=== PATIENT | male | born 1955 | race Hispanic/Latino ===

== ENCOUNTER 2017-04-30 15:26 | Inpatient (IN) | payer MEDICARE, OTHER ==
[2017-04-30] MEDS ORDERED: Sodium Chloride 0.9% 500 ML IV STA (15:56)
--- NOTE | 2017-04-30 16:15 | ED PDOC ---
Arrival/HPI - General Chief Complaint: Headache Time Seen by Provider: 04/30/17 15:31 Historian: Patient - History of Present Illness Narrative History of Present Illness (Text): 04/30/17 16:18 A 61 year old male, whose past medical history includes Diabetes, hypertension, reflex sympathetic dystrophy, major depression, chronic pain, chronic Opioid use and neck fusion, presents to the emergency department complaining of a headache and shortness of breath for the past 2 weeks. Patient also notes multiple falls and high blood pressure. Patient reports he saw Dr. Lagunas last week. Reports Dr. Pepe told patient to come to the emergency department. He states he has been taking ibuprofen. Patient notes a cough but denies abdominal pain, vomiting, chest pain, burning urination or any other complaints at this time. PMD: Dr. Pepe Neurologist: Dr. Lagunas Time/Duration: Other (2 weeks) Symptom Onset: Sudden Symptom Course: Unchanged Activities at Onset: Rest Context: Home Past Medical History - Provider Review Nursing Documentation Reviewed: Yes - Infectious Disease Hx of Infectious Diseases: None - Tetanus Immunization Tetanus Immunization: Unknown - Cardiac Hx Hypertension: Yes - Pulmonary Hx Respiratory Disorders: Yes Hx Pneumonia: Yes (20 years ago) - Neurological Other/Comment: RSD - HEENT Hx HEENT Disorder: No - Renal Hx Renal Disorder: No - Endocrine/Metabolic Hx Diabetes Mellitus Type 2: Yes - Hematological/Oncological Hx Blood Disorders: No - Integumentary Hx Dermatological Disorder: No - Musculoskeletal/Rheumatological Hx Degenerative Joint Disease: Yes Hx Falls: Yes Hx Unsteady Gait: Yes Other/Comment: RSD - Gastrointestinal Hx Gastrointestinal Disorders: No - Genitourinary/Gynecological Hx Genitourinary Disorders: No - Psychiatric Hx Psychophysiologic Disorder: Yes Hx Anxiety: Yes Hx Depression: Yes Hx Emotional Abuse: No Hx Physical Abuse: No Hx Substance Use: No - Surgical History Hx Orthopedic Surgery: Yes (neck, shoulder, left leg) - Anesthesia Hx Anesthesia Reactions: No Hx Malignant Hyperthermia: No - Suicidal Assessment Feels Threatened In Home Enviroment: No Family/Social History - Physician Review Nursing Documentation Reviewed: Yes Family/Social History: No Known Family HX Smoking Status: Current Some Days Smoker Hx Alcohol Use: No Hx Substance Use: No Hx Substance Use Treatment: No Allergies/Home Meds Allergies/Adverse Reactions: Allergies aspirin Allergy (Verified 10/28/16 17:56) REDNESS morphine Adverse Reaction (Verified 10/28/16 17:56) ITCHING Home Medications: Home Meds Medication Instructions Recorded Confirmed Acetaminophen/Oxycodone Hydr 1 tab PO PRN PRN 07/16/16 10/28/16 [Percocet 10/325 mg Tab] Duloxetine HCl [Cymbalta] 30 mg PO TID 07/16/16 10/28/16 Furosemide [Lasix] 40 mg PO DAILY 07/16/16 10/28/16 Ibuprofen [Motrin Tab] 800 mg PO PRN PRN 07/16/16 10/28/16 LORazepam [Ativan] 1 mg PO BID 07/16/16 10/28/16 Levetiracetam [Spritam] 1,000 mg PO BID 07/16/16 10/28/16 Metoprolol Tartrate [Lopressor] 25 mg PO BID 07/16/16 10/28/16 Pregabalin [Lyrica] 200 mg PO TID 07/16/16 10/28/16 Temazepam 30 mg PO HS 07/16/16 10/28/16 amLODIPine [Norvasc] 40 mg PO DAILY 07/16/16 10/28/16 tiZANidine [Zanaflex] 4 mg PO BID 07/16/16 10/28/16 Review of Systems - Physician Review All systems were reviewed & negative as marked: Yes - Review of Systems Constitutional: absent: Fevers Eyes: absent: Vision Changes ENT: Normal Respiratory: SOB, Cough (dry) Cardiovascular: absent: Chest Pain Gastrointestinal: absent: Abdominal Pain, Vomiting Genitourinary Male: absent: Other (burning urination) Neurological: Headache. absent: Focal Weakness (no new focal weakness) Physical Exam Vital Signs Reviewed: Yes Vital Signs Temp Pulse Resp BP Pulse Ox 04/30/17 17:32 87 18 131/79 97 04/30/17 16:32 97 H 18 134/85 100 04/30/17 15:36 99.2 F 84 20 138/88 100 Temperature: Afebrile Blood Pressure: Normal Pulse: Regular Respiratory Rate: Tachypneic Appearance: Positive for: Non-Toxic Pain Distress: None Mental Status: Positive for: Alert and Oriented X 3, other (anxious) - Systems Exam Head: Present: Atraumatic, Normocephalic Pupils: Present: PERRL Extroacular Muscles: Present: EOMI Conjunctiva: Present: Normal Mouth: Present: Moist Mucous Membranes Pharnyx: Present: Normal. No: ERYTHEMA, EXUDATE, Uvular Deviation Neck: Present: Normal Range of Motion Respiratory/Chest: Present: Clear to Auscultation, Good Air Exchange. No: Respiratory Distress, Accessory Muscle Use Cardiovascular: Present: Regular Rate and Rhythm, Normal S1, S2. No: Murmurs Abdomen: Present: Normal Bowel Sounds. No: Tenderness, Distention, Peritoneal Signs Back: Present: Normal Inspection Upper Extremity: Present: Normal Inspection. No: Cyanosis, Edema Lower Extremity: Present: Normal Inspection. No: Edema Neurological: Present: GCS=15, CN II-XII Intact, Speech Normal Skin: Present: Warm, Dry, Normal Color. No: Rashes Psychiatric: Present: Alert, Oriented x 3, Normal Concentration, Anxious Medical Decision Making ED Course and Treatment: 04/30/17 16:12 Impression: A 61 year old male with a headache, cough and shortness of breath. Differential: shortness of breath and cough: anxiety vs. bronchitis vs. pneumonia vs. pulmonary embolism vs. ACS headache: tension headache vs. mass Plan: -- CT brain -- EKG -- chest xray -- labs -- Urinalysis -- Toradol, IV fluids, Reglan, Klonopin -- Reassess and disposition Prior Visits: Notes and results from previous visits were reviewed. Patient last reported to the emergency department on 10/28/16 for evaluation of right hand pain and swelling after mechanical fall. Patient admitted for infection of hand. Patient discharged 11/01/16. Progress Notes: CT HEAD WITHOUT CONTRAST Creator : Jefry Benavides 04/30/2017 18:19 IMPRESSION: No evidence of acute intracranial hemorrhage. No evidence of significant interval change since the previous study dated 03/28/2016. 04/30/17 18:59 Patient with noted history; he has multiple risk factors for ACS and EKG with changes as noted. Given clonazepam for possible anxiety without relief. CXR is unremarkable. Labs with normal d-dimer but indeterminate trop - will need to place on observation on tele for concern for ACS. Case discussed with Dr. Hurley. - Lab Interpretations Lab Results: 04/30/17 16:00 04/30/17 16:00 Lab Results 04/30/17 16:00: Urine Color Yellow, Urine Appearance Clear, Urine pH 7.5, Ur Specific Ber[place] 1.010, Urine Protein Negative, Urine Glucose (UA) Negative, Urine Ketones Negative, Urine Blood Moderate H, Urine Nitrate Negative, Urine Bilirubin Negative, Urine Urobilinogen 0.2, Ur Leukocyte Esterase Negative, Urine RBC 2 - 5, Urine WBC 0 - 2, Ur Epithelial Cells 0 - 2, Urine Bacteria Mod 04/30/17 16:00: Sodium 141, Potassium 3.5 L, Chloride 103, Carbon Dioxide 22, Anion Gap 20, BUN 19, Creatinine 1.0, Est GFR ( Amer) > 60, Est GFR (Non- Af Amer) > 60, Random Glucose 127 H, Calcium 10.3, Total Bilirubin 1.4 H, AST 37 , ALT 38, Alkaline Phosphatase 88, Lactate Dehydrogenase 635, Total Creatine Kinase 316 H, CK-MB (CK-2) 4.2 H, CK-MB (CK-2) % Cancelled, Troponin I 0.06 D, NT-Pro-B Natriuret Pep 427, Total Protein 8.4 H, Albumin 4.7, Globulin 3.6, Albumin/Globulin Ratio 1.3, Lipase 53 04/30/17 16:00: PT 14.2 H, INR 1.31 H, APTT 32.7 H, D-Dimer, Quantitative 0.38 04/30/17 16:00: WBC 7.6, RBC 5.54, Hgb 16.8, Hct 47.1, MCV 85.0, MCH 30.3, MCHC 35.7, RDW 13.0, Plt Count 138, Gran % 57.5, Lymph % (Auto) 32.3, [place] % (Auto) 8.6 H, Eos % (Auto) 0.7 L, Baso % (Auto) 0.9, Gran # 4.37, Lymph # 2.5, [place] # 0.7 H, Eos # 0.1, Baso # 0.07 I have reviewed the lab results: Yes - RAD Interpretation Narrative RAD Interpretations (Text): 04/30/17 19:06 CXR: nad Radiology Orders: 04/30/17 15:52 CHEST TWO VIEWS (PA/LAT) [RAD] Stat 04/30/17 15:55 Brain [HEAD W/O CONTRAST] [CT] Stat - EKG Interpretation EKG Interpretation (Text): 04/30/17 19:06 NSR @ 84 with poor R wave progression c/w previous; QRS is 106; normal axis. Interpreted by ED Physician: Yes Type: 12 lead EKG - Medication Orders Current Medication Orders: Discontinued Medications Clonazepam (Klonopin) 1 mg PO STAT STA PRN Reason: Protocol Stop: 04/30/17 15:57 Last Admin: 04/30/17 16:27 Dose: 1 mg Sodium Chloride (Sodium Chloride 0.9%) 500 mls @ 999 mls/hr IV .Q31M STA Stop: 04/30/17 16:26 Last Admin: 04/30/17 16:28 Dose: 999 mls/hr Ketorolac Tromethamine (Toradol) 30 mg IVP STAT STA Stop: 04/30/17 15:57 Last Admin: 04/30/17 16:27 Dose: 30 mg Re-Assess: JESU Pain Assessment Document 04/30/17 17:27 HI (Rec: 04/30/17 17:30 HI [facility] [id number]) Pain Reassessment Is this a pain reassessment? Yes Sleep Is patient sleeping during reassessment? No Presence of Pain Presence of Pain No Metoclopramide HCl (Reglan) 10 mg IVP STAT STA Stop: 04/30/17 15:57 Last Admin: 04/30/17 16:28 Dose: 10 mg Potassium Chloride (Potassium Chloride Oral Soln) 40 meq PO STAT STA Stop: 04/30/17 17:08 Last Admin: 04/30/17 17:30 Dose: 40 meq - Scribe Statement The provider has reviewed the documentation as recorded by the Duc Elmore Provider Scribe Attestation: All medical record entries made by the Duc were at my direction and personally dictated by me. I have reviewed the chart and agree that the record accurately reflects my personal performance of the history, physical exam, medical decision making, and the department course for this patient. I have also personally directed, reviewed, and agree with the discharge instructions and disposition. Disposition/Present on Arrival - Present on Arrival Any Indicators Present on Arrival: No History of DVT/PE: No History of Uncontrolled Diabetes: No Urinary Catheter: No History of Decub. Ulcer: No History Surgical Site Infection Following: None - Disposition Have Diagnosis and Disposition been Completed?: Yes Diagnosis: Dyspnea Disposition: HOSPITALIZED Disposition Time: 18:50 Patient Plan: Observation, Telemetry Condition: FAIR Referrals: Morales Pepe MD [Primary Care Provider] - Follow up with primary
[2017-04-30 16:37] LABS: ADD MANUAL DIFF? NO
[2017-04-30 16:50] LABS: ALB/GLOB RATIO 1.3 (1.1-1.8); ALKALINE PHOSPHATASE 88 U/L (38-133); ALT/SGPT 38 U/L (7-56); AST/SGOT 37 U/L (15-59); BILIRUBIN,TOTAL 1.4 mg/dL (0.2-1.3); BLOOD UREA NITROGEN 19 mg/dL (7-21); CALCIUM 10.3 mg/dL (8.4-10.5); CARBON DIOXIDE 22 mmol/L (21-33); CHLORIDE 103 mmol/L (98-107); GFR AFRICAN-AMERICAN > 60; GLUCOSE,RANDOM 127 mg/dL (70-110); LIPASE 53 U/L (23-300); POTASSIUM 3.5 mmol/L (3.6-5.0); SODIUM 141 mmol/L (132-148); TOTAL PROTEIN 8.4 g/dL (5.8-8.3)
[2017-04-30 16:54] LABS: BASO # 0.07 K/mm3 (0.0-2.0); BASO % 0.9 % (0.0-3.0); EOS # 0.1 (0.0-0.7); EOS % 0.7 % (1.5-5.0); GRAN # 4.37 (1.4-6.5); GRAN % 57.5 % (50.0-68.0); HEMATOCRIT 47.1 % (42.0-52.0); LYMPH # 2.5 (1.2-3.4); LYMPH % 32.3 % (22.0-35.0); MEAN CORPUSCULAR HEMOGLOBIN 30.3 pg (25.0-35.0); MEAN CORPUSCULAR HGB CONC 35.7 g/dl (31.0-37.0); MONO # 0.7 (0.1-0.6); MONO % 8.6 % (1.0-6.0); PH,URINE 7.5 (4.7-8.0); PLATELET COUNT 138 10^3/uL (120.0-450.0); URINE BILIRUBIN NEGATIVE (NEGATIVE); URINE BLOOD MODERATE (NEGATIVE); URINE GLUCOSE (UA) NEGATIVE (NEGATIVE); URINE KETONE NEGATIVE (NEGATIVE); URINE LEUKOCYTE ESTERASE NEGATIVE Leu/uL (NEGATIVE); URINE PROTEIN NEGATIVE mg/dL (<30 mg/dL); URINE UROBILINOGEN 0.2 E.U./dL (<1 E.U./dL); WHITE BLOOD COUNT 7.6 10^3/ul (4.5-11.0)
[2017-04-30 16:57] LABS: URINE APPEARANCE CLEAR (CLEAR); URINE COLOR YELLOW (YELLOW)
[2017-04-30 17:01] LABS: TROPONIN I 0.06 ng/mL
[2017-04-30 17:03] LABS: INR 1.31 (0.93-1.08); PARTIAL THROMBOPLASTIN TIME 32.7 Seconds (23.7-30.8)
[2017-04-30 17:05] LABS: D DIMER 0.38 mg/L FEU (0-0.50)
[2017-04-30] MEDS ORDERED: Potassium Chloride 40 mEq/30 ml LIQ UD PO STA (17:07)
[2017-04-30 17:43] LABS: URINE EPITHELIAL CELLS 0 - 2 /hpf (0-5); URINE WBC 0 - 2 /hpf (0-6)
[2017-04-30 17:44] LABS: URINE BACTERIA MOD (NEG)
--- NOTE | 2017-04-30 18:16 | CT ---
PROCEDURE: CT HEAD WITHOUT CONTRAST. HISTORY: headache COMPARISON: Comparison is made to the previous study dated 03/28/2016 TECHNIQUE: Axial computed tomography images were obtained through the head/brain without intravenous contrast. Radiation dose: Total exam DLP = 363.32 mGy-cm. This CT exam was performed using one or more of the following dose reduction techniques: Automated exposure control, adjustment of the mA and/or kV according to patient size, and/or use of iterative reconstruction technique. FINDINGS: HEMORRHAGE: No intracranial hemorrhage. BRAIN: No mass effect or edema. Mild fatty is again noted. VENTRICLES: Unremarkable. No hydrocephalus. CALVARIUM: Unremarkable. PARANASAL SINUSES: Unremarkable as visualized. No significant inflammatory changes. MASTOID AIR CELLS: Unremarkable as visualized. No inflammatory changes. OTHER FINDINGS: None. IMPRESSION: No evidence of acute intracranial hemorrhage. No evidence of significant interval change since the previous study dated 03/28/2016.
[2017-04-30] MEDS ORDERED: Sodium Chloride 0.9% 1,000 ML IV SCH (19:45)
--- NOTE | 2017-04-30 19:51 | CP.PCM.HP ---
<Davon Sanchez - Last Filed: 04/30/17 21:07> History of Present Illness - History of Present Illness History of Present Illness: CC: SOB This patient is a 61yo M w/ a PMHx of DMII not on meds, HTN, reflex sympathetic dystrophy, major depression, chronic pain, chronic Opoid use and neck fusion states he has been having SOB for the past 2.5 weeks. He states he went to his doctor today who told him to come into the hospital. He denies any fever/chills , or sputum production, ROSS, CP, abdominal joni, N/V/D, dysuria/freq/urg, or lower extremity swelling. Patient has chronic lower leg pain and spontaneous arm and leg movements due to his reflex sympathetic dystrophy. States he has not traveled recently and is normally stuck in the house by himself most of the time. Admits to feeling depressed, no thoughts of hurting himself or others and no plan to hurt himself and states explicitly that he feels better off alive. denies AV hallucinations, but states he frequently talks to himself because he is extremely lonely. PMhx: DMII not on meds, HTN, reflex sympathetic dystrophy, major depression, chronic pain, chronic Opoid use and neck fusion Allergies: Aspirin, Morphine, although taking oxy??? Social: Lives at home with son/ who visits infrequently; denies EtOH/Drugs/ smoking Surgeries: mutiple orthopedic fusions, no abdominal surgeries Meds: please refer to [facility] FamHx: grandfather with lung cancer heavy smoker, uncle with lung cancer as well and a smoker Present on Admission - Present on Admission Any Indicators Present on Admission: No History of DVT/PE: No History of Uncontrolled Diabetes: Yes Urinary Catheter: No Decubitus Ulcer Present: No Past Patient History - Infectious Disease Hx of Infectious Diseases: None - Tetanus Immunizations Tetanus Immunization: Unknown - Past Social History Smoking Status: Current Some Days Smoker - CARDIAC Hx Hypertension: Yes - PULMONARY Hx Respiratory Disorders: Yes Hx Pneumonia: Yes (20 years ago) - NEUROLOGICAL Other/Comment: RSD - HEENT Hx HEENT Problems: No - RENAL Hx Chronic Kidney Disease: No - ENDOCRINE/METABOLIC Hx Diabetes Mellitus Type 2: Yes - HEMATOLOGICAL/ONCOLOGICAL Hx Blood Disorders: No - INTEGUMENTARY Hx Dermatological Problems: No - MUSCULOSKELETAL/RHEUMATOLOGICAL Hx Degenerative Joint Disease: Yes Hx Falls: Yes Hx Unsteady Gait: Yes Other/Comment: RSD - GASTROINTESTINAL Hx Gastrointestinal Disorders: No - GENITOURINARY/GYNECOLOGICAL Hx Genitourinary Disorders: No - PSYCHIATRIC Hx Psychophysiologic Disorder: Yes Hx Anxiety: Yes Hx Depression: Yes Hx Emotional Abuse: No Hx Physical Abuse: No Hx Substance Use: No - SURGICAL HISTORY Hx Orthopedic Surgery: Yes (neck, shoulder, left leg) - ANESTHESIA Hx Anesthesia Reactions: No Hx Malignant Hyperthermia: No Meds Allergies/Adverse Reactions: Allergies Allergy/AdvReac Type Severity Reaction Status Date / Time aspirin Allergy REDNESS Verified 10/28/16 17:56 morphine AdvReac ITCHING Verified 10/28/16 17:56 Physical Exam - Constitutional Appears: Non-toxic Additional comments: uncomfortable in bed, twitching arms and legs through whole exam, wheezing - Head Exam Head Exam: ATRAUMATIC - Eye Exam Eye Exam: EOMI Pupil Exam: PERRL - ENT Exam ENT Exam: Mucous Membranes Moist - Neck Exam Neck exam: Positive for: Full Rom. Negative for: Lymphadenopathy - Respiratory Exam Respiratory Exam: Wheezes. absent: Clear to Auscultation Bilateral, Rales, Rhonchi - Cardiovascular Exam Cardiovascular Exam: REGULAR RHYTHM, +S1, +S2 - GI/Abdominal Exam GI & Abdominal Exam: Normal Bowel Sounds, Soft. absent: Organomegaly, Pulsatile Mass, Rebound, Tenderness - Extremities Exam Extremities exam: Positive for: full ROM. Negative for: calf tenderness, pedal edema - Back Exam Back exam: NORMAL INSPECTION. absent: CVA tenderness (L), CVA tenderness (R) - Neurological Exam Neurological exam: Alert, CN II-XII Intact Additional comments: trouble walking at home, multiuple falls, should be using walker but refuses - Psychiatric Exam Psychiatric exam: Normal Affect - Skin Skin Exam: Normal Color Results - Vital Signs Recent Vital Signs: Last Vital Signs Temp 99.2 F 04/30/17 15:36 Pulse 79 04/30/17 19:05 Resp 18 04/30/17 19:05 BP 128/75 04/30/17 19:05 Pulse Ox 97 04/30/17 19:05 - Labs Result Diagrams: 04/30/17 16:00 04/30/17 16:00 Assessment & Plan - Assessment and Plan (Free Text) Assessment: 61yo M admitted for SOB SOB w/ R/o ACS -D Dimer negative -Will trend troponins: patient states he is allergic to aspirin, will give statin high dose has risk factors; LDL was below 100 last year -telemetry, EKG in the morning -patient states he is SOB; O2 sats are good; wheezing; will give albuterol treatments PRN -f/u hepatitis panel DMII chronic not on meds -RISS -fu HBA1C HTN -c/w home meds reflex sympathetic dystrophy -c/w home meds major depression; chronic -c/w home meds -patient not actively suicidal and no plans to hurt self or others; no psychotic symptoms chronic pain -c/w home meds Proph Pepcid Heart Healthy Diet Lovenox 40mg SC Case Discussed with Dr. Mei Sanchez PGY1 Night Float Decision To Admit - Pt Status Changed To: Hospital Disposition Of: Observation - . Bed Request Type: Telemetry Admitting Physician: Arslan Hurley <Arslan Hurley - Last Filed: 05/03/17 04:20> Results - Vital Signs Recent Vital Signs: Last Vital Signs Temp 97.8 F 05/03/17 00:01 Pulse 85 05/03/17 02:00 Resp 18 05/03/17 00:01 BP 112/72 05/03/17 00:01 Pulse Ox 97 05/03/17 00:01 - Labs Result Diagrams: 05/02/17 05:15 05/02/17 05:15 Labs: Laboratory Results - last 24 hr 05/02/17 05/02/17 05/02/17 05:15 05:15 07:10 WBC 14.0 H D RBC 5.84 Hgb 17.9 Hct 50.1 MCV 85.8 MCH 30.7 MCHC 35.7 RDW 13.5 Plt Count 158 MPV 13.0 H Neutrophils % (Manual) 88 H Band Neutrophils % 4 H Lymphocytes % (Manual) 6 L Monocytes % (Manual) 2 Platelet Evaluation Normal Sodium 138 Potassium 4.2 Chloride 105 Carbon Dioxide 21 Anion Gap 16 BUN 19 Creatinine 0.9 Est GFR ( Amer) > 60 Est GFR (Non-Af Amer) > 60 POC Glucose (mg/dL) 159 H Random Glucose 214 H Calcium 9.7 Phosphorus 4.5 Magnesium 2.0 Total Bilirubin 1.5 H AST 36 ALT 38 Alkaline Phosphatase 78 Total Protein 8.0 Albumin 4.5 Globulin 3.5 Albumin/Globulin Ratio 1.3 05/02/17 05/02/17 05/02/17 11:04 16:15 21:03 WBC RBC Hgb Hct MCV MCH MCHC RDW Plt Count MPV Neutrophils % (Manual) Band Neutrophils % Lymphocytes % (Manual) Monocytes % (Manual) Platelet Evaluation Sodium Potassium Chloride Carbon Dioxide Anion Gap BUN Creatinine Est GFR ( Amer) Est GFR (Non-Af Amer) POC Glucose (mg/dL) 206 H 263 H 161 H Random Glucose Calcium Phosphorus Magnesium Total Bilirubin AST ALT Alkaline Phosphatase Total Protein Albumin Globulin Albumin/Globulin Ratio Attending/Attestation - Attestation I have personally seen and examined this patient.: Yes I have fully participated in the care of the patient.: Yes I have reviewed all pertinent clinical information: Yes Notes (Text): 05/03/17 04:20 Agree with history , physical examination, assessment and plan.
[2017-04-30] MEDS: Oxycodone/Acetaminophen 10/325 mg Tab PO PRN (20:49)
[2017-04-30 20:54] LABS: URINE BILIRUBIN NEGATIVE (NEGATIVE); URINE BLOOD MODERATE (NEGATIVE); URINE GLUCOSE (UA) NEGATIVE (NEGATIVE); URINE KETONE NEGATIVE (NEGATIVE); URINE LEUKOCYTE ESTERASE NEGATIVE Leu/uL (NEGATIVE); URINE PROTEIN TRACE mg/dL (<30 mg/dL); URINE UROBILINOGEN 0.2 E.U./dL (<1 E.U./dL)
[2017-04-30 21:00] LABS: URINE APPEARANCE CLEAR (CLEAR); URINE COLOR YELLOW (YELLOW)
[2017-04-30 21:17] LABS: URINE BACTERIA MOD (NEG); URINE EPITHELIAL CELLS 0 - 2 /hpf (0-5); URINE WBC 0 - 2 /hpf (0-6)
[2017-04-30] MEDS: Albuterol 0.083% Inhal Sol (2.5 mg/3 mL) UD IH PRN (21:51)
[2017-04-30] MEDS: Insulin Lispro 1 UNITS/0.01 ML SC SCH (22:00)
[2017-04-30 22:19] LABS: TROPONIN I 0.07 ng/mL
[2017-04-30 22:44] VITALS: BMI 26.0
[2017-05-01] MEDS: TEMAZEPAM 30 MG PO SCH ×2 (00:05→21:34)
[2017-05-01 06:02] LABS: ADD MANUAL DIFF? NO
[2017-05-01 06:08] LABS: BASO # 0.09 K/mm3 (0.0-2.0); EOS # 0.1 (0.0-0.7); EOS % 1.2 % (1.5-5.0); GRAN # 5.79 (1.4-6.5); HEMATOCRIT 49.4 % (42.0-52.0); LYMPH # 2.3 (1.2-3.4); MEAN CELL VOLUME 83.6 fL (80.0-105.0); MEAN CORPUSCULAR HEMOGLOBIN 30.5 pg (25.0-35.0); MEAN CORPUSCULAR HGB CONC 36.4 g/dl (31.0-37.0); MONO # 0.9 (0.1-0.6); MONO % 9.8 % (1.0-6.0); PLATELET COUNT 159 10^3/uL (120.0-450.0); RED CELL DISTRIBUTION WIDTH 13.1 % (11.5-14.5); WHITE BLOOD COUNT 9.2 10^3/ul (4.5-11.0)
[2017-05-01 06:19] LABS: ALB/GLOB RATIO 1.2 (1.1-1.8); ALKALINE PHOSPHATASE 87 U/L (38-133); ALT/SGPT 36 U/L (7-56); AST/SGOT 34 U/L (15-59); BILIRUBIN,TOTAL 2.2 mg/dL (0.2-1.3); BLOOD UREA NITROGEN 14 mg/dL (7-21); CALCIUM 9.7 mg/dL (8.4-10.5); CARBON DIOXIDE 17 mmol/L (21-33); CHLORIDE 110 mmol/L (98-107); CHOLESTEROL 197 mg/dL (130-200); GFR AFRICAN-AMERICAN > 60; GLUCOSE,RANDOM 139 mg/dL (70-110); POTASSIUM 3.2 mmol/L (3.6-5.0); SODIUM 142 mmol/L (132-148); TOTAL PROTEIN 8.2 g/dL (5.8-8.3)
[2017-05-01] MEDS ORDERED: Potassium Chloride 20 mEq ER Tab PO ONE ×2 (07:36→11:49)
--- NOTE | 2017-05-01 08:24 | RAD ---
HISTORY: Cough and shortness of breath COMPARISON: 10/28/2016 TECHNIQUE: Chest PA and lateral FINDINGS: LUNGS: The lungs are well inflated and clear. PLEURA: No significant pleural effusion identified. No pneumothorax apparent. CARDIOVASCULAR: Normal. OSSEOUS STRUCTURES: No significant abnormalities. VISUALIZED UPPER ABDOMEN: Normal. OTHER FINDINGS: None. IMPRESSION: No active pulmonary disease.
[2017-05-01] MEDS: Insulin Lispro 1 UNITS/0.01 ML SC SCH ×4 (08:30→22:00)
[2017-05-01] MEDS: Pantoprazole 40 mg EC Tab PO SCH (08:30)
[2017-05-01 09:36] LABS: INR 1.34 (0.93-1.08)
[2017-05-01 10:11] LABS: TROPONIN I 0.12 ng/mL
[2017-05-01] MEDS: Albuterol 0.083% Inhal Sol (2.5 mg/3 mL) UD IH PRN (11:29)
[2017-05-01 11:45] LABS: ARTERIAL BLOOD GAS O2 CAPACITY 24.8 mL/dl (16-24); ARTERIAL BLOOD GAS O2 CONTENT 24.5 ML/dl (15-23); ARTERIAL BLOOD GAS PH 7.53 (7.35-7.45); ARTERIAL BLOOD HGB O2 SAT 96.8 % (95.0-98.0); HHB 1.4 % (0-5); METHEMOGLOBIN 0.8 % (0.0-3.0)
[2017-05-01] MEDS: Enoxaparin 40 mg Syringe SC SCH (12:30)
[2017-05-01] MEDS ORDERED: Iohexol 350 MG/100 ML VIAL ONE (12:36)
[2017-05-01] MEDS ORDERED: Enoxaparin 100 mg Syringe SC STA ×2 (12:42→12:43)
--- NOTE | 2017-05-01 12:45 | CP.PCM.PN ---
<Saul Pryor - Last Filed: 05/01/17 12:45> Subjective - Date & Time of Evaluation Date of Evaluation: 05/01/17 Time of Evaluation: 12:40 - Subjective Subjective: Medicine progress note. Attending: Dr. Camejo Pt seen and examined at bedside. Pt in shortness of breath, no fevers, chills, vomiting, diarrhea. Will get stat ct angio and venous dopplers. Objective - Vital Signs/Intake and Output Vital Signs (last 24 hours): Temp Pulse Resp BP Pulse Ox 98.6 F 87 20 164/102 H 97 05/01/17 06:00 05/01/17 06:00 05/01/17 06:00 05/01/17 12:31 05/01/17 06:00 Intake and Output: 05/01/17 05/01/17 06:59 18:59 Intake Total 600 Output Total 1600 Balance -1000 - Medications Medications: Current Medications Acetaminophen (Tylenol 325mg Tab) 650 mg PO Q6H PRN PRN Reason: Fever >100.4 F Albuterol Sulfate (Albuterol 0.083% Inhal Katarina (2.5 Mg/3 Ml) Ud) 2.5 mg IH Q2H PRN PRN Reason: Shortness of Breath Last Admin: 05/01/17 11:29 Dose: 2.5 mg Amlodipine Besylate (Norvasc) 10 mg PO DAILY [facility] Last Admin: 05/01/17 12:30 Dose: 10 mg Atorvastatin Calcium (Lipitor) 80 mg PO DIN [facility] Last Admin: 04/30/17 20:49 Dose: 80 mg Clopidogrel Bisulfate (Plavix) 75 mg PO DAILY [facility] Last Admin: 05/01/17 12:30 Dose: 75 mg Duloxetine HCl (Cymbalta) 30 mg PO TID [facility] Last Admin: 05/01/17 12:29 Dose: 30 mg Enoxaparin Sodium (Lovenox) 40 mg SC DAILY [facility] PRN Reason: Protocol Last Admin: 05/01/17 12:30 Dose: 40 mg Furosemide (Lasix) 40 mg IVP DAILY [facility] Last Admin: 05/01/17 12:31 Dose: 40 mg Hydralazine HCl (Apresoline) 10 mg IVP Q6H PRN PRN Reason: high BP Last Admin: 05/01/17 05:25 Dose: 10 mg Ibuprofen (Motrin Tab) 600 mg PO Q6H PRN PRN Reason: Pain, Mild (1-3) Last Admin: 05/01/17 00:04 Dose: 600 mg Insulin Human Lispro (Humalog) 0 units SC ACHS [facility] PRN Reason: Protocol Last Admin: 05/01/17 08:30 Dose: Not Given Levetiracetam (Keppra) 1,000 mg PO BID [facility] Last Admin: 05/01/17 12:29 Dose: 1,000 mg Lorazepam (Ativan) 1 mg PO BID [facility] PRN Reason: Protocol Last Admin: 05/01/17 12:29 Dose: 1 mg Losartan Potassium (Cozaar) 25 mg PO DAILY [facility] Last Admin: 05/01/17 12:29 Dose: 25 mg Metoprolol Tartrate (Lopressor) 50 mg PO BID [facility] Non-Formulary Medication (Temazepam [Temazepam]) 30 mg PO HS [facility] Last Admin: 05/01/17 00:05 Dose: 30 mg Oxycodone/Acetaminophen (Percocet 10/325 Mg Tab) 1 tab PO Q6H PRN PRN Reason: Pain, moderate (4-7) Last Admin: 04/30/17 20:49 Dose: 1 tab Pantoprazole Sodium (Protonix Ec Tab) 40 mg PO ACB [facility] Last Admin: 05/01/17 08:30 Dose: 40 mg Pregabalin (Lyrica) 200 mg PO Q8 [facility] Last Admin: 05/01/17 05:26 Dose: 200 mg Tizanidine HCl (Zanaflex) 4 mg PO BID [facility] Last Admin: 05/01/17 12:29 Dose: 4 mg - Labs Labs: 05/01/17 05:15 05/01/17 05:15 PT 14.5 Seconds (9.9-11.8) H 05/01/17 08:45 INR 1.34 (0.93-1.08) H 05/01/17 08:45 APTT 32.7 Seconds (23.7-30.8) H 04/30/17 16:00 - Constitutional Appears: Non-toxic, Older Than Stated Age - Head Exam Head Exam: ATRAUMATIC, NORMAL INSPECTION, NORMOCEPHALIC - Eye Exam Eye Exam: EOMI - ENT Exam ENT Exam: Mucous Membranes Moist - Neck Exam Neck Exam: Full ROM, Normal Inspection - Respiratory Exam Respiratory Exam: Decreased Breath Sounds - Cardiovascular Exam Cardiovascular Exam: +S1, +S2 - GI/Abdominal Exam GI & Abdominal Exam: Soft, Normal Bowel Sounds. absent: Tenderness - Extremities Exam Extremities Exam: Full ROM, Normal Inspection - Back Exam Back Exam: NORMAL INSPECTION - Neurological Exam Neurological Exam: Alert, Awake, Oriented x3 - Psychiatric Exam Psychiatric exam: Anxious - Skin Skin Exam: Dry, Intact, Normal Color, Warm Assessment and Plan - Assessment and Plan (Free Text) Assessment: This is a 61 yo male with past medical hx DM, HTN, reflex sympathetic dystrophy , depression, chronic pain presenting with shortness of breath x 2.5 weeks. 1. Shortness of breath -no clear reason why yet -D Dimer negative -ABG pending -stat ct angio -venous dopplers -plavix 75 daily -3rd trop .12 -telemetry -patient states he is SOB; O2 sats are good; wheezing; will give albuterol treatments PRN -f/u hepatitis panel 2. DMII -RISS -fu HBA1C 3. HTN -continue norvasc -continue hydralazine -continue lopressor 4. reflex sympathetic dystrophy -continue keppra -continue temazepam 5. major depression; chronic -continue duloxetine -patient not actively suicidal and no plans to hurt self or others; no psychotic symptoms 6. chronic pain -continue percocet and lyrica -ativan for anxiety 7. GI/DVT ppx Pepcid Heart Healthy Diet Lovenox 40mg SC discussed with Dr. Camejo <Florentino Camejo - Last Filed: 05/01/17 17:09> Objective - Vital Signs/Intake and Output Vital Signs (last 24 hours): Temp Pulse Resp BP Pulse Ox 98.6 F 87 18 164/102 H 97 05/01/17 12:00 05/01/17 12:00 05/01/17 12:00 05/01/17 12:31 05/01/17 06:00 - Medications Medications: Current Medications Acetaminophen (Tylenol 325mg Tab) 650 mg PO Q6H PRN PRN Reason: Fever >100.4 F Albuterol Sulfate (Albuterol 0.083% Inhal Katarina (2.5 Mg/3 Ml) Ud) 2.5 mg IH Q2H PRN PRN Reason: Shortness of Breath Last Admin: 05/01/17 11:29 Dose: 2.5 mg Amlodipine Besylate (Norvasc) 10 mg PO DAILY [facility] Last Admin: 05/01/17 12:30 Dose: 10 mg Atorvastatin Calcium (Lipitor) 80 mg PO DIN [facility] Last Admin: 04/30/17 20:49 Dose: 80 mg Clopidogrel Bisulfate (Plavix) 75 mg PO DAILY [facility] Last Admin: 05/01/17 12:30 Dose: 75 mg Duloxetine HCl (Cymbalta) 30 mg PO TID [facility] Last Admin: 05/01/17 14:54 Dose: 30 mg Enoxaparin Sodium (Lovenox) 40 mg SC DAILY [facility] PRN Reason: Protocol Last Admin: 05/01/17 12:30 Dose: 40 mg Furosemide (Lasix) 40 mg IVP DAILY [facility] Last Admin: 05/01/17 12:31 Dose: 40 mg Hydralazine HCl (Apresoline) 10 mg IVP Q6H PRN PRN Reason: high BP Last Admin: 05/01/17 05:25 Dose: 10 mg Sodium Chloride (Sodium Chloride 0.9%) 1,000 mls @ 75 mls/hr IV .[id number] [facility] Ibuprofen (Motrin Tab) 600 mg PO Q6H PRN PRN Reason: Pain, Mild (1-3) Last Admin: 05/01/17 00:04 Dose: 600 mg Insulin Human Lispro (Humalog) 0 units SC ACHS [facility] PRN Reason: Protocol Last Admin: 05/01/17 12:41 Dose: Not Given Levetiracetam (Keppra) 1,000 mg PO BID [facility] Last Admin: 05/01/17 12:29 Dose: 1,000 mg Lorazepam (Ativan) 1 mg PO Q4 [facility] PRN Reason: Protocol Losartan Potassium (Cozaar) 25 mg PO DAILY [facility] Last Admin: 05/01/17 12:29 Dose: 25 mg Metoprolol Tartrate (Lopressor) 50 mg PO BID [facility] Non-Formulary Medication (Temazepam [Temazepam]) 30 mg PO HS [facility] Last Admin: 05/01/17 00:05 Dose: 30 mg Oxycodone/Acetaminophen (Percocet 10/325 Mg Tab) 1 tab PO Q6H PRN PRN Reason: Pain, moderate (4-7) Last Admin: 04/30/17 20:49 Dose: 1 tab Pantoprazole Sodium (Protonix Ec Tab) 40 mg PO ACB [facility] Last Admin: 05/01/17 08:30 Dose: 40 mg Pregabalin (Lyrica) 200 mg PO Q8 [facility] Last Admin: 05/01/17 14:55 Dose: 200 mg Tizanidine HCl (Zanaflex) 4 mg PO BID [facility] Last Admin: 05/01/17 12:29 Dose: 4 mg - Labs Labs: PT 14.5 Seconds (9.9-11.8) H 05/01/17 08:45 INR 1.34 (0.93-1.08) H 05/01/17 08:45 APTT 32.7 Seconds (23.7-30.8) H 04/30/17 16:00 Attending/Attestation - Attestation I have personally seen and examined this patient.: Yes I have fully participated in the care of the patient.: Yes I have reviewed all pertinent clinical information, including history, physical exam and plan: Yes Notes (Text): 05/01/17 17:03 Attending note; Patient seen an examined with resident in room 261. This patient is a 61yo M w/ a PMHx of DMII not on meds, HTN, reflex sympathetic dystrophy, major depression, chronic pain, chronic Opioid use and neck fusion states he has been having SOB for the past 2 weeks. Patient is alert, awake. complaining of shortness of breath. looks anxious. ABG ordered. Showed significant respiratory alkalosis. IV Ativan given. CT angios and venous Doppler ordered ordered to r/o PE. 1 dose of lovenox given. Indeterminate troponin. echocardiogram ordered. Cardiology evaluation requested. Anxiety; continue IV Ativan. Psychiatric evaluation requested. History of RSD;continue Cymbalta, Lyrica, Zanaflex. Upon discharge the patient will PMD .
--- NOTE | 2017-05-01 13:42 | CT ---
PROCEDURE: CT Chest with contrast (Pulmonary Angiogram) HISTORY: r/o PE COMPARISON: None available. TECHNIQUE: Axial computed tomography images were obtained of the chest in the pulmonary arterial phase of enhancement. Coronal and sagittal reformatted images were created and reviewed. Intravenous contrast dose: 100 cc of Visipaque Radiation dose: Total exam DLP = 986 mGy-cm. This CT exam was performed using one or more of the following dose reduction techniques: Automated exposure control, adjustment of the mA and/or kV according to patient size, and/or use of iterative reconstruction technique. FINDINGS: PULMONARY ARTERIES: Unremarkable. No pulmonary embolism. AORTA: No acute findings. No thoracic aortic aneurysm. LUNGS: Unremarkable. No nodule, mass or pulmonary consolidation. PLEURAL SPACES: Unremarkable. No effusion or pneuomothorax. HEART: Unremarkable. No cardiomegaly. No significant pericardial effusion. Coronary artery calcifications LYMPH NODES: No lymphadenopathy. BONES, CHEST WALL: Unremarkable. No fracture or destructive lesion there is facet arthropathy in the thoracic spine left greater than right epidural leads are seen in the thoracic spinal canal OTHER FINDINGS: Unremarkable. IMPRESSION: Unremarkable CT pulmonary angiogram. No pulmonary embolus.
--- NOTE | 2017-05-01 15:41 | CON ---
DATE: 05/01/2017 REASON FOR CONSULTATION: Shortness of breath. HISTORY OF PRESENT ILLNESS: The patient is a 61-year-old male who has history of hypertension, diabe mynor mellitus, reflex sympathetic dystrophy of both lower extremities since spine and neck surgery per formed in 1990. The patient presents because of shortness of breath and productive cough. He denies any fever or chills. The patient is also experiencing multiple falls. The patient denies retroster nal chest pain and is unaware of any history of prior coronary intervention in the past. The patient underwent stress test in 03/2015 which was reported as limited study due to patient's motion, mild r eversible anterolateral and inferolateral defect probably due to patient's motion, normal wall motion . ejection fraction 75%. SOCIAL HISTORY: Former smoker. MEDICATIONS: Albuterol inhaler q. 2 hours p.r.n., hydralazine 10 mg intravenously q. 6 hours, Ativan 1 mg p.o. twice a day, Cymbalta 30 mg t.i.d., Keppra 1 gram twice a day, Lipitor 80 mg p.o. once a d ay, Lopressor 25 mg twice a day orally, Lovenox 40 mg subcutaneous once a day, Norvasc 10 mg once a d ay, Protonix 40 mg p.o. once a day, Zanaflex 4 mg p.o. twice a day. REVIEW OF SYSTEMS: The patient denies any suicidal ideations. He denies any nausea or vomiting. PHYSICAL EXAMINATION: GENERAL: The patient is a middle-aged male who does not appear to be in any distress. VITAL SIGNS: Blood pressure 164/102, heart rate 87, temperature 98.6, respirations 20. HEENT: Normocephalic. NECK: No JVD. CHEST: Diffuse bilateral rhonchi and minimal coarse crepitations. HEART: S1, S2 regular. Grade II/ early diastolic murmur over left sternal border. ABDOMEN: Soft. EXTREMITIES: Trace leg edema. LABORATORIES: Hemoglobin and hematocrit 18 and 49.4. White count and platelet count are within norm al limits. SMA-7: Sodium 142, potassium 3.2, chloride 110, CO2 17, glucose 139, BUN 14, creatinine 0.9. Troponins were 0.06 and 0.07 and 0.12. Lipase is within normal limit. D-dimer is within evette l limits. INR is 1.34, PTT 32.7. Urine drug screen is negative. EKG revealed sinus rhythm with poor R-wave progression. Chest x-ray revealed cardiomegaly with mild CHF. Head CT scan revealed no acute lesions. ASSESSMENT: 1. Congestive heart failure. 2. Rule out bilateral pneumonia. 3. Aortic insufficiency. 4. Reflex sympathetic dystrophy. 5. Hypokalemia. 6. Uncontrolled diabetes mellitus. 7. Uncontrolled hypertension. RECOMMENDATIONS: The patient has already received potassium replacement 20 mEq orally. Continue hyd ralazine 10 mg intravenously q. 6 hours p.r.n., Lipitor ____ mg once a day, Lopressor 25 mg twice a d ay, Lovenox 40 mg subcutaneously daily, Norvasc at 10 mg once a day, start Cozaar 25 mg once a day, L asix at 40 mg intravenously daily, K-Dur at 20 mEq orally daily. I will review the echocardiographic study. Stuart Fabian MD cc: [id number] TT: 05/01/2017 15:41:09 Confirmation # [id number] Dictation # [id number] mn
--- NOTE | 2017-05-01 15:46 | US ---
HISTORY: Leg pain and swelling. Evaluate for DVT PHYSICIAN(S): Logan Rodriguez MD. TECHNIQUE: Duplex sonography and color-flow Doppler with graded compression were used to evaluate the deep venous systems of both lower extremities. FINDINGS: The visualized deep venous systems of both lower extremities are sonographically normal and compressible. Normal wave forms and augmentation are seen. There is no sonographic evidence for deep venous thrombosis in the visualized segments of both lower extremities. IMPRESSION: No sonographic evidence for deep venous thrombosis in the visualized segments of both lower extremities.
--- NOTE | 2017-05-01 15:50 | US ---
PROCEDURE: Bilateral carotid artery duplex ultrasound HISTORY: Carotid stenosis syncope PHYSICIAN(S): Logan Rodriguez MD. TECHNIQUE: Duplex sonography and color-flow Doppler were used to evaluate the carotid bifurcations and limited segments of the vertebral arteries bilaterally. FINDINGS: There is mild focal smooth heterogeneous plaque noted at the carotid bifurcations bilaterally. The peak systolic velocity in the proximal right internal carotid artery is 57 cm/sec. This corresponds to a 20 to 39% proximal right ICA stenosis. Normal systolic velocities are noted in the proximal right external carotid artery. There is antegrade flow in the right vertebral artery. The peak systolic velocity in the proximal left internal carotid artery is 66 cm/sec. This corresponds to a 20 to 39% proximal left ICA stenosis. Normal systolic velocities are noted in the proximal left external carotid artery. There is antegrade flow in the left vertebral artery. IMPRESSION: 1. Bilateral 20-39% proximal ICA stenoses. 2. Antegrade flow in both vertebral arteries.
--- NOTE | 2017-05-01 16:11 | CARD ---
APPROVED REPORT EXAM: Two-dimensional and M-mode echocardiogram with Doppler and color Doppler. INDICATION Dyspnea Chest Pain 2D DIMENSIONS IVSd1.6 (0.7-1.1cm)LVDd5.0 (3.9-5.9cm) LVOT Diameter2.2 (1.8-2.4cm)PWd1.5 (0.7-1.1cm) LVDs3.5 (2.5-4.0cm)FS (%) 30.3 % LVEF (%)57.2 (>50%) M-Mode DIMENSIONS Aortic Root4.00 (2.2-3.7cm)Aortic Cusp Exc.0.90 (1.5-2.0cm) Aortic Valve AoV Peak Hiutymja195.0cm/sAoV VTI74.2cmAO Peak GR.65mmHg LVOT Peak Daqccfju476.0cm/sLVOT VTI22.70cmAO Mean GR.37mmHg ELSA (VMAX)1.40cr6TGL (VTI)1.13bp4WD P 1/2 Ktqs147vi Mitral Valve MV E Imyijfhp52.9cm/sMV A Onjduthi06.0cm/sE/A ratio0.6 TDI Lateral E' Peak V6.53cm/sMedial E' Peak V4.87cm/sE/Lateral E'7.3 E/Medial E'9.8 Pulmonary Valve PV Peak Zdkaylhf416.0cm/sPV Peak Grad.4mmHg Tricuspid Valve TR Peak Slvarsbf443rl/sRAP IPLAYXWQ32cdIyKA Peak Gr.27mmHg CTMM88seTn LEFT VENTRICLE The left ventricle is normal size. There is moderate concentric left ventricular hypertrophy. The left ventricular function is normal. The left ventricular ejection fraction is within the normal range. There is normal LV segmental wall motion. Transmitral Doppler flow pattern is Grade I-abnormal relaxation pattern. RIGHT VENTRICLE The right ventricle is normal size. There is normal right ventricular wall thickness. The right ventricular systolic function is normal. ATRIA The left atrium size is normal. The right atrium size is normal. AORTIC VALVE The aortic valve is mildly calcified. There is moderate aortic regurgitation. There is moderate valvular aortic stenosis. MITRAL VALVE The mitral valve is mildly thickened. TRICUSPID VALVE There is mild pulmonary hypertension. GREAT VESSELS The aortic root displays moderate sclerocalcific changes of the aortic root. PERICARDIAL EFFUSION There is a small circumferential pericardial effusion. <Conclusion> The left ventricle is normal size. There is moderate concentric left ventricular hypertrophy. The left ventricular function is normal. The left ventricular ejection fraction is within the normal range. There is normal LV segmental wall motion. Transmitral Doppler flow pattern is Grade I-abnormal relaxation pattern. The aortic valve is mildly calcified. There is moderate valvular aortic stenosis. There is moderate aortic regurgitation. There is mild pulmonary hypertension.
[2017-05-01] MEDS ORDERED: Albuterol-Ipratrop 3 mg / 0.5 (3 ml) UD IH PRN (17:06)
[2017-05-01] MEDS ORDERED: MethylPREDNISolone 40 mg Vial IVP STA (17:07)
--- NOTE | 2017-05-01 17:13 | CP.PCM.CON ---
History of Present Illness - History of Present Illness History of Present Illness: 61 y/[facility] and dry cough x 2 weeks. he was previously given Advair for no apparen treason and does not suffer from Asthma or COPD. He does complain of seasonal allergies and did have bronchitis in the past which required inhaled steroids. Currently seen resting in bed with b/l wheezing rr 20. Review of Systems - Constitutional Constitutional: Fatigue, Lethargy - EENT Eyes: As Per HPI Ears: As Per HPI Nose/Mouth/Throat: As Per HPI - Cardiovascular Cardiovascular: absent: As Per HPI, Acrocyanosis, Chest Pain, Chest Pain at Rest , Chest Pain with Activity, Claudication, Diaphoresis, Dyspnea, Dyspnea on Exertion, Edema, Irregular Heart Rhythm, Pain Radiating to Arm/Neck/Jaw, Leg Edema, Leg Ulcers, Lightheadedness, Orthopnea, Palpitations, Paroxysmal Nocturnal Dyspnea, Pedal Edema, Radiating Pain, Rapid Heart Rate, Slow Heart Rate, Syncope, Other - Respiratory Respiratory: Cough, Wheezing - Gastrointestinal Gastrointestinal: absent: As Per HPI, Abdominal Pain, Belching, Bloating, Change in Bowel Habits, Change in Stool Character, Coffee Ground Emesis, Constipation, Cramping, Diarrhea, Dyspepsia, Dysphagia, Early Satiety, Excessive Flatus, Fecal Incontinence, Heartburn, Hematemesis, Hematochezia, Loose Stools, Melena, Nausea, Odynophagia, Temesmus, Vomiting, Other - Genitourinary Genitourinary: absent: As Per HPI, Change in Urinary Stream, Difficulty Urinating, Dysuria, Flank Pain, Hematuria, Pyuria, Nocturia, Urinary Incontinence, Urinary Frequency, Urinary Hesitance, Urinary Urgency, Voiding Freq/Small Amts, Freq UTI, Hx Renal/Bladder Calculi, Hx /Renal Surgery, Bladder Distension, Other - Musculoskeletal Musculoskeletal: Abnormal Gait, Arthralgias, Back Pain, Joint Swelling, Muscle Cramps, Neck Pain Past Patient History - Infectious Disease Hx of Infectious Diseases: None - Tetanus Immunizations Tetanus Immunization: Unknown - Past Social History Smoking Status: occational - CARDIAC Hx Hypertension: Yes - PULMONARY Hx Respiratory Disorders: Yes Hx Pneumonia: Yes (20 years ago) - NEUROLOGICAL Other/Comment: RSD - HEENT Hx HEENT Problems: No - RENAL Hx Chronic Kidney Disease: No - ENDOCRINE/METABOLIC Hx Diabetes Mellitus Type 2: Yes - HEMATOLOGICAL/ONCOLOGICAL Hx Blood Disorders: No - INTEGUMENTARY Hx Dermatological Problems: No - MUSCULOSKELETAL/RHEUMATOLOGICAL Hx Falls: Yes - GASTROINTESTINAL Hx Gastrointestinal Disorders: No - GENITOURINARY/GYNECOLOGICAL Hx Genitourinary Disorders: No - PSYCHIATRIC Hx Psychophysiologic Disorder: Yes Hx Anxiety: Yes Hx Depression: Yes Hx Emotional Abuse: No Hx Physical Abuse: No Hx Substance Use: No - SURGICAL HISTORY Hx Orthopedic Surgery: Yes (neck, shoulder, left leg) - ANESTHESIA Hx Anesthesia Reactions: No Hx Malignant Hyperthermia: No Meds Allergies/Adverse Reactions: Allergies Allergy/AdvReac Type Severity Reaction Status Date / Time aspirin Allergy REDNESS Verified 10/28/16 17:56 morphine AdvReac ITCHING Verified 10/28/16 17:56 - Medications Medications: Current Medications Acetaminophen (Tylenol 325mg Tab) 650 mg PO Q6H PRN PRN Reason: Fever >100.4 F Albuterol Sulfate (Albuterol 0.083% Inhal Katarina (2.5 Mg/3 Ml) Ud) 2.5 mg IH Q2H PRN PRN Reason: Shortness of Breath Last Admin: 05/01/17 11:29 Dose: 2.5 mg Albuterol/Ipratropium (Duoneb 3 Mg/0.5 Mg (3 Ml) Ud) 3 ml IH [id number] [facility] Albuterol/Ipratropium (Duoneb 3 Mg/0.5 Mg (3 Ml) Ud) 3 ml IH Q2H PRN PRN Reason: Shortness of Breath Amlodipine Besylate (Norvasc) 10 mg PO DAILY [facility] Last Admin: 05/01/17 12:30 Dose: 10 mg Atorvastatin Calcium (Lipitor) 80 mg PO DIN [facility] Last Admin: 04/30/17 20:49 Dose: 80 mg Clopidogrel Bisulfate (Plavix) 75 mg PO DAILY [facility] Last Admin: 05/01/17 12:30 Dose: 75 mg Duloxetine HCl (Cymbalta) 30 mg PO TID [facility] Last Admin: 05/01/17 14:54 Dose: 30 mg Enoxaparin Sodium (Lovenox) 40 mg SC DAILY [facility] PRN Reason: Protocol Last Admin: 05/01/17 12:30 Dose: 40 mg Furosemide (Lasix) 40 mg IVP DAILY [facility] Last Admin: 05/01/17 12:31 Dose: 40 mg Hydralazine HCl (Apresoline) 10 mg IVP Q6H PRN PRN Reason: high BP Last Admin: 05/01/17 05:25 Dose: 10 mg Sodium Chloride (Sodium Chloride 0.9%) 1,000 mls @ 75 mls/hr IV .[id number] [facility] Ibuprofen (Motrin Tab) 600 mg PO Q6H PRN PRN Reason: Pain, Mild (1-3) Last Admin: 05/01/17 00:04 Dose: 600 mg Insulin Human Lispro (Humalog) 0 units SC ACHS [facility] PRN Reason: Protocol Last Admin: 05/01/17 12:41 Dose: Not Given Levetiracetam (Keppra) 1,000 mg PO BID [facility] Last Admin: 05/01/17 12:29 Dose: 1,000 mg Lorazepam (Ativan) 1 mg PO Q4 [facility] PRN Reason: Protocol Losartan Potassium (Cozaar) 25 mg PO DAILY [facility] Last Admin: 05/01/17 12:29 Dose: 25 mg Methylprednisolone (Solu-Medrol) 40 mg IVP STAT [facility] Stop: 05/01/17 17:08 Metoprolol Tartrate (Lopressor) 50 mg PO BID [facility] Non-Formulary Medication (Temazepam [Temazepam]) 30 mg PO HS [facility] Last Admin: 05/01/17 00:05 Dose: 30 mg Oxycodone/Acetaminophen (Percocet 10/325 Mg Tab) 1 tab PO Q6H PRN PRN Reason: Pain, moderate (4-7) Last Admin: 04/30/17 20:49 Dose: 1 tab Pantoprazole Sodium (Protonix Ec Tab) 40 mg PO ACB [facility] Last Admin: 05/01/17 08:30 Dose: 40 mg Pregabalin (Lyrica) 200 mg PO Q8 [facility] Last Admin: 05/01/17 14:55 Dose: 200 mg Tizanidine HCl (Zanaflex) 4 mg PO BID [facility] Last Admin: 05/01/17 12:29 Dose: 4 mg Physical Exam - Head Exam Head Exam: ATRAUMATIC, NORMAL INSPECTION, NORMOCEPHALIC - Eye Exam Eye Exam: EOMI, Normal appearance - ENT Exam ENT Exam: Mucous Membranes Moist, Normal Exam - Respiratory Exam Respiratory Exam: Wheezes, NORMAL BREATHING PATTERN - Cardiovascular Exam Cardiovascular Exam: REGULAR RHYTHM - GI/Abdominal Exam GI & Abdominal Exam: Normal Bowel Sounds - Rectal Exam Rectal Exam: Deferred - Extremities Exam Extremities exam: Positive for: normal inspection - Back Exam Back exam: NORMAL INSPECTION - Neurological Exam Neurological exam: Alert, Oriented x3 Results - Vital Signs Recent Vital Signs: Last Vital Signs Temp 98.6 F 05/01/17 12:00 Pulse 87 05/01/17 12:00 Resp 18 05/01/17 12:00 BP 164/102 H 05/01/17 12:31 Pulse Ox 97 05/01/17 06:00 - Labs Result Diagrams: 05/01/17 05:15 05/01/17 05:15 Labs: Laboratory Results - last 24 hr 05/01/17 16:11 POC Glucose (mg/dL) 173 H Assessment & Plan - Assessment and Plan (Free Text) Assessment: 61 y/o M w/ likely bronchitis from viral origin. 2 week history of SOb and dry to mild productive cough. No fevers, sick contacts etc. Non smoker, no asthma history No flu like symptoms but with his history of RSD its hard to determine his baseline of aches. No empiric abx yet unless wbc clibs and has fevers or productive sputum. CT chest reviewed w/o any significant findings. would increase Albuterol q3 hrs due to active wheezing and consider Solumedrol if wheezing persists. Would need outpatient PFT Thank you for the consult
[2017-05-01] MEDS: Sodium Chloride 0.9% 1,000 ML IV SCH (17:21)
[2017-05-01] MEDS: Albuterol-Ipratrop 3 mg / 0.5 (3 ml) UD IH SCH (19:10)
--- NOTE | 2017-05-01 22:45 | CARD ---
APPROVED REPORT EKG Measurement Heart [id number] <Conclusion> Normal sinus rhythm Possible Left atrial enlargement Cannot rule out Anterior infarct, age undetermined Abnormal ECG
--- NOTE | 2017-05-01 23:26 | CARD ---
APPROVED REPORT EKG Measurement Heart [id number] <Conclusion> Normal sinus rhythm Possible Left atrial enlargement Anterior infarct, age undetermined Abnormal ECG
[2017-05-02] MEDS ORDERED: guaiFENesin-Codeine 100-10mg/5ml Syrup (5 ml) UD PO PRN (00:21)
[2017-05-02] MEDS: Albuterol-Ipratrop 3 mg / 0.5 (3 ml) UD IH SCH ×4 (01:02→19:59)
[2017-05-02] MEDS: Sodium Chloride 0.9% 1,000 ML IV SCH ×2 (05:15→06:32)
[2017-05-02 05:51] LABS: HEMATOCRIT 50.1 % (42.0-52.0); MEAN CELL VOLUME 85.8 fL (80.0-105.0); MEAN CORPUSCULAR HEMOGLOBIN 30.7 pg (25.0-35.0); MEAN CORPUSCULAR HGB CONC 35.7 g/dl (31.0-37.0); PLATELET COUNT 158 10^3/uL (120.0-450.0); RED CELL DISTRIBUTION WIDTH 13.5 % (11.5-14.5)
[2017-05-02 05:54] LABS: ADD MANUAL DIFF? YES
[2017-05-02 05:58] LABS: ALB/GLOB RATIO 1.3 (1.1-1.8); ALKALINE PHOSPHATASE 78 U/L (38-133); ALT/SGPT 38 U/L (7-56); AST/SGOT 36 U/L (15-59); BILIRUBIN,TOTAL 1.5 mg/dL (0.2-1.3); BLOOD UREA NITROGEN 19 mg/dL (7-21); CALCIUM 9.7 mg/dL (8.4-10.5); CARBON DIOXIDE 21 mmol/L (21-33); CHLORIDE 105 mmol/L (98-107); GFR AFRICAN-AMERICAN > 60; GLUCOSE,RANDOM 214 mg/dL (70-110); PHOSPHOROUS 4.5 mg/dL (2.5-4.5); POTASSIUM 4.2 mmol/L (3.6-5.0); SODIUM 138 mmol/L (132-148)
[2017-05-02 06:21] LABS: BAND 4 % (0-2); NEUTROPHIL 88 % (50.0-70.0)
[2017-05-02 06:22] LABS: PLATELET ESTIMATE NORMAL (NORMAL)
--- NOTE | 2017-05-02 08:34 | CP.PCM.PN ---
<Saul Pryor - Last Filed: 05/02/17 08:34> Subjective - Date & Time of Evaluation Date of Evaluation: 05/02/17 Time of Evaluation: 08:30 - Subjective Subjective: Medicine progress note. Attending: Dr. Camejo Pt seen and examined at bedside. No acute distress. No events overnight. Pt still with sob, but no chest pain. No fevers, chills, vomiting, diarrhea. Objective - Vital Signs/Intake and Output Vital Signs (last 24 hours): Temp Pulse Resp BP Pulse Ox 98.6 F 94 H 20 138/80 97 05/02/17 06:00 05/02/17 06:00 05/02/17 06:00 05/02/17 06:00 05/02/17 06:00 Intake and Output: 05/02/17 05/02/17 06:59 18:59 Intake Total 1260 Output Total 775 Balance 485 - Medications Medications: Current Medications Acetaminophen (Tylenol 325mg Tab) 650 mg PO Q6H PRN PRN Reason: Fever >100.4 F Albuterol/Ipratropium (Duoneb 3 Mg/0.5 Mg (3 Ml) Ud) 3 ml IH [id number] [facility] Last Admin: 05/02/17 08:04 Dose: 3 ml Albuterol/Ipratropium (Duoneb 3 Mg/0.5 Mg (3 Ml) Ud) 3 ml IH Q2H PRN PRN Reason: Shortness of Breath Amlodipine Besylate (Norvasc) 10 mg PO DAILY [facility] Last Admin: 05/01/17 12:30 Dose: 10 mg Atorvastatin Calcium (Lipitor) 80 mg PO DIN [facility] Last Admin: 05/01/17 17:13 Dose: 80 mg Clopidogrel Bisulfate (Plavix) 75 mg PO DAILY [facility] Last Admin: 05/01/17 12:30 Dose: 75 mg Duloxetine HCl (Cymbalta) 30 mg PO TID [facility] Last Admin: 05/01/17 17:14 Dose: 30 mg Enoxaparin Sodium (Lovenox) 40 mg SC DAILY [facility] PRN Reason: Protocol Last Admin: 05/01/17 12:30 Dose: 40 mg Furosemide (Lasix) 40 mg IVP DAILY [facility] Last Admin: 05/01/17 12:31 Dose: 40 mg Guaifenesin/Codeine Phosphate (Robitussin W/Codeine) 5 ml PO Q4H PRN PRN Reason: Cough and congestion Last Admin: 05/02/17 00:32 Dose: 5 ml Hydralazine HCl (Apresoline) 10 mg IVP Q6H PRN PRN Reason: high BP Last Admin: 05/01/17 05:25 Dose: 10 mg Sodium Chloride (Sodium Chloride 0.9%) 1,000 mls @ 75 mls/hr IV .[id number] [facility] Last Admin: 05/02/17 06:32 Dose: 75 mls/hr Ibuprofen (Motrin Tab) 600 mg PO Q6H PRN PRN Reason: Pain, Mild (1-3) Last Admin: 05/01/17 19:51 Dose: 600 mg Insulin Human Lispro (Humalog) 0 units SC ACHS [facility] PRN Reason: Protocol Last Admin: 05/01/17 22:00 Dose: Not Given Levetiracetam (Keppra) 1,000 mg PO BID [facility] Last Admin: 05/01/17 17:13 Dose: 1,000 mg Lorazepam (Ativan) 1 mg PO Q4 [facility] PRN Reason: Protocol Last Admin: 05/02/17 04:13 Dose: Not Given Losartan Potassium (Cozaar) 25 mg PO DAILY [facility] Last Admin: 05/01/17 12:29 Dose: 25 mg Methylprednisolone (Solu-Medrol) 40 mg IVP Q12 [facility] Metoprolol Tartrate (Lopressor) 50 mg PO BID [facility] Last Admin: 05/01/17 17:13 Dose: 50 mg Non-Formulary Medication (Temazepam [Temazepam]) 30 mg PO HS [facility] Last Admin: 05/01/17 21:34 Dose: 30 mg Oxycodone/Acetaminophen (Percocet 10/325 Mg Tab) 1 tab PO Q6H PRN PRN Reason: Pain, moderate (4-7) Last Admin: 04/30/17 20:49 Dose: 1 tab Pantoprazole Sodium (Protonix Ec Tab) 40 mg PO ACB [facility] Last Admin: 05/01/17 08:30 Dose: 40 mg Pregabalin (Lyrica) 200 mg PO Q8 [facility] Last Admin: 05/02/17 06:28 Dose: Not Given Tizanidine HCl (Zanaflex) 4 mg PO BID [facility] Last Admin: 05/01/17 17:13 Dose: 4 mg - Labs Labs: 05/02/17 05:15 05/02/17 05:15 PT 14.5 Seconds (9.9-11.8) H 05/01/17 08:45 INR 1.34 (0.93-1.08) H 05/01/17 08:45 APTT 32.7 Seconds (23.7-30.8) H 04/30/17 16:00 - Constitutional Appears: Non-toxic, No Acute Distress, Older Than Stated Age - Head Exam Head Exam: ATRAUMATIC, NORMAL INSPECTION, NORMOCEPHALIC - Eye Exam Eye Exam: EOMI - ENT Exam ENT Exam: Mucous Membranes Moist - Respiratory Exam Respiratory Exam: Decreased Breath Sounds. absent: Respiratory Distress - Cardiovascular Exam Cardiovascular Exam: +S1, +S2 - GI/Abdominal Exam GI & Abdominal Exam: Soft, Normal Bowel Sounds. absent: Tenderness - Extremities Exam Extremities Exam: Full ROM, Normal Inspection - Neurological Exam Neurological Exam: Alert, Awake, Oriented x3 - Psychiatric Exam Psychiatric exam: Flat Affect - Skin Skin Exam: Dry, Intact, Normal Color, Warm Assessment and Plan - Assessment and Plan (Free Text) Assessment: This is a 61 yo male with past medical hx DM, HTN, reflex sympathetic dystrophy , depression, chronic pain presenting with shortness of breath x 2.5 weeks. 1. Shortness of breath -likely secondary to bronchitis -D Dimer negative -stat ct angio negative for PE -venous dopplers negative -plavix 75 daily -3rd trop .12 -telemetry -patient states he is SOB; O2 sats are good; wheezing; will give albuterol treatments PRN -will add solumedrol q 12 -carotid dopplers B/L 20-39 percent proximal ica stenoses -f/u hepatitis panel -cardio consult. recs appreciated -Dr. [place] Alicia consulted. recs appreciated. 2. DMII -RISS -fu HBA1C 3. HTN -continue norvasc -continue hydralazine -continue lopressor 4. reflex sympathetic dystrophy -continue keppra -continue temazepam 5. major depression; chronic -continue duloxetine -patient not actively suicidal and no plans to hurt self or others; no psychotic symptoms 6. chronic pain -continue percocet and lyrica -ativan for anxiety 7. GI/DVT ppx Pepcid Heart Healthy Diet Lovenox 40mg SC discussed with Dr. Camejo <Florentino Camejo - Last Filed: 05/02/17 16:28> Objective - Vital Signs/Intake and Output Vital Signs (last 24 hours): Temp Pulse Resp BP Pulse Ox 97.9 F 96 H 20 125/80 97 05/02/17 11:50 05/02/17 14:00 05/02/17 11:50 05/02/17 11:50 05/02/17 06:00 Intake and Output: 05/02/17 05/02/17 06:59 18:59 Intake Total 1260 1380 Output Total 775 2585 Balance 485 -1205 - Medications Medications: Current Medications Acetaminophen (Tylenol 325mg Tab) 650 mg PO Q6H PRN PRN Reason: Fever >100.4 F Albuterol/Ipratropium (Duoneb 3 Mg/0.5 Mg (3 Ml) Ud) 3 ml IH [id number] [facility] Last Admin: 05/02/17 13:28 Dose: 3 ml Albuterol/Ipratropium (Duoneb 3 Mg/0.5 Mg (3 Ml) Ud) 3 ml IH Q2H PRN PRN Reason: Shortness of Breath Amlodipine Besylate (Norvasc) 10 mg PO DAILY [facility] Last Admin: 05/02/17 09:17 Dose: 10 mg Atorvastatin Calcium (Lipitor) 80 mg PO DIN [facility] Last Admin: 05/01/17 17:13 Dose: 80 mg Clopidogrel Bisulfate (Plavix) 75 mg PO DAILY [facility] Last Admin: 05/02/17 09:16 Dose: 75 mg Duloxetine HCl (Cymbalta) 30 mg PO TID [facility] Last Admin: 05/02/17 14:29 Dose: 30 mg Enoxaparin Sodium (Lovenox) 40 mg SC DAILY [facility] PRN Reason: Protocol Last Admin: 05/02/17 09:14 Dose: 40 mg Furosemide (Lasix) 40 mg IVP DAILY [facility] Last Admin: 05/02/17 09:15 Dose: 40 mg Guaifenesin/Codeine Phosphate (Robitussin W/Codeine) 5 ml PO Q4H PRN PRN Reason: Cough and congestion Last Admin: 05/02/17 00:32 Dose: 5 ml Hydralazine HCl (Apresoline) 10 mg IVP Q6H PRN PRN Reason: high BP Last Admin: 05/01/17 05:25 Dose: 10 mg Ibuprofen (Motrin Tab) 600 mg PO Q6H PRN PRN Reason: Pain, Mild (1-3) Last Admin: 05/01/17 19:51 Dose: 600 mg Insulin Human Lispro (Humalog) 0 units SC ACHS [facility] PRN Reason: Protocol Last Admin: 05/02/17 13:04 Dose: 2 units Levetiracetam (Keppra) 1,000 mg PO BID [facility] Last Admin: 05/02/17 09:16 Dose: 1,000 mg Lorazepam (Ativan) 1 mg PO Q4 PRN; Protocol PRN Reason: Anxiety Losartan Potassium (Cozaar) 25 mg PO DAILY [facility] Last Admin: 05/02/17 09:17 Dose: 25 mg Methylprednisolone (Solu-Medrol) 40 mg IVP Q12 [facility] Last Admin: 05/02/17 09:22 Dose: 40 mg Metoprolol Tartrate (Lopressor) 50 mg PO BID [facility] Last Admin: 05/02/17 09:16 Dose: 50 mg Non-Formulary Medication (Temazepam [Temazepam]) 30 mg PO HS [facility] Last Admin: 05/01/17 21:34 Dose: 30 mg Oxycodone/Acetaminophen (Percocet 10/325 Mg Tab) 1 tab PO Q6H PRN PRN Reason: Pain, moderate (4-7) Last Admin: 04/30/17 20:49 Dose: 1 tab Pantoprazole Sodium (Protonix Ec Tab) 40 mg PO ACB [facility] Last Admin: 05/02/17 08:44 Dose: 40 mg Pregabalin (Lyrica) 200 mg PO Q8 [facility] Last Admin: 05/02/17 14:29 Dose: 200 mg Tizanidine HCl (Zanaflex) 4 mg PO BID [facility] Last Admin: 05/02/17 09:16 Dose: 4 mg Zaleplon (Sonata) 5 mg PO HS PRN PRN Reason: Insomnia - Labs Labs: 05/02/17 05:15 05/02/17 05:15 PT 14.5 Seconds (9.9-11.8) H 05/01/17 08:45 INR 1.34 (0.93-1.08) H 05/01/17 08:45 APTT 32.7 Seconds (23.7-30.8) H 04/30/17 16:00 Attending/Attestation - Attestation I have personally seen and examined this patient.: Yes I have fully participated in the care of the patient.: Yes I have reviewed all pertinent clinical information, including history, physical exam and plan: Yes Notes (Text): 05/02/17 16:26 Attending note; Patient seen an examined with resident in room 261. This patient is a 61yo M w/ a PMHx of DMII not on meds, HTN, reflex sympathetic dystrophy, major depression, chronic pain, chronic Opioid use and neck fusion states he has been having SOB for the past 2 weeks. shortness of breath improved Significantly. Patient is alert, awake. CT angios is negative for PE. venous Doppler is negative for DVT. Indeterminate troponin. echocardiogram with normal LV function. Cardiology evaluation appreciated. Anxiety; continue IV Ativan. Psychiatric evaluation requested. History of RSD;continue Cymbalta, Lyrica, Zanaflex. neurology evaluation with Dr. Garcia appreciated. PT evaluation requested. Monitor respiratory status. Upon discharge the patient will PMD .
[2017-05-02] MEDS: Insulin Lispro 1 UNITS/0.01 ML SC SCH ×4 (08:43→22:01)
[2017-05-02] MEDS: Pantoprazole 40 mg EC Tab PO SCH (08:44)
[2017-05-02] MEDS: Enoxaparin 40 mg Syringe SC SCH (09:14)
[2017-05-02] MEDS: MethylPREDNISolone 40 mg Vial IVP SCH ×2 (09:22→21:49)
--- NOTE | 2017-05-02 09:48 | PN ---
DATE: 05/02/2017 SUBJECTIVE: The patient's shortness of breath has improved as well as his anxiety. PHYSICAL EXAMINATION: VITAL SIGNS: Blood pressure 138/80, heart rate 94, temperature 98.6, respirations 20. HEENT: Normocephalic. CHEST: Bilateral rhonchi. HEART: S1, S2 regular. Grade III/ ejection systolic murmur over left sternal border. ABDOMEN: Soft. EXTREMITIES: Trace leg edema. LABORATORIES: Hemoglobin and hematocrit 17.9 and 50.1, white count and platelet count are 14 and 158 ,000. Today's SMA-7 is within normal limits except for glucose 214. Magnesium is within normal limi ts at 2.0. Echocardiographic study report revealed normal left ventricular size, systolic function a nd segmental wall motion. Mildly calcific aortic root, moderate valvular aortic stenosis and moderat e aortic insufficiency with mild pulmonary hypertension. EKG revealed sinus rhythm, left atrial enla rgement and poor R-wave progression. Carotid Doppler bilateral 22-39 proximal, internal carotid louise ry stenosis, antegrade flow in both vertebral arteries. Chest CT angio, no pulmonary embolus. Lower extremity ultrasound: No sonographic evidence of DVT. ASSESSMENT: 1. Moderate aortic stenosis and moderate aortic insufficiency. 2. Consider bilateral pneumonia. 3. Hypertension and diabetes mellitus. 4. Reflex sympathetic dystrophy. 5. Improved hypokalemia. RECOMMENDATIONS: Continue hydralazine 10 mg intravenously q. 6 hours p.r.n., Cozaar 25 mg once a day , Keppra at 1 gram p.o. twice a day, Lasix at 40 mg intravenously daily, Lopressor 50 mg twice a day, Lipitor 80 mg once a day, subcutaneous Lovenox at 40 mg once a day, Percocet 1 tablet q. 6 hours p.r .n., Plavix 75 mg once a day, Protonix at 40 mg p.o. once a day, Solu-Medrol 40 mg intravenously twic e a day. Stuart Fabian MD cc: [id number] TT: 05/02/2017 09:47:03 Confirmation # [id number] Dictation # [id number] wily
--- NOTE | 2017-05-02 12:30 | CON ---
DATE: 05/02/2017 HISTORY OF PRESENT ILLNESS: This is a 61-year-old white male with past medical history of diabetes, hypertension, chronic pain syndrome, major depression, and chronic opiate use. She came to the [facility] with shortness of breath and also has chronic leg pain because of reflex sympathetic dystrophy, d ifficulty ambulating and walks with a walker. I was called to evaluate him. PAST MEDICAL HISTORY: Diabetes, hypertension, reflex sympathetic dystrophy, depression. ALLERGIES: ASPIRIN AND . SOCIAL HISTORY: Lives at home. REVIEW OF SYSTEMS: A 10-point review of system was negative, except RSD and ALLERGIC TO ASPIRI N AND . PHYSICAL EXAMINATION: VITAL SIGNS: Blood pressure 128/75. HEENT: Normocephalic, atraumatic. NECK: Supple. NEUROLOGIC: Awake, alert, oriented to time, place, and person. No aphasia. Cranial nerves II throu gh XII were tested. Pupils reactive. Spontaneous movement of all the extremities noted. Deep tendo n reflexes 1+. Both plantars are downgoing. Sensory appears intact. Cerebellar gait deferred. IMPRESSION: The patient has reflex sympathetic dystrophy and admitted with shortness of breath and C OPD. CAT scan of the head was done, which was reported negative. Carotid Doppler: Mild stenosis. LABORATORY DATA: WBC 7.6, hemoglobin 16.8, hematocrit 47.1, platelets 138. Sodium 141, potassium 3. 5, chloride 103, CO2 of 22, glucose 127, BUN 19, creatinine 1. PLAN: Continue present management. The patient on Ativan, Cozaar, Cymbalta, and Keppra 1000 mg twic e a day. Continue present management. We will follow up. Juancho Garcia MD cc: [id number] TT: 05/02/2017 12:30:26 Confirmation # [id number] Dictation # [id number] mn
--- NOTE | 2017-05-02 14:01 | CP.PCM.PN ---
Subjective - Date & Time of Evaluation Date of Evaluation: 05/02/17 Time of Evaluation: 13:25 - Subjective Subjective: No acute events overnight Feels subjectively better. No further tacypnea noted. Steroids and NEBS started Objective - Vital Signs/Intake and Output Vital Signs (last 24 hours): Temp Pulse Resp BP Pulse Ox 97.9 F 97 H 20 125/80 97 05/02/17 11:50 05/02/17 11:50 05/02/17 11:50 05/02/17 11:50 05/02/17 06:00 Intake and Output: 05/02/17 05/02/17 06:59 18:59 Intake Total 1260 Output Total 775 Balance 485 - Medications Medications: Current Medications Acetaminophen (Tylenol 325mg Tab) 650 mg PO Q6H PRN PRN Reason: Fever >100.4 F Albuterol/Ipratropium (Duoneb 3 Mg/0.5 Mg (3 Ml) Ud) 3 ml IH [id number] [facility] Last Admin: 05/02/17 13:28 Dose: 3 ml Albuterol/Ipratropium (Duoneb 3 Mg/0.5 Mg (3 Ml) Ud) 3 ml IH Q2H PRN PRN Reason: Shortness of Breath Amlodipine Besylate (Norvasc) 10 mg PO DAILY [facility] Last Admin: 05/02/17 09:17 Dose: 10 mg Atorvastatin Calcium (Lipitor) 80 mg PO DIN [facility] Last Admin: 05/01/17 17:13 Dose: 80 mg Clopidogrel Bisulfate (Plavix) 75 mg PO DAILY [facility] Last Admin: 05/02/17 09:16 Dose: 75 mg Duloxetine HCl (Cymbalta) 30 mg PO TID [facility] Last Admin: 05/02/17 09:15 Dose: 30 mg Enoxaparin Sodium (Lovenox) 40 mg SC DAILY [facility] PRN Reason: Protocol Last Admin: 05/02/17 09:14 Dose: 40 mg Furosemide (Lasix) 40 mg IVP DAILY [facility] Last Admin: 05/02/17 09:15 Dose: 40 mg Guaifenesin/Codeine Phosphate (Robitussin W/Codeine) 5 ml PO Q4H PRN PRN Reason: Cough and congestion Last Admin: 05/02/17 00:32 Dose: 5 ml Hydralazine HCl (Apresoline) 10 mg IVP Q6H PRN PRN Reason: high BP Last Admin: 05/01/17 05:25 Dose: 10 mg Sodium Chloride (Sodium Chloride 0.9%) 1,000 mls @ 75 mls/hr IV .[id number] [facility] Last Admin: 05/02/17 06:32 Dose: 75 mls/hr Ibuprofen (Motrin Tab) 600 mg PO Q6H PRN PRN Reason: Pain, Mild (1-3) Last Admin: 05/01/17 19:51 Dose: 600 mg Insulin Human Lispro (Humalog) 0 units SC ACHS [facility] PRN Reason: Protocol Last Admin: 05/02/17 13:04 Dose: 2 units Levetiracetam (Keppra) 1,000 mg PO BID [facility] Last Admin: 05/02/17 09:16 Dose: 1,000 mg Lorazepam (Ativan) 1 mg PO Q4 [facility] PRN Reason: Protocol Last Admin: 05/02/17 13:05 Dose: 1 mg Losartan Potassium (Cozaar) 25 mg PO DAILY [facility] Last Admin: 05/02/17 09:17 Dose: 25 mg Methylprednisolone (Solu-Medrol) 40 mg IVP Q12 [facility] Last Admin: 05/02/17 09:22 Dose: 40 mg Metoprolol Tartrate (Lopressor) 50 mg PO BID [facility] Last Admin: 05/02/17 09:16 Dose: 50 mg Non-Formulary Medication (Temazepam [Temazepam]) 30 mg PO HS [facility] Last Admin: 05/01/17 21:34 Dose: 30 mg Oxycodone/Acetaminophen (Percocet 10/325 Mg Tab) 1 tab PO Q6H PRN PRN Reason: Pain, moderate (4-7) Last Admin: 04/30/17 20:49 Dose: 1 tab Pantoprazole Sodium (Protonix Ec Tab) 40 mg PO ACB [facility] Last Admin: 05/02/17 08:44 Dose: 40 mg Pregabalin (Lyrica) 200 mg PO Q8 [facility] Last Admin: 05/02/17 06:28 Dose: Not Given Tizanidine HCl (Zanaflex) 4 mg PO BID [facility] Last Admin: 05/02/17 09:16 Dose: 4 mg Zaleplon (Sonata) 5 mg PO HS PRN PRN Reason: Insomnia - Labs Labs: 05/02/17 05:15 05/02/17 05:15 PT 14.5 Seconds (9.9-11.8) H 05/01/17 08:45 INR 1.34 (0.93-1.08) H 05/01/17 08:45 APTT 32.7 Seconds (23.7-30.8) H 04/30/17 16:00 - Head Exam Head Exam: ATRAUMATIC, NORMAL INSPECTION - Eye Exam Eye Exam: Normal appearance Pupil Exam: NORMAL ACCOMODATION - ENT Exam ENT Exam: Mucous Membranes Moist - Respiratory Exam Respiratory Exam: Clear to Ausculation Bilateral, NORMAL BREATHING PATTERN - Cardiovascular Exam Cardiovascular Exam: REGULAR RHYTHM - GI/Abdominal Exam GI & Abdominal Exam: Normal Bowel Sounds - Extremities Exam Extremities Exam: Full ROM - Back Exam Back Exam: NORMAL INSPECTION - Neurological Exam Neurological Exam: Alert, Oriented x3 Assessment and Plan - Assessment and Plan (Free Text) Assessment: 61 y/o M w/ likely URI w/ bronchitis No Obstructive lung disease history but will need PFT as outpatient if symptoms continue and we plan on using ICS/LABA Currently on Advair and Solumedrol w/ Albuterol PRN q 3hrs. Wheezing stopped and SOB improved. Mild wbc increase without fevers or worsening clinical change, likely from steroid use.
--- NOTE | 2017-05-02 14:10 | CON ---
DATE: 05/02/2017 HISTORY OF PRESENT ILLNESS: Shortly, the patient is a 61-year-old male with long history o f mental illness including bipolar disorder as well as major depressive episodes, as well as anxiety. The patient has multiple medical issues including diabetes, hypertension. The patient also has chr onic back pain, on chronic opioid use. The patient was admitted on the medical floor for evaluation of shortness of breath after Dr. Pepe sent patient to the hospital. Psych consult was called f or evaluation of mood symptoms as well as anxiety symptoms. The patient is familiar to this commercial underwriter f rom the previous admission on the psych floor as well as consultation services. The patient presente d to be alert, complained that he feels depressed and anxious. The patient reported that he has priv ate psychiatrist, Dr. Baker, whom he is seeing on a regular basis every 3 months. The patient report ed that he is compliant with the medications. The patient reported that he feels depressed and hopel ess. The patient reported that he has difficulty to fall asleep and to stay asleep. The patient als o complained of shortness of breath and feeling anxious. The patient denied thoughts of harming hims elf or others, denied intent or plan. The patient complained that he feels lonely. Denied hearing v oices, denied seeing things. VITAL SIGNS: This commercial underwriter reviewed vital signs. Vital signs seem to be stable. Pulse is 97, blood p ressure is 125/80, respiration 20, oxygen saturation is 97, temperature 97.9. MEDICATIONS: Reviewed in regards of psychotropic medication. The patient is on Cymbalta 30 mg 3 hossein es a day. Also, patient is on Ativan 1 mg p.o. q. 4 hours scheduled by medical team. The patient al so is on Lyrica 200 mg q. 8 hours. LABORATORY DATA: Reviewed. WBC cells 14.0. The rest within normal limits. Urinalysis: Moderate b lood. Toxicology is negative for opioids and benzodiazepines. Serology negative. PAST PSYCHIATRIC HISTORY: The patient has history of psychiatric admission and it was in 2014. The patient denied history of suicidal attempts. MENTAL STATUS EXAMINATION: The patient presented to be depressed, anxious. Intermittent eye contact . Speech was underproductive. Mood described, "I feel depressed and hopeless." Thought process see ms to be coherent and goal directed. Thought content: The patient denied thoughts of harming himsel f or others. Denied intent or plan. The patient also reported to feel depressed. Denied thoughts o f killing himself or others. Insight and judgment are fair. Impulses are well controlled. IMPRESSION: Rule out mood disorder due to general medical condition. The patient has asthma. The p atient is in chronic pain. PLAN: This commercial underwriter would recommend to continue Cymbalta. Continue Lyrica. Ativan was started by med ical team at 1 mg 4 times a day; can continue that for insomnia. Would implement Sonata. After medi missael clearance, the patient might benefit from psychiatric inpatient admission in order to adjust medi cations. Dr. Vega will follow up on this patient over the weekend. Sonata 5 mg will be started at the nighttime. Possible transfer, after medical stabilization, to the psychiatric inpatient unit. T he patient was in agreement with the plan. Thank you very much for letting me participate in the care of your patient. Luci Stratton MD cc: [id number] TT: 05/02/2017 14:09:38 Confirmation # [id number] Dictation # [id number] evelin
[2017-05-02] MEDS: TEMAZEPAM 30 MG PO SCH (21:50)
[2017-05-03] MEDS: Albuterol-Ipratrop 3 mg / 0.5 (3 ml) UD IH SCH ×4 (01:34→20:13)
[2017-05-03 07:32] LABS: ADD MANUAL DIFF? NO
[2017-05-03 07:35] LABS: BASO # 0.01 K/mm3 (0.0-2.0); BASO % 0.1 % (0.0-3.0); GRAN # 13.82 (1.4-6.5); GRAN % 88.2 % (50.0-68.0); HEMATOCRIT 51.5 % (42.0-52.0); LYMPH % 6.5 % (22.0-35.0); MEAN CELL VOLUME 87.3 fL (80.0-105.0); MEAN CORPUSCULAR HEMOGLOBIN 30.5 pg (25.0-35.0); MONO # 0.8 (0.1-0.6); MONO % 5.2 % (1.0-6.0); PLATELET COUNT 200 10^3/uL (120.0-450.0); RED CELL DISTRIBUTION WIDTH 13.6 % (11.5-14.5); WHITE BLOOD COUNT 15.7 10^3/ul (4.5-11.0)
[2017-05-03 07:54] LABS: INR 1.31 (0.93-1.08)
[2017-05-03 08:00] LABS: ALB/GLOB RATIO 1.2 (1.1-1.8); ALKALINE PHOSPHATASE 76 U/L (38-133); ALT/SGPT 35 U/L (7-56); AST/SGOT 33 U/L (15-59); BILIRUBIN,TOTAL 1.1 mg/dL (0.2-1.3); BLOOD UREA NITROGEN 24 mg/dL (7-21); CALCIUM 9.9 mg/dL (8.4-10.5); CARBON DIOXIDE 21 mmol/L (21-33); CHLORIDE 101 mmol/L (98-107); GFR AFRICAN-AMERICAN > 60; GLUCOSE,RANDOM 233 mg/dL (70-110); MAGNESIUM 2.1 mg/dL (1.7-2.2); PHOSPHOROUS 4.6 mg/dL (2.5-4.5); POTASSIUM 4.3 mmol/L (3.6-5.0); SODIUM 135 mmol/L (132-148); TOTAL PROTEIN 8.3 g/dL (5.8-8.3)
[2017-05-03] MEDS: Pantoprazole 40 mg EC Tab PO SCH (08:05)
[2017-05-03] MEDS: Insulin Lispro 1 UNITS/0.01 ML SC SCH ×4 (08:40→22:14)
[2017-05-03] MEDS: MethylPREDNISolone 40 mg Vial IVP SCH ×2 (09:18→22:08)
[2017-05-03] MEDS: Enoxaparin 40 mg Syringe SC SCH (09:36)
--- NOTE | 2017-05-03 10:42 | CP.PCM.PN ---
<Kg Chaidez - Last Filed: 05/03/17 10:29> Subjective - Date & Time of Evaluation Date of Evaluation: 05/03/17 Time of Evaluation: 08:15 - Subjective Subjective: Hospitalist progress note Pt seen and examined at bedside. No acute events overnight. Pt still complains of sob but denies chest pain. Also c/o anxiety. Denies any f/c/, [place], dizziness, cp, abd pain, n/v/d. Objective - Vital Signs/Intake and Output Vital Signs (last 24 hours): Temp Pulse Resp BP Pulse Ox 97 F L 77 20 145/93 H 97 05/03/17 06:00 05/03/17 09:19 05/03/17 06:00 05/03/17 09:19 05/03/17 06:00 Intake and Output: 05/03/17 05/03/17 06:59 18:59 Output Total 1100 Balance -1100 - Medications Medications: Current Medications Acetaminophen (Tylenol 325mg Tab) 650 mg PO Q6H PRN PRN Reason: Fever >100.4 F Albuterol/Ipratropium (Duoneb 3 Mg/0.5 Mg (3 Ml) Ud) 3 ml IH [id number] [facility] Last Admin: 05/03/17 07:54 Dose: 3 ml Albuterol/Ipratropium (Duoneb 3 Mg/0.5 Mg (3 Ml) Ud) 3 ml IH Q2H PRN PRN Reason: Shortness of Breath Amlodipine Besylate (Norvasc) 10 mg PO DAILY [facility] Last Admin: 05/03/17 09:19 Dose: 10 mg Atorvastatin Calcium (Lipitor) 80 mg PO DIN [facility] Last Admin: 05/02/17 17:42 Dose: 80 mg Clopidogrel Bisulfate (Plavix) 75 mg PO DAILY [facility] Last Admin: 05/03/17 09:18 Dose: 75 mg Duloxetine HCl (Cymbalta) 30 mg PO TID [facility] Last Admin: 05/03/17 09:18 Dose: 30 mg Enoxaparin Sodium (Lovenox) 40 mg SC DAILY [facility] PRN Reason: Protocol Last Admin: 05/03/17 09:36 Dose: 40 mg Furosemide (Lasix) 40 mg IVP DAILY [facility] Last Admin: 05/03/17 09:17 Dose: 40 mg Guaifenesin/Codeine Phosphate (Robitussin W/Codeine) 5 ml PO Q4H PRN PRN Reason: Cough and congestion Last Admin: 05/02/17 00:32 Dose: 5 ml Hydralazine HCl (Apresoline) 10 mg IVP Q6H PRN PRN Reason: high BP Last Admin: 05/01/17 05:25 Dose: 10 mg Ibuprofen (Motrin Tab) 600 mg PO Q6H PRN PRN Reason: Pain, Mild (1-3) Last Admin: 05/01/17 19:51 Dose: 600 mg Insulin Human Lispro (Humalog) 0 units SC ACHS [facility] PRN Reason: Protocol Last Admin: 05/03/17 08:40 Dose: 1 units Levetiracetam (Keppra) 1,000 mg PO BID [facility] Last Admin: 05/03/17 09:18 Dose: 1,000 mg Lorazepam (Ativan) 1 mg PO Q4 PRN; Protocol PRN Reason: Anxiety Losartan Potassium (Cozaar) 25 mg PO DAILY [facility] Last Admin: 05/03/17 09:19 Dose: 25 mg Methylprednisolone (Solu-Medrol) 30 mg IVP Q12 [facility] Metoprolol Tartrate (Lopressor) 50 mg PO BID [facility] Last Admin: 05/03/17 09:18 Dose: 50 mg Non-Formulary Medication (Temazepam [Temazepam]) 30 mg PO HS [facility] Last Admin: 05/02/17 21:50 Dose: 30 mg Oxycodone/Acetaminophen (Percocet 10/325 Mg Tab) 1 tab PO Q6H PRN PRN Reason: Pain, moderate (4-7) Last Admin: 04/30/17 20:49 Dose: 1 tab Pantoprazole Sodium (Protonix Ec Tab) 40 mg PO ACB [facility] Last Admin: 05/03/17 08:05 Dose: 40 mg Pregabalin (Lyrica) 200 mg PO Q8 [facility] Last Admin: 05/03/17 06:03 Dose: 200 mg Tizanidine HCl (Zanaflex) 4 mg PO BID [facility] Last Admin: 05/03/17 09:18 Dose: 4 mg Zaleplon (Sonata) 10 mg PO HS PRN PRN Reason: Insomnia - Labs Labs: 05/03/17 07:00 05/03/17 07:00 PT 14.2 Seconds (9.9-11.8) H 05/03/17 07:00 INR 1.31 (0.93-1.08) H 05/03/17 07:00 APTT 32.7 Seconds (23.7-30.8) H 04/30/17 16:00 - Constitutional Appears: No Acute Distress - Head Exam Head Exam: ATRAUMATIC, NORMAL INSPECTION, NORMOCEPHALIC - Eye Exam Eye Exam: EOMI, Normal appearance, PERRL Pupil Exam: NORMAL ACCOMODATION, PERRL - ENT Exam ENT Exam: Mucous Membranes Moist, Normal Exam - Neck Exam Neck Exam: Full ROM, Normal Inspection. absent: Lymphadenopathy - Respiratory Exam Respiratory Exam: Clear to Ausculation Bilateral, Wheezes, NORMAL BREATHING PATTERN - Cardiovascular Exam Cardiovascular Exam: REGULAR RHYTHM, RRR, +S1, +S2. absent: Murmur - GI/Abdominal Exam GI & Abdominal Exam: Soft, Normal Bowel Sounds. absent: Distended, Tenderness - Extremities Exam Extremities Exam: Full ROM, Normal Capillary Refill, Normal Inspection. absent : Joint Swelling, Pedal Edema - Back Exam Back Exam: NORMAL INSPECTION - Neurological Exam Neurological Exam: Alert, Awake, Oriented x3 - Psychiatric Exam Psychiatric exam: Normal Affect, Normal Mood - Skin Skin Exam: Dry, Intact, Normal Color, Warm Assessment and Plan - Assessment and Plan (Free Text) Assessment: This is a 61 yo male with past medical hx DM, HTN, reflex sympathetic dystrophy , depression, chronic pain presenting with shortness of breath for over 2 weeks. 1. Shortness of breath likely secondary to bronchitis - Cont albuterol Q6H and Q2H PRN - Taper steroids from solumedrol 40mg BID to 30mg BID -ct angio negative for PE -venous dopplers negative -3rd trop .12 -carotid dopplers B/L 20-39 percent proximal ica stenoses -f/u hepatitis panel -cardio consult. recs appreciated -Dr. [place] Alicia consulted. recs appreciated. - Cont Robitussin 2. CAD - Cont plavix, BB, Losartan and statin 3. DMII -RISS -fu HBA1C 4. HTN -continue Losartan, norvasc, hydralazine PRN, and lopressor 5. reflex sympathetic dystrophy -continue keppra -continue temazepam 6. major depression; chronic -continue duloxetine, -Psych consulted rec starting Sonata and pt may benefit from inpatient psych for medication adjustment -patient not actively suicidal and no plans to hurt self or others; no psychotic symptoms 7. chronic pain -continue percocet and lyrica -ativan for anxiety 8. GI/DVT ppx Protonix Heart Healthy Diet Lovenox 40mg SC Case and plan was seen, reviewed and discusssed in detail with Dr Montes. <Emilia Montes - Last Filed: 05/03/17 10:48> Objective - Vital Signs/Intake and Output Vital Signs (last 24 hours): Temp Pulse Resp BP Pulse Ox 97 F L 77 20 145/93 H 97 05/03/17 06:00 05/03/17 09:19 05/03/17 06:00 05/03/17 09:19 05/03/17 06:00 Intake and Output: 05/03/17 05/03/17 06:59 18:59 Output Total 1100 Balance -1100 - Medications Medications: Current Medications Acetaminophen (Tylenol 325mg Tab) 650 mg PO Q6H PRN PRN Reason: Fever >100.4 F Albuterol/Ipratropium (Duoneb 3 Mg/0.5 Mg (3 Ml) Ud) 3 ml IH [id number] [facility] Last Admin: 05/03/17 07:54 Dose: 3 ml Albuterol/Ipratropium (Duoneb 3 Mg/0.5 Mg (3 Ml) Ud) 3 ml IH Q2H PRN PRN Reason: Shortness of Breath Amlodipine Besylate (Norvasc) 10 mg PO DAILY [facility] Last Admin: 05/03/17 09:19 Dose: 10 mg Atorvastatin Calcium (Lipitor) 80 mg PO DIN [facility] Last Admin: 05/02/17 17:42 Dose: 80 mg Clopidogrel Bisulfate (Plavix) 75 mg PO DAILY [facility] Last Admin: 05/03/17 09:18 Dose: 75 mg Duloxetine HCl (Cymbalta) 30 mg PO TID [facility] Last Admin: 05/03/17 09:18 Dose: 30 mg Enoxaparin Sodium (Lovenox) 40 mg SC DAILY [facility] PRN Reason: Protocol Last Admin: 05/03/17 09:36 Dose: 40 mg Furosemide (Lasix) 40 mg IVP DAILY [facility] Last Admin: 05/03/17 09:17 Dose: 40 mg Guaifenesin/Codeine Phosphate (Robitussin W/Codeine) 5 ml PO Q4H PRN PRN Reason: Cough and congestion Last Admin: 05/02/17 00:32 Dose: 5 ml Hydralazine HCl (Apresoline) 10 mg IVP Q6H PRN PRN Reason: high BP Last Admin: 05/01/17 05:25 Dose: 10 mg Ibuprofen (Motrin Tab) 600 mg PO Q6H PRN PRN Reason: Pain, Mild (1-3) Last Admin: 05/01/17 19:51 Dose: 600 mg Insulin Human Lispro (Humalog) 0 units SC ACHS [facility] PRN Reason: Protocol Last Admin: 05/03/17 08:40 Dose: 1 units Levetiracetam (Keppra) 1,000 mg PO BID [facility] Last Admin: 05/03/17 09:18 Dose: 1,000 mg Lorazepam (Ativan) 1 mg PO Q4 PRN; Protocol PRN Reason: Anxiety Losartan Potassium (Cozaar) 25 mg PO DAILY [facility] Last Admin: 05/03/17 09:19 Dose: 25 mg Methylprednisolone (Solu-Medrol) 30 mg IVP Q12 [facility] Metoprolol Tartrate (Lopressor) 50 mg PO BID [facility] Last Admin: 05/03/17 09:18 Dose: 50 mg Non-Formulary Medication (Temazepam [Temazepam]) 30 mg PO HS [facility] Last Admin: 05/02/17 21:50 Dose: 30 mg Oxycodone/Acetaminophen (Percocet 10/325 Mg Tab) 1 tab PO Q6H PRN PRN Reason: Pain, moderate (4-7) Last Admin: 04/30/17 20:49 Dose: 1 tab Pantoprazole Sodium (Protonix Ec Tab) 40 mg PO ACB [facility] Last Admin: 05/03/17 08:05 Dose: 40 mg Pregabalin (Lyrica) 200 mg PO Q8 [facility] Last Admin: 05/03/17 06:03 Dose: 200 mg Tizanidine HCl (Zanaflex) 4 mg PO BID [facility] Last Admin: 05/03/17 09:18 Dose: 4 mg Zaleplon (Sonata) 10 mg PO HS PRN PRN Reason: Insomnia - Labs Labs: 05/03/17 07:00 05/03/17 07:00 PT 14.2 Seconds (9.9-11.8) H 05/03/17 07:00 INR 1.31 (0.93-1.08) H 05/03/17 07:00 APTT 32.7 Seconds (23.7-30.8) H 04/30/17 16:00 Attending/Attestation - Attestation I have personally seen and examined this patient.: Yes I have fully participated in the care of the patient.: Yes I have reviewed all pertinent clinical information, including history, physical exam and plan: Yes Notes (Text): 05/03/17 10:44 61 year old male with past medical history of hypertension, depression and reflex sympathetic dystrophy who presented with complaint of shortness of breath x [address] angio was negative for PE. Pulmonary is following. He is on iv steroids and duonebs for asthmatic bronchitis. Will taper solumedrol today to 30 mg q12h. Leukocytosis is likely secondary to iv steroids. Troponins were indeterminant. Echocardiogram was reviewed. Cardiology is following. He is also being followed by neurology for history of RSD. Psychiatry evaluation was appreciated as well for anxiety/depression. Patient was seen by PT who is currently recommending [facility]. Emilia Montes MD Hospitalist.
--- NOTE | 2017-05-03 14:25 | CON ---
DATE: 05/03/2017 The patient is a 61-year-old white male with a long history of bipolar disorder with major depressive episodes, as well as anxiety disorder. A psychiatrist has been following up with the patient on the medical floor, due to reports of depression and hopelessness. Dr. Stratton has been following up with the patient. I have been reviewing her notes as well as the patient's current progress notes o n the unit, by reviewing the nursing staff notes. I met with patient at bedside and the patient is alert and oriented x 3 and his focus is fair and eye contact is good. The patient recalls Dr. Stratton's visit and reports that he remains depressed; however, denies feeling hopeless or suicidal. The patient also denies having hallucinations and del usions were not elicited. The patient's thought process is coherent and his responses are relevant t o questioning. He reports that he is currently tolerating his medications and denies any issues with them; however, still reports trouble with sleep last night, indicating a current dose of Sonata was not effective and is agreeable to an increasing dose. Regarding psychiatric admission for stabiliza tion of current depressive symptoms, the patient defers this type of intervention. VITAL SIGNS: Reviewed. LABORATORIES: Reviewed by this provider. MEDICATIONS: Current psychiatric medications include Cymbalta 30 mg p.o. t.i.d. Ativan 1 mg p.o. q. 4 p.r.n., temazepam 30 mg p.o. at bedtime, Sonata 5 mg at bedtime p.r.n. IMPRESSION: Mood disorder, not otherwise specified, rule out major depressive disorder, recurrent, m oderate; rule out contribution of mood disorder secondary to general medical condition; rule out bipo lar depression. RECOMMENDATIONS: We will increase Sonata to 10 mg at bedtime. Follow up with patient to determine t olerance of medications and stability of mood symptoms. Please note, as noted above, the patient is refusing psychiatric transfer to the unit. He does not present to be a danger to himself or others a nd he does not meet the requirements for at this time, so if he is medically cleared, he can be psychiatrically discharged with proper outpatient followup services. Cecile Vega MD cc: [id number] TT: 05/03/2017 14:24:58 Confirmation # [id number] Dictation # [id number] ln
--- NOTE | 2017-05-03 14:29 | PN ---
DATE: 05/03/2017 The patient's shortness of breath has improved and he denies chest pain. PHYSICAL EXAMINATION: VITAL SIGNS: Blood pressure 143/84, heart rate 95, temperature 99.2, respirations 17. HEENT: Normocephalic. NECK: No JVD. CHEST: Minimal rhonchi. HEART: S1, S2 regular. EXTREMITIES: No edema. LABORATORIES: Hemoglobin and hematocrit 18 and 51.5. White count and platelet count 15.7 and 200. SMA-7 is within normal limits, except for glucose 233, and BUN of 24. The patient was evaluated by neurologist, Dr. Alicia today. ASSESSMENT: 1. Bronchitis. 2. Moderate aortic stenosis and moderate aortic insufficiency. 3. Hypertension. 4. Diabetes mellitus. 5. Reflex sympathetic dystrophy. RECOMMENDATIONS: Continue hydralazine 10 mg intravenously q. 6 hours p.r.n., Cozaar 25 mg daily, Kep pra 1 g twice a day, Lasix 40 mg intravenously daily, Lipitor 80 mg once a day, Lopressor 50 mg twice a day, Lovenox 40 mg subcutaneous daily, Norvasc 10 mg once a day, Plavix 75 mg once a day, Protonix 40 mg p.o. once a day, Robitussin with codeine 1 teaspoonful q. 4 hours p.r.n., Solu-Medrol 30 mg in travenously q.12 hours, Zanaflex 4 mg p.o. twice a day. Stuart Fabian MD cc: [id number] TT: 05/03/2017 14:28:53 Confirmation # [id number] Dictation # [id number] ln
--- NOTE | 2017-05-03 16:59 | CP.PCM.PN ---
Subjective - Date & Time of Evaluation Date of Evaluation: 05/03/17 Time of Evaluation: 13:00 - Subjective Subjective: No acute events overnight. Breathing has improved greatly. No further wheezing. Objective - Vital Signs/Intake and Output Vital Signs (last 24 hours): Temp Pulse Resp BP Pulse Ox 99.2 F 95 H 17 143/84 97 05/03/17 12:00 05/03/17 12:00 05/03/17 12:00 05/03/17 12:00 05/03/17 06:00 Intake and Output: 05/03/17 05/03/17 06:59 18:59 Output Total 1100 Balance -1100 - Medications Medications: Current Medications Acetaminophen (Tylenol 325mg Tab) 650 mg PO Q6H PRN PRN Reason: Fever >100.4 F Albuterol/Ipratropium (Duoneb 3 Mg/0.5 Mg (3 Ml) Ud) 3 ml IH [id number] [facility] Last Admin: 05/03/17 13:53 Dose: 3 ml Albuterol/Ipratropium (Duoneb 3 Mg/0.5 Mg (3 Ml) Ud) 3 ml IH Q2H PRN PRN Reason: Shortness of Breath Amlodipine Besylate (Norvasc) 10 mg PO DAILY [facility] Last Admin: 05/03/17 09:19 Dose: 10 mg Atorvastatin Calcium (Lipitor) 80 mg PO DIN [facility] Last Admin: 05/02/17 17:42 Dose: 80 mg Clopidogrel Bisulfate (Plavix) 75 mg PO DAILY [facility] Last Admin: 05/03/17 09:18 Dose: 75 mg Duloxetine HCl (Cymbalta) 30 mg PO TID [facility] Last Admin: 05/03/17 14:52 Dose: 30 mg Enoxaparin Sodium (Lovenox) 40 mg SC DAILY [facility] PRN Reason: Protocol Last Admin: 05/03/17 09:36 Dose: 40 mg Furosemide (Lasix) 40 mg IVP DAILY [facility] Last Admin: 05/03/17 09:17 Dose: 40 mg Guaifenesin/Codeine Phosphate (Robitussin W/Codeine) 5 ml PO Q4H PRN PRN Reason: Cough and congestion Last Admin: 05/02/17 00:32 Dose: 5 ml Hydralazine HCl (Apresoline) 10 mg IVP Q6H PRN PRN Reason: high BP Last Admin: 05/01/17 05:25 Dose: 10 mg Ibuprofen (Motrin Tab) 600 mg PO Q6H PRN PRN Reason: Pain, Mild (1-3) Last Admin: 05/01/17 19:51 Dose: 600 mg Insulin Human Lispro (Humalog) 0 units SC ACHS [facility] PRN Reason: Protocol Last Admin: 05/03/17 12:31 Dose: 2 units Levetiracetam (Keppra) 1,000 mg PO BID [facility] Last Admin: 05/03/17 09:18 Dose: 1,000 mg Lorazepam (Ativan) 1 mg PO Q4 PRN; Protocol PRN Reason: Anxiety Losartan Potassium (Cozaar) 25 mg PO DAILY [facility] Last Admin: 05/03/17 09:19 Dose: 25 mg Methylprednisolone (Solu-Medrol) 30 mg IVP Q12 [facility] Metoprolol Tartrate (Lopressor) 50 mg PO BID [facility] Last Admin: 05/03/17 09:18 Dose: 50 mg Non-Formulary Medication (Temazepam [Temazepam]) 30 mg PO HS [facility] Last Admin: 05/02/17 21:50 Dose: 30 mg Oxycodone/Acetaminophen (Percocet 10/325 Mg Tab) 1 tab PO Q6H PRN PRN Reason: Pain, moderate (4-7) Last Admin: 04/30/17 20:49 Dose: 1 tab Pantoprazole Sodium (Protonix Ec Tab) 40 mg PO ACB [facility] Last Admin: 05/03/17 08:05 Dose: 40 mg Pregabalin (Lyrica) 200 mg PO Q8 [facility] Last Admin: 05/03/17 14:52 Dose: 200 mg Tizanidine HCl (Zanaflex) 4 mg PO BID [facility] Last Admin: 05/03/17 09:18 Dose: 4 mg Zaleplon (Sonata) 10 mg PO HS PRN PRN Reason: Insomnia - Labs Labs: 05/03/17 07:00 05/03/17 07:00 PT 14.2 Seconds (9.9-11.8) H 05/03/17 07:00 INR 1.31 (0.93-1.08) H 05/03/17 07:00 APTT 32.7 Seconds (23.7-30.8) H 06/14/17 16:00 - Constitutional Appears: Well - Head Exam Head Exam: ATRAUMATIC, NORMAL INSPECTION - Eye Exam Eye Exam: Normal appearance Pupil Exam: NORMAL ACCOMODATION - ENT Exam ENT Exam: Mucous Membranes Moist - Neck Exam Neck Exam: Normal Inspection - Respiratory Exam Respiratory Exam: Clear to Ausculation Bilateral, NORMAL BREATHING PATTERN - Cardiovascular Exam Cardiovascular Exam: REGULAR RHYTHM - GI/Abdominal Exam GI & Abdominal Exam: Normal Bowel Sounds - Neurological Exam Neurological Exam: Alert, Awake Assessment and Plan - Assessment and Plan (Free Text) Assessment: 61 y/o M w/ URI and bronchitis S/P Solumedrol 30 q12 currently would wean within 1 week quickly. Albuterol PRN , symptoms have resolved. Anxiety was probably a trigger for his breathing issues. Would need a outpatient PFT to determine the lung pathology and obstructive lung disease.
[2017-05-03] MEDS: TEMAZEPAM 30 MG PO SCH (22:05)
[2017-05-03] MEDS: Oxycodone/Acetaminophen 10/325 mg Tab PO PRN (22:05)
[2017-05-04] MEDS ORDERED: Alum-Mag Hydrox-Simethicone Susp (30 mL) PO ONE (01:31)
[2017-05-04] MEDS ORDERED: Bismuth Subsalicylate 262 mg/15 ml Sus (240 ml) PO ONE (01:31)
[2017-05-04] MEDS ORDERED: oxyCODONE 5 mg Immediate Release Tab PO ONE (01:32)
[2017-05-04] MEDS: Albuterol-Ipratrop 3 mg / 0.5 (3 ml) UD IH SCH ×4 (02:10→19:19)
[2017-05-04 06:55] LABS: ADD MANUAL DIFF? NO
[2017-05-04 07:08] LABS: ALB/GLOB RATIO 1.3 (1.1-1.8); ALKALINE PHOSPHATASE 90 U/L (38-133); ALT/SGPT 58 U/L (7-56); AST/SGOT 42 U/L (15-59); BILIRUBIN,TOTAL 1.2 mg/dL (0.2-1.3); BLOOD UREA NITROGEN 41 mg/dL (7-21); CALCIUM 9.8 mg/dL (8.4-10.5); CARBON DIOXIDE 19 mmol/L (21-33); CHLORIDE 99 mmol/L (98-107); GFR AFRICAN-AMERICAN > 60; POTASSIUM 3.6 mmol/L (3.6-5.0); SODIUM 135 mmol/L (132-148); TOTAL PROTEIN 8.7 g/dL (5.8-8.3)
[2017-05-04 07:18] LABS: GRAN # 13.36 (1.4-6.5); GRAN % 89.9 % (50.0-68.0); HEMATOCRIT 52.4 % (42.0-52.0); LYMPH # 0.8 (1.2-3.4); LYMPH % 5.3 % (22.0-35.0); MEAN CELL VOLUME 84.9 fL (80.0-105.0); MEAN CORPUSCULAR HEMOGLOBIN 30.1 pg (25.0-35.0); MEAN CORPUSCULAR HGB CONC 35.5 g/dl (31.0-37.0); MONO # 0.7 (0.1-0.6); MONO % 4.8 % (1.0-6.0); PLATELET COUNT 194 10^3/uL (120.0-450.0); RED CELL DISTRIBUTION WIDTH 13.6 % (11.5-14.5); WHITE BLOOD COUNT 14.9 10^3/ul (4.5-11.0)
[2017-05-04 07:20] LABS: INR 1.37 (0.93-1.08)
[2017-05-04 07:36] LABS: GLUCOSE,RANDOM 387 mg/dL (70-110)
[2017-05-04] MEDS: Pantoprazole 40 mg EC Tab PO SCH (07:41)
[2017-05-04] MEDS: Insulin Lispro 1 UNITS/0.01 ML SC SCH ×4 (07:41→22:58)
[2017-05-04] MEDS: Enoxaparin 40 mg Syringe SC SCH (09:39)
[2017-05-04] MEDS: MethylPREDNISolone 40 mg Vial IVP SCH ×3 (09:40→22:45)
[2017-05-04] MEDS ORDERED: POLYETHYLENE GLYCOL 3350 17 GM/Dose PACKET PO SCH (10:00)
--- NOTE | 2017-05-04 10:43 | CP.PCM.PN ---
<Saul Pryor - Last Filed: 05/04/17 10:43> Subjective - Date & Time of Evaluation Date of Evaluation: 05/04/17 Time of Evaluation: 10:40 - Subjective Subjective: Medicine progress note. Attending: Dr. Montes Pt seen and examined at bedside. No acute distress. pt has been having diarrhea and stool studies ordered. BP, will increase losartan to 50. No fevers, chills. Wheezing is better. Objective - Vital Signs/Intake and Output Vital Signs (last 24 hours): Temp Pulse Resp BP Pulse Ox 99.2 F 91 H 20 162/91 H 96 05/04/17 06:00 05/04/17 09:41 05/04/17 06:00 05/04/17 09:41 05/04/17 06:00 Intake and Output: 05/04/17 05/04/17 06:59 18:59 Intake Total 1560 Output Total 3234 Balance -1674 - Medications Medications: Current Medications Acetaminophen (Tylenol 325mg Tab) 650 mg PO Q6H PRN PRN Reason: Fever >100.4 F Albuterol/Ipratropium (Duoneb 3 Mg/0.5 Mg (3 Ml) Ud) 3 ml IH [id number] [facility] Last Admin: 05/04/17 07:42 Dose: 3 ml Albuterol/Ipratropium (Duoneb 3 Mg/0.5 Mg (3 Ml) Ud) 3 ml IH Q2H PRN PRN Reason: Shortness of Breath Amlodipine Besylate (Norvasc) 10 mg PO DAILY [facility] Last Admin: 05/04/17 09:40 Dose: 10 mg Atorvastatin Calcium (Lipitor) 80 mg PO DIN [facility] Last Admin: 05/03/17 17:53 Dose: 80 mg Clopidogrel Bisulfate (Plavix) 75 mg PO DAILY [facility] Last Admin: 05/04/17 09:41 Dose: 75 mg Duloxetine HCl (Cymbalta) 30 mg PO TID [facility] Last Admin: 05/04/17 09:40 Dose: 30 mg Enoxaparin Sodium (Lovenox) 40 mg SC DAILY [facility] PRN Reason: Protocol Last Admin: 05/04/17 09:39 Dose: 40 mg Furosemide (Lasix) 40 mg IVP DAILY [facility] Last Admin: 05/04/17 09:40 Dose: 40 mg Glipizide (Glucotrol) 5 mg PO ACB [facility] Guaifenesin/Codeine Phosphate (Robitussin W/Codeine) 5 ml PO Q4H PRN PRN Reason: Cough and congestion Last Admin: 05/02/17 00:32 Dose: 5 ml Hydralazine HCl (Apresoline) 10 mg IVP Q6H PRN PRN Reason: high BP Last Admin: 05/01/17 05:25 Dose: 10 mg Ibuprofen (Motrin Tab) 600 mg PO Q6H PRN PRN Reason: Pain, Mild (1-3) Last Admin: 05/01/17 19:51 Dose: 600 mg Insulin Human Lispro (Humalog) 0 units SC [facility] PRN Reason: Protocol Last Admin: 05/04/17 07:41 Dose: 4 units Levetiracetam (Keppra) 1,000 mg PO BID [facility] Last Admin: 05/04/17 09:41 Dose: 1,000 mg Lorazepam (Ativan) 1 mg PO Q4 PRN; Protocol PRN Reason: Anxiety Losartan Potassium (Cozaar) 50 mg PO DAILY [facility] Last Admin: 05/04/17 10:08 Dose: Not Given Methylprednisolone (Solu-Medrol) 20 mg IVP Q12 [facility] Last Admin: 05/04/17 10:09 Dose: Not Given Metoprolol Tartrate (Lopressor) 50 mg PO BID [facility] Last Admin: 05/04/17 09:41 Dose: 50 mg Non-Formulary Medication (Temazepam [Temazepam]) 30 mg PO HS [facility] Last Admin: 05/03/17 22:05 Dose: 30 mg Ondansetron HCl (Zofran Inj) 8 mg IVP Q6H PRN PRN Reason: Nausea/Vomiting Last Admin: 05/04/17 07:03 Dose: 8 mg Oxycodone/Acetaminophen (Percocet 10/325 Mg Tab) 1 tab PO Q6H PRN PRN Reason: Pain, moderate (4-7) Last Admin: 05/03/17 22:05 Dose: 1 tab Pantoprazole Sodium (Protonix Ec Tab) 40 mg PO ACB [facility] Last Admin: 05/04/17 07:41 Dose: 40 mg Pregabalin (Lyrica) 200 mg PO Q8 [facility] Last Admin: 05/04/17 05:52 Dose: 200 mg Tizanidine HCl (Zanaflex) 4 mg PO BID [facility] Last Admin: 05/04/17 09:40 Dose: 4 mg Zaleplon (Sonata) 10 mg PO HS PRN PRN Reason: Insomnia - Labs Labs: 05/04/17 06:00 05/04/17 06:00 PT 14.8 Seconds (9.9-11.8) H 05/04/17 06:00 INR 1.37 (0.93-1.08) H 05/04/17 06:00 APTT 32.7 Seconds (23.7-30.8) H 04/30/17 16:00 - Constitutional Appears: Non-toxic, No Acute Distress - Head Exam Head Exam: ATRAUMATIC, NORMAL INSPECTION, NORMOCEPHALIC - Eye Exam Eye Exam: EOMI - ENT Exam ENT Exam: Mucous Membranes Moist - Neck Exam Neck Exam: Full ROM, Normal Inspection - Respiratory Exam Respiratory Exam: Decreased Breath Sounds. absent: Respiratory Distress - Cardiovascular Exam Cardiovascular Exam: +S1, +S2 - GI/Abdominal Exam GI & Abdominal Exam: Soft, Normal Bowel Sounds. absent: Tenderness - Extremities Exam Extremities Exam: Full ROM, Normal Inspection - Neurological Exam Neurological Exam: Alert, Awake, Oriented x3 - Psychiatric Exam Psychiatric exam: Anxious - Skin Skin Exam: Dry, Intact, Normal Color, Warm Assessment and Plan - Assessment and Plan (Free Text) Assessment: This is a 61 yo male with past medical hx of DM, HTN, reflex sympathetic dystrophy, depression, chronic pain presenting with shortness of breath for over 2 weeks. 1. Shortness of breath likely secondary to bronchitis - Cont albuterol Q6H and Q2H PRN - Taper steroids from solumedrol 30 q 12 to 20 q 12 -ct angio negative for PE -venous dopplers negative -3rd trop .12 -carotid dopplers B/L 20-39 percent proximal ica stenoses -hep panel negative -cardio consult. recs appreciated -Dr. Montana Alicia consulted. recs appreciated. - Cont Robitussin 2. CAD - Cont plavix, BB, Losartan and statin 3. DMII -RISS -fu HBA1C -will add PO glipizide 4. HTN -continue Losartan, norvasc, hydralazine PRN, and lopressor -increase losartan to 50 mg po daily 5. reflex sympathetic dystrophy -continue keppra -continue temazepam 6. major depression; chronic -continue duloxetine, -Psych consulted rec starting Sonata and pt may benefit from inpatient psych for medication adjustment -patient not actively suicidal and no plans to hurt self or others; no psychotic symptoms -pt will not go to inpatient psych 7. chronic pain -continue percocet and lyrica -ativan for anxiety 8. GI/DVT ppx Protonix Heart Healthy Diet Lovenox 40mg SC Case and plan was seen, reviewed and discusssed in detail with Dr Montes. <Emilia Montes - Last Filed: 05/05/17 08:32> Objective - Vital Signs/Intake and Output Vital Signs (last 24 hours): Temp Pulse Resp BP Pulse Ox 98.4 F 73 20 112/71 97 05/05/17 06:00 05/05/17 06:00 05/05/17 06:00 05/05/17 06:00 05/05/17 06:00 Intake and Output: 05/05/17 05/05/17 06:59 18:59 Intake Total 800 Output Total 925 Balance -125 - Medications Medications: Current Medications Acetaminophen (Tylenol 325mg Tab) 650 mg PO Q6H PRN PRN Reason: Fever >100.4 F Albuterol/Ipratropium (Duoneb 3 Mg/0.5 Mg (3 Ml) Ud) 3 ml IH [id number] [facility] Last Admin: 05/05/17 07:47 Dose: 3 ml Albuterol/Ipratropium (Duoneb 3 Mg/0.5 Mg (3 Ml) Ud) 3 ml IH Q2H PRN PRN Reason: Shortness of Breath Amlodipine Besylate (Norvasc) 10 mg PO DAILY [facility] Last Admin: 05/04/17 09:40 Dose: 10 mg Atorvastatin Calcium (Lipitor) 80 mg PO DIN [facility] Last Admin: 05/04/17 18:03 Dose: 80 mg Clopidogrel Bisulfate (Plavix) 75 mg PO DAILY [facility] Last Admin: 05/04/17 09:41 Dose: 75 mg Duloxetine HCl (Cymbalta) 30 mg PO TID [facility] Last Admin: 05/04/17 18:03 Dose: 30 mg Enoxaparin Sodium (Lovenox) 40 mg SC DAILY [facility] PRN Reason: Protocol Last Admin: 05/04/17 09:39 Dose: 40 mg Glipizide (Glucotrol) 5 mg PO ACB [facility] Last Admin: 05/04/17 11:57 Dose: 5 mg Guaifenesin/Codeine Phosphate (Robitussin W/Codeine) 5 ml PO Q4H PRN PRN Reason: Cough and congestion Last Admin: 05/02/17 00:32 Dose: 5 ml Hydralazine HCl (Apresoline) 10 mg IVP Q6H PRN PRN Reason: high BP Last Admin: 05/01/17 05:25 Dose: 10 mg Sodium Chloride (Sodium Chloride 0.9%) 1,000 mls @ 80 mls/hr IV .[id number] [facility] Last Admin: 05/04/17 23:36 Dose: 80 mls/hr Ibuprofen (Motrin Tab) 600 mg PO Q6H PRN PRN Reason: Pain, Mild (1-3) Last Admin: 05/01/17 19:51 Dose: 600 mg Insulin Human Lispro (Humalog) 0 units SC ACHS [facility] PRN Reason: Protocol Last Admin: 05/04/17 22:58 Dose: Not Given Levetiracetam (Keppra) 1,000 mg PO BID [facility] Last Admin: 05/04/17 18:02 Dose: 1,000 mg Lorazepam (Ativan) 1 mg PO Q4 PRN; Protocol PRN Reason: Anxiety Losartan Potassium (Cozaar) 50 mg PO DAILY [facility] Last Admin: 05/04/17 10:08 Dose: Not Given Methylprednisolone (Solu-Medrol) 20 mg IVP Q12 [facility] Last Admin: 05/04/17 22:45 Dose: 20 mg Metoprolol Tartrate (Lopressor) 50 mg PO BID [facility] Last Admin: 05/04/17 18:03 Dose: 50 mg Non-Formulary Medication (Temazepam [Temazepam]) 30 mg PO HS [facility] Last Admin: 05/04/17 22:46 Dose: 30 mg Ondansetron HCl (Zofran Inj) 8 mg IVP Q6H PRN PRN Reason: Nausea/Vomiting Last Admin: 05/04/17 07:03 Dose: 8 mg Oxycodone/Acetaminophen (Percocet 10/325 Mg Tab) 1 tab PO Q6H PRN PRN Reason: Pain, moderate (4-7) Last Admin: 05/04/17 19:57 Dose: 1 tab Pantoprazole Sodium (Protonix Ec Tab) 40 mg PO ACB [facility] Last Admin: 05/04/17 07:41 Dose: 40 mg Pregabalin (Lyrica) 200 mg PO Q8 [facility] Last Admin: 05/05/17 05:35 Dose: 200 mg Tizanidine HCl (Zanaflex) 4 mg PO BID [facility] Last Admin: 05/04/17 18:03 Dose: 4 mg Zaleplon (Sonata) 10 mg PO HS PRN PRN Reason: Insomnia Last Admin: 05/04/17 23:35 Dose: 10 mg - Labs Labs: 05/05/17 05:30 05/05/17 05:30 PT 13.5 Seconds (9.9-11.8) H 05/05/17 05:30 INR 1.25 (0.93-1.08) H 05/05/17 05:30 APTT 32.7 Seconds (23.7-30.8) H 04/30/17 16:00 Attending/Attestation - Attestation I have personally seen and examined this patient.: Yes I have fully participated in the care of the patient.: Yes I have reviewed all pertinent clinical information, including history, physical exam and plan: Yes Notes (Text): 05/04/17 61 year old male with past medical history of hypertension, depression and reflex sympathetic dystrophy who presented with complaint of shortness of breath x [address] angio was negative for PE. He was started on iv steroids and duonebs with improvement of symptoms. Will continue to taper his steroids. Leukocytosis is likely secondary to iv steroids. Pulmonary is following. Troponins were indeterminant. Echocardiogram was reviewed. Cardiology is following. Today he is complicated of constipation for past few days. However per nurse he had loose stools yesterday and stool w/u was ordered. Creatinine is 1.4 today and he is started on gentle hydration. Will monitor. A1c is 7.4 and he is started on glipizide for diabetes. He is on insulin ss as well. He was seen by neurology for history of RSD and is being followed by psychiatry for anxiety/depression. PT evaluation was appreciated who recommended [facility]/TCU. Will discuss with corrections caseworker and social sciences chair tomorrow. Emilia Montes MD Hospitalist.
--- NOTE | 2017-05-04 13:40 | PN ---
DATE: 05/04/2017 The patient's shortness of breath has improved. He is experiencing abdominal discomfort and constipa tion. PHYSICAL EXAMINATION: VITAL SIGNS: Blood pressure 144/90, heart rate 91, temperature 97.1, respirations 19. HEENT: Normocephalic. NECK: No JVD. CHEST: Bilateral rhonchi. HEART: S1, S2 regular. Grade III/ ejection systolic murmur over the left sternal border. ABDOMEN: Soft. EXTREMITIES: Trace leg edema. LABORATORIES: Hemoglobin and hematocrit 18.6 and 52.4, white count and platelet count are 14.9 and 1 94,000. SMA-7: Sodium 135, potassium 3.6, chloride 99, CO2 19, glucose 387, BUN 41, creatinine 1.3. ASSESSMENT: 1. Improved congestive heart failure. 2. Bronchitis. 3. Moderate aortic stenosis and moderate aortic insufficiency. 4. Hypertension. 5. Diabetes mellitus. 6. Reflex sympathetic dystrophy. 7. Prerenal azotemia. 8. Constipation. RECOMMENDATIONS: Continue hydralazine 10 mg intravenously q. 6 hours, Cozaar 50 mg once a day, glipi zide 5 mg once a day, 1 gram twice a day. Discontinue Lasix. Continue Lipitor at 80 mg once a day, Lopressor 50 mg twice a day, Norvasc 10 mg once a day, Plavix 75 mg once a day, Solu-Medrol 20 mg intravenously q. 12 hours. Start lactulose at 20 mg orally now 1 daily. Stuart Fabian MD cc: [id number] TT: 05/04/2017 13:39:42 Confirmation # [id number] Dictation # [id number]
--- NOTE | 2017-05-04 15:26 | CON ---
DATE: 05/04/2017 HISTORY OF PRESENT ILLNESS: The patient is a 61-year-old white male with a long history of bipolar d isorder as well as major depressive episode, of which psychiatry has been following on the medical fl oor due to reports of depression and hopelessness. I reviewed Dr. Stratton's notes and met with agnes street at bedside yesterday and today. The patient continues to demonstrate fair focus and good orie ntation to circumstances and the month and year. He recalls me from my visit yesterday. In general, reports no change in symptoms. He continues to be depressed; however, he is not suicidal, not hopel ess, and he continues to defer on an inpatient hospitalization once he is medically cleared, indicati ng that he does not like the feeling of being locked up. The patient denies having hallucinations an d delusions were not elicited. His thought process is coherent and responses are relevant to dexter shine. Regarding his medications, he is tolerating them and denies having any issues with them. The patient has tolerated the increase of Sonata well and slept better last night. Insight and judgment are considered to be fair. Vital signs and labs were reviewed by this provider. CURRENT PSYCHIATRIC MEDICATIONS: Include Cymbalta 30 mg t.i.d., Ativan 1 mg q. 4 hours p.r.n. 10 mg at bedtime. IMPRESSION: Mood disorder, not otherwise specified; rule out depressive disorder, current moderate; rule out bipolar depression; rule out mood disorder secondary to general medical condition. RECOMMENDATIONS: Will continue with current treatment and plan. The patient is steadily improving, though still depressed. He does not meet criteria for involuntary hospitalization at this time and de fers on voluntary admission to treat mood symptoms. aware that he can discharged; however, he s hould be follow up with a referral with appropriate outpatient psychiatric management. He was given a prescription for his psychiatric medications. Otherwise, psychiatry will continue to follow up with him while he is being medically optimized. Cecile Vega MD cc: [id number] TT: 05/04/2017 15:25:20 Confirmation # [id number] Dictation # [id number]
--- NOTE | 2017-05-04 15:29 | CP.PCM.PN ---
Subjective - Date & Time of Evaluation Date of Evaluation: 05/04/17 Time of Evaluation: 15:00 - Subjective Subjective: No respiratory events overnight Some loose stools and poor appetite Objective - Vital Signs/Intake and Output Vital Signs (last 24 hours): Temp Pulse Resp BP Pulse Ox 97.1 F L 91 H 19 144/90 96 05/04/17 12:00 05/04/17 12:00 05/04/17 12:00 05/04/17 12:00 05/04/17 06:00 Intake and Output: 05/04/17 05/04/17 06:59 18:59 Intake Total 1560 Output Total 3234 Balance -1674 - Medications Medications: Current Medications Acetaminophen (Tylenol 325mg Tab) 650 mg PO Q6H PRN PRN Reason: Fever >100.4 F Albuterol/Ipratropium (Duoneb 3 Mg/0.5 Mg (3 Ml) Ud) 3 ml IH [id number] [facility] Last Admin: 05/04/17 13:48 Dose: 3 ml Albuterol/Ipratropium (Duoneb 3 Mg/0.5 Mg (3 Ml) Ud) 3 ml IH Q2H PRN PRN Reason: Shortness of Breath Amlodipine Besylate (Norvasc) 10 mg PO DAILY [facility] Last Admin: 05/04/17 09:40 Dose: 10 mg Atorvastatin Calcium (Lipitor) 80 mg PO DIN [facility] Last Admin: 05/03/17 17:53 Dose: 80 mg Clopidogrel Bisulfate (Plavix) 75 mg PO DAILY [facility] Last Admin: 05/04/17 09:41 Dose: 75 mg Duloxetine HCl (Cymbalta) 30 mg PO TID [facility] Last Admin: 05/04/17 14:15 Dose: 30 mg Enoxaparin Sodium (Lovenox) 40 mg SC DAILY [facility] PRN Reason: Protocol Last Admin: 05/04/17 09:39 Dose: 40 mg Glipizide (Glucotrol) 5 mg PO ACB [facility] Last Admin: 05/04/17 11:57 Dose: 5 mg Guaifenesin/Codeine Phosphate (Robitussin W/Codeine) 5 ml PO Q4H PRN PRN Reason: Cough and congestion Last Admin: 05/02/17 00:32 Dose: 5 ml Hydralazine HCl (Apresoline) 10 mg IVP Q6H PRN PRN Reason: high BP Last Admin: 05/01/17 05:25 Dose: 10 mg Ibuprofen (Motrin Tab) 600 mg PO Q6H PRN PRN Reason: Pain, Mild (1-3) Last Admin: 05/01/17 19:51 Dose: 600 mg Insulin Human Lispro (Humalog) 0 units SC ACHS [facility] PRN Reason: Protocol Last Admin: 05/04/17 12:30 Dose: 3 units Levetiracetam (Keppra) 1,000 mg PO BID [facility] Last Admin: 05/04/17 09:41 Dose: 1,000 mg Lorazepam (Ativan) 1 mg PO Q4 PRN; Protocol PRN Reason: Anxiety Losartan Potassium (Cozaar) 50 mg PO DAILY [facility] Last Admin: 05/04/17 10:08 Dose: Not Given Methylprednisolone (Solu-Medrol) 20 mg IVP Q12 [facility] Last Admin: 05/04/17 10:09 Dose: Not Given Metoprolol Tartrate (Lopressor) 50 mg PO BID [facility] Last Admin: 05/04/17 09:41 Dose: 50 mg Non-Formulary Medication (Temazepam [Temazepam]) 30 mg PO HS [facility] Last Admin: 05/03/17 22:05 Dose: 30 mg Ondansetron HCl (Zofran Inj) 8 mg IVP Q6H PRN PRN Reason: Nausea/Vomiting Last Admin: 05/04/17 07:03 Dose: 8 mg Oxycodone/Acetaminophen (Percocet 10/325 Mg Tab) 1 tab PO Q6H PRN PRN Reason: Pain, moderate (4-7) Last Admin: 05/03/17 22:05 Dose: 1 tab Pantoprazole Sodium (Protonix Ec Tab) 40 mg PO ACB [facility] Last Admin: 05/04/17 07:41 Dose: 40 mg Pregabalin (Lyrica) 200 mg PO Q8 [facility] Last Admin: 05/04/17 14:15 Dose: 200 mg Tizanidine HCl (Zanaflex) 4 mg PO BID [facility] Last Admin: 05/04/17 09:40 Dose: 4 mg Zaleplon (Sonata) 10 mg PO HS PRN PRN Reason: Insomnia - Labs Labs: 05/04/17 06:00 05/04/17 06:00 PT 14.8 Seconds (9.9-11.8) H 05/04/17 06:00 INR 1.37 (0.93-1.08) H 05/04/17 06:00 APTT 32.7 Seconds (23.7-30.8) H 04/30/17 16:00 - Constitutional Appears: Well - Head Exam Head Exam: ATRAUMATIC - Eye Exam Eye Exam: EOMI Pupil Exam: NORMAL ACCOMODATION, PERRL - ENT Exam ENT Exam: Mucous Membranes Moist - Neck Exam Neck Exam: Normal Inspection - Respiratory Exam Respiratory Exam: Clear to Ausculation Bilateral, NORMAL BREATHING PATTERN - Cardiovascular Exam Cardiovascular Exam: REGULAR RHYTHM - Back Exam Back Exam: NORMAL INSPECTION - Neurological Exam Neurological Exam: Alert, Awake Assessment and Plan - Assessment and Plan (Free Text) Assessment: 61 y/o M w/ bronchitis / URI Needs outpatient PFT Symptoms improving w/ Solumedrol 30 q12 can wean to 30mg daily tomorrow PRn Albuterol. Would not need inhalers as outpatient unless deemed to have obstructive lung disease Noted to have dehydration on labs and loose stools. Would hydrate to avoid laila. Stool studies etc.
[2017-05-04] MEDS: Oxycodone/Acetaminophen 10/325 mg Tab PO PRN (19:57)
[2017-05-04] MEDS: TEMAZEPAM 30 MG PO SCH (22:46)
[2017-05-04] MEDS ORDERED: Sodium Chloride 0.9% 1,000 ML IV SCH (23:15)
[2017-05-05] MEDS: Albuterol-Ipratrop 3 mg / 0.5 (3 ml) UD IH SCH ×4 (02:47→19:47)
[2017-05-05 06:13] VITALS: O2SAT 97
[2017-05-05 06:43] LABS: ADD MANUAL DIFF? NO
[2017-05-05 07:02] LABS: INR 1.25 (0.93-1.08)
[2017-05-05 07:07] LABS: ALB/GLOB RATIO 1.2 (1.1-1.8); ALKALINE PHOSPHATASE 75 U/L (38-133); ALT/SGPT 88 U/L (7-56); AST/SGOT 58 U/L (15-59); BILIRUBIN,TOTAL 0.8 mg/dL (0.2-1.3); BLOOD UREA NITROGEN 47 mg/dL (7-21); CARBON DIOXIDE 23 mmol/L (21-33); CHLORIDE 100 mmol/L (98-107); GFR AFRICAN-AMERICAN > 60; GLUCOSE,RANDOM 222 mg/dL (70-110); MAGNESIUM 2.2 mg/dL (1.7-2.2); PHOSPHOROUS 4.7 mg/dL (2.5-4.5); POTASSIUM 4.4 mmol/L (3.6-5.0); SODIUM 133 mmol/L (132-148); TOTAL PROTEIN 7.3 g/dL (5.8-8.3)
[2017-05-05 07:19] LABS: GRAN # 11.86 (1.4-6.5); GRAN % 89.6 % (50.0-68.0); LYMPH # 0.8 (1.2-3.4); LYMPH % 5.8 % (22.0-35.0); MEAN CELL VOLUME 87.5 fL (80.0-105.0); MEAN CORPUSCULAR HEMOGLOBIN 29.8 pg (25.0-35.0); MEAN PLATELET VOLUME 13.3 fl (7.0-11.0); MONO # 0.6 (0.1-0.6); MONO % 4.6 % (1.0-6.0); PLATELET COUNT 179 10^3/uL (120.0-450.0); RED CELL DISTRIBUTION WIDTH 13.6 % (11.5-14.5); WHITE BLOOD COUNT 13.2 10^3/ul (4.5-11.0)
[2017-05-05] MEDS: Insulin Lispro 1 UNITS/0.01 ML SC SCH ×3 (08:20→17:45)
[2017-05-05] MEDS: Pantoprazole 40 mg EC Tab PO SCH (10:16)
[2017-05-05] MEDS: MethylPREDNISolone 40 mg Vial IVP SCH (10:16)
--- NOTE | 2017-05-05 10:18 | PN ---
DATE: 05/05/2017 Shortly, the patient is a 61-year-old male with reported history of mental illness, bipolar disorder. The patient was admitted on the medical side for shortness of breath. Psych consult was called for evaluation of depressive symptoms as well as [facility] Please see initial consultation for more detailed information. The patient was seen by this tech writer today for followup. Notes over the weekend reviewed. The patien t presented to be alert and oriented. The patient said that he feels a little bit better. The patie nt denied thoughts of harming himself or others. Denied any voices. Reported mood to be low, but ad amantly denied thoughts of harming himself or others. VITAL SIGNS: Stable. Temperature 98.4, pulse is 73, blood pressure 112/71, respirations 20, oxygen saturation is 97. MEDICATIONS: Reviewed. DuoNeb, Norvasc, Lipitor, Plavix, Cymbalta 30 mg 3 times a day, Lovenox, Afshin itussin, Motrin, Humalog, Keppra, Ativan 1 mg q. 4 hours as needed for anxiety, Solu-Medrol, Lopresso r, Zofran, Percocet, Protonix, Lyrica, sodium chloride, Sonata 10 mg at the nighttime as needed for i nsomnia. LABORATORY DATA: Reviewed. WBC cells 13.2, hemoglobin 17.7, hematocrit is 52.0. Coagulation is rev iewed. Chemistry reviewed. Reports reviewed. As per social work note, patient was interested in [facility] at [place]. MENTAL STATUS EXAMINATION: The patient presented to be alert, oriented, pleasant, cooperative. Fair eye contact. Speech was underproductive, low volume. Mood described, "I feel okay, better." Affec t was more reactive, mood congruent. Thought process: Coherent, goal directed. Thought content: T he patient denied visual, auditory, or tactile hallucinations; denied paranoid ideations. The patien t denied thoughts of harming himself or others, denied intent or plan. Insight and judgment are impr oving. Impulses are well controlled. IMPRESSION: As per history, the patient has bipolar disorder, rule out anxiety disorder due to gener al medical condition. PLAN: Continue current management. Continue current medications. The patient has followup appointm ent at Dr. Baker's office. The patient is seeing him every 3 months. The patient might benefit from therapy sessions, supportive therapy. Meanwhile, patient is not in acute distress. The patient den ied thoughts of harming himself or others. This tech writer will sign off. Should you have any questions , give me a call back. Luci Stratton MD cc: [id number] TT: 05/05/2017 10:18:18 Confirmation # [id number] Dictation # [id number] [place]
[2017-05-05] MEDS: Enoxaparin 40 mg Syringe SC SCH (10:19)
--- NOTE | 2017-05-05 12:25 | CP.PCM.PN ---
<Saul Pryor - Last Filed: 05/05/17 12:26> Subjective - Date & Time of Evaluation Date of Evaluation: 05/05/17 Time of Evaluation: 12:25 - Subjective Subjective: Med progress note. Attending: Dr. Montes Pt seen and examined at bedside. No acute distress. No events overnight. No fevers, chills, vomiting, no more diarrhea. Pt is breathing better. Objective - Vital Signs/Intake and Output Vital Signs (last 24 hours): Temp Pulse Resp BP Pulse Ox 98.4 F 73 20 114/70 97 05/05/17 06:00 05/05/17 06:00 05/05/17 06:00 05/05/17 10:18 05/05/17 06:00 Intake and Output: 05/05/17 05/05/17 06:59 18:59 Intake Total 800 Output Total 925 Balance -125 - Medications Medications: Current Medications Acetaminophen (Tylenol 325mg Tab) 650 mg PO Q6H PRN PRN Reason: Fever >100.4 F Albuterol/Ipratropium (Duoneb 3 Mg/0.5 Mg (3 Ml) Ud) 3 ml IH [id number] [facility] Last Admin: 05/05/17 07:47 Dose: 3 ml Albuterol/Ipratropium (Duoneb 3 Mg/0.5 Mg (3 Ml) Ud) 3 ml IH Q2H PRN PRN Reason: Shortness of Breath Amlodipine Besylate (Norvasc) 10 mg PO DAILY [facility] Last Admin: 05/05/17 10:15 Dose: 10 mg Atorvastatin Calcium (Lipitor) 80 mg PO DIN [facility] Last Admin: 05/04/17 18:03 Dose: 80 mg Clopidogrel Bisulfate (Plavix) 75 mg PO DAILY [facility] Last Admin: 05/05/17 10:15 Dose: 75 mg Duloxetine HCl (Cymbalta) 30 mg PO TID [facility] Last Admin: 05/05/17 10:17 Dose: 30 mg Enoxaparin Sodium (Lovenox) 40 mg SC DAILY [facility] PRN Reason: Protocol Last Admin: 05/05/17 10:19 Dose: 40 mg Glipizide (Glucotrol) 5 mg PO ACB [facility] Last Admin: 05/05/17 10:17 Dose: 5 mg Guaifenesin/Codeine Phosphate (Robitussin W/Codeine) 5 ml PO Q4H PRN PRN Reason: Cough and congestion Last Admin: 05/02/17 00:32 Dose: 5 ml Hydralazine HCl (Apresoline) 10 mg IVP Q6H PRN PRN Reason: high BP Last Admin: 05/01/17 05:25 Dose: 10 mg Sodium Chloride (Sodium Chloride 0.9%) 1,000 mls @ 80 mls/hr IV .[id number] [facility] Last Admin: 05/04/17 23:36 Dose: 80 mls/hr Ibuprofen (Motrin Tab) 600 mg PO Q6H PRN PRN Reason: Pain, Mild (1-3) Last Admin: 05/01/17 19:51 Dose: 600 mg Insulin Human Lispro (Humalog) 0 units SC ACHS [facility] PRN Reason: Protocol Last Admin: 05/05/17 08:20 Dose: Not Given Levetiracetam (Keppra) 1,000 mg PO BID [facility] Last Admin: 05/05/17 10:18 Dose: 1,000 mg Lorazepam (Ativan) 1 mg PO Q4 PRN; Protocol PRN Reason: Anxiety Losartan Potassium (Cozaar) 50 mg PO DAILY [facility] Last Admin: 05/05/17 10:17 Dose: 50 mg Methylprednisolone (Solu-Medrol) 20 mg IVP Q12 [facility] Last Admin: 05/05/17 10:16 Dose: 20 mg Metoprolol Tartrate (Lopressor) 50 mg PO BID [facility] Last Admin: 05/05/17 10:18 Dose: 50 mg Non-Formulary Medication (Temazepam [Temazepam]) 30 mg PO HS [facility] Last Admin: 05/04/17 22:46 Dose: 30 mg Ondansetron HCl (Zofran Inj) 8 mg IVP Q6H PRN PRN Reason: Nausea/Vomiting Last Admin: 05/04/17 07:03 Dose: 8 mg Oxycodone/Acetaminophen (Percocet 10/325 Mg Tab) 1 tab PO Q6H PRN PRN Reason: Pain, moderate (4-7) Last Admin: 05/04/17 19:57 Dose: 1 tab Pantoprazole Sodium (Protonix Ec Tab) 40 mg PO ACB [facility] Last Admin: 05/05/17 10:16 Dose: 40 mg Pregabalin (Lyrica) 200 mg PO Q8 [facility] Last Admin: 05/05/17 05:35 Dose: 200 mg Tizanidine HCl (Zanaflex) 4 mg PO BID [facility] Last Admin: 05/05/17 10:17 Dose: 4 mg Zaleplon (Sonata) 10 mg PO HS PRN PRN Reason: Insomnia Last Admin: 05/04/17 23:35 Dose: 10 mg - Labs Labs: 05/05/17 05:30 05/05/17 05:30 PT 13.5 Seconds (9.9-11.8) H 05/05/17 05:30 INR 1.25 (0.93-1.08) H 05/05/17 05:30 APTT 32.7 Seconds (23.7-30.8) H 04/30/17 16:00 - Constitutional Appears: Non-toxic, No Acute Distress - Head Exam Head Exam: ATRAUMATIC, NORMAL INSPECTION, NORMOCEPHALIC - Eye Exam Eye Exam: EOMI - ENT Exam ENT Exam: Mucous Membranes Moist - Respiratory Exam Respiratory Exam: NORMAL BREATHING PATTERN. absent: Respiratory Distress - Cardiovascular Exam Cardiovascular Exam: +S1, +S2 - GI/Abdominal Exam GI & Abdominal Exam: Soft, Normal Bowel Sounds. absent: Tenderness - Extremities Exam Extremities Exam: Full ROM, Normal Inspection - Neurological Exam Neurological Exam: Alert, Awake, Oriented x3 - Psychiatric Exam Psychiatric exam: Flat Affect - Skin Skin Exam: Dry, Intact, Normal Color, Warm Assessment and Plan - Assessment and Plan (Free Text) Assessment: This is a 61 yo male with past medical hx of DM, HTN, reflex sympathetic dystrophy, depression, chronic pain presenting with shortness of breath for over 2 weeks. 1. Shortness of breath likely secondary to bronchitis - Cont albuterol Q6H and Q2H PRN - Taper steroids from solumedrol 30 q 12 to 20 q 12 -ct angio negative for PE -venous dopplers negative -3rd trop .12 -carotid dopplers B/L 20-39 percent proximal ica stenoses -hep panel negative -cardio consult. recs appreciated -Dr. [place] Alicia consulted. recs appreciated. - Cont Robitussin 2. CAD - Cont plavix, betablocker, Losartan and statin -will carefully monitor ARB and kidney fx 3. DMII -RISS -fu HBA1C>> 7.6 -will add PO glipizide 4. HTN -continue Losartan, norvasc, hydralazine PRN, and lopressor -losartan to 50 mg po daily 5. reflex sympathetic dystrophy -continue keppra -continue temazepam 6. major depression; chronic -continue duloxetine, -Psych consulted rec starting Sonata and pt may benefit from inpatient psych for medication adjustment -patient not actively suicidal and no plans to hurt self or others; no psychotic symptoms -pt will not go to inpatient psych 7. chronic pain -continue percocet and lyrica -ativan for anxiety 8. GI/DVT ppx Protonix Heart Healthy Diet Lovenox 40mg SC -will add colace prn Dispo: discharge planning in progress. pt may be a candidate for [facility], not TCU Case and plan was seen, reviewed and discusssed in detail with Dr Montes. <Emilia Montes - Last Filed: 05/05/17 16:44> Objective - Vital Signs/Intake and Output Vital Signs (last 24 hours): Temp Pulse Resp BP Pulse Ox 97.1 F L 80 19 125/81 97 05/05/17 12:00 05/05/17 12:00 05/05/17 12:00 05/05/17 12:00 05/05/17 06:00 Intake and Output: 05/05/17 05/05/17 06:59 18:59 Intake Total 800 Output Total 925 Balance -125 - Medications Medications: Current Medications Acetaminophen (Tylenol 325mg Tab) 650 mg PO Q6H PRN PRN Reason: Fever >100.4 F Albuterol/Ipratropium (Duoneb 3 Mg/0.5 Mg (3 Ml) Ud) 3 ml IH [id number] [facility] Last Admin: 05/05/17 13:59 Dose: 3 ml Albuterol/Ipratropium (Duoneb 3 Mg/0.5 Mg (3 Ml) Ud) 3 ml IH Q2H PRN PRN Reason: Shortness of Breath Amlodipine Besylate (Norvasc) 10 mg PO DAILY [facility] Last Admin: 05/05/17 10:15 Dose: 10 mg Atorvastatin Calcium (Lipitor) 80 mg PO DIN [facility] Last Admin: 05/04/17 18:03 Dose: 80 mg Clopidogrel Bisulfate (Plavix) 75 mg PO DAILY [facility] Last Admin: 05/05/17 10:15 Dose: 75 mg Docusate Sodium (Colace) 100 mg PO DAILY PRN PRN Reason: Constipation Duloxetine HCl (Cymbalta) 30 mg PO TID [facility] Last Admin: 05/05/17 14:51 Dose: 30 mg Enoxaparin Sodium (Lovenox) 40 mg SC DAILY [facility] PRN Reason: Protocol Last Admin: 05/05/17 10:19 Dose: 40 mg Glipizide (Glucotrol) 5 mg PO ACB [facility] Last Admin: 05/05/17 10:17 Dose: 5 mg Guaifenesin/Codeine Phosphate (Robitussin W/Codeine) 5 ml PO Q4H PRN PRN Reason: Cough and congestion Last Admin: 05/02/17 00:32 Dose: 5 ml Hydralazine HCl (Apresoline) 10 mg IVP Q6H PRN PRN Reason: high BP Last Admin: 05/01/17 05:25 Dose: 10 mg Sodium Chloride (Sodium Chloride 0.9%) 1,000 mls @ 80 mls/hr IV .[id number] [facility] Last Admin: 05/04/17 23:36 Dose: 80 mls/hr Ibuprofen (Motrin Tab) 600 mg PO Q6H PRN PRN Reason: Pain, Mild (1-3) Last Admin: 05/01/17 19:51 Dose: 600 mg Insulin Human Lispro (Humalog) 0 units SC ACHS [facility] PRN Reason: Protocol Last Admin: 05/05/17 12:56 Dose: 1 units Levetiracetam (Keppra) 1,000 mg PO BID [facility] Last Admin: 05/05/17 10:18 Dose: 1,000 mg Lorazepam (Ativan) 1 mg PO Q4 PRN; Protocol PRN Reason: Anxiety Losartan Potassium (Cozaar) 50 mg PO DAILY [facility] Last Admin: 05/05/17 10:17 Dose: 50 mg Methylprednisolone (Solu-Medrol) 20 mg IVP Q12 [facility] Last Admin: 05/05/17 10:16 Dose: 20 mg Metoprolol Tartrate (Lopressor) 50 mg PO BID [facility] Last Admin: 05/05/17 10:18 Dose: 50 mg Non-Formulary Medication (Temazepam [Temazepam]) 30 mg PO HS [facility] Last Admin: 05/04/17 22:46 Dose: 30 mg Ondansetron HCl (Zofran Inj) 8 mg IVP Q6H PRN PRN Reason: Nausea/Vomiting Last Admin: 05/04/17 07:03 Dose: 8 mg Oxycodone/Acetaminophen (Percocet 10/325 Mg Tab) 1 tab PO Q6H PRN PRN Reason: Pain, moderate (4-7) Last Admin: 05/04/17 19:57 Dose: 1 tab Pantoprazole Sodium (Protonix Ec Tab) 40 mg PO ACB [facility] Last Admin: 05/05/17 10:16 Dose: 40 mg Pregabalin (Lyrica) 200 mg PO Q8 [facility] Last Admin: 05/05/17 14:51 Dose: 200 mg Tizanidine HCl (Zanaflex) 4 mg PO BID [facility] Last Admin: 05/05/17 10:17 Dose: 4 mg Zaleplon (Sonata) 10 mg PO HS PRN PRN Reason: Insomnia Last Admin: 05/04/17 23:35 Dose: 10 mg - Labs Labs: 05/05/17 05:30 05/05/17 05:30 PT 13.5 Seconds (9.9-11.8) H 05/05/17 05:30 INR 1.25 (0.93-1.08) H 05/05/17 05:30 APTT 32.7 Seconds (23.7-30.8) H 04/30/17 16:00 Attending/Attestation - Attestation I have personally seen and examined this patient.: Yes I have fully participated in the care of the patient.: Yes I have reviewed all pertinent clinical information, including history, physical exam and plan: Yes Notes (Text): 05/05/17 16:42 61 year old male with past medical history of hypertension, depression and reflex sympathetic dystrophy who presented with complaint of shortness of breath x [address] angio was negative for PE. He was started on iv steroids and duonebs and his symptoms improved. He is on tapering steroids. Leukocytosis is likely secondary to iv steroids. Pulmonary is following. Troponins were indeterminant. Echocardiogram was reviewed. Cardiology is following. He denies any chest pain. A1c is 7.4 and he was started on glipizide for diabetes. He is on insulin ss as well. He was seen by neurology for history of RSD and is being followed by psychiatry for anxiety/depression. D/c planning today to [facility] if accepted. Emilia Montes MD Hospitalist.
--- NOTE | 2017-05-05 16:02 | CP.PCM.DIS ---
<Saul Pryor - Last Filed: 05/05/17 16:08> Provider - Provider Date of Admission: 05/01/17 14:54 Attending physician: Emilia Montes MD Primary care physician: Morales Pepe MD Consults: Consults Julia Garcia Time Spent in preparation of Discharge (in minutes): 45 Hospital Course - Lab Results Lab Results: Most Recent Lab Values WBC 13.2 10^3/ul (4.5-11.0) H 05/05/17 05:30 RBC 5.94 10^6/uL (3.5-6.1) 05/05/17 05:30 Hgb 17.7 gm/dL (14.0-18.0) 05/05/17 05:30 Hct 52.0 % (42.0-52.0) 05/05/17 05:30 MCV 87.5 fL (80.0-105.0) 05/05/17 05:30 MCH 29.8 pg (25.0-35.0) 05/05/17 05:30 MCHC 34.0 g/dl (31.0-37.0) 05/05/17 05:30 RDW 13.6 % (11.5-14.5) 05/05/17 05:30 Plt Count 179 10^3/uL (120.0-450.0) 05/05/17 05:30 MPV 13.3 fl (7.0-11.0) H 05/05/17 05:30 Gran % 89.6 % (50.0-68.0) H 05/05/17 05:30 Lymph % (Auto) 5.8 % (22.0-35.0) L 05/05/17 05:30 [place] % (Auto) 4.6 % (1.0-6.0) 05/05/17 05:30 Eos % (Auto) 0.0 % (1.5-5.0) L 05/05/17 05:30 Baso % (Auto) 0.0 % (0.0-3.0) 05/05/17 05:30 Gran # 11.86 (1.4-6.5) H 05/05/17 05:30 Lymph # 0.8 (1.2-3.4) L 05/05/17 05:30 [place] # 0.6 (0.1-0.6) 05/05/17 05:30 Eos # 0.0 (0.0-0.7) 05/05/17 05:30 Baso # 0.00 K/mm3 (0.0-2.0) 05/05/17 05:30 Neutrophils % (Manual) 88 % (50.0-70.0) H 05/02/17 05:15 Band Neutrophils % 4 % (0-2) H 05/02/17 05:15 Lymphocytes % (Manual) 6 % (22.0-35.0) L 05/02/17 05:15 Monocytes % (Manual) 2 % (1.0-6.0) 05/02/17 05:15 Platelet Evaluation Normal (NORMAL) 05/02/17 05:15 PT 13.5 Seconds (9.9-11.8) H 05/05/17 05:30 INR 1.25 (0.93-1.08) H 05/05/17 05:30 APTT 32.7 Seconds (23.7-30.8) H 04/30/17 16:00 D-Dimer, Quantitative 0.38 mg/L FEU (0-0.50) 04/30/17 16:00 pCO2 18 mm/Hg (35-45) L* 05/01/17 11:00 pO2 129.0 mm/Hg (80-100) H 05/01/17 11:00 HCO3 15.0 mmol/L (21-28) L 05/01/17 11:00 ABG pH 7.53 (7.35-7.45) H 05/01/17 11:00 ABG Total CO2 15.6 mmol.L (22-28) L 05/01/17 11:00 ABG O2 Saturation 98.6 % (95-98) H 05/01/17 11:00 ABG O2 Content 24.5 ML/dl (15-23) H 05/01/17 11:00 ABG Base Excess -4.1 mmol/L (-2.0-3.0) L 05/01/17 11:00 ABG Hemoglobin 17.9 g/dL (11.7-17.4) H 05/01/17 11:00 ABG Carboxyhemoglobin 1.0 % (0.5-1.5) 05/01/17 11:00 POC ABG HHb (Measured) 1.4 % (0-5) 05/01/17 11:00 ABG Methemoglobin 0.8 % (0.0-3.0) 05/01/17 11:00 ABG O2 Capacity 24.8 mL/dl (16-24) H 05/01/17 11:00 Hgb O2 Saturation 96.8 % (95.0-98.0) 05/01/17 11:00 FiO2 32.0 % 05/01/17 11:00 Sodium 133 mmol/L (132-148) 05/05/17 05:30 Potassium 4.4 mmol/L (3.6-5.0) 05/05/17 05:30 Chloride 100 mmol/L (98-107) 05/05/17 05:30 Carbon Dioxide 23 mmol/L (21-33) 05/05/17 05:30 Anion Gap 14 (10-20) 05/05/17 05:30 BUN 47 mg/dL (7-21) H 05/05/17 05:30 Creatinine 1.2 mg/dL (0.5-1.4) 05/05/17 05:30 Est GFR ( Amer) > 60 05/05/17 05:30 Est GFR (Non-Af Amer) > 60 05/05/17 05:30 POC Glucose (mg/dL) 230 mg/dL (65-110) H 05/05/17 11:04 Random Glucose 222 mg/dL (70-110) H 05/05/17 05:30 Hemoglobin A1c 7.4 % (4.2-6.5) H 05/01/17 05:15 Calcium 9.0 mg/dL (8.4-10.5) 05/05/17 05:30 Phosphorus 4.7 mg/dL (2.5-4.5) H 05/05/17 05:30 Magnesium 2.2 mg/dL (1.7-2.2) 05/05/17 05:30 Total Bilirubin 0.8 mg/dL (0.2-1.3) 05/05/17 05:30 AST 58 U/L (15-59) 05/05/17 05:30 ALT 88 U/L (7-56) H 05/05/17 05:30 Alkaline Phosphatase 75 U/L (38-133) 05/05/17 05:30 Lactate Dehydrogenase 691 U/L (333-699) 05/01/17 08:45 Total Creatine Kinase 340 U/L (35-230) H 05/01/17 08:45 CK-MB (CK-2) 4.4 ng/mL (0.0-3.6) H 05/01/17 08:45 CK-MB (CK-2) % Cancelled 04/30/17 16:00 Troponin I 0.12 ng/mL D 05/01/17 08:45 NT-Pro-B Natriuret Pep 427 pg/mL (0-450) 04/30/17 16:00 Total Protein 7.3 g/dL (5.8-8.3) 05/05/17 05:30 Albumin 4.0 g/dL (3.0-4.8) 05/05/17 05:30 Globulin 3.3 gm/dL 05/05/17 05:30 Albumin/Globulin Ratio 1.2 (1.1-1.8) 05/05/17 05:30 Triglycerides 115 mg/dL (35-160) 05/01/17 05:15 Cholesterol 197 mg/dL (130-200) 05/01/17 05:15 LDL Cholesterol Direct 123 mg/dL (0-129) 05/01/17 05:15 HDL Cholesterol 53 mg/dL (29-60) 05/01/17 05:15 Lipase 53 U/L (23-300) 04/30/17 16:00 Urine Color Yellow (YELLOW) 04/30/17 20:33 Urine Appearance Clear (CLEAR) 04/30/17 20:33 Urine pH 7.0 (4.7-8.0) 04/30/17 20:33 Ur Specific [place] 1.010 (1.005-1.035) 04/30/17 20:33 Urine Protein Trace mg/dL (<30 mg/dL) H 04/30/17 20:33 Urine Glucose (UA) Negative mg/dL (NEGATIVE) 04/30/17 20:33 Urine Ketones Negative mg/dL (NEGATIVE) 04/30/17 20:33 Urine Blood Moderate (NEGATIVE) H 04/30/17 20:33 Urine Nitrate Negative (NEGATIVE) 04/30/17 20:33 Urine Bilirubin Negative (NEGATIVE) 04/30/17 20:33 Urine Urobilinogen 0.2 E.U./dL (<1 E.U./dL) 04/30/17 20:33 Ur Leukocyte Esterase Negative [place]/uL (NEGATIVE) 04/30/17 20:33 Urine RBC 1 - 3 /hpf (0-2) 04/30/17 20:33 Urine WBC 0 - 2 /hpf (0-6) 04/30/17 20:33 Ur Epithelial Cells 0 - 2 /hpf (0-5) 04/30/17 20:33 Urine Bacteria Mod (NEG) 04/30/17 20:33 Urine Opiates Screen Negative (NEGATIVE) 04/30/17 20:33 Urine Methadone Screen Negative (NEGATIVE) 04/30/17 20:33 Ur Barbiturates Screen Negative (NEGATIVE) 04/30/17 20:33 Ur Phencyclidine Scrn Negative (NEGATIVE) 04/30/17 20:33 Ur Amphetamines Screen Negative (NEGATIVE) 04/30/17 20:33 U Benzodiazepines Scrn Negative (NEGATIVE) 04/30/17 20:33 U Oth Cocaine Metabols Negative (NEGATIVE) 04/30/17 20:33 U Cannabinoids Screen Negative (NEGATIVE) 04/30/17 20:33 Hepatitis A IgM Ab Negative (NEGATIVE) 04/30/17 20:36 Hep Bs Antigen Negative (NEGATIVE) 04/30/17 20:36 Hep B Core IgM Ab Negative (NEGATIVE) 04/30/17 20:36 Hepatitis C Antibody Negative (NEGATIVE) 04/30/17 20:36 - Hospital Course Hospital Course: Admit date- 04/30 DC date- 05/05 Attending: Dr. Montes Consults Bebo Dumont Discharge to sub acute rehab HPI: see h/p Labs: see lab data Procedures- none No complications Discharge diagnoses 1. Bronchitis 2. CAD 3. DM 4. HTN 5. RSD 6. Chronic depression 7. Chronic pain Hospital course This is a 61 yo male with past medical hx of DM, HTN, reflex sympathetic dystrophy, depression, chronic pain presenting with shortness of breath for over 2 weeks. 1. Shortness of breath likely secondary to bronchitis -albuterol Q6H and Q2H PRN - solumedrol given and then tapered -ct angio negative for PE -venous dopplers negative -3rd trop .12 -carotid dopplers B/L 20-39 percent proximal ica stenoses -hep panel negative -cardio consult. recs appreciated -Dr. Montana Alicia consulted. recs appreciated. - Cont Robitussin 2. CAD - Cont plavix, betablocker, Losartan and statin -will carefully monitor ARB and kidney fx 3. DMII -RISS -fu HBA1C>> 7.6 -will add PO glipizide 4. HTN -continue Losartan, norvasc, hydralazine PRN, and lopressor -losartan to 50 mg po daily 5. reflex sympathetic dystrophy -continue keppra -continue temazepam 6. major depression; chronic -continue duloxetine, -Psych consulted rec starting Sonata and pt may benefit from inpatient psych for medication adjustment -patient not actively suicidal and no plans to hurt self or others; no psychotic symptoms -pt will not go to inpatient psych 7. chronic pain -continue percocet and lyrica -ativan for anxiety 8. GI/DVT ppx Protonix Heart Healthy Diet Lovenox 40mg SC -will add colace prn DC meds 1. tylenol 2. duonebs 3. robitussin 4. ibuprofen 5. solumedrol 6. lipitor 7. plavix 8. glipizide 9. norvasc 10. hydralazine 11. losartan 12. lopressor 13. colace 14. ativan 15. duloxetine 16. keppra 17. temazepam 18. zofran 19. lyrica 20. sonata DC instructions Please return if condition worsens. DC to [facility]. Take all meds as indicated. F.u. with PMD in 1 week. - Date & Time of H&P Date of H&P: 04/30/17 Time of H&P: 19:50 Discharge Exam - Head Exam Head Exam: ATRAUMATIC, NORMAL INSPECTION, NORMOCEPHALIC - Eye Exam Eye Exam: EOMI - ENT Exam ENT Exam: Mucous Membranes Moist - Neck Exam Neck exam: Full Rom, Normal Inspection - Respiratory Exam Respiratory Exam: Decreased Breath Sounds - Cardiovascular Exam Cardiovascular Exam: +S1, +S2 - GI/Abdominal Exam GI & Abdominal Exam: Normal Bowel Sounds - Extremities Exam Extremities exam: full ROM, normal inspection - Back Exam Back exam: NORMAL INSPECTION - Neurological Exam Neurological exam: Alert, Oriented x3 - Psychiatric Exam Psychiatric exam: Normal Affect, Normal Mood - Skin Skin Exam: Dry, Intact, Normal Color, Warm Discharge Plan - Discharge Medications Prescriptions: Methylprednisolone [Medrol Dose Pack (21 tabs)] 4 mg PO DAILY #21 mg - Follow Up Plan Condition: STABLE Disposition: REHAB FACILITY/REHAB UNIT Referrals: Morales Pepe MD [Primary Care Provider] - <Emilia Montes - Last Filed: 05/05/17 16:52> Provider - Provider Date of Admission: 05/01/17 14:54 Attending physician: Emilia Montes MD Primary care physician: Morales Pepe MD Hospital Course - Lab Results Lab Results: Most Recent Lab Values WBC 13.2 10^3/ul (4.5-11.0) H 05/05/17 05:30 RBC 5.94 10^6/uL (3.5-6.1) 05/05/17 05:30 Hgb 17.7 gm/dL (14.0-18.0) 05/05/17 05:30 Hct 52.0 % (42.0-52.0) 05/05/17 05:30 MCV 87.5 fL (80.0-105.0) 05/05/17 05:30 MCH 29.8 pg (25.0-35.0) 05/05/17 05:30 MCHC 34.0 g/dl (31.0-37.0) 05/05/17 05:30 RDW 13.6 % (11.5-14.5) 05/05/17 05:30 Plt Count 179 10^3/uL (120.0-450.0) 05/05/17 05:30 MPV 13.3 fl (7.0-11.0) H 05/05/17 05:30 Gran % 89.6 % (50.0-68.0) H 05/05/17 05:30 Lymph % (Auto) 5.8 % (22.0-35.0) L 05/05/17 05:30 [place] % (Auto) 4.6 % (1.0-6.0) 05/05/17 05:30 Eos % (Auto) 0.0 % (1.5-5.0) L 05/05/17 05:30 Baso % (Auto) 0.0 % (0.0-3.0) 05/05/17 05:30 Gran # 11.86 (1.4-6.5) H 05/05/17 05:30 Lymph # 0.8 (1.2-3.4) L 05/05/17 05:30 [place] # 0.6 (0.1-0.6) 05/05/17 05:30 Eos # 0.0 (0.0-0.7) 05/05/17 05:30 Baso # 0.00 K/mm3 (0.0-2.0) 05/05/17 05:30 Neutrophils % (Manual) 88 % (50.0-70.0) H 05/02/17 05:15 Band Neutrophils % 4 % (0-2) H 05/02/17 05:15 Lymphocytes % (Manual) 6 % (22.0-35.0) L 05/02/17 05:15 Monocytes % (Manual) 2 % (1.0-6.0) 05/02/17 05:15 Platelet Evaluation Normal (NORMAL) 05/02/17 05:15 PT 13.5 Seconds (9.9-11.8) H 05/05/17 05:30 INR 1.25 (0.93-1.08) H 05/05/17 05:30 APTT 32.7 Seconds (23.7-30.8) H 04/30/17 16:00 D-Dimer, Quantitative 0.38 mg/L FEU (0-0.50) 04/30/17 16:00 pCO2 18 mm/Hg (35-45) L* 05/01/17 11:00 pO2 129.0 mm/Hg (80-100) H 05/01/17 11:00 HCO3 15.0 mmol/L (21-28) L 05/01/17 11:00 ABG pH 7.53 (7.35-7.45) H 05/01/17 11:00 ABG Total CO2 15.6 mmol.L (22-28) L 05/01/17 11:00 ABG O2 Saturation 98.6 % (95-98) H 05/01/17 11:00 ABG O2 Content 24.5 ML/dl (15-23) H 05/01/17 11:00 ABG Base Excess -4.1 mmol/L (-2.0-3.0) L 05/01/17 11:00 ABG Hemoglobin 17.9 g/dL (11.7-17.4) H 05/01/17 11:00 ABG Carboxyhemoglobin 1.0 % (0.5-1.5) 05/01/17 11:00 POC ABG HHb (Measured) 1.4 % (0-5) 05/01/17 11:00 ABG Methemoglobin 0.8 % (0.0-3.0) 05/01/17 11:00 ABG O2 Capacity 24.8 mL/dl (16-24) H 05/01/17 11:00 Hgb O2 Saturation 96.8 % (95.0-98.0) 05/01/17 11:00 FiO2 32.0 % 05/01/17 11:00 Sodium 133 mmol/L (132-148) 05/05/17 05:30 Potassium 4.4 mmol/L (3.6-5.0) 05/05/17 05:30 Chloride 100 mmol/L (98-107) 05/05/17 05:30 Carbon Dioxide 23 mmol/L (21-33) 05/05/17 05:30 Anion Gap 14 (10-20) 05/05/17 05:30 BUN 47 mg/dL (7-21) H 05/05/17 05:30 Creatinine 1.2 mg/dL (0.5-1.4) 05/05/17 05:30 Est GFR ( Amer) > 60 05/05/17 05:30 Est GFR (Non-Af Amer) > 60 05/05/17 05:30 POC Glucose (mg/dL) 213 mg/dL (65-110) H 05/05/17 16:27 Random Glucose 222 mg/dL (70-110) H 05/05/17 05:30 Hemoglobin A1c 7.4 % (4.2-6.5) H 05/01/17 05:15 Calcium 9.0 mg/dL (8.4-10.5) 05/05/17 05:30 Phosphorus 4.7 mg/dL (2.5-4.5) H 05/05/17 05:30 Magnesium 2.2 mg/dL (1.7-2.2) 05/05/17 05:30 Total Bilirubin 0.8 mg/dL (0.2-1.3) 05/05/17 05:30 AST 58 U/L (15-59) 05/05/17 05:30 ALT 88 U/L (7-56) H 05/05/17 05:30 Alkaline Phosphatase 75 U/L (38-133) 05/05/17 05:30 Lactate Dehydrogenase 691 U/L (333-699) 05/01/17 08:45 Total Creatine Kinase 340 U/L (35-230) H 05/01/17 08:45 CK-MB (CK-2) 4.4 ng/mL (0.0-3.6) H 05/01/17 08:45 CK-MB (CK-2) % Cancelled 04/30/17 16:00 Troponin I 0.12 ng/mL D 05/01/17 08:45 NT-Pro-B Natriuret Pep 427 pg/mL (0-450) 04/30/17 16:00 Total Protein 7.3 g/dL (5.8-8.3) 05/05/17 05:30 Albumin 4.0 g/dL (3.0-4.8) 05/05/17 05:30 Globulin 3.3 gm/dL 05/05/17 05:30 Albumin/Globulin Ratio 1.2 (1.1-1.8) 05/05/17 05:30 Triglycerides 115 mg/dL (35-160) 05/01/17 05:15 Cholesterol 197 mg/dL (130-200) 05/01/17 05:15 LDL Cholesterol Direct 123 mg/dL (0-129) 05/01/17 05:15 HDL Cholesterol 53 mg/dL (29-60) 05/01/17 05:15 Lipase 53 U/L (23-300) 04/30/17 16:00 Urine Color Yellow (YELLOW) 04/30/17 20:33 Urine Appearance Clear (CLEAR) 04/30/17 20:33 Urine pH 7.0 (4.7-8.0) 04/30/17 20:33 Ur Specific [place] 1.010 (1.005-1.035) 04/30/17 20:33 Urine Protein Trace mg/dL (<30 mg/dL) H 04/30/17 20:33 Urine Glucose (UA) Negative mg/dL (NEGATIVE) 04/30/17 20:33 Urine Ketones Negative mg/dL (NEGATIVE) 04/30/17 20:33 Urine Blood Moderate (NEGATIVE) H 04/30/17 20:33 Urine Nitrate Negative (NEGATIVE) 04/30/17 20:33 Urine Bilirubin Negative (NEGATIVE) 04/30/17 20:33 Urine Urobilinogen 0.2 E.U./dL (<1 E.U./dL) 04/30/17 20:33 Ur Leukocyte Esterase Negative [place]/uL (NEGATIVE) 04/30/17 20:33 Urine RBC 1 - 3 /hpf (0-2) 04/30/17 20:33 Urine WBC 0 - 2 /hpf (0-6) 04/30/17 20:33 Ur Epithelial Cells 0 - 2 /hpf (0-5) 04/30/17 20:33 Urine Bacteria Mod (NEG) 04/30/17 20:33 Urine Opiates Screen Negative (NEGATIVE) 04/30/17 20:33 Urine Methadone Screen Negative (NEGATIVE) 04/30/17 20:33 Ur Barbiturates Screen Negative (NEGATIVE) 04/30/17 20:33 Ur Phencyclidine Scrn Negative (NEGATIVE) 04/30/17 20:33 Ur Amphetamines Screen Negative (NEGATIVE) 04/30/17 20:33 U Benzodiazepines Scrn Negative (NEGATIVE) 04/30/17 20:33 U Oth Cocaine Metabols Negative (NEGATIVE) 04/30/17 20:33 U Cannabinoids Screen Negative (NEGATIVE) 04/30/17 20:33 Hepatitis A IgM Ab Negative (NEGATIVE) 04/30/17 20:36 Hep Bs Antigen Negative (NEGATIVE) 04/30/17 20:36 Hep B Core IgM Ab Negative (NEGATIVE) 04/30/17 20:36 Hepatitis C Antibody Negative (NEGATIVE) 04/30/17 20:36 Attending/Attestation - Attestation I have personally seen and examined this patient.: Yes I have fully participated in the care of the patient.: Yes I have reviewed all pertinent clinical information, including history, physical exam and plan: Yes Notes (Text): 05/05/17 16:50 61 year old male with past medical history of hypertension, depression and reflex sympathetic dystrophy who presented with complaint of shortness of breath x [address] angio was negative for PE. He was started on iv steroids and duonebs and his symptoms improved. Leukocytosis is likely secondary to iv steroids. Troponins were indeterminant. Echocardiogram was reviewed. Cardiology is following. He denies any chest pain. A1c is 7.4 and he was started on glipizide for diabetes. He is on insulin ss as well. He was seen by neurology for history of RSD and is being followed by psychiatry for anxiety/depression. Patient was seen by PT who recommended [facility]. Patient today is accepted to [facility]. He will be discharged on medrol dosepack. Follow up with pmd. Follow up with psychiatrist or with [facility]. Emilia Montes MD Hospitalist.
--- NOTE | 2017-05-05 16:03 | PN ---
DATE: 05/05/2017 The patient denies chest pain. He is mildly short of breath. PHYSICAL EXAMINATION: VITAL SIGNS: Blood pressure 125/81, heart rate 80, temperature 97.1, respiration 19. HEENT: Normocephalic. CHEST: Clear. HEART: S1, S2 regular. EXTREMITIES: No edema. LABORATORIES: Hemoglobin and hematocrit 17.7 and 52, white count and platelet count are 13.2 and 179 ,000. Today's SMA-7 is within normal limits except for glucose of 222 and BUN of 47. ASSESSMENT: 1. Improved congestive heart failure. 2. Bronchitis. 3. Moderate aortic stenosis and moderate aortic insufficiency. 4. Diabetes mellitus. 5. Reflex sympathetic dystrophy. RECOMMENDATIONS: Continue current IV hydralazine p.r.n. at 10 mg q. 6 hours. Continue Cozaar at 50 mg once a day, albuterol inhaler, glipizide. Continue Keppra at 1 gram p.o. twice a day, Lipitor at 80 mg twice a day, Lovenox at 40 mg subcutaneously once a day, Norvasc at 10 mg once a day, Plavix 75 mg once a day, Solu-Medrol at 20 mg intravenously q. 12 hours. Stuart Fabian MD cc: [id number] TT: 05/05/2017 16:02:07 Confirmation # [id number] Dictation # [id number]
[2017-05-05 19:32] VITALS: BP 115/71; PULSE 72; RESP 18; TEMP 97.6
[2017-05-06 02:56] LABS: TOTAL PROTEIN, SERUM 7.2 g/dL (6.1-8.1)
--- NOTE | 2017-05-06 09:08 | CP.PCM.PCO ---
Physician Communication Note - Physician Communication Note Physician Communication Note: pt was d/d
== END 2017-05-05 20:22 | DRG 202 ==
LOC: ED 15:26 → ERH 18:55 → 2RNO 21:30 → OBSVTOIN 05-01 14:54
PROVIDERS: ADMIT Internal Medicine; ATTEND Internal Medicine
DX: J20.8 Acute bronchitis due to other specified organisms (principal); G90.523 Complex regional pain syndrome I of lower limb, bilateral; I11.0 Hypertensive heart disease with heart failure; I50.9 Heart failure, unspecified; I27.2 Other secondary pulmonary hypertension; F31.30 Bipolar disorder, current episode depressed, mild or moderate severity, unspecified; J06.9 Acute upper respiratory infection, unspecified; E11.65 Type 2 diabetes mellitus with hyperglycemia; I25.10 Atherosclerotic heart disease of native coronary artery without angina pectoris; G89.4 Chronic pain syndrome; F41.9 Anxiety disorder, unspecified; E87.6 Hypokalemia; I35.2 Nonrheumatic aortic (valve) stenosis with insufficiency; K59.00 Constipation, unspecified; E86.0 Dehydration; Z88.6 Allergy status to analgesic agent; Z79.891 Long term (current) use of opiate analgesic; Z87.891 Personal history of nicotine dependence

== ENCOUNTER 2017-08-10 15:28 | Inpatient (IN) | payer OTHER, MEDICARE ==
[2017-08-10 15:41] VITALS: BMI 32.1
[2017-08-10] MEDS ORDERED: Sodium Chloride 0.9% 500 ML IV STA (16:27)
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
[2017-08-10 17:42] LABS: URINE BILIRUBIN NEGATIVE (NEGATIVE); URINE BLOOD SMALL (NEGATIVE); URINE GLUCOSE (UA) NEGATIVE (NEGATIVE); URINE KETONE 15 mg/dL (NEGATIVE); URINE LEUKOCYTE ESTERASE NEGATIVE Leu/uL (NEGATIVE); URINE PROTEIN NEGATIVE mg/dL (<30 mg/dL); URINE UROBILINOGEN 0.2 E.U./dL (<1 E.U./dL)
[2017-08-10 17:43] LABS: BASO # 0.08 K/mm3 (0.0-2.0); EOS # 0.1 (0.0-0.7); EOS % 1.8 % (1.5-5.0); GRAN # 4.58 (1.4-6.5); HEMATOCRIT 51.1 % (42.0-52.0); LYMPH # 2.4 (1.2-3.4); LYMPH % 30.6 % (22.0-35.0); MEAN CELL VOLUME 86.5 fl (80.0-105.0); MEAN CORPUSCULAR HEMOGLOBIN 30.1 pg (25.0-35.0); MEAN CORPUSCULAR HGB CONC 34.8 g/dl (31.0-37.0); MONO # 0.6 (0.1-0.6); MONO % 7.6 % (1.0-6.0); PLATELET COUNT 111 10^3/uL (120.0-450.0); WHITE BLOOD COUNT 7.8 10^3/ul (4.5-11.0)
[2017-08-10 17:43] LABS: URINE APPEARANCE CLEAR (CLEAR); URINE COLOR YELLOW (YELLOW)
[2017-08-10 17:59] LABS: ALB/GLOB RATIO 1.3 (1.1-1.8); ALKALINE PHOSPHATASE 118 U/L (38-126); ALT/SGPT 61 U/L (7-56); AST/SGOT 37 U/L (17-59); BILIRUBIN,TOTAL 1.7 mg/dL (0.2-1.3); BLOOD UREA NITROGEN 32 mg/dL (7-21); CALCIUM 10.4 mg/dL (8.4-10.5); CARBON DIOXIDE 22 mmol/L (21-33); CHLORIDE 103 mmol/L (98-107); GFR AFRICAN-AMERICAN > 60; GLUCOSE,RANDOM 108 mg/dL (70-110); POTASSIUM 4.3 mmol/L (3.6-5.0); SODIUM 142 mmol/L (132-148); TOTAL PROTEIN 8.5 g/dL (5.8-8.3)
[2017-08-10 19:09] LABS: URINE BACTERIA MOD (NEG); URINE WBC 0 - 2 /hpf (0-6)
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
[2017-08-10] MEDS ORDERED: Oxycodone/Acetaminophen 10/325 mg Tab PO PRN (21:50)
[2017-08-10] MEDS ORDERED: TEMAZEPAM 30 MG PO SCH (22:00)
[2017-08-10] MEDS: Sodium Chloride 0.9% 1,000 ML IV SCH (22:39)
[2017-08-10] MEDS: Vancomycin 1gm in NS 250ml 1 GM/250 ML BAG IVPB SCH (22:40)
[2017-08-11] MEDS: Vancomycin 1gm in NS 250ml 1 GM/250 ML BAG IVPB SCH ×2 (08:19→20:14)
--- NOTE | 2017-08-11 10:08 | RAD ---
HISTORY: constipation COMPARISON: No prior. FINDINGS: BOWEL: There is a likely nonobstructive bowel gas pattern appreciated air is identified however scattered throughout various large and small bowel loops. No gross free intrarenal gas is identified however an abdomen obstructive series is more sensitive in evaluation of free air and can be performed if clinically warranted. Right hemidiaphragm is elevated and there are no abnormal intra-abdominal calcifications identified. An epidural stimulator is appreciate the inferior thoracolumbar spine with the generator at the left rajwinder pelvis soft tissues. The hemidiaphragm appears silhouetted and left lower lobe infiltrate or atelectasis is in question. BONES: Advanced multilevel thoracolumbar degenerative disease and facet joint arthropathy. OTHER FINDINGS: None. IMPRESSION: Nonobstructive bowel gas pattern is felt to be present with no gross free intrarenal gas appreciable. Inferior epidural stimulator is identified in position. Consider possible incidental left basilar atelectasis or infiltrate with right hemidiaphragm elevation questioned.
--- NOTE | 2017-08-11 10:09 | RAD ---
PROCEDURE: CHEST RADIOGRAPH, 1 VIEW HISTORY: weakness COMPARISON: Chest 04/30/2017. FINDINGS: LUNGS: Left hemidiaphragm is partially excluded. Limited atelectasis or infiltrate is not excluded the left base partially obscuring the hemidiaphragm. Right chest appears clear. PLEURA: No pneumothorax or pleural fluid seen. CARDIOVASCULAR: Normal. OSSEOUS STRUCTURES: No significant abnormalities. VISUALIZED UPPER ABDOMEN: Normal. OTHER FINDINGS: None. IMPRESSION: Potential limited left basilar atelectasis or infiltrate. Left base is not completely included in this exam. Repeat radiography is advised.
--- NOTE | 2017-08-11 14:09 | CP.PCM.PN ---
<Rafi Domínguez - Last Filed: 08/11/17 14:02> Subjective - Date & Time of Evaluation Date of Evaluation: 08/11/17 Time of Evaluation: 09:05 - Subjective Subjective: Patient seen and examined at bedside. No acute overnight events. Patient resting comfortably in bed. Offers no new complaints at this time. States that his sacral pain has slightly improved since admission. Admits to difficulty ambulating. Denies f/c/p/sob/abdominal pain/n/v/diarrhea/constipation/urinary symptoms. Objective - Vital Signs/Intake and Output Vital Signs (last 24 hours): Temp Pulse Resp BP Pulse Ox 97.7 F 87 22 139/82 98 08/11/17 08:00 08/11/17 08:00 08/11/17 08:00 08/11/17 08:00 08/11/17 08:00 Intake and Output: 08/11/17 08/11/17 06:59 18:59 Intake Total 1020 660 Output Total 550 300 Balance 470 360 - Medications Medications: Current Medications Amlodipine Besylate (Norvasc) 10 mg PO DAILY [facility] Last Admin: 08/11/17 09:18 Dose: Not Given Ascorbic Acid (Vitamin C 500 Mg Tab) 500 mg PO DAILY [facility] Cholecalciferol (Vitamin D) 2,000 iu PO DAILY [facility] Last Admin: 08/11/17 09:14 Dose: 2,000 iu Cyanocobalamin (Vitamin B12 1000 Mcg Tab) 1,000 mcg PO DAILY [facility] Last Admin: 08/11/17 09:14 Dose: 1,000 mcg Docusate Sodium (Colace) 100 mg PO DAILY PRN PRN Reason: Constipation Last Admin: 08/10/17 22:55 Dose: 100 mg Furosemide (Lasix) 40 mg PO DAILY [facility] Last Admin: 08/11/17 09:18 Dose: Not Given Glipizide (Glucotrol) 5 mg PO ACB [facility] Last Admin: 08/11/17 08:19 Dose: 5 mg Home Med (Home Med) 2 unit PO HS GAURAV Home Med (Home Med) 1 unit PO HS [facility] Vancomycin HCl (Vancomycin 1gm) 1 gm in 250 mls @ 167 mls/hr IVPB Q12H [facility] PRN Reason: Protocol Last Admin: 08/11/17 08:19 Dose: 167 mls/hr Sodium Chloride (Sodium Chloride 0.9%) 1,000 mls @ 100 mls/hr IV .Q10H [facility] Last Admin: 08/10/17 22:39 Dose: 100 mls/hr Levetiracetam (Keppra) 1,000 mg PO BID [facility] Last Admin: 08/11/17 09:15 Dose: 1,000 mg Lorazepam (Ativan) 1 mg PO Q4 PRN; Protocol PRN Reason: Anxiety Last Admin: 08/10/17 22:56 Dose: 1 mg Losartan Potassium (Cozaar) 100 mg PO DAILY [facility] Last Admin: 08/11/17 09:18 Dose: Not Given Metoprolol Tartrate (Lopressor) 50 mg PO BID [facility] Last Admin: 08/11/17 09:17 Dose: Not Given Multivitamins (Thera Tab) 1 tab PO 0800 [facility] Oxycodone/Acetaminophen (Percocet 10/325 Mg Tab) 2 tab PO Q6 PRN PRN Reason: Pain, moderate (4-7) Last Admin: 08/10/17 22:55 Dose: 2 tab Pregabalin (Lyrica) 200 mg PO TID [facility] Last Admin: 08/11/17 14:01 Dose: 200 mg Quetiapine Fumarate (Seroquel) 100 mg PO HS [facility] PRN Reason: Protocol Last Admin: 08/10/17 22:40 Dose: 100 mg Tizanidine HCl (Zanaflex) 4 mg PO BID [facility] Last Admin: 08/11/17 09:13 Dose: 4 mg Zinc Sulfate (Zinc Sulfate 220 Mg Cap) 220 mg PO DAILY [facility] - Additional Findings Additional findings: - Constitutional Appears: Well, Non-toxic - Head Exam Head Exam: ATRAUMATIC, NORMAL INSPECTION, NORMOCEPHALIC - Eye Exam Eye Exam: EOMI, Normal appearance - ENT Exam ENT Exam: Mucous Membranes Moist, Normal Exam - Neck Exam Neck exam: Positive for: Full Rom (limited ROM), Tenderness Additional comments: erythematous - Respiratory Exam Respiratory Exam: Clear to Auscultation Bilateral. absent: Accessory Muscle Use , Chest Wall Tenderness - Cardiovascular Exam Cardiovascular Exam: REGULAR RHYTHM, +S1, +S2. absent: Clicks - GI/Abdominal Exam GI & Abdominal Exam: Normal Bowel Sounds. absent: Diminished Bowel Sounds - Extremities Exam Extremities exam: Negative for: normal inspection Additional comments: B/L discoloration, cyanotic-erythematous extremities - Back Exam Additional comments: B/L sacral decubitus ulcers: Right ulcer 2x3 cm stage 1, Left ulcer healing wound, less than stage 1. - Neurological Exam Neurological exam: Alert, CN II-XII Intact, Oriented x3 - Psychiatric Exam Psychiatric exam: Normal Affect, Normal Mood - Skin Skin Exam: Cyanosis (B/L LE), Erythema (B/L LE, neck), Warm Additional comments: Discoloration of nail bed bilaterally Assessment and Plan - Assessment and Plan (Free Text) Assessment: Assessment: 62 year old male with a history of RDS, HTN, DM II admitted for evaluation and treatment of bilateral sacral wound ulcers. Plan B/L Sacral Decubitus Ulcers - IVF - IV Vancomycin - wound care - multivitamin, zinc, and vitamin C - Santyl - Wound cultures - Turn Q4 - Social Work for D/C plan HTN - Continue Amlodipine 10 mg PO qD, Furosemide 40 mg PO qD, Losartan 100 mg PO qD , Metoprolol 50 mg PO BID- held in AM due to lower end of normal BP likely due to dehydration - Continue to monitor VS RDS - Continue with Pregabalin 200 mg PO TID, Quetiapine 100 mg PO qHS, Tizanidine 4 mg PO BID DM II - Glipizide 5 mg PO ACB Seizures - Zonisamide 200 mg PO qHS, Keppra 1,000 mg PO BID Anxiety - Ativan 1 mg PO Q4 PRN Patient seen, examined, case discussed with, and plan approved by attending physician, Dr Alicia. <Wu Alicia - Last Filed: 08/11/17 16:54> Objective - Vital Signs/Intake and Output Vital Signs (last 24 hours): Temp Pulse Resp BP Pulse Ox 97.7 F 87 22 139/82 98 08/11/17 08:00 08/11/17 08:00 08/11/17 08:00 08/11/17 08:00 08/11/17 08:00 Intake and Output: 08/11/17 08/11/17 06:59 18:59 Intake Total 1020 660 Output Total 550 400 Balance 470 260 - Medications Medications: Current Medications Amlodipine Besylate (Norvasc) 10 mg PO DAILY [facility] Last Admin: 08/11/17 09:18 Dose: Not Given Ascorbic Acid (Vitamin C 500 Mg Tab) 500 mg PO DAILY [facility] Cholecalciferol (Vitamin D) 2,000 iu PO DAILY [facility] Last Admin: 08/11/17 09:14 Dose: 2,000 iu Cyanocobalamin (Vitamin B12 1000 Mcg Tab) 1,000 mcg PO DAILY [facility] Last Admin: 08/11/17 09:14 Dose: 1,000 mcg Docusate Sodium (Colace) 100 mg PO DAILY PRN PRN Reason: Constipation Last Admin: 08/10/17 22:55 Dose: 100 mg Furosemide (Lasix) 40 mg PO DAILY [facility] Last Admin: 08/11/17 09:18 Dose: Not Given Glipizide (Glucotrol) 5 mg PO ACB [facility] Last Admin: 08/11/17 08:19 Dose: 5 mg Home Med (Home Med) 2 unit PO HS [facility] Home Med (Home Med) 1 unit PO HS [facility] Vancomycin HCl (Vancomycin 1gm) 1 gm in 250 mls @ 167 mls/hr IVPB Q12H [facility] PRN Reason: Protocol Last Admin: 08/11/17 08:19 Dose: 167 mls/hr Sodium Chloride (Sodium Chloride 0.9%) 1,000 mls @ 100 mls/hr IV .Q10H [facility] Last Admin: 08/10/17 22:39 Dose: 100 mls/hr Levetiracetam (Keppra) 1,000 mg PO BID [facility] Last Admin: 08/11/17 09:15 Dose: 1,000 mg Lorazepam (Ativan) 1 mg PO Q4 PRN; Protocol PRN Reason: Anxiety Last Admin: 08/10/17 22:56 Dose: 1 mg Losartan Potassium (Cozaar) 100 mg PO DAILY [facility] Last Admin: 08/11/17 09:18 Dose: Not Given Metoprolol Tartrate (Lopressor) 50 mg PO BID [facility] Last Admin: 08/11/17 09:17 Dose: Not Given Multivitamins (Thera Tab) 1 tab PO 0800 [facility] Oxycodone/Acetaminophen (Percocet 10/325 Mg Tab) 2 tab PO Q6 PRN PRN Reason: Pain, moderate (4-7) Last Admin: 08/10/17 22:55 Dose: 2 tab Polyethylene Glycol (Miralax) 17 gm PO BID PRN PRN Reason: Constipation Pregabalin (Lyrica) 200 mg PO TID [facility] Last Admin: 08/11/17 14:01 Dose: 200 mg Quetiapine Fumarate (Seroquel) 100 mg PO HS [facility] PRN Reason: Protocol Last Admin: 08/10/17 22:40 Dose: 100 mg Tizanidine HCl (Zanaflex) 4 mg PO BID [facility] Last Admin: 08/11/17 09:13 Dose: 4 mg Zinc Sulfate (Zinc Sulfate 220 Mg Cap) 220 mg PO DAILY [facility] Attending/Attestation - Attestation I have personally seen and examined this patient.: Yes I have fully participated in the care of the patient.: Yes I have reviewed all pertinent clinical information, including history, physical exam and plan: Yes Notes (Text): I have seen and examined the patient at bedside. Agree with the above note with the following additions/ exceptions: Briefly this is 62 year old male with history of RDS, HTN, DM-2 admitted for evaluation and treatment of bilateral sacral wound ulcers. Patient states that he lives alone at home as his works and he is not able to take care of himself. Patient reports bleeding from sacral wounds. Continue wound management. Referral for wound care placed. Continue IV vanco as he has history of MRSA in the wound. Cultures pending at this time. Start MVI, zinc and vit C. BP is on the lower side therefore we will hold antihypertensives. Will order for PT eval for tomorrow. Will discuss with case manager. Upon discharge patient will follow up with Dr Rowe. Dr Wu Alicia
--- NOTE | 2017-08-11 15:52 | CARD ---
APPROVED REPORT EKG Measurement Heart [id number] <Conclusion> Sinus rhythm with premature atrial complexes Possible Left atrial enlargement Possible Lateral infarct, age undetermined Abnormal ECG
[2017-08-11] MEDS: POLYETHYLENE GLYCOL 3350 17 GM/Dose PACKET PO PRN (18:09)
[2017-08-11] MEDS: ZONISAMIDE 100 MG PO SCH (21:33)
[2017-08-11] MEDS: Sodium Chloride 0.9% 1,000 ML IV SCH (21:35)
[2017-08-11] MEDS ORDERED: Home Med 1 UNIT PO SCH (22:00)
[2017-08-11] MEDS ORDERED: TEMAZEPAM 30 MG PO SCH (22:00)
[2017-08-11] MEDS: TEMAZEPAM 30 MG PO SCH (22:47)
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
[2017-08-12 07:28] LABS: BASO # 0.06 K/mm3 (0.0-2.0); BASO % 0.9 % (0.0-3.0); EOS # 0.3 (0.0-0.7); EOS % 4.4 % (1.5-5.0); GRAN # 3.01 (1.4-6.5); GRAN % 45.4 % (50.0-68.0); HEMATOCRIT 46.6 % (42.0-52.0); LYMPH # 2.7 (1.2-3.4); LYMPH % 40.3 % (22.0-35.0); MEAN CELL VOLUME 87.9 fl (80.0-105.0); MEAN CORPUSCULAR HEMOGLOBIN 29.4 pg (25.0-35.0); MEAN CORPUSCULAR HGB CONC 33.5 g/dl (31.0-37.0); MEAN PLATELET VOLUME 13.7 fl (7.0-11.0); MONO # 0.6 (0.1-0.6); RED CELL DISTRIBUTION WIDTH 14.2 % (11.5-14.5); WHITE BLOOD COUNT 6.6 10^3/ul (4.5-11.0)
[2017-08-12 08:49] LABS: ALB/GLOB RATIO 1.2 (1.1-1.8); ALKALINE PHOSPHATASE 74 U/L (38-126); ALT/SGPT 46 U/L (7-56); AST/SGOT 27 U/L (17-59); BILIRUBIN,TOTAL 1.1 mg/dL (0.2-1.3); BLOOD UREA NITROGEN 16 mg/dL (7-21); CALCIUM 9.5 mg/dL (8.4-10.5); CARBON DIOXIDE 26 mmol/L (21-33); CHLORIDE 108 mmol/L (95-110); GFR AFRICAN-AMERICAN > 60; GLUCOSE,RANDOM 119 mg/dL (70-110); MAGNESIUM 1.9 mg/dL (1.7-2.2); PHOSPHOROUS 3.7 mg/dL (2.5-4.5); POTASSIUM 3.8 mmol/L (3.6-5.0); SODIUM 144 mmol/L (132-148); TOTAL PROTEIN 6.3 g/dL (5.8-8.3)
[2017-08-12] MEDS: Multivitamin Therapeutic Tab PO SCH (11:03)
[2017-08-12] MEDS: POLYETHYLENE GLYCOL 3350 17 GM/Dose PACKET PO PRN (11:07)
[2017-08-12] MEDS: Vancomycin 1gm in NS 250ml 1 GM/250 ML BAG IVPB SCH ×2 (11:07→21:43)
[2017-08-12] MEDS: Sodium Chloride 0.9% 1,000 ML IV SCH (11:30)
--- NOTE | 2017-08-12 12:54 | CP.PCM.PN ---
<Rafi Domínguez - Last Filed: 08/12/17 12:43> Subjective - Date & Time of Evaluation Date of Evaluation: 08/12/17 Time of Evaluation: 11:00 - Subjective Subjective: Subjective: Patient seen and examined at bedside. No acute overnight events. Patient resting comfortably in bed. Offers no new complaints at this time. Admits to sleeping throughout majority of night. States that his sacral pain is the same from yesterday. Admits to difficulty ambulating and constipation. States last bowel movement was several days ago. Denies f/c/p/sob/abdominal pain/n/v/ diarrhea/urinary symptoms. Physical Examination: - Constitutional Appears: Well, Non-toxic - Head Exam Head Exam: ATRAUMATIC, NORMAL INSPECTION, NORMOCEPHALIC - Eye Exam Eye Exam: EOMI, Normal appearance - ENT Exam ENT Exam: Mucous Membranes Moist, Normal Exam - Neck Exam Neck exam: Positive for: Full Rom (limited ROM), Tenderness Additional comments: erythematous - Respiratory Exam Respiratory Exam: Clear to Auscultation Bilateral. absent: Accessory Muscle Use , Chest Wall Tenderness - Cardiovascular Exam Cardiovascular Exam: REGULAR RHYTHM, +S1, +S2. absent: Clicks - GI/Abdominal Exam GI & Abdominal Exam: Normal Bowel Sounds. absent: Diminished Bowel Sounds - Extremities Exam Extremities exam: Negative for: normal inspection Additional comments: B/L discoloration - Back Exam Additional comments: B/L sacral decubitus ulcers: Right ulcer 2x3 cm stage 1, Left ulcer healing wound, less than stage 1. - Neurological Exam Neurological exam: Alert, CN II-XII Intact, Oriented x3 - Psychiatric Exam Psychiatric exam: Normal Affect, Normal Mood - Skin Skin Exam: Warm Additional comments: Discoloration of nail bed bilaterally Assessment: 62 year old male with a history of RDS, HTN, DM II admitted for evaluation and treatment of bilateral sacral wound ulcers. Plan B/L Sacral Decubitus Ulcers - IVF - awaiting further ID recs- continue IV Vancomycin, awaiting ESR - wound care pending - multivitamin, zinc, and vitamin C - Santyl - Wound cultures - Turn Q4 - Social Work for D/C plan HTN - Continue Amlodipine 10 mg PO qD, Furosemide 40 mg PO qD, Losartan 100 mg PO qD , Metoprolol 50 mg PO BID- BP stable in 140s/ 90s - Continue to monitor VS RDS - Continue with Pregabalin 200 mg PO TID, Quetiapine 100 mg PO qHS, Tizanidine 4 mg PO BID DM II - Glipizide 5 mg PO ACB Seizures - Zonisamide 200 mg PO qHS, Keppra 1,000 mg PO BID Anxiety - Ativan 1 mg PO Q4 PRN Thrombocytopenia - Dilutional vs ITP vs TTP vs Splenic Sequestration - monitor via daily CBC Constipation: - Miralax and colace scheduled PPx: - SCD - no heparin, lovenox, or protonix has patient has thrombocytopenia Patient seen, examined, case discussed with, and plan approved by attending physician, Dr Alicia. Objective - Vital Signs/Intake and Output Vital Signs (last 24 hours): Temp Pulse Resp BP Pulse Ox 98.5 F 75 18 144/93 H 97 08/12/17 08:11 08/12/17 11:31 08/12/17 08:11 08/12/17 11:33 08/12/17 08:11 Intake and Output: 08/12/17 08/12/17 06:59 18:59 Intake Total 1860 320 Output Total 800 840 Balance 1060 -520 - Medications Medications: Current Medications Amlodipine Besylate (Norvasc) 10 mg PO DAILY ON [facility] OF [facility] Last Admin: 08/12/17 11:02 Dose: 10 mg Ascorbic Acid (Vitamin C 500 Mg Tab) 500 mg PO DAILY [facility] Last Admin: 08/12/17 11:03 Dose: 500 mg Cholecalciferol (Vitamin D) 2,000 iu PO DAILY [facility] Last Admin: 08/12/17 11:00 Dose: 2,000 iu Cyanocobalamin (Vitamin B12 1000 Mcg Tab) 1,000 mcg PO DAILY [facility] Last Admin: 08/12/17 11:06 Dose: 1,000 mcg Docusate Sodium (Colace) 100 mg PO DAILY [facility] Furosemide (Lasix) 40 mg PO DAILY [facility] Last Admin: 08/12/17 11:33 Dose: 40 mg Glipizide (Glucotrol) 5 mg PO ACB [facility] Last Admin: 08/12/17 08:22 Dose: 5 mg Home Med (Home Med) 2 unit PO HS [facility] Last Admin: 08/11/17 21:33 Dose: 2 unit Home Med (Home Med) 1 unit PO HS [facility] Last Admin: 08/11/17 22:47 Dose: 1 unit Vancomycin HCl (Vancomycin 1gm) 1 gm in 250 mls @ 167 mls/hr IVPB Q12H [facility] PRN Reason: Protocol Last Admin: 08/12/17 11:07 Dose: 167 mls/hr Sodium Chloride (Sodium Chloride 0.9%) 1,000 mls @ 100 mls/hr IV .Q10H ON [facility] OF [facility] Last Admin: 08/12/17 11:30 Dose: 100 mls/hr Levetiracetam (Keppra) 1,000 mg PO BID [facility] Last Admin: 08/12/17 11:02 Dose: 1,000 mg Lorazepam (Ativan) 1 mg PO Q4 PRN; Protocol PRN Reason: Anxiety Last Admin: 08/10/17 22:56 Dose: 1 mg Losartan Potassium (Cozaar) 100 mg PO DAILY [facility] Last Admin: 08/12/17 11:29 Dose: 100 mg Metoprolol Tartrate (Lopressor) 50 mg PO BID [facility] Last Admin: 08/12/17 11:31 Dose: 50 mg Multivitamins (Thera Tab) 1 tab PO 0800 [facility] Last Admin: 08/12/17 11:03 Dose: 1 tab Oxycodone/Acetaminophen (Percocet 10/325 Mg Tab) 2 tab PO Q6 PRN PRN Reason: Pain, moderate (4-7) Last Admin: 08/10/17 22:55 Dose: 2 tab Polyethylene Glycol (Miralax) 17 gm PO BID ON [facility] Pregabalin (Lyrica) 200 mg PO TID ON [facility] Last Admin: 08/12/17 11:07 Dose: 200 mg Quetiapine Fumarate (Seroquel) 100 mg PO HS ON [facility] PRN Reason: Protocol Last Admin: 08/11/17 21:32 Dose: 100 mg Tizanidine HCl (Zanaflex) 4 mg PO BID [facility] Last Admin: 08/12/17 11:06 Dose: 4 mg Zinc Sulfate (Zinc Sulfate 220 Mg Cap) 220 mg PO DAILY [facility] Last Admin: 08/12/17 11:06 Dose: 220 mg - Labs Labs: 08/12/17 07:21 08/12/17 07:52 <Wu Alicia - Last Filed: 08/12/17 16:20> Objective - Vital Signs/Intake and Output Vital Signs (last 24 hours): Temp Pulse Resp BP Pulse Ox 98.5 F 75 18 144/93 H 97 09/26/17 08:11 08/12/17 11:31 08/12/17 08:11 08/12/17 11:33 08/12/17 08:11 Intake and Output: 08/12/17 08/12/17 06:59 18:59 Intake Total 1860 580 Output Total 800 1840 Balance 1060 -1260 - Medications Medications: Current Medications Amlodipine Besylate (Norvasc) 10 mg PO DAILY [facility] Last Admin: 08/12/17 11:02 Dose: 10 mg Ascorbic Acid (Vitamin C 500 Mg Tab) 500 mg PO DAILY [facility] Last Admin: 08/12/17 11:03 Dose: 500 mg Cholecalciferol (Vitamin D) 2,000 iu PO DAILY [facility] Last Admin: 08/12/17 11:00 Dose: 2,000 iu Cyanocobalamin (Vitamin B12 1000 Mcg Tab) 1,000 mcg PO DAILY [facility] Last Admin: 08/12/17 11:06 Dose: 1,000 mcg Docusate Sodium (Colace) 100 mg PO DAILY [facility] Furosemide (Lasix) 40 mg PO DAILY [facility] Last Admin: 08/12/17 11:33 Dose: 40 mg Glipizide (Glucotrol) 5 mg PO ACB [facility] Last Admin: 08/12/17 08:22 Dose: 5 mg Home Med (Home Med) 2 unit PO HS [facility] Last Admin: 08/11/17 21:33 Dose: 2 unit Home Med (Home Med) 1 unit PO HS [facility] Last Admin: 08/11/17 22:47 Dose: 1 unit Vancomycin HCl (Vancomycin 1gm) 1 gm in 250 mls @ 167 mls/hr IVPB Q12H [facility] PRN Reason: Protocol Last Admin: 08/12/17 11:07 Dose: 167 mls/hr Sodium Chloride (Sodium Chloride 0.9%) 1,000 mls @ 100 mls/hr IV .Q10H [facility] Last Admin: 08/12/17 11:30 Dose: 100 mls/hr Levetiracetam (Keppra) 1,000 mg PO BID [facility] Last Admin: 08/12/17 11:02 Dose: 1,000 mg Lorazepam (Ativan) 1 mg PO Q4 PRN; Protocol PRN Reason: Anxiety Last Admin: 08/10/17 22:56 Dose: 1 mg Losartan Potassium (Cozaar) 100 mg PO DAILY [facility] Last Admin: 08/12/17 11:29 Dose: 100 mg Metoprolol Tartrate (Lopressor) 50 mg PO BID [facility] Last Admin: 08/12/17 11:31 Dose: 50 mg Multivitamins (Thera Tab) 1 tab PO 0800 [facility] Last Admin: 08/12/17 11:03 Dose: 1 tab Oxycodone/Acetaminophen (Percocet 10/325 Mg Tab) 2 tab PO Q6 PRN PRN Reason: Pain, moderate (4-7) Last Admin: 08/10/17 22:55 Dose: 2 tab Polyethylene Glycol (Miralax) 17 gm PO BID [facility] Pregabalin (Lyrica) 200 mg PO TID [facility] Last Admin: 08/12/17 14:29 Dose: 200 mg Quetiapine Fumarate (Seroquel) 100 mg PO HS [facility] PRN Reason: Protocol Last Admin: 08/11/17 21:32 Dose: 100 mg Tizanidine HCl (Zanaflex) 4 mg PO BID [facility] Last Admin: 08/12/17 11:06 Dose: 4 mg Zinc Sulfate (Zinc Sulfate 220 Mg Cap) 220 mg PO DAILY [facility] Last Admin: 08/12/17 11:06 Dose: 220 mg - Labs Labs: 08/12/17 07:21 08/12/17 07:52 Attending/Attestation - Attestation I have personally seen and examined this patient.: Yes I have fully participated in the care of the patient.: Yes I have reviewed all pertinent clinical information, including history, physical exam and plan: Yes Notes (Text): I have seen and examined the patient at bedside. Agree with the above note with the following additions/ exceptions: Briefly this is 62 year old male with history of RDS, HTN, DM-2 admitted for evaluation and treatment of bilateral sacral wound ulcers. Patient states that he lives alone at home as his works and he is not able to take care of himself. Patient reports bleeding from sacral wounds. Continue wound management. Referral for wound care placed. Cultures are growing GNR and staph aureus. Will continue vanco and add rocephin for now. Continue MVI, zinc and vit C. Hypotension resolved. DC IVF. PT eval pending. Will discuss with telehealth case manager. Upon discharge patient will follow up with Dr Rowe. Dr Wu Alicia
[2017-08-12] MEDS: POLYETHYLENE GLYCOL 3350 17 GM/Dose PACKET PO SCH (17:29)
[2017-08-12] MEDS: Oxycodone/Acetaminophen 5/325 mg Tab PO PRN ×2 (17:32→20:44)
--- NOTE | 2017-08-12 19:24 | CP.PCM.PN ---
Subjective - Date & Time of Evaluation Date of Evaluation: 08/12/17 Time of Evaluation: 19:30 - Subjective Subjective: Infectious Disease Follow Up: August 12, 2017 62 yo male with bleeding sacral decubiti ulcers. Medical history includes reflex sympathetic dystrophy syndrome, HTN, and DM. In April 2017, the patient had MRSA growth in his decubiti ulcers. He was in subacute rehab for treatment. Left sacral decubiti stage I. Right sacral decubiti ulcer stage III 2x3 cm in size. Objective - Vital Signs/Intake and Output Vital Signs (last 24 hours): Temp Pulse Resp BP Pulse Ox 98.5 F 65 18 121/75 97 08/12/17 08:11 08/12/17 17:33 08/12/17 08:11 08/12/17 17:33 08/12/17 08:11 Intake and Output: 08/12/17 08/13/17 18:59 06:59 Intake Total 580 Output Total 1840 Balance -1260 - Medications Medications: Current Medications Amlodipine Besylate (Norvasc) 10 mg PO DAILY [facility] Last Admin: 08/12/17 11:02 Dose: 10 mg Ascorbic Acid (Vitamin C 500 Mg Tab) 500 mg PO DAILY [facility] Last Admin: 08/12/17 11:03 Dose: 500 mg Cholecalciferol (Vitamin D) 2,000 iu PO DAILY [facility] Last Admin: 08/12/17 11:00 Dose: 2,000 iu Cyanocobalamin (Vitamin B12 1000 Mcg Tab) 1,000 mcg PO DAILY [facility] Last Admin: 08/12/17 11:06 Dose: 1,000 mcg Docusate Sodium (Colace) 100 mg PO DAILY [facility] Furosemide (Lasix) 40 mg PO DAILY [facility] Last Admin: 08/12/17 11:33 Dose: 40 mg Glipizide (Glucotrol) 5 mg PO ACB [facility] Last Admin: 08/12/17 08:22 Dose: 5 mg Home Med (Home Med) 2 unit PO HS [facility] Last Admin: 08/11/17 21:33 Dose: 2 unit Home Med (Home Med) 1 unit PO HS [facility] Last Admin: 08/11/17 22:47 Dose: 1 unit Vancomycin HCl (Vancomycin 1gm) 1 gm in 250 mls @ 167 mls/hr IVPB Q12H [facility] PRN Reason: Protocol Last Admin: 08/12/17 11:07 Dose: 167 mls/hr Ceftriaxone Sodium (Rocephin 1 Gram Ivpb) 1 gm in 100 mls @ 100 mls/hr IVPB DAILY [facility] PRN Reason: Protocol Levetiracetam (Keppra) 1,000 mg PO BID [facility] Last Admin: 08/12/17 17:28 Dose: 1,000 mg Lorazepam (Ativan) 1 mg PO Q4 PRN; Protocol PRN Reason: Anxiety Last Admin: 08/10/17 22:56 Dose: 1 mg Losartan Potassium (Cozaar) 100 mg PO DAILY [facility] Last Admin: 08/12/17 11:29 Dose: 100 mg Metoprolol Tartrate (Lopressor) 50 mg PO BID [facility] Last Admin: 08/12/17 17:33 Dose: 50 mg Multivitamins (Thera Tab) 1 tab PO 0800 [facility] Last Admin: 08/12/17 11:03 Dose: 1 tab Oxycodone/Acetaminophen (Percocet 5/325 Mg Tab) 1 tab PO Q6H PRN PRN Reason: Pain, severe (8-10) Stop: 08/15/17 17:09 Last Admin: 08/12/17 17:32 Dose: 1 tab Polyethylene Glycol (Miralax) 17 gm PO BID [facility] Last Admin: 08/12/17 17:29 Dose: 17 gm Pregabalin (Lyrica) 200 mg PO TID [facility] Last Admin: 08/12/17 17:45 Dose: 200 mg Quetiapine Fumarate (Seroquel) 100 mg PO HS [facility] PRN Reason: Protocol Last Admin: 08/11/17 21:32 Dose: 100 mg Tizanidine HCl (Zanaflex) 4 mg PO BID [facility] Last Admin: 08/12/17 17:45 Dose: 4 mg Zinc Sulfate (Zinc Sulfate 220 Mg Cap) 220 mg PO DAILY [facility] Last Admin: 08/12/17 11:06 Dose: 220 mg - Labs Labs: 08/12/17 07:21 08/12/17 07:52 - Constitutional Appears: Non-toxic, No Acute Distress, Chronically Ill - Head Exam Head Exam: ATRAUMATIC, NORMOCEPHALIC - Eye Exam Eye Exam: EOMI, PERRL Pupil Exam: NORMAL ACCOMODATION, PERRL - ENT Exam ENT Exam: Mucous Membranes Moist, Normal External Ear Exam, TM's Normal Bilaterally - Neck Exam Neck Exam: Full ROM, Normal Inspection - Respiratory Exam Respiratory Exam: Clear to Ausculation Bilateral, NORMAL BREATHING PATTERN. absent: Rales, Rhonchi, Wheezes - Cardiovascular Exam Cardiovascular Exam: REGULAR RHYTHM, RRR, +S1, +S2 - GI/Abdominal Exam GI & Abdominal Exam: Soft, Normal Bowel Sounds. absent: Distended, Tenderness - Extremities Exam Extremities Exam: Joint Swelling, Pedal Edema Additional comments: mild erythema of the lower extremities with slight discoloration and chronic venous stasis changes. 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 - Psychiatric Exam Psychiatric exam: Normal Affect, Normal Mood - Skin Additional comments: B/L sacral decubitus ulcers: Right ulcer 2x3 cm stage 3, Left ulcer healing wound, less than stage 1. Assessment and Plan - Assessment and Plan (Free Text) Assessment: 62 yo male with multiple medical issues that include sacral decubiti ulcers, HTN , diabetes mellitus type II, seizures, anxiety, and reflex sympathetic dystrophy. The patient was started on Vancomycin due to distant history with MRSA infection. New cultures obtained. Patient needs wound care and scheduled observation and wound evaluation time. The patient may need broad spectrum antibiotic. However, no leukocytosis or fevers so far. Obtain ESR for evaluation... that was found to be 2. Cultures pending. Thank you for allowing me to participate in the care of the patient, we will follow with you.
[2017-08-12] MEDS: ZONISAMIDE 100 MG PO SCH (21:47)
[2017-08-12] MEDS: TEMAZEPAM 30 MG PO SCH (21:53)
--- NOTE | 2017-08-13 04:47 | CP.PCM.PN ---
<Rafi Domínguez - Last Filed: 08/13/17 11:41> Subjective - Date & Time of Evaluation Date of Evaluation: 08/13/17 Time of Evaluation: 07:00 - Subjective Subjective: Subjective: Subjective: Patient seen and examined at bedside. No acute overnight events. Patient resting comfortably in bed. Offers no new complaints at this time. Admits to sleeping throughout majority of night. States that his sacral pain is improved from baseline but is requesting medication for pain reduction. States last bowel movement was several days ago still with no BM overnight. Denies f/c/p/sob /abdominal pain/n/v/diarrhea/urinary symptoms. Physical Examination: - Constitutional Appears: Well, Non-toxic - Head Exam Head Exam: ATRAUMATIC, NORMAL INSPECTION, NORMOCEPHALIC - Eye Exam Eye Exam: EOMI, Normal appearance - ENT Exam ENT Exam: Mucous Membranes Moist, Normal Exam - Neck Exam Neck exam: Positive for: Full Rom (limited ROM), Tenderness Additional comments: erythematous - Respiratory Exam Respiratory Exam: Clear to Auscultation Bilateral. absent: Accessory Muscle Use , Chest Wall Tenderness - Cardiovascular Exam Cardiovascular Exam: REGULAR RHYTHM, +S1, +S2. absent: Clicks - GI/Abdominal Exam GI & Abdominal Exam: Normal Bowel Sounds. absent: Diminished Bowel Sounds - Extremities Exam Extremities exam: Negative for: normal inspection Additional comments: B/L discoloration - Back Exam Additional comments: B/L sacral decubitus ulcers: Right ulcer 2x3 cm stage 1, Left ulcer healing wound, less than stage 1. - Neurological Exam Neurological exam: Alert, CN II-XII Intact, Oriented x3 - Psychiatric Exam Psychiatric exam: Normal Affect, Normal Mood - Skin Skin Exam: Warm Additional comments: Discoloration of nail bed bilaterally Assessment: 62 year old male with a history of RDS, HTN, DM II admitted for evaluation and treatment of bilateral sacral wound ulcers. Plan B/L Sacral Decubitus Ulcers - IVF - awaiting further ID recs- continue IV Vancomycin and started on rocephin per Dr. Alicia; wound cultures reviewed - wound care- recs appreciated- stage 2-3 ulcers noted - multivitamin, zinc, and vitamin C - Santyl - Wound cultures - Turn Q4 - Social Work for D/C plan HTN - Continue Amlodipine 10 mg PO qD, Furosemide 40 mg PO qD, Losartan 100 mg PO qD , Metoprolol 50 mg PO BID- BP stable in 150s/ 90s - Continue to monitor VS RDS - Continue with Pregabalin 200 mg PO TID, Quetiapine 100 mg PO qHS, Tizanidine 4 mg PO BID DM II - Glipizide 5 mg PO ACB Seizures - Zonisamide 200 mg PO qHS, Keppra 1,000 mg PO BID Anxiety - Ativan 1 mg PO Q4 PRN Thrombocytopenia - Dilutional vs ITP vs TTP vs Splenic Sequestration - monitor via daily CBC - dropped to 100 from 102 Constipation: - Miralax and colace scheduled - if no BM by afternoon will order emema vs suppository Pain - tylenol PRN PPx: - SCD - no heparin, lovenox, or protonix has patient has thrombocytopenia Disposition: - subacute rehab after [facility] pending clincial course - case management on board Patient seen, examined, case discussed with, and plan approved by attending physician, Dr Alicia. Objective - Vital Signs/Intake and Output Vital Signs (last 24 hours): Temp Pulse Resp BP Pulse Ox 98.5 F 65 18 121/75 97 08/12/17 08:11 08/12/17 17:33 08/12/17 08:11 08/12/17 17:33 08/12/17 08:11 Intake and Output: 08/12/17 08/13/17 18:59 06:59 Intake Total 580 540 Output Total 1840 600 Balance -1260 -60 - Medications Medications: Current Medications Amlodipine Besylate (Norvasc) 10 mg PO DAILY [facility] Last Admin: 08/12/17 11:02 Dose: 10 mg Ascorbic Acid (Vitamin C 500 Mg Tab) 500 mg PO DAILY [facility] Last Admin: 08/12/17 11:03 Dose: 500 mg Cholecalciferol (Vitamin D) 2,000 iu PO DAILY [facility] Last Admin: 08/12/17 11:00 Dose: 2,000 iu Cyanocobalamin (Vitamin B12 1000 Mcg Tab) 1,000 mcg PO DAILY [facility] Last Admin: 08/12/17 11:06 Dose: 1,000 mcg Docusate Sodium (Colace) 100 mg PO DAILY [facility] Furosemide (Lasix) 40 mg PO DAILY [facility] Last Admin: 08/12/17 11:33 Dose: 40 mg Glipizide (Glucotrol) 5 mg PO ACB [facility] Last Admin: 08/12/17 08:22 Dose: 5 mg Home Med (Home Med) 2 unit PO HS [facility] Last Admin: 08/12/17 21:47 Dose: 2 unit Home Med (Home Med) 1 unit PO HS [facility] Last Admin: 08/12/17 21:53 Dose: 1 unit Vancomycin HCl (Vancomycin 1gm) 1 gm in 250 mls @ 167 mls/hr IVPB Q12H [facility] PRN Reason: Protocol Last Admin: 08/12/17 21:43 Dose: 167 mls/hr Ceftriaxone Sodium (Rocephin 1 Gram Ivpb) 1 gm in 100 mls @ 100 mls/hr IVPB DAILY [facility] PRN Reason: Protocol Levetiracetam (Keppra) 1,000 mg PO BID [facility] Last Admin: 08/12/17 17:28 Dose: 1,000 mg Lorazepam (Ativan) 1 mg PO Q4 PRN; Protocol PRN Reason: Anxiety Last Admin: 08/10/17 22:56 Dose: 1 mg Losartan Potassium (Cozaar) 100 mg PO DAILY [facility] Last Admin: 08/12/17 11:29 Dose: 100 mg Metoprolol Tartrate (Lopressor) 50 mg PO BID [facility] Last Admin: 08/12/17 17:33 Dose: 50 mg Multivitamins (Thera Tab) 1 tab PO 0800 [facility] Last Admin: 08/12/17 11:03 Dose: 1 tab Oxycodone/Acetaminophen (Percocet 5/325 Mg Tab) 1 tab PO Q6H [facility] PRN Reason: Pain, severe (8-10) Stop: 08/15/17 17:09 Last Admin: 08/12/17 20:44 Dose: 1 tab Polyethylene Glycol (Miralax) 17 gm PO BID [facility] Last Admin: 08/12/17 17:29 Dose: 17 gm Pregabalin (Lyrica) 200 mg PO TID [facility] Last Admin: 08/12/17 17:45 Dose: 200 mg Quetiapine Fumarate (Seroquel) 100 mg PO [facility] PRN Reason: Protocol Last Admin: 08/12/17 21:42 Dose: 100 mg Tizanidine HCl (Zanaflex) 4 mg PO BID [facility] Last Admin: 08/12/17 17:45 Dose: 4 mg Zinc Sulfate (Zinc Sulfate 220 Mg Cap) 220 mg PO DAILY [facility] Last Admin: 08/12/17 11:06 Dose: 220 mg - Labs Labs: 08/12/17 07:21 08/12/17 07:52 <Wu Alicia - Last Filed: 08/13/17 17:00> Objective - Vital Signs/Intake and Output Vital Signs (last 24 hours): Temp Pulse Resp BP Pulse Ox 98.2 F 80 20 156/96 H 94 L 08/13/17 08:00 08/13/17 10:29 08/13/17 14:00 08/13/17 10:29 08/13/17 08:00 Intake and Output: 08/13/17 08/13/17 06:59 18:59 Intake Total 660 720 Output Total 1000 1400 Balance -340 -680 - Labs Labs: 08/13/17 06:40 08/13/17 09:15 Attending/Attestation - Attestation I have personally seen and examined this patient.: Yes I have fully participated in the care of the patient.: Yes I have reviewed all pertinent clinical information, including history, physical exam and plan: Yes Notes (Text): I have seen and examined the patient at bedside. Agree with the above note with the following additions/ exceptions: Briefly this is 62 year old male with history of RDS, HTN, DM-2 admitted for evaluation and treatment of bilateral sacral wound ulcers. Patient states that he lives alone at home as his works and he is not able to take care of himself. Patient reports bleeding from sacral wounds. Continue wound management. Wound care consult appreciated. Cultures are growing proteus and MRSA. Will dc pt on po bactrim. Discussed with ID as well. Continue MVI, zinc and vit C. PT eval recommended [facility]. Upon discharge patient will follow up with Dr Rowe. Dr Wu Alicia
[2017-08-13 07:10] LABS: BASO # 0.07 K/mm3 (0.0-2.0); BASO % 0.9 % (0.0-3.0); EOS # 0.4 (0.0-0.7); EOS % 5.1 % (1.5-5.0); GRAN # 3.36 (1.4-6.5); GRAN % 42.9 % (50.0-68.0); LYMPH # 3.4 (1.2-3.4); LYMPH % 43.7 % (22.0-35.0); MEAN CELL VOLUME 88.1 fl (80.0-105.0); MEAN CORPUSCULAR HEMOGLOBIN 29.9 pg (25.0-35.0); MEAN PLATELET VOLUME 13.7 fl (7.0-11.0); MONO # 0.6 (0.1-0.6); MONO % 7.4 % (1.0-6.0); RED CELL DISTRIBUTION WIDTH 14.3 % (11.5-14.5); WHITE BLOOD COUNT 7.8 10^3/ul (4.5-11.0)
[2017-08-13 08:43] VITALS: RESP 20; TEMP 98.2; O2SAT 94
[2017-08-13] MEDS: Multivitamin Therapeutic Tab PO SCH (08:44)
[2017-08-13] MEDS: Vancomycin 1gm in NS 250ml 1 GM/250 ML BAG IVPB SCH (09:30)
[2017-08-13 09:47] LABS: ALB/GLOB RATIO 1.2 (1.1-1.8); ALKALINE PHOSPHATASE 77 U/L (38-126); ALT/SGPT 54 U/L (7-56); AST/SGOT 29 U/L (17-59); BILIRUBIN,TOTAL 0.8 mg/dL (0.2-1.3); BLOOD UREA NITROGEN 14 mg/dL (7-21); CALCIUM 9.4 mg/dL (8.4-10.5); CARBON DIOXIDE 28 mmol/L (21-33); CHLORIDE 105 mmol/L (95-110); GFR AFRICAN-AMERICAN > 60; GLUCOSE,RANDOM 110 mg/dL (70-110); POTASSIUM 3.3 mmol/L (3.6-5.0); SODIUM 143 mmol/L (132-148); TOTAL PROTEIN 6.6 g/dL (5.8-8.3)
[2017-08-13] MEDS ORDERED: cefTRIAXone 1 gm 1 GM/100 ML BAG IVPB SCH (10:00)
[2017-08-13] MEDS: POLYETHYLENE GLYCOL 3350 17 GM/Dose PACKET PO SCH (10:25)
[2017-08-13 10:35] VITALS: BP 156/96; PULSE 80
[2017-08-13] MEDS ORDERED: Potassium Chloride 20 mEq ER Tab PO STA (15:09)
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
--- NOTE | 2017-08-13 15:37 | CP.PCM.DIS ---
<Rafi Domínguez - Last Filed: 08/13/17 15:38> Provider - Provider Date of Admission: 08/11/17 17:23 Attending physician: Wu Alicia MD Primary care physician: Morales Pepe MD Time Spent in preparation of Discharge (in minutes): 30 Diagnosis - Discharge Diagnosis (1) Seizure Status: Acute Priority: Medium (2) Reflex sympathetic dystrophy Status: Acute Priority: Medium (3) Constipation Status: Acute Priority: Medium (4) Decubitus ulcer limited to breakdown of skin (stage 2) Status: Acute Priority: Medium Hospital Course - Lab Results Lab Results: Most Recent Lab Values WBC 7.8 10^3/ul (4.5-11.0) 08/13/17 06:40 RBC 5.45 10^6/uL (3.5-6.1) 08/13/17 06:40 Hgb 16.3 g/dL (14.0-18.0) 08/13/17 06:40 Hct 48.0 % (42.0-52.0) 08/13/17 06:40 MCV 88.1 fl (80.0-105.0) 08/13/17 06:40 MCH 29.9 pg (25.0-35.0) 08/13/17 06:40 MCHC 34.0 g/dl (31.0-37.0) 08/13/17 06:40 RDW 14.3 % (11.5-14.5) 08/13/17 06:40 Plt Count 100 10^3/uL (120.0-450.0) L 08/13/17 06:40 MPV 13.7 fl (7.0-11.0) H 08/13/17 06:40 Gran % 42.9 % (50.0-68.0) L 08/13/17 06:40 Lymph % (Auto) 43.7 % (22.0-35.0) H 08/13/17 06:40 [place] % (Auto) 7.4 % (1.0-6.0) H 08/13/17 06:40 Eos % (Auto) 5.1 % (1.5-5.0) H 08/13/17 06:40 Baso % (Auto) 0.9 % (0.0-3.0) 08/13/17 06:40 Gran # 3.36 (1.4-6.5) 08/13/17 06:40 Lymph # 3.4 (1.2-3.4) 08/13/17 06:40 [place] # 0.6 (0.1-0.6) 08/13/17 06:40 Eos # 0.4 (0.0-0.7) 08/13/17 06:40 Baso # 0.07 K/mm3 (0.0-2.0) 08/13/17 06:40 ESR 2 mm/hr (0.00-15.0) 08/12/17 07:21 Sodium 143 mmol/L (132-148) 08/13/17 09:15 Potassium 3.3 mmol/L (3.6-5.0) L 08/13/17 09:15 Chloride 105 mmol/L (95-110) 08/13/17 09:15 Carbon Dioxide 28 mmol/L (21-33) 08/13/17 09:15 Anion Gap 13 (10-20) 08/13/17 09:15 BUN 14 mg/dL (7-21) 08/13/17 09:15 Creatinine 1.0 mg/dL (0.5-1.4) 08/13/17 09:15 Est GFR ( Amer) > 60 08/13/17 09:15 Est GFR (Non-Af Amer) > 60 08/13/17 09:15 POC Glucose (mg/dL) 96 mg/dL (65-110) 08/13/17 11:36 Random Glucose 110 mg/dL (70-110) 08/13/17 09:15 Calcium 9.4 mg/dL (8.4-10.5) 08/13/17 09:15 Phosphorus 3.7 mg/dL (2.5-4.5) 08/12/17 07:52 Magnesium 1.9 mg/dL (1.7-2.2) 08/12/17 07:52 Total Bilirubin 0.8 mg/dL (0.2-1.3) 08/13/17 09:15 AST 29 U/L (17-59) 08/13/17 09:15 ALT 54 U/L (7-56) 08/13/17 09:15 Alkaline Phosphatase 77 U/L (38-126) 08/13/17 09:15 Total Protein 6.6 g/dL (5.8-8.3) 08/13/17 09:15 Albumin 3.6 g/dL (3.0-4.8) 08/13/17 09:15 Globulin 3.0 gm/dL 08/13/17 09:15 Albumin/Globulin Ratio 1.2 (1.1-1.8) 08/13/17 09:15 Urine Color Yellow (YELLOW) 08/10/17 17:30 Urine Appearance Clear (CLEAR) 08/10/17 17:30 Urine pH 6.0 (4.7-8.0) 08/10/17 17:30 Ur Specific [place] 1.015 (1.005-1.035) 08/10/17 17:30 Urine Protein Negative mg/dL (<30 mg/dL) 08/10/17 17:30 Urine Glucose (UA) Negative mg/dL (NEGATIVE) 08/10/17 17:30 Urine Ketones 15 mg/dL (NEGATIVE) H 08/10/17 17:30 Urine Blood Small (NEGATIVE) H 08/10/17 17:30 Urine Nitrate Negative (NEGATIVE) 08/10/17 17:30 Urine Bilirubin Negative (NEGATIVE) 08/10/17 17:30 Urine Urobilinogen 0.2 E.U./dL (<1 E.U./dL) 08/10/17 17:30 Ur Leukocyte Esterase Negative [place]/uL (NEGATIVE) 08/10/17 17:30 Urine RBC 2 - 5 /hpf (0-2) 08/10/17 17:30 Urine WBC 0 - 2 /hpf (0-6) 08/10/17 17:30 Ur Epithelial Cells 3 - 4 /hpf (0-5) 08/10/17 17:30 Urine Bacteria Mod (NEG) 08/10/17 17:30 - Hospital Course Hospital Course: Patient is a 62 year old male with a past medical history of RDS, HTN, and DM II who was admitted for evaluation and treatment of pain in the sacral region. With the use of physical examinations, lab work, and imaging the patient was diagnosed with and treated for bilateral sacral wound ulcers. During their hospital stay the patient was seen by infecious disease, Dr. Fernandez. During their hospital stay the patient underwent an abdominal xray which showed nonobstructive bowel gas pattern and a CXR showing potential limited left basilar atelectasis or infiltrate. Patient was treated with wound care, intravenous antibiotics, and multivitamins in addition to his home medications. At this time the patient is medically stable for discharge. Patient understands and appreciates discharge plan. Patient instructed to follow up with primary care physicians and referrals within one week from discharge. Furthermore the patient is instructed to take medications as prescribed and to return to emergency room for evaluation of intractable headache, fever, chills, dizziness , chest pain, shortness of breath, abdominal pain, nausea, vomiting, diarrhea, constipation, and urinary symptoms. This is a brief summary of the patient hospital course. Please see patient chart for full details. bilateral sacral wound ulcers. Discharge Exam - Head Exam Head Exam: ATRAUMATIC, NORMOCEPHALIC - Additional Findings Additional findings: - Constitutional Appears: Well, Non-toxic - Head Exam Head Exam: ATRAUMATIC, NORMAL INSPECTION, NORMOCEPHALIC - Eye Exam Eye Exam: EOMI, Normal appearance - ENT Exam ENT Exam: Mucous Membranes Moist, Normal Exam - Neck Exam Neck exam: Positive for: Full Rom (limited ROM), Tenderness Additional comments: erythematous - Respiratory Exam Respiratory Exam: Clear to Auscultation Bilateral. absent: Accessory Muscle Use , Chest Wall Tenderness - Cardiovascular Exam Cardiovascular Exam: REGULAR RHYTHM, +S1, +S2. absent: Clicks - GI/Abdominal Exam GI & Abdominal Exam: Normal Bowel Sounds. absent: Diminished Bowel Sounds - Extremities Exam Extremities exam: Negative for: normal inspection Additional comments: B/L discoloration - Back Exam Additional comments: B/L sacral decubitus ulcers: Right ulcer 2x3 cm stage 1, Left ulcer healing wound, stage 2 . - Neurological Exam Neurological exam: Alert, CN II-XII Intact, Oriented x3 - Psychiatric Exam Psychiatric exam: Normal Affect, Normal Mood - Skin Skin Exam: Warm Additional comments: Discoloration of nail bed bilaterally Discharge Plan - Discharge Medications Prescriptions: Sulfamethoxazole/Trimethoprim [Bactrim 400-80 mg Tablet] 1 each PO Q12 14 Days tablet - Follow Up Plan Condition: STABLE Disposition: TRANSF TO SNF Patient education suggested?: Yes Instructions: MRSA (Methicillin Resistant Staphylococcus Aureus) (DC), Pneumococcal Vaccine for Adults (DC), Diabetes Mellitus Type 2 in Adults (DC), Chronic Hypertension (DC), Pressure Ulcer (DC), Fall Prevention (DC) Additional Instructions: Discharge patient to [facility] today. Patient Instructions: Take medications as prescribed. Follow up with PMD and referrals within 1 week from discharge. Return to emergency room for evaluation of intractable headache, fever, chills, dizziness, chest pain, shortness of breath, abdominal pain, nausea, vomiting, diarrhea, constipation, and urinary symptoms. Referrals: Morales Pepe MD [Primary Care Provider] - <Wu Alicia - Last Filed: 08/13/17 17:01> Provider - Provider Date of Admission: 08/11/17 17:23 Attending physician: Wu Alicia MD Primary care physician: Morales Pepe MD Time Spent in preparation of Discharge (in minutes): 35 Hospital Course - Lab Results Lab Results: Most Recent Lab Values WBC 7.8 10^3/ul (4.5-11.0) 08/13/17 06:40 RBC 5.45 10^6/uL (3.5-6.1) 08/13/17 06:40 Hgb 16.3 g/dL (14.0-18.0) 08/13/17 06:40 Hct 48.0 % (42.0-52.0) 08/13/17 06:40 MCV 88.1 fl (80.0-105.0) 08/13/17 06:40 MCH 29.9 pg (25.0-35.0) 08/13/17 06:40 MCHC 34.0 g/dl (31.0-37.0) 08/13/17 06:40 RDW 14.3 % (11.5-14.5) 08/13/17 06:40 Plt Count 100 10^3/uL (120.0-450.0) L 08/13/17 06:40 MPV 13.7 fl (7.0-11.0) H 08/13/17 06:40 Gran % 42.9 % (50.0-68.0) L 08/13/17 06:40 Lymph % (Auto) 43.7 % (22.0-35.0) H 08/13/17 06:40 [place] % (Auto) 7.4 % (1.0-6.0) H 08/13/17 06:40 Eos % (Auto) 5.1 % (1.5-5.0) H 08/13/17 06:40 Baso % (Auto) 0.9 % (0.0-3.0) 08/13/17 06:40 Gran # 3.36 (1.4-6.5) 08/13/17 06:40 Lymph # 3.4 (1.2-3.4) 08/13/17 06:40 [place] # 0.6 (0.1-0.6) 08/13/17 06:40 Eos # 0.4 (0.0-0.7) 08/13/17 06:40 Baso # 0.07 K/mm3 (0.0-2.0) 08/13/17 06:40 ESR 2 mm/hr (0.00-15.0) 08/12/17 07:21 Sodium 143 mmol/L (132-148) 08/13/17 09:15 Potassium 3.3 mmol/L (3.6-5.0) L 08/13/17 09:15 Chloride 105 mmol/L (95-110) 08/13/17 09:15 Carbon Dioxide 28 mmol/L (21-33) 08/13/17 09:15 Anion Gap 13 (10-20) 08/13/17 09:15 BUN 14 mg/dL (7-21) 08/13/17 09:15 Creatinine 1.0 mg/dL (0.5-1.4) 08/13/17 09:15 Est GFR ( Amer) > 60 08/13/17 09:15 Est GFR (Non-Af Amer) > 60 08/13/17 09:15 POC Glucose (mg/dL) 96 mg/dL (65-110) 08/13/17 11:36 Random Glucose 110 mg/dL (70-110) 08/13/17 09:15 Calcium 9.4 mg/dL (8.4-10.5) 08/13/17 09:15 Phosphorus 3.7 mg/dL (2.5-4.5) 08/12/17 07:52 Magnesium 1.9 mg/dL (1.7-2.2) 08/12/17 07:52 Total Bilirubin 0.8 mg/dL (0.2-1.3) 08/13/17 09:15 AST 29 U/L (17-59) 08/13/17 09:15 ALT 54 U/L (7-56) 08/13/17 09:15 Alkaline Phosphatase 77 U/L (38-126) 08/13/17 09:15 Total Protein 6.6 g/dL (5.8-8.3) 08/13/17 09:15 Albumin 3.6 g/dL (3.0-4.8) 08/13/17 09:15 Globulin 3.0 gm/dL 08/13/17 09:15 Albumin/Globulin Ratio 1.2 (1.1-1.8) 08/13/17 09:15 Urine Color Yellow (YELLOW) 08/10/17 17:30 Urine Appearance Clear (CLEAR) 08/10/17 17:30 Urine pH 6.0 (4.7-8.0) 08/10/17 17:30 Ur Specific [place] 1.015 (1.005-1.035) 08/10/17 17:30 Urine Protein Negative mg/dL (<30 mg/dL) 08/10/17 17:30 Urine Glucose (UA) Negative mg/dL (NEGATIVE) 08/10/17 17:30 Urine Ketones 15 mg/dL (NEGATIVE) H 08/10/17 17:30 Urine Blood Small (NEGATIVE) H 08/10/17 17:30 Urine Nitrate Negative (NEGATIVE) 08/10/17 17:30 Urine Bilirubin Negative (NEGATIVE) 08/10/17 17:30 Urine Urobilinogen 0.2 E.U./dL (<1 E.U./dL) 08/10/17 17:30 Ur Leukocyte Esterase Negative [place]/uL (NEGATIVE) 08/10/17 17:30 Urine RBC 2 - 5 /hpf (0-2) 08/10/17 17:30 Urine WBC 0 - 2 /hpf (0-6) 08/10/17 17:30 Ur Epithelial Cells 3 - 4 /hpf (0-5) 08/10/17 17:30 Urine Bacteria Mod (NEG) 08/10/17 17:30 Attending/Attestation - Attestation I have personally seen and examined this patient.: Yes I have fully participated in the care of the patient.: Yes I have reviewed all pertinent clinical information, including history, physical exam and plan: Yes Notes (Text): I have seen and examined the patient at bedside. Agree with the above note with the following additions/ exceptions: Briefly this is 62 year old male with history of RDS, HTN, DM-2 admitted for evaluation and treatment of bilateral sacral wound ulcers. Patient states that he lives alone at home as his works and he is not able to take care of himself. Patient reports bleeding from sacral wounds. Continue wound management. Wound care consult appreciated. Cultures are growing proteus and MRSA. Will dc pt on po bactrim. Discussed with ID as well. Continue MVI, zinc and vit C. PT eval recommended MALICK. Upon discharge patient will follow up with Dr Rowe. Dr Wu Alicia
== END 2017-08-13 16:54 | DRG 592 ==
LOC: ED 15:28 → ERH 19:32 → 5RSO 22:25 → OBSVTOIN 08-11 17:23
PROVIDERS: ADMIT Internal Medicine; ATTEND Hospitalist
DX: L89.153 Pressure ulcer of sacral region, stage 3 (principal); L89.151 Pressure ulcer of sacral region, stage 1; R56.9 Unspecified convulsions; D69.6 Thrombocytopenia, unspecified; E11.622 Type 2 diabetes mellitus with other skin ulcer; E86.0 Dehydration; G90.50 Complex regional pain syndrome I, unspecified; K59.00 Constipation, unspecified; L98.419 Non-pressure chronic ulcer of buttock with unspecified severity; F41.9 Anxiety disorder, unspecified; I10 Essential (primary) hypertension; M53.3 Sacrococcygeal disorders, not elsewhere classified; Z79.899 Other long term (current) drug therapy; Z86.14 Personal history of Methicillin resistant Staphylococcus aureus infection; Z87.01 Personal history of pneumonia (recurrent); Z99.3 Dependence on wheelchair; Z87.81 Personal history of (healed) traumatic fracture; F32.89 Other specified depressive episodes; Z88.6 Allergy status to analgesic agent; Z88.5 Allergy status to narcotic agent; R26.2 Difficulty in walking, not elsewhere classified; B96.4 Proteus (mirabilis) (morganii) as the cause of diseases classified elsewhere

== ENCOUNTER 2018-01-02 12:03 | Inpatient (IN) | payer OTHER, MEDICARE ==
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
--- NOTE | 2018-01-02 16:04 | RAD ---
HISTORY: Constipation COMPARISON: 08/10/2017. FINDINGS: BOWEL: There is large amount of stool in the colon and rectum. The bowel gas pattern is nonspecific. BONES: Within normal limits for the patient's age. OTHER FINDINGS: There are multiple phleboliths in the pelvis. Bowel gas pattern. An epidural stimulator is identified overlying the left acetabulum. IMPRESSION: Constipation. Nonobstructive bowel gas pattern.
[2018-01-02 18:27] LABS: BASO # 0.05 K/mm3 (0.0-2.0); BASO % 0.6 % (0.0-3.0); EOS # 0.2 (0.0-0.7); EOS % 2.3 % (1.5-5.0); GRAN % 63.9 % (50.0-68.0); HEMOGLOBIN 15.7 g/dL (14.0-18.0); LYMPH # 2.1 (1.2-3.4); LYMPH % 26.2 % (22.0-35.0); MEAN CELL VOLUME 92.3 fl (80.0-105.0); MEAN CORPUSCULAR HEMOGLOBIN 30.8 pg (25.0-35.0); MEAN CORPUSCULAR HGB CONC 33.4 g/dl (31.0-37.0); MEAN PLATELET VOLUME 13.8 fl (7.0-11.0); MONO # 0.6 (0.1-0.6); RBC 5.09 10^6/uL (3.5-6.1); RED CELL DISTRIBUTION WIDTH 13.5 % (11.5-14.5); WHITE BLOOD COUNT 7.8 10^3/ul (4.5-11.0)
[2018-01-02 18:36] LABS: ALB/GLOB RATIO 1.3 (1.1-1.8); ALBUMIN 4.3 g/dL (3.0-4.8); ALT/SGPT 44 U/L (7-56); AST/SGOT 30 U/L (17-59); BLOOD UREA NITROGEN 20 mg/dL (7-21); CALCIUM 10.2 mg/dL (8.4-10.5); GFR AFRICAN-AMERICAN > 60; GFR NON-AFRICAN AMERICAN > 60
[2018-01-02] MEDS ORDERED: ceFAZolin 1 gm in NS 1 GM/100 ML BAG IVPB STA (19:01)
[2018-01-02] MEDS ORDERED: Magnesium Citrate Oral SOL (300 ml) PO ONE (20:16)
[2018-01-02] MEDS ORDERED: Iohexol 240 (50 ml) ONE (20:50)
[2018-01-02] MEDS ORDERED: Iohexol 350 MG/100 ML VIAL ONE (20:50)
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
[2018-01-02] MEDS ORDERED: QUETIAPINE FUMARATE 300 MG PO SCH (22:00)
[2018-01-02] MEDS: Sodium Chloride 0.45% 1,000 ML IV SCH (23:11)
--- NOTE | 2018-01-02 23:30 | CT ---
EXAM: CT Abdomen and Pelvis With Intravenous Contrast CLINICAL HISTORY: 62 years old, male; Signs and symptoms; Constipation; Additional info: Severe constipation. Check for obstruction TECHNIQUE: Axial computed tomography images of the abdomen and pelvis with intravenous contrast. All CT scans at this facility use one or more dose reduction techniques, viz.: automated exposure control; ma/kV adjustment per patient size (including targeted exams where dose is matched to indication; i.e. head); or iterative reconstruction technique. Coronal and sagittal reformatted images were created and reviewed. CONTRAST: 100 mL of OMNI administered intravenously. COMPARISON: No relevant prior studies available. FINDINGS: Lower thorax: Mild cardiomegaly. Coronary artery calcifications. ABDOMEN: Liver: Unremarkable. No mass. Gallbladder and bile ducts: Unremarkable. No calcified stones. No ductal dilation. Pancreas: Unremarkable. No mass. No ductal dilation. Spleen: Unremarkable. No splenomegaly. Adrenals: Unremarkable. No mass. Kidneys and ureters: 2.7 CM right upper Pole renal cyst. 2.6 CM left renal cyst. 4.8 CM left renal cyst. The No hydronephrosis. Stomach and bowel: Stomach is contrast-filled. No small bowel obstruction. Oral contrast seen into right colon. Moderate amount of retained stool. Appendix: No findings to suggest acute appendicitis. PELVIS: Bladder: Unremarkable. No mass. Reproductive: Unremarkable as visualized. ABDOMEN and PELVIS: Intraperitoneal space: No free fluid in pelvis. No pelvic adenopathy. Urinary bladder is unremarkable as visualized. No free air. Bones/joints: Diffuse spinal degenerative changes. Decreased bone mineralization. No acute fracture. No dislocation. Soft tissues: Unremarkable. Vasculature: Aorta is atherosclerotic. No abdominal aortic aneurysm. Lymph nodes: See above. Tubes, lines and devices: Neurostimulator leads within spinal canal. IMPRESSION: 1. Moderate amount of retained stool. Correlate for constipation. No bowel obstruction. 2. Remainder of findings as above.
[2018-01-02] MEDS: QUEtiapine 300 mg XR Tab PO SCH (23:56)
[2018-01-03] MEDS: Sodium Chloride 0.45% 1,000 ML IV SCH
[2018-01-03 00:28] VITALS: BMI 29.8
[2018-01-03 06:41] LABS: BASO # 0.05 K/mm3 (0.0-2.0); BASO % 0.7 % (0.0-3.0); EOS # 0.2 (0.0-0.7); EOS % 3.2 % (1.5-5.0); GRAN # 4.37 (1.4-6.5); GRAN % 57.6 % (50.0-68.0); HEMOGLOBIN 14.9 g/dL (14.0-18.0); LYMPH # 2.3 (1.2-3.4); LYMPH % 30.3 % (22.0-35.0); MEAN CELL VOLUME 92.5 fl (80.0-105.0); MEAN CORPUSCULAR HEMOGLOBIN 30.3 pg (25.0-35.0); MEAN CORPUSCULAR HGB CONC 32.8 g/dl (31.0-37.0); MEAN PLATELET VOLUME 13.9 fl (7.0-11.0); MONO # 0.6 (0.1-0.6); MONO % 8.2 % (1.0-6.0); RBC 4.91 10^6/uL (3.5-6.1); RED CELL DISTRIBUTION WIDTH 13.7 % (11.5-14.5); WHITE BLOOD COUNT 7.6 10^3/ul (4.5-11.0)
[2018-01-03 06:57] LABS: ALB/GLOB RATIO 1.3 (1.1-1.8); ALBUMIN 3.8 g/dL (3.0-4.8); ALT/SGPT 48 U/L (7-56); AST/SGOT 31 U/L (17-59); BLOOD UREA NITROGEN 16 mg/dL (7-21); CALCIUM 9.6 mg/dL (8.4-10.5); GFR AFRICAN-AMERICAN > 60; GFR NON-AFRICAN AMERICAN > 60; MAGNESIUM 2.5 mg/dL (1.7-2.2)
[2018-01-03] MEDS: Insulin Regular 1 UNITS/0.01 ML ML SC SCH ×4 (08:13→22:33)
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
--- NOTE | 2018-01-03 10:01 | CP.PCM.PN ---
Subjective - Date & Time of Evaluation Date of Evaluation: 01/03/18 Time of Evaluation: 09:00 - Subjective Subjective: General Surgery Seen and examined. No BM overnight. +flatus. Complains of bloating pains. Objective - Vital Signs/Intake and Output Vital Signs (last 24 hours): Temp Pulse Resp BP Pulse Ox 98 F 64 20 114/78 98 01/02/18 23:43 01/02/18 23:43 01/02/18 23:43 01/03/18 09:24 01/02/18 23:15 Intake and Output: 01/03/18 01/03/18 06:59 18:59 Intake Total 0 Output Total 700 Balance -700 - Medications Medications: Current Medications Bupropion HCl (Wellbutrin Xl) 150 mg PO DAILY [facility] Cephalexin Monohydrate (Keflex) 500 mg PO Q12H [facility] PRN Reason: Protocol Last Admin: 01/02/18 23:13 Dose: 500 mg Duloxetine HCl (Cymbalta) 30 mg PO TID [facility] Last Admin: 01/03/18 09:24 Dose: 30 mg Furosemide (Lasix) 40 mg PO DAILY [facility] Last Admin: 01/03/18 09:24 Dose: 40 mg Sodium Chloride (Sodium Chloride 0.45%) 1,000 mls @ 40 mls/hr IV .Q24H [facility] Last Admin: 01/03/18 00:00 Dose: 40 mls/hr Insulin Human Regular (Humulin R) 0 units SC ACHS [facility] PRN Reason: Protocol Last Admin: 01/03/18 08:13 Dose: Not Given Levetiracetam (Keppra) 500 mg PO BID [facility] Last Admin: 01/03/18 09:24 Dose: 500 mg Lorazepam (Ativan) 1 mg PO BID [facility] PRN Reason: Protocol Last Admin: 01/03/18 09:25 Dose: 1 mg Losartan Potassium (Cozaar) 100 mg PO DAILY [facility] Last Admin: 01/03/18 09:24 Dose: 100 mg Pregabalin (Lyrica) 200 mg PO TID [facility] Quetiapine Fumarate (Seroquel Xr) 300 mg PO DAILY [facility] Quetiapine Fumarate (Seroquel Xr) 300 mg PO HS [facility] Last Admin: 01/02/18 23:56 Dose: 300 mg Risperidone (Risperdal Tab) 1 mg PO TID [facility] PRN Reason: Protocol Sertraline HCl (Zoloft) 100 mg PO DAILY [facility] Tizanidine HCl (Zanaflex) 4 mg PO QID [facility] Last Admin: 01/02/18 23:56 Dose: 4 mg Trazodone HCl (Desyrel) 50 mg PO HS PRN PRN Reason: Insomnia Last Admin: 01/02/18 23:55 Dose: 50 mg Zonisamide (Zonegran) 200 mg PO HS [facility] - Labs Labs: 01/03/18 06:00 01/03/18 06:00 - Constitutional Appears: Non-toxic, No Acute Distress - Head Exam Head Exam: ATRAUMATIC, NORMOCEPHALIC - Eye Exam Eye Exam: EOMI. absent: Scleral icterus - Respiratory Exam Respiratory Exam: NORMAL BREATHING PATTERN. absent: Respiratory Distress - GI/Abdominal Exam GI & Abdominal Exam: Distended, Soft, Tenderness (on sides of abdomen). absent : Firm, Guarding, Rigid, Rebound - Neurological Exam Neurological Exam: Alert, Awake - Skin Skin Exam: Dry, Warm Assessment and Plan - Assessment and Plan (Free Text) Assessment: 62M with chronic constipation likely due to reflex sympathetic dystrophy, pain meds, and psychiatric medications. Plan: CT shows constipation with PO contrast in proximal colon Soap suds enema IVF Mag citrate Monitor for BM D/W Dr. Elsy Ramirez PGY4
[2018-01-03] MEDS: buPROPion 150 mg/24 Hours XL Tab PO SCH (10:07)
[2018-01-03] MEDS: QUEtiapine 300 mg XR Tab PO SCH ×2 (10:07→23:01)
[2018-01-03] MEDS: Magnesium Citrate Oral SOL (300 ml) PO SCH (11:00)
--- NOTE | 2018-01-03 14:48 | CP.PCM.PN ---
<Cale Torres - Last Filed: 01/03/18 14:45> Subjective - Date & Time of Evaluation Date of Evaluation: 01/03/18 Time of Evaluation: 14:45 - Subjective Subjective: Medicine Progress Note: Patient seen and assessed at bedside. No acute events noted overnight by patient or nursing staff. Patient endorses that he continues to be unable to move his bowels but offers no other complaints at this time including fever, chills, headache, chest pain, palpitations, SOB, cough, abdominal pain, N/V/D, urinary symptoms, or any skin changes. Objective - Vital Signs/Intake and Output Vital Signs (last 24 hours): Temp Pulse Resp BP Pulse Ox 98 F 64 20 114/78 98 01/02/18 23:43 01/02/18 23:43 01/02/18 23:43 01/03/18 09:24 01/02/18 23:15 Intake and Output: 01/03/18 01/03/18 06:59 18:59 Intake Total 0 Output Total 700 Balance -700 - Medications Medications: Current Medications Bisacodyl (Dulcolax) 10 mg RC TID [facility] Bupropion HCl (Wellbutrin Xl) 150 mg PO DAILY [facility] Last Admin: 01/03/18 10:07 Dose: 150 mg Cephalexin Monohydrate (Keflex) 500 mg PO Q12H [facility] PRN Reason: Protocol Last Admin: 01/03/18 10:07 Dose: 500 mg Duloxetine HCl (Cymbalta) 30 mg PO TID [facility] Last Admin: 01/03/18 09:24 Dose: 30 mg Furosemide (Lasix) 40 mg PO DAILY [facility] Last Admin: 01/03/18 09:24 Dose: 40 mg Sodium Chloride (Sodium Chloride 0.45%) 1,000 mls @ 120 mls/hr IV .Q8H20M [facility] Insulin Human Regular (Humulin R) 0 units SC ACHS [facility] PRN Reason: Protocol Last Admin: 01/03/18 11:35 Dose: Not Given Levetiracetam (Keppra) 500 mg PO BID [facility] Last Admin: 01/03/18 09:24 Dose: 500 mg Lorazepam (Ativan) 1 mg PO BID [facility] PRN Reason: Protocol Last Admin: 01/03/18 09:25 Dose: 1 mg Losartan Potassium (Cozaar) 100 mg PO DAILY [facility] Last Admin: 02/17/18 09:24 Dose: 100 mg Magnesium Citrate (Citrate Of Mag) 300 ml PO DAILY [facility] Last Admin: 01/03/18 11:00 Dose: Not Given Methylnaltrexone [place] (Relistor) 12 mg SC DAILY [facility] Pregabalin (Lyrica) 200 mg PO TID [facility] Last Admin: 01/03/18 10:09 Dose: 200 mg Quetiapine Fumarate (Seroquel Xr) 300 mg PO DAILY [facility] Last Admin: 01/03/18 10:07 Dose: 300 mg Quetiapine Fumarate (Seroquel Xr) 300 mg PO HS [facility] Last Admin: 01/02/18 23:56 Dose: 300 mg Risperidone (Risperdal Tab) 1 mg PO TID [facility] PRN Reason: Protocol Last Admin: 01/03/18 10:05 Dose: 1 mg Sertraline HCl (Zoloft) 100 mg PO DAILY [facility] Last Admin: 01/03/18 10:06 Dose: 100 mg Tizanidine HCl (Zanaflex) 4 mg PO QID [facility] Last Admin: 01/03/18 10:07 Dose: 4 mg Trazodone HCl (Desyrel) 50 mg PO PRN PRN Reason: Insomnia Last Admin: 01/02/18 23:55 Dose: 50 mg Zonisamide (Zonegran) [address] [facility] - Labs Labs: 01/03/18 06:00 01/03/18 06:00 - Constitutional Appears: Non-toxic, No Acute Distress - Head Exam Head Exam: ATRAUMATIC, NORMAL INSPECTION, NORMOCEPHALIC - Eye Exam Eye Exam: EOMI, Normal appearance, PERRL - ENT Exam ENT Exam: Mucous Membranes Moist, Normal Exam - Neck Exam Neck Exam: Full ROM, Normal Inspection. absent: Lymphadenopathy - Respiratory Exam Respiratory Exam: Clear to Ausculation Bilateral, NORMAL BREATHING PATTERN. absent: Accessory Muscle Use, Respiratory Distress - Cardiovascular Exam Cardiovascular Exam: REGULAR RHYTHM, RRR, +S1, +S2 - GI/Abdominal Exam GI & Abdominal Exam: Soft, Tenderness (b/l sides of abdomen), Diminished Bowel Sounds. absent: Firm, Guarding, Rigid, Normal Bowel Sounds, Rebound - Extremities Exam Extremities Exam: Full ROM, Normal Capillary Refill. absent: Calf Tenderness, Joint Swelling, Pedal Edema - Back Exam Back Exam: NORMAL INSPECTION - Neurological Exam Neurological Exam: Alert, Awake, Oriented x3 - Psychiatric Exam Psychiatric exam: Normal Affect, Normal Mood - Skin Skin Exam: Dry, Intact, Normal Color, Warm Additional comments: Noted healing wound on right second digit with no surrounding erythema or clinical signs of infection; Optifoam dressing over sacral ulcer clean, dry and intact Assessment and Plan - Assessment and Plan (Free Text) Assessment: This is a 62 year old male with PMHx diabetes, hypertension, reflex sympathetic dystrophy, depression, chronic back pain who presents complaining of constipation. This is likely due to chronic opiate use. Abdominal Xray shows non -obstructive pattern constipation. Plan: 1. Constipation -CT Abdomen/Pelvis showed moderate amount of retained stool with no obstruction -Abdominal X-Ray showed non-obstructive pattern of constipation -Continue Dulcolax, Magnesium Citrate, and Relistor -Soap/Water Enema's Q6 -Half Normal Saline at 120mls/hr -NPO with ice chips -Surgery consulted, all recommendations appreciated 2. Right Hand Laceration -Right Hand X-Ray showed no acute fractures or abnormalities -Continue Keflex 500mg Q12H -Blood cultures pending 3. Stage Decubitus Sacral Ulcer (with history of MRSA) -Noted to be healed -Continue nursing wound care -MRSA screen pending 4. History of DM2 -SSI-Medium and Accuchecks ACHS 5. History of HTN -Continue home Losartan and Lasix 6. History of RSD -Continue home Zonisamide, Wellbutrin, Cymbalta, Keppra, Ativan, Seroquel, and Risperdal 7. History of Chronic LBP -Continue Zanaflex GI Prophylaxis: Protonix DVT Prophylaxis: SCD's (Chemical VTE was held for thrombocytopenia) Patient seen and case discussed with attending, Dr. Montes. <Emilia Montes - Last Filed: 01/03/18 15:25> Objective - Vital Signs/Intake and Output Vital Signs (last 24 hours): Temp Pulse Resp BP Pulse Ox 98 F 64 20 114/78 98 01/02/18 23:43 01/02/18 23:43 01/02/18 23:43 01/03/18 09:24 01/02/18 23:15 - Medications Medications: Current Medications Bisacodyl (Dulcolax) 10 mg RC TID [facility] Last Admin: 01/03/18 14:44 Dose: 10 mg Bupropion HCl (Wellbutrin Xl) 150 mg PO DAILY [facility] Last Admin: 01/03/18 10:07 Dose: 150 mg Cephalexin Monohydrate (Keflex) 500 mg PO Q12H [facility] PRN Reason: Protocol Last Admin: 01/03/18 10:07 Dose: 500 mg Duloxetine HCl (Cymbalta) 30 mg PO TID [facility] Last Admin: 01/03/18 14:44 Dose: 30 mg Furosemide (Lasix) 40 mg PO DAILY [facility] Last Admin: 01/03/18 09:24 Dose: 40 mg Sodium Chloride (Sodium Chloride 0.45%) 1,000 mls @ 120 mls/hr IV .Q8H20M [facility] Insulin Human Regular (Humulin R) 0 units SC ACHS [facility] PRN Reason: Protocol Last Admin: 01/03/18 11:35 Dose: Not Given Levetiracetam (Keppra) 500 mg PO BID [facility] Last Admin: 01/03/18 09:24 Dose: 500 mg Lorazepam (Ativan) 1 mg PO BID [facility] PRN Reason: Protocol Last Admin: 01/03/18 09:25 Dose: 1 mg Losartan Potassium (Cozaar) 100 mg PO DAILY [facility] Last Admin: 01/03/18 09:24 Dose: 100 mg Magnesium Citrate (Citrate Of Mag) 300 ml PO DAILY [facility] Last Admin: 01/03/18 11:00 Dose: Not Given Methylnaltrexone [place] (Relistor) 12 mg SC DAILY [facility] Last Admin: 01/03/18 14:44 Dose: 12 mg Pregabalin (Lyrica) 200 mg PO TID [facility] Last Admin: 01/03/18 14:44 Dose: 200 mg Quetiapine Fumarate (Seroquel Xr) 300 mg PO DAILY [facility] Last Admin: 01/03/18 10:07 Dose: 300 mg Quetiapine Fumarate (Seroquel Xr) 300 mg PO HS [facility] Last Admin: 01/02/18 23:56 Dose: 300 mg Risperidone (Risperdal Tab) 1 mg PO TID [facility] PRN Reason: Protocol Last Admin: 01/03/18 14:43 Dose: 1 mg Sertraline HCl (Zoloft) 100 mg PO DAILY [facility] Last Admin: 01/03/18 10:06 Dose: 100 mg Tizanidine HCl (Zanaflex) 4 mg PO QID [facility] Last Admin: 01/03/18 14:44 Dose: 4 mg Trazodone HCl (Desyrel) 50 mg PO HS PRN PRN Reason: Insomnia Last Admin: 01/02/18 23:55 Dose: 50 mg Zonisamide (Zonegran) 200 mg PO HS [facility] Attending/Attestation - Attestation I have personally seen and examined this patient.: Yes I have fully participated in the care of the patient.: Yes I have reviewed all pertinent clinical information, including history, physical exam and plan: Yes Notes (Text): 01/03/18 15:19 62 year old male with past medical history of hypertension, diabetes, reflex sympathetic dystrophy, depression and chronic back pain on opiates who presented with complaint of abdominal pain and constipation x 6 days. Abdominal xray and CT abd/pelvis showed moderate constipation without obstruction. Surgery is following. Patient is on relistor, magnesium citrate, dulcolax and enemas. Monitor for bowel movement. Advance diet as per surgery. Avoid NSAIDs and his norvasc is on hold as well. Continue with local wound care for right hand laceration. Xray was negative. Continue with nursing wound care for decubitus sacral ulcer. Continue with home medications except norvasc and opiates as above. Emilia Montes MD Hospitalist.
[2018-01-04] MEDS: Sodium Chloride 0.45% 1,000 ML IV SCH ×3 (05:40→19:46)
[2018-01-04 07:10] LABS: BASO # 0.06 K/mm3 (0.0-2.0); BASO % 0.9 % (0.0-3.0); EOS # 0.3 (0.0-0.7); EOS % 4.2 % (1.5-5.0); GRAN # 3.38 (1.4-6.5); GRAN % 52.4 % (50.0-68.0); HEMOGLOBIN 14.7 g/dL (14.0-18.0); LYMPH # 2.2 (1.2-3.4); LYMPH % 34.4 % (22.0-35.0); MEAN CELL VOLUME 92.6 fl (80.0-105.0); MEAN CORPUSCULAR HEMOGLOBIN 30.4 pg (25.0-35.0); MEAN CORPUSCULAR HGB CONC 32.8 g/dl (31.0-37.0); MEAN PLATELET VOLUME 13.5 fl (7.0-11.0); MONO # 0.5 (0.1-0.6); MONO % 8.1 % (1.0-6.0); RBC 4.84 10^6/uL (3.5-6.1); RED CELL DISTRIBUTION WIDTH 13.5 % (11.5-14.5); WHITE BLOOD COUNT 6.5 10^3/ul (4.5-11.0)
[2018-01-04 07:38] LABS: ALB/GLOB RATIO 1.2 (1.1-1.8); ALBUMIN 3.5 g/dL (3.0-4.8); ALT/SGPT 43 U/L (7-56); AST/SGOT 19 U/L (17-59); BLOOD UREA NITROGEN 15 mg/dL (7-21); CALCIUM 9.7 mg/dL (8.4-10.5); GFR AFRICAN-AMERICAN > 60; GFR NON-AFRICAN AMERICAN 56; MAGNESIUM 2.2 mg/dL (1.7-2.2)
[2018-01-04] MEDS: Insulin Regular 1 UNITS/0.01 ML ML SC SCH ×4 (08:28→22:50)
--- NOTE | 2018-01-04 09:52 | CP.PCM.PN ---
Subjective - Date & Time of Evaluation Date of Evaluation: 01/04/18 Time of Evaluation: 07:00 - Subjective Subjective: Patient seen and examined at bedside this AM. Patient denies any nausea but complains of abdominal pain. Had a large bowel movement last night after dulcolax suppositories. States he is hungry and concerned that his blood sugar may be too low this AM. Objective - Vital Signs/Intake and Output Vital Signs (last 24 hours): Temp Pulse Resp BP Pulse Ox 98.4 F 68 18 127/81 98 01/04/18 06:00 01/04/18 06:00 01/04/18 06:00 01/04/18 06:00 01/02/18 23:15 Intake and Output: 01/04/18 01/04/18 06:59 18:59 Intake Total 29366 Output Total 2940 Balance 99077 - Medications Medications: Current Medications Bisacodyl (Dulcolax) 10 mg RC TID [facility] Last Admin: 01/03/18 14:44 Dose: 10 mg Bupropion HCl (Wellbutrin Xl) 150 mg PO DAILY [facility] Last Admin: 01/03/18 10:07 Dose: 150 mg Cephalexin Monohydrate (Keflex) 500 mg PO Q12H [facility] PRN Reason: Protocol Last Admin: 01/03/18 23:00 Dose: 500 mg Duloxetine HCl (Cymbalta) 30 mg PO TID [facility] Last Admin: 01/03/18 18:10 Dose: 30 mg Furosemide (Lasix) 40 mg PO DAILY [facility] Last Admin: 01/03/18 09:24 Dose: 40 mg Sodium Chloride (Sodium Chloride 0.45%) 1,000 mls @ 120 mls/hr IV .Q8H20M [facility] Last Admin: 01/04/18 05:40 Dose: 120 mls/hr Insulin Human Regular (Humulin R) 0 units SC ACHS [facility] PRN Reason: Protocol Last Admin: 01/04/18 08:28 Dose: Not Given Levetiracetam (Keppra) 500 mg PO BID [facility] Last Admin: 01/03/18 18:10 Dose: 500 mg Lorazepam (Ativan) 1 mg PO BID [facility] PRN Reason: Protocol Last Admin: 01/03/18 18:10 Dose: 1 mg Losartan Potassium (Cozaar) 100 mg PO DAILY [facility] Last Admin: 01/03/18 09:24 Dose: 100 mg Magnesium Citrate (Citrate Of Mag) 300 ml PO DAILY [facility] Last Admin: 01/03/18 11:00 Dose: Not Given Methylnaltrexone [place] (Relistor) 12 mg SC DAILY [facility] Last Admin: 01/03/18 14:44 Dose: 12 mg Pregabalin (Lyrica) 200 mg PO TID [facility] Last Admin: 01/03/18 18:10 Dose: 200 mg Quetiapine Fumarate (Seroquel Xr) 300 mg PO DAILY [facility] Last Admin: 01/03/18 10:07 Dose: 300 mg Quetiapine Fumarate (Seroquel Xr) [address] [facility] Last Admin: 01/03/18 23:01 Dose: 300 mg Risperidone (Risperdal Tab) 1 mg PO TID [facility] PRN Reason: Protocol Last Admin: 01/03/18 18:11 Dose: 1 mg Sertraline HCl (Zoloft) 100 mg PO DAILY [facility] Last Admin: 01/03/18 10:06 Dose: 100 mg Tizanidine HCl (Zanaflex) 4 mg PO QID [facility] Last Admin: 01/03/18 23:00 Dose: 4 mg Trazodone HCl (Desyrel) 50 mg PO PRN PRN Reason: Insomnia Last Admin: 01/03/18 23:00 Dose: 50 mg Zonisamide (Zonegran) [address] [facility] Last Admin: 01/03/18 22:59 Dose: 200 mg - Labs Labs: 01/04/18 06:45 01/04/18 06:45 - Constitutional Appears: Non-toxic, No Acute Distress - Head Exam Head Exam: ATRAUMATIC, NORMOCEPHALIC - Eye Exam Eye Exam: Normal appearance. absent: Conjunctival injection, Scleral icterus - ENT Exam ENT Exam: Mucous Membranes Moist, Normal Oropharynx - Respiratory Exam Respiratory Exam: NORMAL BREATHING PATTERN. absent: Accessory Muscle Use, Respiratory Distress - Cardiovascular Exam Cardiovascular Exam: RRR - GI/Abdominal Exam GI & Abdominal Exam: Distended, Soft, Tenderness (moderate tenderness in the LLQ and LUQ). absent: Rebound - Neurological Exam Neurological Exam: Alert, Awake, Oriented x3 - Psychiatric Exam Psychiatric exam: Anxious, Normal Affect - Skin Skin Exam: Dry, Normal Color, Warm Assessment and Plan - Assessment and Plan (Free Text) Assessment: 62M with chronic obstipation due to reflex sympathetic dystrophy, pain meds, and psychiatric medications. Plan: Patient had large BM with agressive bowel regimen Continue enemas, suppositories, and mag citrate May advance to CLD as tolerated Continue IVF until adequate PO intake Monitor for BM D/W Dr. Chin, further rec per him Shazia Carpenter, PGY2
[2018-01-04] MEDS: QUEtiapine 300 mg XR Tab PO SCH ×2 (09:55→22:29)
[2018-01-04] MEDS: buPROPion 150 mg/24 Hours XL Tab PO SCH (11:18)
[2018-01-04] MEDS: Magnesium Citrate Oral SOL (300 ml) PO SCH (11:20)
--- NOTE | 2018-01-04 11:40 | CP.PCM.PN ---
<Cale Torres - Last Filed: 01/04/18 17:32> Subjective - Date & Time of Evaluation Date of Evaluation: 01/04/18 Time of Evaluation: 11:35 - Subjective Subjective: Medicine Progress Note: Patient seen and assessed at bedside. No acute events noted overnight by patient or nursing staff. Patient endorses that he has had two small BM's since yesterday and offers no complaints at this time including fever, chills, headache, chest pain, palpitations, SOB, cough, abdominal pain, N/V/D, urinary symptoms, or any skin changes. Objective - Vital Signs/Intake and Output Vital Signs (last 24 hours): Temp Pulse Resp BP Pulse Ox 98.4 F 68 18 127/86 98 01/04/18 06:00 01/04/18 06:00 01/04/18 06:00 01/04/18 09:54 01/02/18 23:15 Intake and Output: 01/04/18 01/04/18 06:59 18:59 Intake Total 87913 Output Total 2940 Balance 58578 - Medications Medications: Current Medications Bisacodyl (Dulcolax) 10 mg RC TID [facility] Last Admin: 01/03/18 14:44 Dose: 10 mg Bupropion HCl (Wellbutrin Xl) 150 mg PO DAILY [facility] Last Admin: 01/03/18 10:07 Dose: 150 mg Cephalexin Monohydrate (Keflex) 500 mg PO Q12H [facility] PRN Reason: Protocol Last Admin: 01/03/18 23:00 Dose: 500 mg Duloxetine HCl (Cymbalta) 30 mg PO TID [facility] Last Admin: 01/04/18 09:54 Dose: 30 mg Furosemide (Lasix) 40 mg PO DAILY [facility] Last Admin: 01/04/18 09:54 Dose: 40 mg Sodium Chloride (Sodium Chloride 0.45%) 1,000 mls @ 120 mls/hr IV .Q8H20M [facility] Last Admin: 01/04/18 05:40 Dose: 120 mls/hr Insulin Human Regular (Humulin R) 0 units SC ACHS [facility] PRN Reason: Protocol Last Admin: 01/04/18 08:28 Dose: Not Given Levetiracetam (Keppra) 500 mg PO BID [facility] Last Admin: 01/04/18 09:54 Dose: 500 mg Lorazepam (Ativan) 1 mg PO BID [facility] PRN Reason: Protocol Last Admin: 01/04/18 09:54 Dose: 1 mg Losartan Potassium (Cozaar) 100 mg PO DAILY [facility] Last Admin: 01/04/18 09:55 Dose: 100 mg Magnesium Citrate (Citrate Of Mag) 300 ml PO DAILY [facility] Last Admin: 01/03/18 11:00 Dose: Not Given Methylnaltrexone [place] (Relistor) 12 mg SC DAILY [facility] Last Admin: 01/03/18 14:44 Dose: 12 mg Pregabalin (Lyrica) 200 mg PO TID [facility] Last Admin: 01/04/18 09:53 Dose: 200 mg Quetiapine Fumarate (Seroquel Xr) 300 mg PO DAILY [facility] Last Admin: 01/04/18 09:55 Dose: 300 mg Quetiapine Fumarate (Seroquel Xr) 300 mg PO [facility] Last Admin: 01/03/18 23:01 Dose: 300 mg Risperidone (Risperdal Tab) 1 mg PO TID [facility] PRN Reason: Protocol Last Admin: 01/03/18 18:11 Dose: 1 mg Sertraline HCl (Zoloft) 100 mg PO DAILY [facility] Last Admin: 01/03/18 10:06 Dose: 100 mg Tizanidine HCl (Zanaflex) 4 mg PO QID [facility] Last Admin: 01/03/18 23:00 Dose: 4 mg Trazodone HCl (Desyrel) 50 mg PO PRN PRN Reason: Insomnia Last Admin: 01/03/18 23:00 Dose: 50 mg Zonisamide (Zonegran) 200 mg PO [facility] Last Admin: 01/03/18 22:59 Dose: 200 mg - Labs Labs: 01/04/18 06:45 01/04/18 06:45 - Constitutional Appears: Non-toxic, No Acute Distress - Head Exam Head Exam: ATRAUMATIC, NORMOCEPHALIC - Eye Exam Eye Exam: EOMI, Normal appearance, PERRL - ENT Exam ENT Exam: Mucous Membranes Moist, Normal Exam - Neck Exam Neck Exam: Full ROM. absent: Lymphadenopathy - Respiratory Exam Respiratory Exam: Clear to Ausculation Bilateral, NORMAL BREATHING PATTERN. absent: Accessory Muscle Use, Rales, Rhonchi, Wheezes, Respiratory Distress - Cardiovascular Exam Cardiovascular Exam: REGULAR RHYTHM, RRR, +S1, +S2 - GI/Abdominal Exam GI & Abdominal Exam: Soft, Tenderness (LLQ TTP), Normal Bowel Sounds. absent: Distended, Firm, Guarding, Rigid, Rebound - Extremities Exam Extremities Exam: Normal Capillary Refill. absent: Calf Tenderness, Joint Swelling, Pedal Edema - Neurological Exam Neurological Exam: Alert, Awake, CN II-XII Intact, Oriented x3 - Psychiatric Exam Psychiatric exam: Normal Affect, Normal Mood - Skin Skin Exam: Dry, Intact, Normal Color, Warm Additional comments: Sacral wound dressing clean, dry and intact with no surrounding erythema appreciated Assessment and Plan - Assessment and Plan (Free Text) Assessment: This is a 62 year old male with PMHx diabetes, hypertension, reflex sympathetic dystrophy, depression, chronic back pain who presents complaining of constipation. Abdominal Xray shows non-obstructive pattern constipation. Currently advancing diet as tolerated to prevent colonic distention, per surgery consultation. Plan: 1. Constipation -CT Abdomen/Pelvis showed moderate amount of retained stool with no obstruction -Abdominal X-Ray showed non-obstructive pattern of constipation -Continue Dulcolax, Magnesium Citrate, and Relistor -Soap/Water Enema's Q6 -Half Normal Saline at 120mls/hr until PO intake is adequate -Advanced to Clear Liquid Diet -Surgery consulted, all recommendations appreciated 2. Right Hand Laceration -Right Hand X-Ray showed no acute fractures or abnormalities -Continue Keflex 500mg Q12H -Blood cultures pending 3. Stage Decubitus Sacral Ulcer (with history of MRSA) -Noted to be healed -Continue nursing wound care -MRSA screen pending 4. History of DM2 -SSI-Medium and Accuchecks ACHS 5. History of HTN -Continue home Losartan and Lasix 6. History of RSD -Continue home Zonisamide, Wellbutrin, Cymbalta, Keppra, Ativan, Seroquel, and Risperdal 7. History of Chronic LBP -Continue Zanaflex GI Prophylaxis: Protonix DVT Prophylaxis: SCD's (Chemical VTE was held for thrombocytopenia) Patient seen and case discussed with attending, Dr. Montes. <Emilia Montes - Last Filed: 01/05/18 07:05> Objective - Vital Signs/Intake and Output Vital Signs (last 24 hours): Temp Pulse Resp BP Pulse Ox 97.8 F 98 H 19 113/71 98 01/04/18 18:00 01/04/18 18:00 01/04/18 18:00 01/04/18 18:00 01/04/18 18:00 - Medications Medications: Current Medications Bisacodyl (Dulcolax) 10 mg RC TID [facility] Last Admin: 01/04/18 17:54 Dose: 10 mg Bupropion HCl (Wellbutrin Xl) 150 mg PO DAILY [facility] Last Admin: 01/04/18 11:18 Dose: 150 mg Cephalexin Monohydrate (Keflex) 500 mg PO Q12H [facility] PRN Reason: Protocol Last Admin: 01/04/18 22:28 Dose: 500 mg Duloxetine HCl (Cymbalta) 30 mg PO TID [facility] Last Admin: 01/04/18 17:53 Dose: 30 mg Furosemide (Lasix) 40 mg PO DAILY [facility] Last Admin: 01/04/18 09:54 Dose: 40 mg Sodium Chloride (Sodium Chloride 0.45%) 1,000 mls @ 120 mls/hr IV .Q8H20M [facility] Last Admin: 01/05/18 03:08 Dose: 120 mls/hr Insulin Human Regular (Humulin R) 0 units SC ACHS [facility] PRN Reason: Protocol Last Admin: 01/04/18 22:50 Dose: Not Given Levetiracetam (Keppra) 500 mg PO BID [facility] Last Admin: 01/04/18 17:53 Dose: 500 mg Lorazepam (Ativan) 1 mg PO BID [facility] PRN Reason: Protocol Last Admin: 01/04/18 17:53 Dose: 1 mg Losartan Potassium (Cozaar) 100 mg PO DAILY [facility] Last Admin: 01/04/18 09:55 Dose: 100 mg Magnesium Citrate (Citrate Of Mag) 300 ml PO DAILY [facility] Last Admin: 01/04/18 11:20 Dose: 300 ml Methylnaltrexone [place] (Relistor) 12 mg SC DAILY [facility] Last Admin: 01/04/18 11:20 Dose: 12 mg Pregabalin (Lyrica) 200 mg PO TID [facility] Last Admin: 01/04/18 19:22 Dose: 200 mg Quetiapine Fumarate (Seroquel Xr) 300 mg PO DAILY [facility] Last Admin: 01/04/18 09:55 Dose: 300 mg Quetiapine Fumarate (Seroquel Xr) 300 mg PO HS [facility] Last Admin: 01/04/18 22:29 Dose: 300 mg Risperidone (Risperdal Tab) 1 mg PO TID [facility] PRN Reason: Protocol Last Admin: 01/04/18 17:53 Dose: 1 mg Sertraline HCl (Zoloft) 100 mg PO DAILY [facility] Last Admin: 01/04/18 11:23 Dose: 100 mg Tizanidine HCl (Zanaflex) 4 mg PO QID [facility] Last Admin: 01/04/18 22:29 Dose: 4 mg Trazodone HCl (Desyrel) 50 mg PO HS PRN PRN Reason: Insomnia Last Admin: 01/04/18 22:29 Dose: 50 mg Zonisamide (Zonegran) 200 mg PO HS [facility] Last Admin: 01/04/18 22:28 Dose: 200 mg - Labs Labs: 01/04/18 06:45 01/04/18 06:45 Attending/Attestation - Attestation I have personally seen and examined this patient.: Yes I have fully participated in the care of the patient.: Yes I have reviewed all pertinent clinical information, including history, physical exam and plan: Yes Notes (Text): 01/04/18 62 year old male with past medical history of hypertension, diabetes, reflex sympathetic dystrophy, depression and chronic back pain on opiates who presented with complaint of abdominal pain and constipation x 6 days. Abdominal xray and CT abd/pelvis showed moderate constipation without obstruction. Patient is on relistor, magnesium citrate, dulcolax and enemas. Monitor for bowel movement. Continue with liquid diet as tolerated. Surgery is following. Avoid NSAIDs and his norvasc is on hold as well. Continue with local wound care for right hand laceration. Xray was negative. Continue with nursing wound care for decubitus sacral ulcer. Continue with home medications except norvasc and opiates as above. Emilia Montes MD Hospitalist.
[2018-01-05] MEDS: Sodium Chloride 0.45% 1,000 ML IV SCH (03:08)
[2018-01-05 07:35] LABS: BASO # 0.04 K/mm3 (0.0-2.0); BASO % 0.4 % (0.0-3.0); EOS # 0.3 (0.0-0.7); EOS % 3.3 % (1.5-5.0); GRAN # 6.59 (1.4-6.5); HEMOGLOBIN 14.1 g/dL (14.0-18.0); LYMPH # 1.8 (1.2-3.4); LYMPH % 18.6 % (22.0-35.0); MEAN CORPUSCULAR HEMOGLOBIN 29.7 pg (25.0-35.0); MEAN CORPUSCULAR HGB CONC 32.3 g/dl (31.0-37.0); MEAN PLATELET VOLUME 13.5 fl (7.0-11.0); MONO # 0.8 (0.1-0.6); MONO % 8.7 % (1.0-6.0); RBC 4.75 10^6/uL (3.5-6.1); RED CELL DISTRIBUTION WIDTH 13.7 % (11.5-14.5); WHITE BLOOD COUNT 9.6 10^3/ul (4.5-11.0)
[2018-01-05 08:30] LABS: ALB/GLOB RATIO 1.1 (1.1-1.8); ALBUMIN 3.2 g/dL (3.0-4.8); ALT/SGPT 31 U/L (7-56); AST/SGOT 18 U/L (17-59); BLOOD UREA NITROGEN 16 mg/dL (7-21); CALCIUM 9.2 mg/dL (8.4-10.5); GFR AFRICAN-AMERICAN > 60; GFR NON-AFRICAN AMERICAN 56; MAGNESIUM 2.6 mg/dL (1.7-2.2)
--- NOTE | 2018-01-05 08:48 | CP.PCM.PN ---
Subjective - Date & Time of Evaluation Date of Evaluation: 01/05/18 Time of Evaluation: 06:40 - Subjective Subjective: Patient seen and examined at bedside this AM. No adverse events overnight. Had 2 more small bowel movements yesterday but still complains of pain in his sides. Denies nausea and vomiting and is tolerating his CLD Objective - Vital Signs/Intake and Output Vital Signs (last 24 hours): Temp Pulse Resp BP Pulse Ox 97.8 F 98 H 19 113/71 98 01/04/18 18:00 01/04/18 18:00 01/04/18 18:00 01/04/18 18:00 01/04/18 18:00 - Medications Medications: Current Medications Bisacodyl (Dulcolax) 10 mg RC TID [facility] Last Admin: 01/04/18 17:54 Dose: 10 mg Bupropion HCl (Wellbutrin Xl) 150 mg PO DAILY [facility] Last Admin: 01/04/18 11:18 Dose: 150 mg Cephalexin Monohydrate (Keflex) 500 mg PO Q12H [facility] PRN Reason: Protocol Last Admin: 01/04/18 22:28 Dose: 500 mg Duloxetine HCl (Cymbalta) 30 mg PO TID [facility] Last Admin: 01/04/18 17:53 Dose: 30 mg Furosemide (Lasix) 40 mg PO DAILY [facility] Last Admin: 01/04/18 09:54 Dose: 40 mg Sodium Chloride (Sodium Chloride 0.45%) 1,000 mls @ 120 mls/hr IV .Q8H20M [facility] Last Admin: 01/05/18 03:08 Dose: 120 mls/hr Insulin Human Regular (Humulin R) 0 units SC ACHS [facility] PRN Reason: Protocol Last Admin: 01/04/18 22:50 Dose: Not Given Levetiracetam (Keppra) 500 mg PO BID [facility] Last Admin: 01/04/18 17:53 Dose: 500 mg Lorazepam (Ativan) 1 mg PO BID [facility] PRN Reason: Protocol Last Admin: 01/04/18 17:53 Dose: 1 mg Losartan Potassium (Cozaar) 100 mg PO DAILY [facility] Last Admin: 01/04/18 09:55 Dose: 100 mg Magnesium Citrate (Citrate Of Mag) 300 ml PO DAILY [facility] Last Admin: 01/04/18 11:20 Dose: 300 ml Methylnaltrexone Martha (Relistor) 12 mg SC DAILY [facility] Last Admin: 01/04/18 11:20 Dose: 12 mg Pregabalin (Lyrica) 200 mg PO TID [facility] Last Admin: 01/04/18 19:22 Dose: 200 mg Quetiapine Fumarate (Seroquel Xr) 300 mg PO DAILY [facility] Last Admin: 01/04/18 09:55 Dose: 300 mg Quetiapine Fumarate (Seroquel Xr) [address] [facility] Last Admin: 01/04/18 22:29 Dose: 300 mg Risperidone (Risperdal Tab) 1 mg PO TID [facility] PRN Reason: Protocol Last Admin: 01/04/18 17:53 Dose: 1 mg Sertraline HCl (Zoloft) 100 mg PO DAILY [facility] Last Admin: 01/04/18 11:23 Dose: 100 mg Tizanidine HCl (Zanaflex) 4 mg PO QID [facility] Last Admin: 01/04/18 22:29 Dose: 4 mg Trazodone HCl (Desyrel) 50 mg PO PRN PRN Reason: Insomnia Last Admin: 01/04/18 22:29 Dose: 50 mg Zonisamide (Zonegran) 200 mg PO HS [facility] Last Admin: 01/04/18 22:28 Dose: 200 mg - Labs Labs: 01/05/18 07:00 01/05/18 07:00 - Constitutional Appears: Non-toxic, No Acute Distress - Head Exam Head Exam: ATRAUMATIC, NORMOCEPHALIC - Eye Exam Eye Exam: Normal appearance. absent: Conjunctival injection, Scleral icterus - ENT Exam ENT Exam: Mucous Membranes Moist, Normal Oropharynx - Respiratory Exam Respiratory Exam: NORMAL BREATHING PATTERN. absent: Accessory Muscle Use, Respiratory Distress - GI/Abdominal Exam GI & Abdominal Exam: Distended, Soft, Tenderness (BL upper quadrants) - Neurological Exam Neurological Exam: Alert, Awake, Oriented x3 - Psychiatric Exam Psychiatric exam: Normal Affect, Normal Mood - Skin Skin Exam: Dry, Normal Color, Warm Assessment and Plan - Assessment and Plan (Free Text) Assessment: 62M with chronic obstipation d/t reflex sympathetic dystrophy, chronic opioid use and psych medications. Resolving Plan: -ADAT -D/C fluids once having adequate PO intake -Continue bowel regimen, switch mag citrate to sennakot d/t elevated magnesium -Continue relestor Discussed with Dr. Chin, further recommendations per him Shazia Carpenter PGY2
[2018-01-05] MEDS: Insulin Regular 1 UNITS/0.01 ML ML SC SCH ×4 (09:33→22:20)
--- NOTE | 2018-01-05 12:44 | CP.PCM.PN ---
<Cale Torres - Last Filed: 01/05/18 12:40> Subjective - Date & Time of Evaluation Date of Evaluation: 01/05/18 Time of Evaluation: 12:40 - Subjective Subjective: Medicine Progress Note: Patient seen and assessed at bedside. No acute events noted overnight by patient or nursing staff. Patient endorses that he has had two mostly liquid BM' s since yesterday and increased abdominal pain after eating a tunafish sandwich last night. Patient noted to be on clear liquid diet over the past 24 hours. Patient offers no other complaints at this time including fever, chills, headache, chest pain, palpitations, SOB, cough, N/V, hematemesis, melena, hematochezia, urinary symptoms, or any skin changes. Objective - Vital Signs/Intake and Output Vital Signs (last 24 hours): Temp Pulse Resp BP Pulse Ox 97.8 F 98 H 19 113/71 98 01/04/18 18:00 01/04/18 18:00 01/04/18 18:00 01/04/18 18:00 01/04/18 18:00 - Medications Medications: Current Medications Bisacodyl (Dulcolax) 10 mg RC TID [facility] Last Admin: 01/04/18 17:54 Dose: 10 mg Bupropion HCl (Wellbutrin Xl) 150 mg PO DAILY [facility] Last Admin: 01/04/18 11:18 Dose: 150 mg Cephalexin Monohydrate (Keflex) 500 mg PO Q12H [facility] PRN Reason: Protocol Last Admin: 01/04/18 22:28 Dose: 500 mg Duloxetine HCl (Cymbalta) 30 mg PO TID [facility] Last Admin: 01/04/18 17:53 Dose: 30 mg Furosemide (Lasix) 40 mg PO DAILY [facility] Last Admin: 01/04/18 09:54 Dose: 40 mg Sodium Chloride (Sodium Chloride 0.45%) 1,000 mls @ 120 mls/hr IV .Q8H20M [facility] Last Admin: 01/05/18 03:08 Dose: 120 mls/hr Insulin Human Regular (Humulin R) 0 units SC ACHS [facility] PRN Reason: Protocol Last Admin: 01/05/18 09:33 Dose: Not Given Levetiracetam (Keppra) 500 mg PO BID [facility] Last Admin: 01/04/18 17:53 Dose: 500 mg Lorazepam (Ativan) 1 mg PO BID [facility] PRN Reason: Protocol Last Admin: 01/04/18 17:53 Dose: 1 mg Losartan Potassium (Cozaar) 100 mg PO DAILY [facility] Last Admin: 01/04/18 09:55 Dose: 100 mg Methylnaltrexone Vernal (Relistor) 12 mg SC DAILY [facility] Last Admin: 01/04/18 11:20 Dose: 12 mg Pregabalin (Lyrica) 200 mg PO TID [facility] Last Admin: 01/04/18 19:22 Dose: 200 mg Quetiapine Fumarate (Seroquel Xr) 300 mg PO DAILY [facility] Last Admin: 01/04/18 09:55 Dose: 300 mg Quetiapine Fumarate (Seroquel Xr) 300 mg PO HS [facility] Last Admin: 01/04/18 22:29 Dose: 300 mg Risperidone (Risperdal Tab) 1 mg PO TID [facility] PRN Reason: Protocol Last Admin: 01/04/18 17:53 Dose: 1 mg Senna/Docusate Sodium (Senokot S 50 Mg-8.6 Mg) 1 tab PO BID [facility] Sertraline HCl (Zoloft) 100 mg PO DAILY [facility] Last Admin: 01/04/18 11:23 Dose: 100 mg Tizanidine HCl (Zanaflex) 4 mg PO QID [facility] Last Admin: 01/04/18 22:29 Dose: 4 mg Trazodone HCl (Desyrel) 50 mg PO HS PRN PRN Reason: Insomnia Last Admin: 01/04/18 22:29 Dose: 50 mg Zonisamide (Zonegran) 200 mg PO [facility] Last Admin: 01/04/18 22:28 Dose: 200 mg - Labs Labs: 01/05/18 07:00 01/05/18 07:00 - Constitutional Appears: Non-toxic, No Acute Distress - Head Exam Head Exam: ATRAUMATIC, NORMOCEPHALIC - Eye Exam Eye Exam: EOMI, Normal appearance - ENT Exam ENT Exam: Mucous Membranes Moist, Normal Exam - Neck Exam Neck Exam: Full ROM, Normal Inspection. absent: Lymphadenopathy - Respiratory Exam Respiratory Exam: Clear to Ausculation Bilateral, NORMAL BREATHING PATTERN. absent: Accessory Muscle Use, Respiratory Distress - Cardiovascular Exam Cardiovascular Exam: REGULAR RHYTHM, RRR, +S1, +S2. absent: Tachycardia - GI/Abdominal Exam GI & Abdominal Exam: Distended (Mild), Soft, Tenderness (B/L lateral aspects of abdomen), Normal Bowel Sounds. absent: Firm, Guarding, Rigid, Rebound - Extremities Exam Extremities Exam: Full ROM, Normal Capillary Refill. absent: Calf Tenderness, Joint Swelling, Pedal Edema - Back Exam Back Exam: NORMAL INSPECTION - Neurological Exam Neurological Exam: Alert, Awake, CN II-XII Intact, Oriented x3 - Psychiatric Exam Psychiatric exam: Normal Affect, Normal Mood - Skin Skin Exam: Dry, Warm Additional comments: Sacral wound dressing clean, dry and intact with no surrounding erythema appreciated; Right hand with multiple healing lacerations and no clinical signs of infection Assessment and Plan - Assessment and Plan (Free Text) Assessment: This is a 62 year old male with PMHx diabetes, hypertension, reflex sympathetic dystrophy, depression, chronic back pain who presents complaining of constipation. Abdominal Xray shows non-obstructive pattern constipation. Currently advancing diet as tolerated to prevent colonic distention, per surgery consultation. Plan: 1. Constipation -CT Abdomen/Pelvis showed moderate amount of retained stool with no obstruction -Abdominal X-Ray showed non-obstructive pattern of constipation -Sennakot to replace Magnesium Citrate in setting of hypermagnesemia -Continue Dulcolax and Relistor -Soap/Water Enema's Q6 -Half Normal Saline at 120mls/hr until PO intake is adequate -Advance diet as tolerated -Surgery consulted, all recommendations appreciated 2. Right Hand Laceration -Right Hand X-Ray showed no acute fractures or abnormalities -Continue Keflex 500mg Q12H -Blood cultures pending 3. Stage Decubitus Sacral Ulcer (with history of MRSA) -Noted to be healed -Continue nursing wound care -MRSA screen positive -Contact precautions 4. History of DM2 -SSI-Medium and Accuchecks ACHS 5. History of HTN -Continue home Losartan and Lasix 6. History of RSD -Continue home Zonisamide, Wellbutrin, Cymbalta, Keppra, Ativan, Seroquel, and Risperdal 7. History of Chronic LBP -Continue Zanaflex GI Prophylaxis: Protonix DVT Prophylaxis: SCD's (Chemical VTE was held for thrombocytopenia) Patient seen and case discussed with attending, Dr. Montes. <Emilia Montes - Last Filed: 01/05/18 16:12> Objective - Vital Signs/Intake and Output Vital Signs (last 24 hours): Temp Pulse Resp BP Pulse Ox 97.8 F 98 H 19 120/70 98 01/04/18 18:00 01/04/18 18:00 01/04/18 18:00 01/05/18 13:05 01/04/18 18:00 Intake and Output: 01/05/18 01/05/18 06:59 18:59 Intake Total 510 Output Total 500 Balance 10 - Medications Medications: Current Medications Bisacodyl (Dulcolax) 10 mg RC TID [facility] Last Admin: 01/05/18 13:39 Dose: 10 mg Bupropion HCl (Wellbutrin Xl) 150 mg PO DAILY [facility] Last Admin: 01/05/18 13:37 Dose: 150 mg Cephalexin Monohydrate (Keflex) 500 mg PO Q12H [facility] PRN Reason: Protocol Last Admin: 01/05/18 13:36 Dose: 500 mg Duloxetine HCl (Cymbalta) 30 mg PO TID [facility] Last Admin: 01/05/18 13:03 Dose: 30 mg Furosemide (Lasix) 40 mg PO DAILY [facility] Last Admin: 01/05/18 13:05 Dose: 40 mg Sodium Chloride (Sodium Chloride 0.45%) 1,000 mls @ 120 mls/hr IV .Q8H20M [facility] Last Admin: 01/05/18 03:08 Dose: 120 mls/hr Insulin Human Regular (Humulin R) 0 units SC ACHS [facility] PRN Reason: Protocol Last Admin: 01/05/18 09:33 Dose: Not Given Levetiracetam (Keppra) 500 mg PO BID [facility] Last Admin: 01/05/18 13:05 Dose: 500 mg Lorazepam (Ativan) 1 mg PO BID [facility] PRN Reason: Protocol Last Admin: 01/05/18 13:02 Dose: 1 mg Losartan Potassium (Cozaar) 100 mg PO DAILY [facility] Last Admin: 01/05/18 13:03 Dose: 100 mg Methylnaltrexone Vernal (Relistor) 12 mg SC DAILY [facility] Last Admin: 01/04/18 11:20 Dose: 12 mg Pregabalin (Lyrica) 200 mg PO TID [facility] Last Admin: 01/05/18 13:02 Dose: 200 mg Quetiapine Fumarate (Seroquel Xr) 300 mg PO DAILY [facility] Last Admin: 01/05/18 13:06 Dose: 300 mg Quetiapine Fumarate (Seroquel Xr) 300 mg PO HS [facility] Last Admin: 01/04/18 22:29 Dose: 300 mg Risperidone (Risperdal Tab) 1 mg PO TID [facility] PRN Reason: Protocol Last Admin: 01/05/18 13:37 Dose: 1 mg Senna/Docusate Sodium (Senokot S 50 Mg-8.6 Mg) 1 tab PO BID [facility] Sertraline HCl (Zoloft) 100 mg PO DAILY [facility] Last Admin: 01/05/18 13:39 Dose: 100 mg Tizanidine HCl (Zanaflex) 4 mg PO QID [facility] Last Admin: 01/05/18 13:38 Dose: 4 mg Trazodone HCl (Desyrel) 50 mg PO HS PRN PRN Reason: Insomnia Last Admin: 01/04/18 22:29 Dose: 50 mg Zonisamide (Zonegran) 200 mg PO HS [facility] Last Admin: 01/04/18 22:28 Dose: 200 mg - Labs Labs: 01/05/18 07:00 01/05/18 07:00 Attending/Attestation - Attestation I have personally seen and examined this patient.: Yes I have fully participated in the care of the patient.: Yes I have reviewed all pertinent clinical information, including history, physical exam and plan: Yes Notes (Text): 01/05/18 16:09 62 year old male with past medical history of hypertension, diabetes, reflex sympathetic dystrophy, depression and chronic back pain on opiates who presented with complaint of abdominal pain and constipation x 6 days. Abdominal xray and CT abd/pelvis showed moderate constipation without obstruction. Patient is on relistor, sennakot, dulcolax and enemas. Monitor for bowel movement. Continue with liquid diet as tolerated. Surgery is following. Avoid NSAIDs and his norvasc is on hold as well. Continue with local wound care for right hand laceration. Xray was negative. Continue with nursing wound care for decubitus sacral ulcer. Continue with home medications except norvasc and opiates as above. Possible d/c planning as patient is beginning to have bowel movements. Emilia Montes MD Hospitalist.
[2018-01-05] MEDS: QUEtiapine 300 mg XR Tab PO SCH ×2 (13:06→22:43)
[2018-01-05] MEDS: buPROPion 150 mg/24 Hours XL Tab PO SCH (13:37)
[2018-01-05] MEDS: Docusate-Senna 50 mg-8.6 mg Tab PO SCH (17:31)
[2018-01-06 01:04] VITALS: RESP 18
[2018-01-06 06:07] LABS: BASO # 0.08 K/mm3 (0.0-2.0); BASO % 1.2 % (0.0-3.0); EOS # 0.4 (0.0-0.7); EOS % 5.3 % (1.5-5.0); GRAN # 3.36 (1.4-6.5); GRAN % 50.4 % (50.0-68.0); LYMPH # 2.2 (1.2-3.4); LYMPH % 32.4 % (22.0-35.0); MEAN CELL VOLUME 92.7 fl (80.0-105.0); MEAN CORPUSCULAR HEMOGLOBIN 29.9 pg (25.0-35.0); MEAN CORPUSCULAR HGB CONC 32.3 g/dl (31.0-37.0); MEAN PLATELET VOLUME 13.9 fl (7.0-11.0); MONO # 0.7 (0.1-0.6); MONO % 10.7 % (1.0-6.0); RBC 4.68 10^6/uL (3.5-6.1); RED CELL DISTRIBUTION WIDTH 13.8 % (11.5-14.5); WHITE BLOOD COUNT 6.7 10^3/ul (4.5-11.0)
[2018-01-06 06:19] LABS: ALB/GLOB RATIO 1.1 (1.1-1.8); ALBUMIN 3.3 g/dL (3.0-4.8); ALT/SGPT 31 U/L (7-56); AST/SGOT 15 U/L (17-59); BLOOD UREA NITROGEN 13 mg/dL (7-21); GFR AFRICAN-AMERICAN > 60; GFR NON-AFRICAN AMERICAN > 60; MAGNESIUM 2.4 mg/dL (1.7-2.2)
[2018-01-06] MEDS: Insulin Regular 1 UNITS/0.01 ML ML SC SCH ×3 (08:24→16:51)
[2018-01-06 10:41] VITALS: BP 119/82; PULSE 80; O2SAT 90
[2018-01-06 10:42] VITALS: TEMP 97.8
[2018-01-06] MEDS: QUEtiapine 300 mg XR Tab PO SCH ×2 (11:01→20:54)
[2018-01-06] MEDS: Docusate-Senna 50 mg-8.6 mg Tab PO SCH ×2 (11:02→17:51)
[2018-01-06] MEDS: buPROPion 150 mg/24 Hours XL Tab PO SCH (11:03)
[2018-01-06] MEDS: Sodium Chloride 0.45% 1,000 ML IV SCH (12:27)
--- NOTE | 2018-01-06 13:33 | CP.PCM.PN ---
<Cale Torres - Last Filed: 01/06/18 15:10> Subjective - Date & Time of Evaluation Date of Evaluation: 01/06/18 Time of Evaluation: 13:29 - Subjective Subjective: Medicine Progress Note: Patient seen and assessed at bedside. No acute events noted overnight by patient or nursing staff. Patient endorses that he had one BM since yesterday. Patient endorses weakness and requests that he be discharged to [facility]. Patient offers no other complaints at this time including fever, chills, headache, chest pain, palpitations, SOB, cough, N/V, hematemesis, melena, hematochezia, urinary symptoms, or any skin changes. Objective - Vital Signs/Intake and Output Vital Signs (last 24 hours): Temp Pulse Resp BP Pulse Ox 97.8 F 80 18 119/82 90 L 01/06/18 07:00 01/06/18 10:00 01/06/18 10:00 01/06/18 11:04 01/06/18 10:00 Intake and Output: 01/06/18 01/06/18 06:59 18:59 Intake Total 120 Output Total 500 Balance -380 - Medications Medications: Current Medications Bisacodyl (Dulcolax) 10 mg RC TID [facility] Last Admin: 01/06/18 11:04 Dose: 10 mg Bupropion HCl (Wellbutrin Xl) 150 mg PO DAILY [facility] Last Admin: 01/06/18 11:03 Dose: 150 mg Cephalexin Monohydrate (Keflex) 500 mg PO Q12H [facility] PRN Reason: Protocol Last Admin: 01/06/18 11:04 Dose: 500 mg Duloxetine HCl (Cymbalta) 30 mg PO TID [facility] Last Admin: 01/06/18 11:02 Dose: 30 mg Furosemide (Lasix) 40 mg PO DAILY [facility] Last Admin: 01/06/18 11:04 Dose: 40 mg Sodium Chloride (Sodium Chloride 0.45%) 1,000 mls @ 120 mls/hr IV .Q8H20M [facility] Last Admin: 01/06/18 12:27 Dose: 120 mls/hr Insulin Human Regular (Humulin R) 0 units SC ACHS [facility] PRN Reason: Protocol Last Admin: 01/06/18 11:40 Dose: Not Given Levetiracetam (Keppra) 500 mg PO BID [facility] Last Admin: 01/06/18 11:02 Dose: 500 mg Lorazepam (Ativan) 1 mg PO BID [facility] PRN Reason: Protocol Last Admin: 01/06/18 11:03 Dose: 1 mg Losartan Potassium (Cozaar) 100 mg PO DAILY [facility] Last Admin: 01/06/18 11:02 Dose: 100 mg Mupirocin (Bactroban Ointment) 0 gm NS BID [facility] Stop: 01/10/18 10:01 Last Admin: 01/06/18 11:19 Dose: 1 applic Pregabalin (Lyrica) 200 mg PO TID [facility] Last Admin: 01/06/18 11:02 Dose: 200 mg Quetiapine Fumarate (Seroquel Xr) 300 mg PO DAILY [facility] Last Admin: 01/06/18 11:01 Dose: 300 mg Quetiapine Fumarate (Seroquel Xr) 300 mg PO HS [facility] Last Admin: 01/05/18 22:43 Dose: 300 mg Risperidone (Risperdal Tab) 1 mg PO TID [facility] PRN Reason: Protocol Last Admin: 01/06/18 11:03 Dose: 1 mg Senna/Docusate Sodium (Senokot S 50 Mg-8.6 Mg) 1 tab PO BID [facility] Last Admin: 01/06/18 11:02 Dose: 1 tab Sertraline HCl (Zoloft) 100 mg PO DAILY [facility] Last Admin: 01/06/18 11:02 Dose: 100 mg Tizanidine HCl (Zanaflex) 4 mg PO QID [facility] Last Admin: 01/06/18 11:01 Dose: 4 mg Trazodone HCl (Desyrel) 50 mg PO PRN PRN Reason: Insomnia Last Admin: 01/04/18 22:29 Dose: 50 mg Zonisamide (Zonegran) 200 mg PO HS [facility] Last Admin: 01/05/18 22:47 Dose: 200 mg - Labs Labs: 01/06/18 05:15 01/06/18 05:20 - Constitutional Appears: Non-toxic, No Acute Distress - Head Exam Head Exam: ATRAUMATIC, NORMOCEPHALIC - Eye Exam Eye Exam: EOMI, PERRL - ENT Exam ENT Exam: Mucous Membranes Moist - Neck Exam Neck Exam: Full ROM. absent: Lymphadenopathy - Respiratory Exam Respiratory Exam: Clear to Ausculation Bilateral, NORMAL BREATHING PATTERN. absent: Accessory Muscle Use, Chest Wall Tenderness, Decreased Breath Sounds, Prolonged Expiratory Phase, Rales, Rhonchi, Wheezes, Respiratory Distress, Stridor - Cardiovascular Exam Cardiovascular Exam: REGULAR RHYTHM, RRR, +S1, +S2 - GI/Abdominal Exam GI & Abdominal Exam: Distended, Tenderness (Lateral quadrants TTP), Normal Bowel Sounds. absent: Firm, Guarding, Rigid, Soft, Rebound - Extremities Exam Extremities Exam: Normal Capillary Refill. absent: Calf Tenderness, Joint Swelling, Pedal Edema, Tenderness - Neurological Exam Neurological Exam: Alert, Awake, Oriented x3 - Psychiatric Exam Psychiatric exam: Normal Affect, Normal Mood - Skin Skin Exam: Dry, Intact, Normal Color, Warm Additional comments: Several healing lacerations to right hand with no clinical signs of infection Assessment and Plan - Assessment and Plan (Free Text) Assessment: This is a 62 year old male with PMHx diabetes, hypertension, reflex sympathetic dystrophy, depression, chronic back pain who presents complaining of constipation. Abdominal Xray shows non-obstructive pattern constipation. Currently advancing diet as tolerated to prevent colonic distention, per surgery consultation. PT recommending that patient be discharged home with home services or to [facility]. Patient requesting [facility]. Plan: 1. Constipation -CT Abdomen/Pelvis showed moderate amount of retained stool with no obstruction -Abdominal X-Ray showed non-obstructive pattern of constipation -Continue Sennakot, Dulcolax and Relistor -Soap/Water Enema's Q6 -Half Normal Saline at 120mls/hr until PO intake is adequate -Heart healthy soft diet, advance diet as tolerated -Surgery consulted, all recommendations appreciated 2. Right Hand Laceration -Right Hand X-Ray showed no acute fractures or abnormalities -Discontinued Keflex 500mg Q12H 3. Stage Decubitus Sacral Ulcer (with history of MRSA) -Continue nursing wound care 4. MRSA Colonization -MRSA screen positive -Bactroban ointment BID for five days -Contact precautions 5. History of DM2 -SSI-Medium and Accuchecks ACHS 6. History of HTN -Continue home Losartan and Lasix 7. History of RSD -Continue home Zonisamide, Wellbutrin, Cymbalta, Keppra, Ativan, Seroquel, and Risperdal -PT/OT recommending patient be discharged home with services or to [facility] 8. History of Chronic LBP -Continue Zanaflex GI Prophylaxis: Protonix DVT Prophylaxis: SCD's (Chemical VTE was held for thrombocytopenia) Disposition: Pending discharge to either home with services or to [facility]. Patient requesting [facility]. SW consulted. Patient seen and case discussed with attending, Dr. Solis. Chelita Torres, PGY-1 <Jair Solis - Last Filed: 01/07/18 15:03> Objective - Vital Signs/Intake and Output Vital Signs (last 24 hours): Temp Pulse Resp BP Pulse Ox 97.8 F 80 18 119/82 90 L 01/06/18 07:00 01/06/18 10:00 01/06/18 10:00 01/06/18 11:04 01/06/18 10:00 - Labs Labs: 01/06/18 05:15 01/06/18 05:20 Attending/Attestation - Attestation I have personally seen and examined this patient.: Yes I have fully participated in the care of the patient.: Yes I have reviewed all pertinent clinical information, including history, physical exam and plan: Yes Notes (Text): 01/07/18 15:00 Patient was seen and examined with forensic medical examiner. Agreed with assessment and plan. 62 year old male with past medical history of hypertension, diabetes, reflex sympathetic dystrophy, depression and chronic back pain on opiates who presented with complaint of abdominal pain and constipation x 6 days. Abdominal xray and CT abd/pelvis showed moderate constipation without obstruction. Patient has responded well relistor, sennakot, dulcolax and enemas.His obstruction is resolved.His abdominal pain is resolved.He was evaluated by Physical therapy and [facility] has been recommended.Patient will be discharged to [facility] once arrangement are made. Management plan was discussed in detail with patient. Education was provided.
--- NOTE | 2018-01-07 19:22 | CP.PCM.DIS ---
Provider - Provider Date of Admission: 01/03/18 14:42 Attending physician: Jair Solis MD Primary care physician: Morales Pepe MD Consults: Surgery: Elsy Time Spent in preparation of Discharge (in minutes): 52 Hospital Course - Lab Results Lab Results: Most Recent Lab Values WBC 6.7 10^3/ul (4.5-11.0) D 01/06/18 05:15 RBC 4.68 10^6/uL (3.5-6.1) 01/06/18 05:15 Hgb 14.0 g/dL (14.0-18.0) 01/06/18 05:15 Hct 43.4 % (42.0-52.0) 01/06/18 05:15 MCV 92.7 fl (80.0-105.0) 01/06/18 05:15 MCH 29.9 pg (25.0-35.0) 01/06/18 05:15 MCHC 32.3 g/dl (31.0-37.0) 01/06/18 05:15 RDW 13.8 % (11.5-14.5) 01/06/18 05:15 Plt Count 113 10^3/uL (120.0-450.0) L 01/06/18 05:15 MPV 13.9 fl (7.0-11.0) H 01/06/18 05:15 Gran % 50.4 % (50.0-68.0) 01/06/18 05:15 Lymph % (Auto) 32.4 % (22.0-35.0) 01/06/18 05:15 [place] % (Auto) 10.7 % (1.0-6.0) H 01/06/18 05:15 Eos % (Auto) 5.3 % (1.5-5.0) H 01/06/18 05:15 Baso % (Auto) 1.2 % (0.0-3.0) 01/06/18 05:15 Gran # 3.36 (1.4-6.5) 01/06/18 05:15 Lymph # (Auto) 2.2 (1.2-3.4) 01/06/18 05:15 [place] # (Auto) 0.7 (0.1-0.6) H 01/06/18 05:15 Eos # (Auto) 0.4 (0.0-0.7) 01/06/18 05:15 Baso # (Auto) 0.08 K/mm3 (0.0-2.0) 01/06/18 05:15 Sodium 141 mmol/L (132-148) 01/06/18 05:20 Potassium 3.8 mmol/L (3.6-5.0) 01/06/18 05:20 Chloride 106 mmol/L (98-107) 01/06/18 05:20 Carbon Dioxide 27 mmol/L (21-33) 01/06/18 05:20 Anion Gap 12 (10-20) 01/06/18 05:20 BUN 13 mg/dL (7-21) 01/06/18 05:20 Creatinine 1.1 mg/dl (0.8-1.5) 01/06/18 05:20 Est GFR ( Amer) > 60 01/06/18 05:20 Est GFR (Non-Af Amer) > 60 01/06/18 05:20 POC Glucose (mg/dL) 113 mg/dL (65-110) H 01/06/18 16:04 Random Glucose 119 mg/dL (70-110) H 01/06/18 05:20 Calcium 9.0 mg/dL (8.4-10.5) 01/06/18 05:20 Phosphorus 3.7 mg/dL (2.5-4.5) 01/06/18 05:20 Magnesium 2.4 mg/dL (1.7-2.2) H 01/06/18 05:20 Total Bilirubin 0.6 mg/dL (0.2-1.3) 01/06/18 05:20 AST 15 U/L (17-59) L 01/06/18 05:20 ALT 31 U/L (7-56) 01/06/18 05:20 Alkaline Phosphatase 77 U/L (38-126) 01/06/18 05:20 Total Protein 6.1 g/dL (5.8-8.3) 01/06/18 05:20 Albumin 3.3 g/dL (3.0-4.8) 01/06/18 05:20 Globulin 2.8 gm/dL 02/20/18 05:20 Albumin/Globulin Ratio 1.1 (1.1-1.8) 01/06/18 05:20 Free T4 1.00 ng/dL (0.78-2.19) 01/04/18 06:30 TSH 3rd Generation 0.39 mIU/mL (0.46-4.68) L 01/03/18 16:00 - Hospital Course Hospital Course: 62 year old male with PMHx diabetes, hypertension, reflex sympathetic dystrophy , depression, chronic back pain who presents complaining of constipation. Abdominal Xray shows non-obstructive pattern constipation. CT abdomen/pelvis showed moderate amount of retained stool with no obstruction. Surgery was consulted and made patient NPO. He waas started on soap/water enema's, mag citrate, dulcolax, and relistor after manual disimpaction. Patient had one large BM after medications were started. He was switched from mag citrate to sennakot after his magnesium became elevated. His diet was advanced as tolerated to prevent colonic distention, per surgery consultation, until he was tolerated soft diet. He was started on Keflex for prophylaxis of cellulitis of right hand, which an x-ray of showed no osteomyelitis. Nursing wound care was consulted for chronic sacral ulcers. He was started on intranasal Bactroban and placed on contact precautions for MRSA colonization. He was started on SSI-Low and accuchecks achs for history of DM2. He was started on his home medications for his RSD, depression, chronic LBP, and HTN other than his opioid medications. He was placed on SCD's only for DVT/PE prevention, as he had thrombocytopenia. PT recommended that patient be discharged home with home services or to [facility]. Patient requested [facility] and SW/CM was consulted to help patient get accepted. He was discharged on 01/06/18 to [facility] with instructions to continue his medications and to have discussion with PMD about opioid side effects and possibly adjusting his medications as an outpatient. - Date & Time of H&P Date of H&P: 01/02/18 Time of H&P: 21:02 Discharge Exam - Head Exam Head Exam: ATRAUMATIC, NORMOCEPHALIC - Eye Exam Eye Exam: EOMI, PERRL - Respiratory Exam Respiratory Exam: Clear to PA & Lateral, NORMAL BREATHING PATTERN, UNREMARKABLE - Cardiovascular Exam Cardiovascular Exam: REGULAR RHYTHM, RRR, +S1, +S2 - GI/Abdominal Exam GI & Abdominal Exam: Distended (Mild), Normal Bowel Sounds, Tenderness (Lateral quadrants; noted to be chronic by patient). absent: Unremarkable - Extremities Exam Extremities exam: normal capillary refill, pedal pulses present - Neurological Exam Neurological exam: Alert, CN II-XII Intact, Oriented x3 - Psychiatric Exam Psychiatric exam: Normal Affect, Normal Mood - Skin Skin Exam: Dry, Intact, Warm Additional comments: Several healing lacerations to right hand with no clinical signs of infection Discharge Plan - Follow Up Plan Condition: STABLE Disposition: TRANSF TO SNF Instructions: Pressure Sores, How to Prevent Pressure Sores, Cephalexin, Constipation (DC) Additional Instructions: Please follow up with your primary care doctor within one week. In particular, please discuss the medications you are currently taking and possible alternatives for medications that are known to cause constipation such as opioid based medications. Please take all medications as prescribed If your symptoms should worsen or persist, please seek emergency medical attention Referrals: Morales Pepe MD [Primary Care Provider] -
== END 2018-01-06 22:11 | DRG 392 ==
LOC: ED 12:03 → ERH 18:50 → 2A 01-03 00:10 → OBSVTOIN 01-03 14:42
PROVIDERS: ADMIT Hospitalist; ATTEND Internal Medicine
DX: K59.03 Drug induced constipation (principal); L89.152 Pressure ulcer of sacral region, stage 2; E11.622 Type 2 diabetes mellitus with other skin ulcer; D69.6 Thrombocytopenia, unspecified; G90.50 Complex regional pain syndrome I, unspecified; T40.605A Adverse effect of unspecified narcotics, initial encounter; I10 Essential (primary) hypertension; L98.491 Non-pressure chronic ulcer of skin of other sites limited to breakdown of skin; S61.411A Laceration without foreign body of right hand, initial encounter; Z80.1 Family history of malignant neoplasm of trachea, bronchus and lung; Z87.01 Personal history of pneumonia (recurrent); G89.29 Other chronic pain; M54.5 Low back pain; Z86.69 Personal history of other diseases of the nervous system and sense organs; Z88.6 Allergy status to analgesic agent; Z88.5 Allergy status to narcotic agent; F32.89 Other specified depressive episodes; B95.62 Methicillin resistant Staphylococcus aureus infection as the cause of diseases classified elsewhere

== ENCOUNTER 2018-05-30 13:07 | Inpatient (IN) | payer OTHER, MEDICARE ==
--- NOTE | 2018-05-30 13:57 | ED PDOC ---
Arrival/HPI - General Chief Complaint: Dizziness/Lightheaded Time Seen by Provider: 05/30/18 13:24 Historian: Patient - History of Present Illness Narrative History of Present Illness (Text): 05/30/18 13:54 A 63 year old male, with past medical history of hypertension, diabetes, and reflex sympathetic dystrophy (RSD), presents to the emergency department with a complaint of 3 day duration dizziness. The patient notes that his dizziness has been worsening over the last 3 days and describes it as a room spinning sensation. He states that at baseline he usually does not ambulate well and uses a walker and sometimes a wheelchair. The patient denies fevers, chills, headache, visual changes, chest pain, shortness of breath, dyspnea on exertion, cough, abdominal pain, nausea, vomiting, diarrhea, back pain, neck pain, urinary /bowel changes, or any other complaint. PMD: Dr. Pepe Time/Duration: Other (3 Days) Symptom Onset: Sudden Symptom Course: Worsening Activities at Onset: Rest, Light Context: Home Past Medical History - Provider Review Nursing Documentation Reviewed: Yes - Infectious Disease Hx of Infectious Diseases: None - Tetanus Immunization Tetanus Immunization: Unknown - Cardiac Hx Cardiac Disorders: Yes Hx Hypertension: Yes - Pulmonary Hx Respiratory Disorders: Yes Hx Pneumonia: Yes (20 years ago) - Neurological Hx Seizures: Yes - HEENT Hx HEENT Disorder: No - Renal Hx Renal Disorder: No - Endocrine/Metabolic Hx Diabetes Mellitus Type 2: Yes - Hematological/Oncological Hx Blood Disorders: No - Integumentary Hx Dermatological Disorder: No - Musculoskeletal/Rheumatological Hx Musculoskeletal Disorders: Yes Hx Degenerative Joint Disease: Yes Hx Falls: Yes - Gastrointestinal Hx Gastrointestinal Disorders: No - Genitourinary/Gynecological Hx Genitourinary Disorders: No - Psychiatric Hx Psychophysiologic Disorder: Yes Hx Anxiety: Yes Hx Depression: Yes Hx Substance Use: No - Surgical History Hx Orthopedic Surgery: Yes (neck, shoulder, left leg) Other/Comment: puma in L ankle - Anesthesia Hx Anesthesia: Yes Hx Anesthesia Reactions: No Hx Malignant Hyperthermia: No - Suicidal Assessment Feels Threatened In Home Enviroment: No Family/Social History - Physician Review Nursing Documentation Reviewed: Yes Family/Social History: No Known Family HX Smoking Status: Never Smoked Hx Alcohol Use: Yes Hx Substance Use: No Hx Substance Use Treatment: No Allergies/Home Meds Allergies/Adverse Reactions: Allergies aspirin Allergy (Verified 05/30/18 13:27) REDNESS morphine Adverse Reaction (Verified 05/30/18 13:27) ITCHING Home Medications: Home Meds Medication Instructions Recorded Confirmed Bupropion HCl [Bupropion Xl] 150 mg PO DAILY 01/02/18 05/30/18 Duloxetine HCl 30 mg PO TID 01/02/18 05/30/18 Furosemide [Lasix] 40 mg PO DAILY 01/02/18 05/30/18 Lorazepam [Ativan] 1 mg PO BID 01/02/18 05/30/18 Losartan Potassium [Cozaar] 100 mg PO DAILY 01/02/18 05/30/18 Pregabalin [Lyrica] 200 mg PO TID 01/02/18 05/30/18 Quetiapine Fumarate [Seroquel] 300 mg PO DAILY 01/02/18 05/30/18 Quetiapine Fumarate [Seroquel] 300 mg PO HS 01/02/18 05/30/18 Risperidone [Risperdal] 1 mg PO TID 01/02/18 05/30/18 Sertraline [Zoloft] 100 mg PO DAILY 01/02/18 05/30/18 Tizanidine HCl [Zanaflex] 4 mg PO QID 01/02/18 05/30/18 Zonisamide [Zonegran] 200 mg PO HS 01/02/18 05/30/18 amLODIPine [Norvasc] 10 mg PO DAILY 01/02/18 05/30/18 levETIRAcetam [Keppra] 500 mg PO BID 01/02/18 05/30/18 Review of Systems - Physician Review All systems were reviewed & negative as marked: Yes - Review of Systems Constitutional: absent: Fevers, Night Sweats Respiratory: absent: SOB, Cough Cardiovascular: absent: Chest Pain, [place] Gastrointestinal: absent: Abdominal Pain, Stool Changes, Diarrhea, Nausea, Vomiting Genitourinary Male: absent: Urinary Output Changes Musculoskeletal: absent: Back Pain, Neck Pain Neurological: Dizziness. absent: Headache Physical Exam Vital Signs Reviewed: Yes Vital Signs Temp Pulse Resp BP Pulse Ox 05/30/18 21:29 98.0 F 86 18 128/78 99 05/30/18 19:26 97.9 F 83 18 123/59 L 99 05/30/18 18:00 98.1 F 99 H 18 99 05/30/18 13:30 98.0 F 101 H 20 120/78 97 Finger Stick Blood Glucose: 95 - Systems Exam Head: Present: Atraumatic, Normocephalic Pupils: Present: PERRL Extroacular Muscles: Present: EOMI Conjunctiva: Present: Normal Mouth: Present: Moist Mucous Membranes Neck: Present: Normal Range of Motion Respiratory/Chest: Present: Clear to Auscultation, Good Air Exchange. No: Respiratory Distress, Accessory Muscle Use Cardiovascular: Present: Regular Rate and Rhythm, Normal S1, S2. No: Murmurs Abdomen: No: Tenderness, Distention, Peritoneal Signs Back: Present: Normal Inspection Upper Extremity: Present: Normal Inspection. No: Cyanosis, Edema, Normal ROM ( Limited ROM bilaterally due to RSD. ) Lower Extremity: Present: Normal ROM (Limited ROM of right leg: patient able to lift right leg slightly off the bed. No ROM of left leg due to RSD. ), Other ( Venous stasis bilaterally. ) Neurological: Present: GCS=15, CN II-XII Intact, Speech Normal Skin: Present: Warm, Dry, Normal Color. No: Rashes Psychiatric: Present: Alert, Oriented x 3, Normal Insight, Normal Concentration Medical Decision Making ED Course and Treatment: 05/30/18 14:00 Impression: A 63 year old male is brought into the emergency department for complaint of 3 day duration, worsening dizziness. Differential Diagnosis included but are not limited to: dizziness r/o cardiac problem Plan: -- EKG -- Chest X-ray -- Labs -- Urinalysis -- Reassess and disposition Progress Notes: Chest X-Ray Dictated By: Prabhakar Reyna MD Date Signed: 05/30/181452 IMPRESSION : No active disease. 05/30/18 15:30 EKG: Ordered, reviewed, and independently interpreted the EKG. Rate : 80 BPM Rhythm : NSR Interpretation: Normal [place]. Artifacts in lead v2. 05/30/18 16:44: Labs and Chest X-ray are normal . 05/30/18 16:52: Case discussed with Dr. Camejo who accepts patient to her service. Requests Brain CT. Will admit patient for observation. 05/30/18 17:40: Patient's at bedside stating that the patient should not be admitted. However, patient states that he does not feel well enough to go home and wants to be admitted. 05/30/18 18:28: Dr. Harper who is at bedside requests CTA Head and Neck. - Lab Interpretations Lab Results: 05/30/18 14:30 05/30/18 14:30 Lab Results 05/30/18 14:30: Sodium 142, Potassium 4.1, Chloride 107, Carbon Dioxide 24, Anion Gap 15, BUN 22 H, Creatinine 1.0, Est GFR ( Amer) > 60, Est GFR ( Non-Af Amer) > 60, Random Glucose 103, Calcium 9.0, Magnesium 2.0, Total Bilirubin 0.4, AST 19, ALT 34, Alkaline Phosphatase 62, Lactate Dehydrogenase 498, Total Creatine Kinase 31 L, Troponin I 0.03 D, Total Protein 6.8, Albumin 3.9, Globulin 2.9, Albumin/Globulin Ratio 1.3 05/30/18 14:30: WBC 8.9 D, RBC 4.45, Hgb 13.3 L, Hct 39.8 L, MCV 89.4 D, MCH 29.9, MCHC 33.4, RDW 13.3, Plt Count 159, MPV 12.6 H, Gran % 66.2, Lymph % (Auto ) 21.7 L, [place] % (Auto) 8.0 H, Eos % (Auto) 3.2, Baso % (Auto) 0.9, Gran # 5.88 , Lymph # (Auto) 1.9, [place] # (Auto) 0.7 H, Eos # (Auto) 0.3, Baso # (Auto) 0.08 I have reviewed the lab results: Yes - RAD Interpretation Radiology Orders: 05/30/18 13:57 CHEST PORTABLE [RAD] Stat 05/30/18 16:57 Brain [HEAD W/O CONTRAST] [CT] Stat 05/30/18 18:28 CTA HEAD & NECK BUNDLE [CT] Stat - EKG Interpretation Interpreted by ED Physician: Yes Type: 12 lead EKG - Medication Orders Current Medication Orders: Acetaminophen (Tylenol 325mg Tab) 650 mg PO Q6H PRN PRN Reason: Fever >100.4 F Amlodipine Besylate (Norvasc) 10 mg PO DAILY [facility] Last Admin: 05/31/18 10:11 Dose: 10 mg MAR Blood Pressure Document 05/31/18 10:11 KAA (Rec: 05/31/18 10:11 KAA [id number]) Blood Pressure Blood Pressure (100/60-150/90 mm Hg) 128/81 Atorvastatin Calcium (Lipitor) 40 mg PO DIN [facility] Last Admin: 05/31/18 18:40 Dose: 40 mg Bacitracin (Bacitracin) 1 ea TOP BID [facility] Last Admin: 05/31/18 18:39 Dose: 1 ea Bupropion HCl (Wellbutrin Xl) 150 mg PO DAILY [facility] Last Admin: 05/31/18 10:11 Dose: 150 mg Cephalexin Monohydrate (Keflex) 500 mg PO TID [facility] PRN Reason: Protocol Last Admin: 05/31/18 18:40 Dose: 500 mg Clopidogrel Bisulfate (Plavix) 75 mg PO DAILY [facility] Last Admin: 05/31/18 18:42 Dose: 75 mg Docusate Sodium (Colace) 100 mg PO TID [facility] Last Admin: 05/31/18 18:39 Dose: 100 mg Last Bowel Movement Document 05/31/18 18:39 KAA (Rec: 05/31/18 18:39 [id number]) Last Bowel Movement Last Bowel Movement 05/22/18 Duloxetine HCl (Cymbalta) 30 mg PO Q8 [facility] Last Admin: 05/31/18 22:05 Dose: 30 mg Furosemide (Lasix) 40 mg PO DAILY [facility] Last Admin: 05/31/18 10:11 Dose: 40 mg MAR Blood Pressure Document 05/31/18 10:11 KAA (Rec: 05/31/18 10:11 KAA [id number]) Blood Pressure Blood Pressure (100/60-150/90 mm Hg) 128/81 Gabapentin (Neurontin) 600 mg PO Q8 [facility] PRN Reason: Protocol Last Admin: 05/31/18 22:05 Dose: 600 mg Behavioural Document 05/31/18 22:05 RM (Rec: 05/31/18 22:05 RM [id number]) Maintenance Maintenance Dose Yes Levetiracetam (Keppra) 500 mg PO Q12 [facility] Last Admin: 05/31/18 22:05 Dose: 500 mg Lorazepam (Ativan) 1 mg PO Q12 [facility] PRN Reason: Protocol Last Admin: 05/31/18 22:05 Dose: 1 mg Behavioural Document 05/31/18 22:05 RM (Rec: 05/31/18 22:05 [id number]) Maintenance Maintenance Dose Yes Losartan Potassium (Cozaar) 100 mg PO DAILY [facility] Last Admin: 05/31/18 10:12 Dose: 100 mg Ondansetron HCl (Zofran Inj) 4 mg IVP Q4H PRN PRN Reason: Nausea/Vomiting Pantoprazole Sodium (Protonix Ec Tab) 40 mg PO 0600 [facility] Last Admin: 05/31/18 05:16 Dose: 40 mg Polyethylene Glycol (Miralax) 17 gm PO DAILY [facility] Last Admin: 05/31/18 10:11 Dose: 17 gm Risperidone (Risperdal Tab) 1 mg PO Q8 [facility] PRN Reason: Protocol Last Admin: 05/31/18 22:05 Dose: 1 mg Behavioural Document 05/31/18 22:05 RM (Rec: 05/31/18 22:05 [id number]) Maintenance Maintenance Dose Yes Sertraline HCl (Zoloft) 100 mg PO DAILY [facility] Last Admin: 05/31/18 10:21 Dose: 100 mg Tizanidine HCl (Zanaflex) 4 mg PO QID [facility] Last Admin: 05/31/18 22:05 Dose: 4 mg Discontinued Medications Gabapentin (Neurontin) 600 mg PO ONCE ONE PRN Reason: Protocol Stop: 05/30/18 22:46 Last Admin: 05/30/18 22:46 Dose: 600 mg Behavioural Document 05/30/18 22:46 OLIVD (Rec: 05/30/18 22:46 [id number]) Maintenance Maintenance Dose Yes Magnesium Citrate (Citrate Of Mag) 300 ml PO ONCE ONE Stop: 05/31/18 08:49 Last Admin: 05/31/18 10:21 Dose: 300 ml Meclizine HCl (Antivert) 25 mg PO STAT STA Stop: 05/30/18 15:00 Last Admin: 05/30/18 15:53 Dose: 25 mg - Scribe Statement The provider has reviewed the documentation as recorded by the Duc Mazariegos Provider Carlosibe Attestation: All medical record entries made by the Scribe were at my direction and personally dictated by me. I have reviewed the chart and agree that the record accurately reflects my personal performance of the history, physical exam, medical decision making, and the department course for this patient. I have also personally directed, reviewed, and agree with the discharge instructions and disposition. Disposition/Present on Arrival - Present on Arrival Any Indicators Present on Arrival: No History of DVT/PE: No History of Uncontrolled Diabetes: No Urinary Catheter: No History of Decub. Ulcer: No History Surgical Site Infection Following: None - Disposition Have Diagnosis and Disposition been Completed?: Yes Diagnosis: Dizziness, Difficulty waking Disposition: HOSPITALIZED Disposition Time: 20:25 Patient Plan: Admission Condition: GOOD
--- NOTE | 2018-05-30 14:55 | RAD ---
Date of service: 05/30/2018 HISTORY: chest pain COMPARISON: 08/10/2017 FINDINGS: LUNGS: No active pulmonary disease. PLEURA: No significant pleural effusion identified, no pneumothorax apparent. CARDIOVASCULAR: Mild cardiomegaly OSSEOUS STRUCTURES: No significant abnormalities. VISUALIZED UPPER ABDOMEN: Normal. OTHER FINDINGS: None. IMPRESSION: No active disease.
[2018-05-30 15:52] LABS: BASO # 0.08 K/mm3 (0.0-2.0); BASO % 0.9 % (0.0-3.0); EOS # 0.3 (0.0-0.7); EOS % 3.2 % (1.5-5.0); GRAN # 5.88 (1.4-6.5); GRAN % 66.2 % (50.0-68.0); HEMOGLOBIN 13.3 g/dL (14.0-18.0); LYMPH # 1.9 (1.2-3.4); LYMPH % 21.7 % (22.0-35.0); MEAN CELL VOLUME 89.4 fl (80.0-105.0); MEAN CORPUSCULAR HEMOGLOBIN 29.9 pg (25.0-35.0); MEAN CORPUSCULAR HGB CONC 33.4 g/dl (31.0-37.0); MEAN PLATELET VOLUME 12.6 fl (7.0-11.0); MONO # 0.7 (0.1-0.6); RBC 4.45 10^6/uL (3.5-6.1); RED CELL DISTRIBUTION WIDTH 13.3 % (11.5-14.5); WHITE BLOOD COUNT 8.9 10^3/ul (4.5-11.0)
[2018-05-30 16:02] LABS: ALB/GLOB RATIO 1.3 (1.1-1.8); ALBUMIN 3.9 g/dL (3.0-4.8); ALT/SGPT 34 U/L (7-56); AST/SGOT 19 U/L (17-59); BLOOD UREA NITROGEN 22 mg/dL (7-21); GFR AFRICAN-AMERICAN > 60; GFR NON-AFRICAN AMERICAN > 60
[2018-05-30 16:14] LABS: TROPONIN I 0.03 ng/mL
--- NOTE | 2018-05-30 18:14 | CP.PCM.CON ---
History of Present Illness - History of Present Illness History of Present Illness: 63 yr old male who has dizziness with pmh of htn, dm, and rsd, presenting to the ER with a 3 day duration of dizziness, that is qualified as the room spinning. He denies mva, head trauma, or any lifting of heavy weights. The patient denies fevers, chills, headache, visual changes, chest pain, shortness of breath, dyspnea on exertion, cough, abdominal pain, nausea, vomiting, diarrhea, back pain, neck pain, urinary/bowel changes, or any other complaint. He has presented with similar complaints in the past, and has been ruled out for stroke in the past as well. PMH/PSH: as above. FH/SH: as per chart All; nkda. On exam: Aaox3. PERRL. CN 2-12 normal. speech tangential but fluent and can name and repeat. Follows commands well. resolving nystagmus bilaterally. Motor: good strength no deficits noted. No tremors, no atrophy. Sensory: not accurate. Gait : patient refuses. +2 Past Patient History - Infectious Disease Hx of Infectious Diseases: None - Tetanus Immunizations Tetanus Immunization: Unknown - Past Social History Smoking Status: Never Smoked - CARDIAC Hx Cardiac Disorders: Yes Hx Hypertension: Yes - PULMONARY Hx Respiratory Disorders: Yes Hx Pneumonia: Yes (20 years ago) - NEUROLOGICAL Hx Seizures: Yes - HEENT Hx HEENT Problems: No - RENAL Hx Chronic Kidney Disease: No - ENDOCRINE/METABOLIC Hx Diabetes Mellitus Type 2: Yes - HEMATOLOGICAL/ONCOLOGICAL Hx Blood Disorders: No - INTEGUMENTARY Hx Dermatological Problems: No - MUSCULOSKELETAL/RHEUMATOLOGICAL Hx Musculoskeletal Disorders: Yes Hx Degenerative Joint Disease: Yes Hx Falls: Yes - GASTROINTESTINAL Hx Gastrointestinal Disorders: No - GENITOURINARY/GYNECOLOGICAL Hx Genitourinary Disorders: No - PSYCHIATRIC Hx Psychophysiologic Disorder: Yes Hx Anxiety: Yes Hx Depression: Yes Hx Substance Use: No - SURGICAL HISTORY Hx Orthopedic Surgery: Yes (neck, shoulder, left leg) Other/Comment: puma in L ankle - ANESTHESIA Hx Anesthesia: Yes Hx Anesthesia Reactions: No Hx Malignant Hyperthermia: No Meds Allergies/Adverse Reactions: Allergies Allergy/AdvReac Type Severity Reaction Status Date / Time aspirin Allergy REDNESS Verified 05/30/18 13:27 morphine AdvReac ITCHING Verified 05/30/18 13:27 - Medications Medications: Current Medications Acetaminophen (Tylenol 325mg Tab) 650 mg PO Q6H PRN PRN Reason: Fever >100.4 F Amlodipine Besylate (Norvasc) 10 mg PO DAILY [facility] Bupropion HCl (Wellbutrin Xl) 150 mg PO DAILY [facility] Docusate Sodium (Colace) 100 mg PO TID [facility] Duloxetine HCl (Cymbalta) 30 mg PO Q8 [facility] Furosemide (Lasix) 40 mg PO DAILY [facility] Levetiracetam (Keppra) 500 mg PO Q12 [facility] Lorazepam (Ativan) 1 mg PO Q12 [facility] PRN Reason: Protocol Losartan Potassium (Cozaar) 100 mg PO DAILY [facility] Non-Formulary Medication (Tizanidine Hcl [Zanaflex]) 4 mg PO QID [facility] Ondansetron HCl (Zofran Inj) 4 mg IVP Q4H PRN PRN Reason: Nausea/Vomiting Pantoprazole Sodium (Protonix Ec Tab) 40 mg PO 0600 [facility] Polyethylene Glycol (Miralax) 17 gm PO DAILY [facility] Risperidone (Risperdal Tab) 1 mg PO TID [facility] PRN Reason: Protocol Sertraline HCl (Zoloft) 100 mg PO DAILY [facility] Results - Labs Result Diagrams: 05/30/18 14:30 05/30/18 14:30 Labs: Laboratory Results - last 24 hr 05/30/18 05/30/18 14:30 14:30 WBC 8.9 D RBC 4.45 Hgb 13.3 L Hct 39.8 L MCV 89.4 D MCH 29.9 MCHC 33.4 RDW 13.3 Plt Count 159 MPV 12.6 H Gran % 66.2 Lymph % (Auto) 21.7 L [place] % (Auto) 8.0 H Eos % (Auto) 3.2 Baso % (Auto) 0.9 Gran # 5.88 Lymph # (Auto) 1.9 [place] # (Auto) 0.7 H Eos # (Auto) 0.3 Baso # (Auto) 0.08 Sodium 142 Potassium 4.1 Chloride 107 Carbon Dioxide 24 Anion Gap 15 BUN 22 H Creatinine 1.0 Est GFR ( Amer) > 60 Est GFR (Non-Af Amer) > 60 Random Glucose 103 Calcium 9.0 Magnesium 2.0 Total Bilirubin 0.4 AST 19 ALT 34 Alkaline Phosphatase 62 Lactate Dehydrogenase 498 Total Creatine Kinase 31 L Troponin I 0.03 D Total Protein 6.8 Albumin 3.9 Globulin 2.9 Albumin/Globulin Ratio 1.3 - Imaging and Cardiology CT scan - head Status: Image reviewed by me, Report reviewed by me Assessment & Plan - Assessment and Plan (Free Text) Assessment: 63 yr old male who most likely has chronic vertigo, but with his stroke risk factors, we will order CTA head and neck. If this is normal, will sign off, and recommend vestibular therapy. Thank you Dr. hernández
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
[2018-05-30 23:44] VITALS: BMI 28.2
[2018-05-31] MEDS: Pantoprazole 40 mg EC Tab PO SCH (05:16)
[2018-05-31 07:31] LABS: HEMOGLOBIN 14.7 g/dL (14.0-18.0); MEAN CELL VOLUME 88.6 fl (80.0-105.0); MEAN CORPUSCULAR HEMOGLOBIN 30.4 pg (25.0-35.0); MEAN CORPUSCULAR HGB CONC 34.3 g/dl (31.0-37.0); MEAN PLATELET VOLUME 12.7 fl (7.0-11.0); RBC 4.84 10^6/uL (3.5-6.1); RED CELL DISTRIBUTION WIDTH 13.2 % (11.5-14.5); WHITE BLOOD COUNT 9.5 10^3/ul (4.5-11.0)
[2018-05-31 08:06] LABS: ALB/GLOB RATIO 1.4 (1.1-1.8); ALBUMIN 3.8 g/dL (3.0-4.8); ALT/SGPT 22 U/L (7-56); AST/SGOT 18 U/L (17-59); BLOOD UREA NITROGEN 18 mg/dL (7-21); CALCIUM 9.4 mg/dL (8.4-10.5); GFR AFRICAN-AMERICAN > 60; GFR NON-AFRICAN AMERICAN > 60
[2018-05-31] MEDS ORDERED: Magnesium Citrate Oral SOL (300 ml) PO ONE (08:48)
[2018-05-31] MEDS: Bacitracin 500 Units/gm Oint Foilpak UD TOP SCH ×2 (10:09→18:39)
[2018-05-31] MEDS: POLYETHYLENE GLYCOL 3350 17 GM/Dose PACKET PO SCH (10:11)
[2018-05-31] MEDS: buPROPion 150 mg/24 Hours XL Tab PO SCH (10:11)
--- NOTE | 2018-05-31 13:15 | CT ---
Date of service: 05/30/2018 PROCEDURE: CT HEAD WITHOUT CONTRAST. HISTORY: dizziness COMPARISON: 04/30/2017 CT TECHNIQUE: Axial computed tomography images were obtained through the head/brain without intravenous contrast. Radiation dose: Total exam DLP = 1661 mGy-cm. This CT exam was performed using one or more of the following dose reduction techniques: Automated exposure control, adjustment of the mA and/or kV according to patient size, and/or use of iterative reconstruction technique. FINDINGS: HEMORRHAGE: No intracranial hemorrhage. BRAIN: No mass effect or edema. There is a 2.7 cm diameter area of hypodensity in the right parietal posterior frontal region. This could represent an acute or subacute infarct. This was interpreted as a chronic infarct by the V rad report. I believe this is an acute or subacute event. VENTRICLES: Unremarkable. No hydrocephalus. CALVARIUM: Unremarkable. PARANASAL SINUSES: Unremarkable as visualized. No significant inflammatory changes. MASTOID AIR CELLS: Unremarkable as visualized. No inflammatory changes. OTHER FINDINGS: None. IMPRESSION: There is a 2.7 cm diameter area of hypodensity in the right parietal posterior frontal region. This could represent an acute or subacute infarct.
--- NOTE | 2018-05-31 13:21 | CT ---
Date of service: 05/30/2018 PROCEDURE: CT Angiography of the neck with contrast HISTORY: dizziness COMPARISON: None available. TECHNIQUE: Contiguous axial images of the neck were obtained from the level of the skull-base to the superior mediastinum in the arteriographic phase of enhancement. Coronal and sagittal reformats or also generated. IV contrast dose: 140 cc of Omnipaque Radiation Dose - DLP: 2090 mGy-cm This CT exam was performed using one or more of the following dose reduction techniques: Automated exposure control, adjustment of the mA and/or kV according to patient size, and/or use of iterative reconstruction technique. FINDINGS: RIGHT CAROTID ARTERIES: No significant stenosis or occlusion LEFT CAROTID ARTERIES: No significant stenosis or occlusion VERTEBRAL ARTERIES: Right Vertebral Artery: Normal. Left Vertebral Artery: Normal. OTHER FINDINGS: None. IMPRESSION: No significant stenosis or occlusion PROCEDURE: CT Angiography of the Brain. HISTORY: dizziness COMPARISON: None available. TECHNIQUE: CT angiography of the intracranial arteries was performed. Coronal and sagittal maximum intensity projection reformated images were generated. This CT exam was performed using one or more of the following dose reduction techniques: Automated exposure control, adjustment of the mA and/or kV according to patient size, and/or use of iterative reconstruction technique. FINDINGS: INTERNAL CEREBRAL ARTERIES: Unremarkable. The skull base, petrous, cavernous and supraclinoid segments are bilaterally widely patent. ANTERIOR CEREBRAL ARTERIES: Unremarkable. A1 and A2 segments are widely patent. Smaller distal branches unremarkable, as visualized. MIDDLE CEREBRAL ARTERIES: Unremarkable. M1 and M2 segments are widely patent. Perisylvian branches grossly symmetric. POSTERIOR CIRCULATION: Basilar Artery: Unremarkable. Distal Vertebral Arteries: Unremarkable. Posterior Cerebral Arteries: Unremarkable. Posterior Inferior Cerebellar Arteries: Unremarkable. ANEURYSM/ VASCULAR MALFORMATIONS: None. OTHER FINDINGS: The report concurs with the preliminary [facility] report IMPRESSION: Unremarkable CT Angiography of the Brain.
[2018-05-31 14:42] LABS: HDL CHOLESTEROL 49 mg/dL (29-60)
[2018-05-31 14:53] LABS: LDL CHOLESTEROL 85 mg/dL (0-129)
--- NOTE | 2018-05-31 15:00 | CP.PCM.PN ---
<Juan M Birmingham - Last Filed: 05/31/18 15:43> Subjective - Date & Time of Evaluation Date of Evaluation: 05/31/18 Time of Evaluation: 15:00 - Subjective Subjective: Juan M Birmingham D.O PGY-1, Internal Medicine progress note for Dr. Camejo Patient was examined at bedside, no acute overnight events. Patient is complaining of constipation and lower abdominal pain. Patient states that he has not had a bowel movements in 5 days. Denies fevers, chills, chest pain, shortness of breath, N/V/D. Objective - Vital Signs/Intake and Output Vital Signs (last 24 hours): Temp Pulse Resp BP Pulse Ox 97.9 F 83 20 128/81 97 05/31/18 08:19 05/31/18 08:19 05/31/18 08:19 05/31/18 10:11 05/31/18 08:19 Intake and Output: 05/31/18 05/31/18 06:59 18:59 Output Total 450 Balance -450 - Medications Medications: Current Medications Acetaminophen (Tylenol 325mg Tab) 650 mg PO Q6H PRN PRN Reason: Fever >100.4 F Amlodipine Besylate (Norvasc) 10 mg PO DAILY [facility] Last Admin: 05/31/18 10:11 Dose: 10 mg Atorvastatin Calcium (Lipitor) 40 mg PO DIN [facility] Bacitracin (Bacitracin) 1 ea TOP BID [facility] Last Admin: 05/31/18 10:09 Dose: 1 ea Bupropion HCl (Wellbutrin Xl) 150 mg PO DAILY [facility] Last Admin: 05/31/18 10:11 Dose: 150 mg Cephalexin Monohydrate (Keflex) 500 mg PO TID [facility] PRN Reason: Protocol Last Admin: 05/31/18 14:18 Dose: 500 mg Clopidogrel Bisulfate (Plavix) 75 mg PO DAILY [facility] Docusate Sodium (Colace) 100 mg PO TID [facility] Last Admin: 05/31/18 14:17 Dose: 100 mg Duloxetine HCl (Cymbalta) 30 mg PO Q8 [facility] Last Admin: 05/31/18 14:19 Dose: 30 mg Furosemide (Lasix) 40 mg PO DAILY [facility] Last Admin: 05/31/18 10:11 Dose: 40 mg Gabapentin (Neurontin) 600 mg PO Q8 [facility] PRN Reason: Protocol Last Admin: 05/31/18 14:18 Dose: 600 mg Levetiracetam (Keppra) 500 mg PO Q12 [facility] Last Admin: 05/31/18 10:11 Dose: 500 mg Lorazepam (Ativan) 1 mg PO Q12 GAURAV PRN Reason: Protocol Last Admin: 05/31/18 10:10 Dose: 1 mg Losartan Potassium (Cozaar) 100 mg PO DAILY [facility] Last Admin: 05/31/18 10:12 Dose: 100 mg Ondansetron HCl (Zofran Inj) 4 mg IVP Q4H PRN PRN Reason: Nausea/Vomiting Pantoprazole Sodium (Protonix Ec Tab) 40 mg PO 0600 [facility] Last Admin: 05/31/18 05:16 Dose: 40 mg Polyethylene Glycol (Miralax) 17 gm PO DAILY [facility] Last Admin: 05/31/18 10:11 Dose: 17 gm Risperidone (Risperdal Tab) 1 mg PO Q8 [facility] PRN Reason: Protocol Last Admin: 05/31/18 14:18 Dose: 1 mg Sertraline HCl (Zoloft) 100 mg PO DAILY [facility] Last Admin: 05/31/18 10:21 Dose: 100 mg Tizanidine HCl (Zanaflex) 4 mg PO QID [facility] Last Admin: 05/31/18 14:19 Dose: 4 mg - Labs Labs: 05/31/18 06:30 05/31/18 06:30 - Constitutional Appears: No Acute Distress - Head Exam Head Exam: ATRAUMATIC, NORMAL INSPECTION - Eye Exam Eye Exam: Normal appearance, PERRL - ENT Exam ENT Exam: Mucous Membranes Moist - Neck Exam Additional comments: midline scar in posterior neck - Respiratory Exam Respiratory Exam: Clear to Ausculation Bilateral. absent: Rales, Rhonchi, Wheezes - Cardiovascular Exam Cardiovascular Exam: REGULAR RHYTHM, +S1, +S2. absent: Gallop, Rubs, Murmur - GI/Abdominal Exam GI & Abdominal Exam: Tenderness, Normal Bowel Sounds. absent: Soft Additional comments: Patient is obese. Abdomen is slightly firm. Complains of tenderness on lower qaudrants of the abdomen. - Extremities Exam Extremities Exam: absent: Calf Tenderness, Pedal Edema Additional comments: Decreased sensations to all extremities - Back Exam Back Exam: absent: NORMAL INSPECTION Additional comments: Tenderness to palpation to cervical spine - Neurological Exam Neurological Exam: Alert, Awake, Oriented x3 - Psychiatric Exam Psychiatric exam: Normal Affect, Normal Mood - Skin Skin Exam: Dry, Normal Color, Warm Additional comments: Sacral decubitus ulcer stage 2 present. Ulcers measuring between 2-3 cm, blood and serous fluids not present. Assessment and Plan - Assessment and Plan (Free Text) Assessment: Patient is a 63 year old male with a PMH of HTN, DM2, Reflex Sympathetic Dystrophy, arthritis, seizures, depression, and decubitus ulcer who presents to the emergency room for evaluation and treatment of dizziness and altered speech. Plan: Dizziness and altered speech - Need to rule out CVA - EKG: NSR @80, no ST elevations or depressions - CXR: no active disease - Head CT shows 2.7cm area of hypodensity in the right parietal posterior frontal region. This could represent an acute or subacute infarct. Head/neck CTA: unremarkable - C/w Plavix, atorvastatin - Neurology consulted - Fall precautions - Seizure precautions - Aspiration precautions Chronic decubitus ulcer in lower back - Wound care and assessment ordered - Started Kefflex 500mg TID - Wound culture ordered - C/w bacitracin ointment Chronic constipation - Most likely secondary to prolonged use of opiates - C/w miralax and colace - Gave 1 x Magnesium Citrate Chronic back pain - Secondary due to Reflex Sympathetic Dystrophy - C/w gabapentin - PT consulted History of hypertension - C/w losartan and amlodipine History of depression - C/w bupropion, duloxetine, sertraline History of seizures - C/w Keppra 500 BID, Ativan 1mg Q12 GI/DVT prophylaxis: Protonix, SCD's Patient seen, examined, and case discussed with Dr. Camejo <Florentino Camejo - Last Filed: 06/08/18 07:53> Objective - Vital Signs/Intake and Output Vital Signs (last 24 hours): Temp Pulse Resp BP Pulse Ox 97.7 F 91 H 19 103/65 97 06/07/18 18:26 06/07/18 18:26 06/07/18 18:26 06/07/18 18:26 06/07/18 18:26 Intake and Output: 06/08/18 06/08/18 06:59 18:59 Intake Total 360 Output Total 2200 Balance -1840 - Medications Medications: Current Medications Acetaminophen (Tylenol 325mg Tab) 650 mg PO Q6H PRN PRN Reason: Fever >100.4 F Last Admin: 06/06/18 14:09 Dose: 650 mg Amlodipine Besylate (Norvasc) 10 mg PO DAILY [facility] Last Admin: 06/07/18 11:08 Dose: 10 mg Atorvastatin Calcium (Lipitor) 40 mg PO DIN [facility] Last Admin: 06/07/18 18:32 Dose: 40 mg Bacitracin (Bacitracin) 1 ea TOP BID [facility] Last Admin: 06/07/18 18:32 Dose: 1 ea Bupropion HCl (Wellbutrin Xl) 150 mg PO DAILY [facility] Last Admin: 06/07/18 11:08 Dose: 150 mg Clopidogrel Bisulfate (Plavix) 75 mg PO DAILY [facility] Last Admin: 06/07/18 11:08 Dose: 75 mg Docusate Sodium (Colace) 100 mg PO TID [facility] Last Admin: 06/07/18 18:32 Dose: 100 mg Duloxetine HCl (Cymbalta) 30 mg PO Q8 [facility] Last Admin: 06/07/18 21:52 Dose: 30 mg Enoxaparin Sodium (Lovenox) 40 mg SC DAILY [facility] PRN Reason: Protocol Last Admin: 06/07/18 11:07 Dose: 40 mg Furosemide (Lasix) 40 mg PO DAILY [facility] Last Admin: 06/07/18 11:07 Dose: 40 mg Gabapentin (Neurontin) 600 mg PO Q8 [facility] PRN Reason: Protocol Last Admin: 06/08/18 05:24 Dose: 600 mg Cefepime HCl (Maxipime 1gm) 1 gm in 100 mls @ 100 mls/hr IVPB Q8 [facility] PRN Reason: Protocol Last Admin: 06/08/18 05:25 Dose: 100 mls/hr Levetiracetam (Keppra) 500 mg PO Q12 [facility] Last Admin: 06/07/18 21:52 Dose: 500 mg Lorazepam (Ativan) 2 mg PO Q12 [facility] PRN Reason: Protocol Last Admin: 06/07/18 21:52 Dose: 2 mg Losartan Potassium (Cozaar) 100 mg PO DAILY [facility] Last Admin: 06/07/18 11:06 Dose: 100 mg Meclizine HCl (Antivert) 12.5 mg PO TID [facility] Last Admin: 06/07/18 18:32 Dose: 12.5 mg Ondansetron HCl (Zofran Inj) 4 mg IVP Q4H PRN PRN Reason: Nausea/Vomiting Pantoprazole Sodium (Protonix Ec Tab) 40 mg PO 0600 [facility] Last Admin: 06/08/18 05:25 Dose: 40 mg Polyethylene Glycol (Miralax) 17 gm PO DAILY [facility] Last Admin: 06/07/18 11:07 Dose: 17 gm Quetiapine Fumarate (Seroquel) 300 mg PO HS [facility] PRN Reason: Protocol Last Admin: 06/07/18 22:02 Dose: 300 mg Risperidone (Risperdal Tab) 1 mg PO Q8 [facility] PRN Reason: Protocol Last Admin: 06/08/18 05:24 Dose: 1 mg Sertraline HCl (Zoloft) 100 mg PO DAILY [facility] Last Admin: 06/07/18 11:09 Dose: 100 mg Silver Sulfadiazine (Silvadene 1% 25 Gm) 1 gm TP BID [facility] Last Admin: 06/07/18 18:33 Dose: 1 gm Tizanidine HCl (Zanaflex) 4 mg PO QID [facility] Last Admin: 06/07/18 21:57 Dose: 4 mg Zonisamide (Zonegran) 200 mg PO HS [facility] Last Admin: 06/07/18 21:57 Dose: 200 mg - Labs Labs: 06/08/18 06:00 06/08/18 06:00 Attending/Attestation - Attestation I have personally seen and examined this patient.: Yes I have fully participated in the care of the patient.: Yes I have reviewed all pertinent clinical information, including history, physical exam and plan: Yes Notes (Text): 06/08/18 07:51 Attending note; Patient seen and examined with resident. Patient is a 63-year-old male with past medical history significant for hypertension, type 2 diabetes, reflex sympathetic dystrophy, bed bound mostly for the past 2 years , uses wheelchair at times ,arthritis, depression, seizures , chronic decubitus ulcer, and constipation that presented to the emergency room with dizziness and altered speech. CT head showed possible subacute infarct. Case discussed with neurology in detail. MRA cannot be obtained due to metal puma in the leg. CTA of head and neck is negative for any acute occlusion. Patient is chronically bedbound. Stage II sacral decubitus. Wound care by nurse. Continue diabetic and hypertensive medications. Constipation; mostly secondary to opiates and bed bound situation. Started on Colace and MiraLAX. Patient currently tolerating diet. Complaining of mild abdominal discomfort. No nausea, vomiting. Prognosis is poor secondary to multiple medical issues. Physical therapy evaluation requested. Upon discharge the patient will follow up with PMD .
--- NOTE | 2018-05-31 17:12 | CARD ---
APPROVED REPORT Date of service: 05/30/2018 EKG Measurement Heart [id number] <Conclusion> Normal sinus rhythm Lateral infarct, age undetermined Abnormal ECG
[2018-06-01] MEDS: Pantoprazole 40 mg EC Tab PO SCH (05:44)
[2018-06-01 07:13] LABS: HEMOGLOBIN 13.8 g/dL (14.0-18.0); MEAN CELL VOLUME 89.5 fl (80.0-105.0); MEAN CORPUSCULAR HEMOGLOBIN 29.6 pg (25.0-35.0); MEAN PLATELET VOLUME 12.6 fl (7.0-11.0); RBC 4.67 10^6/uL (3.5-6.1); RED CELL DISTRIBUTION WIDTH 13.3 % (11.5-14.5); WHITE BLOOD COUNT 7.7 10^3/ul (4.5-11.0)
[2018-06-01 07:27] LABS: ALB/GLOB RATIO 1.3 (1.1-1.8); ALBUMIN 3.6 g/dL (3.0-4.8); ALT/SGPT 30 U/L (7-56); AST/SGOT 18 U/L (17-59); BLOOD UREA NITROGEN 21 mg/dL (7-21); CALCIUM 9.1 mg/dL (8.4-10.5); GFR AFRICAN-AMERICAN > 60; GFR NON-AFRICAN AMERICAN > 60
[2018-06-01] MEDS: Bacitracin 500 Units/gm Oint Foilpak UD TOP SCH ×2 (10:15→17:35)
[2018-06-01] MEDS: POLYETHYLENE GLYCOL 3350 17 GM/Dose PACKET PO SCH (10:18)
[2018-06-01] MEDS: buPROPion 150 mg/24 Hours XL Tab PO SCH (10:19)
--- NOTE | 2018-06-01 14:52 | CP.PCM.PN ---
<Juan M Birmingham - Last Filed: 06/01/18 17:58> Subjective - Date & Time of Evaluation Date of Evaluation: 06/01/18 Time of Evaluation: 14:52 - Subjective Subjective: Juan M Birmingham D.O PGY-1, Internal Medicine progress note for Dr. Domínguez Patient was examined at bedside, no acute overnight events. Patient is complaining of constipation and lower abdominal discomfort. Denies fevers, chills, chest pain, shortness of breath, N/V/D. Objective - Vital Signs/Intake and Output Vital Signs (last 24 hours): Temp Pulse Resp BP Pulse Ox 97.8 F 73 19 106/64 97 05/31/18 18:00 05/31/18 18:00 05/31/18 18:00 06/01/18 10:18 05/31/18 18:00 Intake and Output: 06/01/18 06/01/18 06:59 18:59 Intake Total 120 Output Total 800 Balance -680 - Medications Medications: Current Medications Acetaminophen (Tylenol 325mg Tab) 650 mg PO Q6H PRN PRN Reason: Fever >100.4 F Amlodipine Besylate (Norvasc) 10 mg PO DAILY [facility] Last Admin: 06/01/18 10:18 Dose: 10 mg Atorvastatin Calcium (Lipitor) 40 mg PO DIN [facility] Last Admin: 05/31/18 18:40 Dose: 40 mg Bacitracin (Bacitracin) 1 ea TOP BID [facility] Last Admin: 06/01/18 10:15 Dose: 1 ea Bupropion HCl (Wellbutrin Xl) 150 mg PO DAILY [facility] Last Admin: 06/01/18 10:19 Dose: 150 mg Cephalexin Monohydrate (Keflex) 500 mg PO TID [facility] PRN Reason: Protocol Last Admin: 06/01/18 13:55 Dose: 500 mg Clopidogrel Bisulfate (Plavix) 75 mg PO DAILY [facility] Last Admin: 06/01/18 10:18 Dose: 75 mg Docusate Sodium (Colace) 100 mg PO TID [facility] Last Admin: 06/01/18 13:55 Dose: 100 mg Duloxetine HCl (Cymbalta) 30 mg PO Q8 [facility] Last Admin: 06/01/18 13:56 Dose: 30 mg Furosemide (Lasix) 40 mg PO DAILY [facility] Last Admin: 06/01/18 10:15 Dose: 40 mg Gabapentin (Neurontin) 600 mg PO Q8 [facility] PRN Reason: Protocol Last Admin: 06/01/18 13:56 Dose: 600 mg Levetiracetam (Keppra) 500 mg PO Q12 [facility] Last Admin: 06/01/18 10:15 Dose: 500 mg Lorazepam (Ativan) 1 mg PO Q12 [facility] PRN Reason: Protocol Last Admin: 06/01/18 10:14 Dose: 1 mg Losartan Potassium (Cozaar) 100 mg PO DAILY [facility] Last Admin: 06/01/18 10:15 Dose: 100 mg Ondansetron HCl (Zofran Inj) 4 mg IVP Q4H PRN PRN Reason: Nausea/Vomiting Pantoprazole Sodium (Protonix Ec Tab) 40 mg PO 0600 [facility] Last Admin: 06/01/18 05:44 Dose: 40 mg Polyethylene Glycol (Miralax) 17 gm PO DAILY [facility] Last Admin: 06/01/18 10:18 Dose: 17 gm Risperidone (Risperdal Tab) 1 mg PO Q8 [facility] PRN Reason: Protocol Last Admin: 06/01/18 13:56 Dose: 1 mg Sertraline HCl (Zoloft) 100 mg PO DAILY [facility] Last Admin: 06/01/18 10:19 Dose: 100 mg Tizanidine HCl (Zanaflex) 4 mg PO QID [facility] Last Admin: 06/01/18 13:56 Dose: 4 mg - Labs Labs: 06/01/18 06:30 06/01/18 06:30 - Constitutional Appears: No Acute Distress - Head Exam Head Exam: ATRAUMATIC, NORMAL INSPECTION - Eye Exam Eye Exam: Normal appearance - ENT Exam ENT Exam: Mucous Membranes Moist - Neck Exam Additional comments: Old midline surgical scar on posterior neck. - Respiratory Exam Respiratory Exam: Clear to Ausculation Bilateral. absent: Rales, Rhonchi, Wheezes - Cardiovascular Exam Cardiovascular Exam: REGULAR RHYTHM, +S1, +S2. absent: Gallop, Rubs, Murmur - GI/Abdominal Exam GI & Abdominal Exam: Soft, Tenderness, Normal Bowel Sounds Additional comments: Patient is obese. Mild tenderness on palpation on the lower quadrants of the abdomen. - Extremities Exam Extremities Exam: absent: Calf Tenderness, Pedal Edema - Neurological Exam Neurological Exam: Alert, Awake, Oriented x3 - Psychiatric Exam Psychiatric exam: Normal Affect, Normal Mood - Skin Skin Exam: Dry, Normal Color, Warm Additional comments: Stage 2 sacral decubitus ulcer, measuring 2-3 cm, purulent discharge present Assessment and Plan - Assessment and Plan (Free Text) Assessment: Mr. Proctor is a 63 year old male with a PMH of HTN, DM2, Reflex Sympathetic Dystrophy, arthritis, seizures, depression, and decubitus ulcer who is presenting with dizziness. Plan: Dizziness - Most likely chronic vertigo, CVA ruled out - Head/neck CTA (05/30): unremarkable - Head CT (05/30): shows 2.7cm area of hypodensity in the right parietal posterior frontal region. This could represent an acute or subacute infarct. - Brain MRI canceled- patient has metal rods in his back and legs from prior surgeries. - Neurology cleared the patient since head and neck CTA was negative - C/w Plavix, atorvastatin - Echocardiogram: pending - EKG (05/30): NSR @80, no ST elevations or depressions - CXR (05/30): no active disease - Neurology consulted - Fall precautions - Seizure precautions - Aspiration precautions Chronic decubitus ulcer in lower back - Wound care team consulted for assessment and care - Wound culture: gram positive cocci and gram negative bacilli - ID (Dr. Vázquez) consulted - Started Cefepime 1g IV Q8 and Vancomycin 1g IV Q12- day 1 - C/w bacitracin ointment Chronic constipation - Most likely secondary to prolonged use of opiates - c/w miralax and colace - Gave 1 x fleet enema (06/01) Chronic back pain - Secondary due to Reflex Sympathetic Dystrophy - c/w gabapentin - PT consulted History of hypertension - c/w losartan and amlodipine History of depression - c/w bupropion, duloxetine, sertraline History of seizures - c/w Keppra 500 BID, Ativan 1mg Q12 GI/DVT prophylaxis: Protonix, SCD's Patient seen, examined, and case discussed with Dr. Domínguez <Vesna Domínguez - Last Filed: 06/01/18 18:37> Objective - Vital Signs/Intake and Output Vital Signs (last 24 hours): Temp Pulse Resp BP Pulse Ox 97.8 F 73 19 106/64 97 05/31/18 18:00 05/31/18 18:00 05/31/18 18:00 06/01/18 10:18 05/31/18 18:00 Intake and Output: 06/01/18 06/01/18 06:59 18:59 Intake Total 120 Output Total 800 Balance -680 - Medications Medications: Current Medications Acetaminophen (Tylenol 325mg Tab) 650 mg PO Q6H PRN PRN Reason: Fever >100.4 F Amlodipine Besylate (Norvasc) 10 mg PO DAILY [facility] Last Admin: 06/01/18 10:18 Dose: 10 mg Atorvastatin Calcium (Lipitor) 40 mg PO DIN [facility] Last Admin: 06/01/18 17:36 Dose: 40 mg Bacitracin (Bacitracin) 1 ea TOP BID [facility] Last Admin: 06/01/18 17:35 Dose: 1 ea Bupropion HCl (Wellbutrin Xl) 150 mg PO DAILY [facility] Last Admin: 06/01/18 10:19 Dose: 150 mg Clopidogrel Bisulfate (Plavix) 75 mg PO DAILY [facility] Last Admin: 06/01/18 10:18 Dose: 75 mg Docusate Sodium (Colace) 100 mg PO TID [facility] Last Admin: 06/01/18 17:35 Dose: 100 mg Duloxetine HCl (Cymbalta) 30 mg PO Q8 [facility] Last Admin: 06/01/18 13:56 Dose: 30 mg Furosemide (Lasix) 40 mg PO DAILY [facility] Last Admin: 06/01/18 10:15 Dose: 40 mg Gabapentin (Neurontin) 600 mg PO Q8 [facility] PRN Reason: Protocol Last Admin: 06/01/18 13:56 Dose: 600 mg Cefepime HCl (Maxipime 1gm) 1 gm in 100 mls @ 100 mls/hr IVPB Q8 [facility] PRN Reason: Protocol Vancomycin HCl (Vancomycin 1gm) 1 gm in 250 mls @ 167 mls/hr IVPB Q12H [facility] PRN Reason: Protocol Levetiracetam (Keppra) 500 mg PO Q12 [facility] Last Admin: 06/01/18 10:15 Dose: 500 mg Lorazepam (Ativan) 1 mg PO Q12 [facility] PRN Reason: Protocol Last Admin: 06/01/18 10:14 Dose: 1 mg Losartan Potassium (Cozaar) 100 mg PO DAILY [facility] Last Admin: 06/01/18 10:15 Dose: 100 mg Ondansetron HCl (Zofran Inj) 4 mg IVP Q4H PRN PRN Reason: Nausea/Vomiting Pantoprazole Sodium (Protonix Ec Tab) 40 mg PO 0600 [facility] Last Admin: 06/01/18 05:44 Dose: 40 mg Polyethylene Glycol (Miralax) 17 gm PO DAILY [facility] Last Admin: 06/01/18 10:18 Dose: 17 gm Risperidone (Risperdal Tab) 1 mg PO Q8 [facility] PRN Reason: Protocol Last Admin: 06/01/18 13:56 Dose: 1 mg Sertraline HCl (Zoloft) 100 mg PO DAILY [facility] Last Admin: 06/01/18 10:19 Dose: 100 mg Tizanidine HCl (Zanaflex) 4 mg PO QID [facility] Last Admin: 06/01/18 17:37 Dose: 4 mg - Labs Labs: 06/01/18 06:30 06/01/18 06:30 Attending/Attestation - Attestation I have personally seen and examined this patient.: Yes I have fully participated in the care of the patient.: Yes I have reviewed all pertinent clinical information, including history, physical exam and plan: Yes Notes (Text): Patient seen and examined by me at 11:40AM with resident. Patient is new to me. Case discussed with Dr. Landry. Case including HPI, physical exam, and physical assessment and plan discussed with resident. Agree with above with following additions/corrections. Patient is a 63-year-old male with past medical history significant for hypertension, type 2 diabetes, reflex sympathetic dystrophy, arthritis, depression, seizures, chronic decubitus ulcer, and constipation that presented to the emergency room with dizziness and altered speech. Patient states that he is feeling okay today. Complains of pain at his decubitus ulcer site. Also complains of constipation. She has not had a bowel movement in approximately 10 days. Patient denies chest pain or shortness of breath. No abdominal pain, nausea, or vomiting. No fevers or chills. No headaches or dizziness. No dysuria. Physical exam: Gen: Awake and alert sitting up in bed in no acute distress HEENT: Normocephalic atraumatic, extraocular muscles intact, pupils equal reactive, oropharynx is pink and moist, no pharyngeal erythema or exudate appreciated, neck is supple. Cardiovascular: Normal rhythm, normal S1-S2. Positive systolic murmur. No rubs or gallops appreciated Pulmonary: Normal respiratory effort. No rhonchi, rales or wheezing appreciated. Gastrointestinal: Soft, mild tenderness on bilateral lateral sides, nondistended , positive bowel sounds all 4 quadrants, no guarding Musculoskeletal: Decreased range of motion all extremities (chronic) Central nervous system: AAO 3 Dermatologic: Skin warm and dry. Positive stage II ulcer lower back/sacral area with mild drainage. Assessment and plan: Patient is a 63-year-old male with past medical history significant for hypertension, type 2 diabetes, reflex sympathetic dystrophy, arthritis, depression, seizures, chronic decubitus ulcer, and constipation that presented to the emergency room with dizziness and altered speech. 1. Dizziness and altered speech. Resolved. CVA ruled out. Unable to obtain MRI secondary to metal rods. CTA head and neck per radiologist showed unremarkable angiography of brain. Patient cleared by neurology. Discussed with neurology. Patient likely with chronic vertigo. 2-D echo results pending 2. Infected stage II sacral decubitus. Wound cultures positive for gram- negative rods and gram-positive cocci. ID consulted, recommendations appreciated. Patient started on cefepime and Vanco, day #1. Follow-up final wound culture results. No leukocytosis, patient afebrile. Continue wound care. 3. Constipation. Patient uses chronic opioids at home. Continue with MiraLAX and Colace. Patient given Fleet enema. Monitor for bowel movement. 4. Chronic pain. Likely secondary to reflex sympathetic dystrophy. Continue with Neurontin and Zanaflex. PT eval and treat. Will likely need physical rehabilitation. 5. Essential hypertension. Continue losartan and amlodipine. 6. Dyslipidemia. Continue Lipitor. 7. History of depression and anxiety. Continue Cymbalta, risperidone, Zoloft, Wellbutrin, and Ativan. 8. History of seizures. Continue Keppra. 9. GI and DVT prophylaxis. Protonix and Lovenox Case was discussed in detail with the patient and director of graduate medical education at bedside regarding current diagnosis and treatment plan
[2018-06-01] MEDS ORDERED: Vancomycin 1gm in NS 250ml 1 GM/250 ML BAG IVPB SCH (15:00)
--- NOTE | 2018-06-01 15:05 | CP.PCM.CON ---
History of Present Illness - History of Present Illness History of Present Illness: 63 year old male with PMH of cervical spine trauma S/P cervical laminectomy, history of reflex sympathetic dystrophy was initially admitted in [facility] because of dizziness and altered speech and Neurology is evaluating and managing the patient for these problems. Infectious Diseases consult is requested for sacral decubitus ulcer. The patient states that he has had the ulcer for several months now and it is painful when pressure is applied to ulcer. He denies fever or chills, no nausea or vomiting, no chest pain, no SOB, no headache or dizziness currently, no abdominal pain, no diarrhea, no dysuria. Review of Systems - Review of Systems All systems: reviewed and no additional remarkable complaints except (as per HPI ) Past Patient History - Infectious Disease Hx of Infectious Diseases: None - Tetanus Immunizations Tetanus Immunization: Unknown - Past Social History Smoking Status: Never Smoked - CARDIAC Hx Cardiac Disorders: Yes Hx Hypertension: Yes - PULMONARY Hx Respiratory Disorders: Yes Hx Pneumonia: Yes (20 years ago) - NEUROLOGICAL Hx Seizures: Yes - HEENT Hx HEENT Problems: No - RENAL Hx Chronic Kidney Disease: No - ENDOCRINE/METABOLIC Hx Diabetes Mellitus Type 2: Yes - HEMATOLOGICAL/ONCOLOGICAL Hx Blood Disorders: No - INTEGUMENTARY Hx Dermatological Problems: No - MUSCULOSKELETAL/RHEUMATOLOGICAL Hx Musculoskeletal Disorders: Yes Hx Degenerative Joint Disease: Yes Hx Falls: Yes - GASTROINTESTINAL Hx Gastrointestinal Disorders: No - GENITOURINARY/GYNECOLOGICAL Hx Genitourinary Disorders: No - PSYCHIATRIC Hx Psychophysiologic Disorder: Yes Hx Anxiety: Yes Hx Depression: Yes Hx Substance Use: No - SURGICAL HISTORY Hx Orthopedic Surgery: Yes (neck, shoulder, left leg) Other/Comment: puma in L ankle - ANESTHESIA Hx Anesthesia: Yes Hx Anesthesia Reactions: No Hx Malignant Hyperthermia: No Meds Allergies/Adverse Reactions: Allergies Allergy/AdvReac Type Severity Reaction Status Date / Time aspirin Allergy REDNESS Verified 05/30/18 13:27 morphine AdvReac ITCHING Verified 05/30/18 13:27 - Medications Medications: Current Medications Acetaminophen (Tylenol 325mg Tab) 650 mg PO Q6H PRN PRN Reason: Fever >100.4 F Amlodipine Besylate (Norvasc) 10 mg PO DAILY [facility] Last Admin: 06/01/18 10:18 Dose: 10 mg Atorvastatin Calcium (Lipitor) 40 mg PO DIN [facility] Last Admin: 05/31/18 18:40 Dose: 40 mg Bacitracin (Bacitracin) 1 ea TOP BID [facility] Last Admin: 06/01/18 10:15 Dose: 1 ea Bupropion HCl (Wellbutrin Xl) 150 mg PO DAILY [facility] Last Admin: 06/01/18 10:19 Dose: 150 mg Cephalexin Monohydrate (Keflex) 500 mg PO TID [facility] PRN Reason: Protocol Last Admin: 06/01/18 10:15 Dose: 500 mg Clopidogrel Bisulfate (Plavix) 75 mg PO DAILY [facility] Last Admin: 06/01/18 10:18 Dose: 75 mg Docusate Sodium (Colace) 100 mg PO TID [facility] Last Admin: 06/01/18 10:15 Dose: 100 mg Duloxetine HCl (Cymbalta) 30 mg PO Q8 [facility] Last Admin: 06/01/18 05:44 Dose: 30 mg Furosemide (Lasix) 40 mg PO DAILY [facility] Last Admin: 06/01/18 10:15 Dose: 40 mg Gabapentin (Neurontin) 600 mg PO Q8 [facility] PRN Reason: Protocol Last Admin: 06/01/18 05:44 Dose: 600 mg Levetiracetam (Keppra) 500 mg PO Q12 [facility] Last Admin: 06/01/18 10:15 Dose: 500 mg Lorazepam (Ativan) 1 mg PO Q12 [facility] PRN Reason: Protocol Last Admin: 06/01/18 10:14 Dose: 1 mg Losartan Potassium (Cozaar) 100 mg PO DAILY [facility] Last Admin: 06/01/18 10:15 Dose: 100 mg Ondansetron HCl (Zofran Inj) 4 mg IVP Q4H PRN PRN Reason: Nausea/Vomiting Pantoprazole Sodium (Protonix Ec Tab) 40 mg PO 0600 [facility] Last Admin: 06/01/18 05:44 Dose: 40 mg Polyethylene Glycol (Miralax) 17 gm PO DAILY [facility] Last Admin: 06/01/18 10:18 Dose: 17 gm Risperidone (Risperdal Tab) 1 mg PO Q8 [facility] PRN Reason: Protocol Last Admin: 06/01/18 05:43 Dose: 1 mg Sertraline HCl (Zoloft) 100 mg PO DAILY [facility] Last Admin: 06/01/18 10:19 Dose: 100 mg Tizanidine HCl (Zanaflex) 4 mg PO QID [facility] Last Admin: 06/01/18 10:19 Dose: 4 mg Physical Exam - Constitutional Appears: Non-toxic, Chronically Ill - Head Exam Head Exam: NORMAL INSPECTION - ENT Exam ENT Exam: Mucous Membranes Moist - Neck Exam Neck exam: Negative for: Lymphadenopathy, Meningismus - Respiratory Exam Respiratory Exam: Decreased Breath Sounds - Cardiovascular Exam Cardiovascular Exam: +S1, +S2 - GI/Abdominal Exam GI & Abdominal Exam: Soft. absent: Tenderness Additional comments: stage 2-3 sacral decubitus ulcer with sloughing off of skin and soft tissue and surrounding erythema Results - Vital Signs Recent Vital Signs: Last Vital Signs Temp 97.8 F 05/31/18 18:00 Pulse 73 05/31/18 18:00 Resp 19 05/31/18 18:00 BP 106/64 06/01/18 10:18 Pulse Ox 97 05/31/18 18:00 - Labs Result Diagrams: 06/01/18 06:30 06/01/18 06:30 Labs: Laboratory Results - last 24 hr 05/31/18 06/01/18 06/01/18 14:33 06:30 06:30 WBC 7.7 RBC 4.67 Hgb 13.8 L Hct 41.8 L MCV 89.5 MCH 29.6 MCHC 33.0 RDW 13.3 Plt Count 161 MPV 12.6 H Sodium 142 Potassium 4.0 Chloride 105 Carbon Dioxide 27 Anion Gap 14 BUN 21 Creatinine 1.0 Est GFR ( Amer) > 60 Est GFR (Non-Af Amer) > 60 Random Glucose 118 H Calcium 9.1 Total Bilirubin 0.5 AST 18 ALT 30 Alkaline Phosphatase 61 Total Protein 6.4 Albumin 3.6 Globulin 2.8 Albumin/Globulin Ratio 1.3 Triglycerides 140 Cholesterol 176 LDL Cholesterol Direct 85 HDL Cholesterol 49 Assessment & Plan - Assessment and Plan (Free Text) Plan: assessment infected sacral decubitus ulcer stage 2 to 3, growing gram positive cocci and gram negative bacilli history of right index finger cellulitis with associated wound cervical spine trauma S/P cervical laminectomy history of reflex sympathetic dystrophy plan started Vancomycin and Cefepime pending final wound cx results; will recommend Wound care consult and follow up will monitor clinically
--- NOTE | 2018-06-01 18:07 | CARD ---
APPROVED REPORT Date of service: 06/01/2018 EXAM: Two-dimensional and M-mode echocardiogram with Doppler and color Doppler. INDICATION DIZZINESS 2D DIMENSIONS IVSd1.6 (0.7-1.1cm)LVDd5.2 (3.9-5.9cm) LVOT Diameter2.3 (1.8-2.4cm)PWd1.6 (0.7-1.1cm) LVDs3.5 (2.5-4.0cm)FS (%) 33.7 % LVEF (%)62.2 (>50%) M-Mode DIMENSIONS Aortic Root3.80 (2.2-3.7cm)Aortic Cusp Exc.0.70 (1.5-2.0cm) Aortic Valve AoV Peak Dpbzxlpn577.0cm/sAoV YJR864.0cmAO Peak GR.91mmHg LVOT Peak Smhiqtin749.0cm/sLVOT VTI22.80cmAO Mean GR.59mmHg AI P 1/2 Hemr851ig Mitral Valve MV E Timqdrjj15.0cm/sMV A Yphekvkw91.6cm/sE/A ratio0.6 TDI Lateral E' Peak V4.00cm/sMedial E' Peak V4.39cm/sE/Lateral E'11.3 E/Medial E'10.3 Pulmonary Valve PV Peak Vfgrggez441.0cm/sPV Peak Grad.8mmHg Tricuspid Valve TR Peak Pwnhrdcp543zj/sRAP [id number] Peak Gr.21mmHg [id number] LEFT VENTRICLE The left ventricle is normal size. There is mild concentric left ventricular hypertrophy. The left ventricular function is normal.EF-65% There is normal LV segmental wall motion. Transmitral Doppler flow pattern is Grade III-reversible restrictive diastolic dysfunction. No left ventricle thrombus noted on this study. There is no ventricular septal defect visualized. There is no left ventricular aneurysm. There is no mass noted in the left ventricle. RIGHT VENTRICLE The right ventricle is normal size. There is normal right ventricular wall thickness. The right ventricular systolic function is normal. ATRIA The left atrium is borderline dilated. The right atrium size is normal. The interatrial septum is intact with no evidence for an atrial septal defect. AORTIC VALVE The aortic valve is calcified and displays decreased opening. There is mild to moderate aortic regurgitation. There is moderate to severe supravalvular aortic stenosis. There is no aortic valvular vegetation. MITRAL VALVE The mitral valve is thickened but opens well. Mitral regurgitation is trace. There is no mitral valve stenosis. There is no evidence of mitral valve prolapse. TRICUSPID VALVE The tricuspid valve leaflets are thickened , but open well. There is trace tricuspid regurgitation.RVSP-#! mmof hg. There is no tricuspid valve stenosis. There is no tricuspid valve prolapse or vegetation. PULMONIC VALVE The pulmonary valve is normal in structure. There is no pulmonic valvular regurgitation. There is no pulmonic valvular stenosis. GREAT VESSELS The aortic root is normal in size. The ascending aorta is normal in size. The pulmonary artery is normal. The IVC is normal in size and collapses >50% with inspiration. PERICARDIAL EFFUSION There is no pleural effusion. There is a trace pericardial effusion. <Conclusion> The left ventricle is normal size. There is mild concentric left ventricular hypertrophy. The left ventricular function is normal.EF-65% The aortic valve is calcified and displays decreased opening. There is mild to moderate aortic regurgitation. There is moderate to severe supravalvular aortic stenosis. Mitral regurgitation is trace. There is trace tricuspid regurgitation.RVSP-#! mmof hg. The IVC is normal in size and collapses >50% with inspiration. There is a trace pericardial effusion.
[2018-06-01] MEDS: Vancomycin 1gm in NS 250ml 1 GM/250 ML BAG IVPB SCH (20:21)
[2018-06-01] MEDS: Cefepime 1gm in NS 100ml 1 GM/100 ML BAG IVPB SCH (22:08)
[2018-06-02] MEDS: Cefepime 1gm in NS 100ml 1 GM/100 ML BAG IVPB SCH ×3 (05:58→21:40)
[2018-06-02] MEDS: Pantoprazole 40 mg EC Tab PO SCH (05:59)
[2018-06-02 06:33] LABS: HEMOGLOBIN 14.1 g/dL (14.0-18.0); MEAN CELL VOLUME 90.1 fl (80.0-105.0); MEAN CORPUSCULAR HEMOGLOBIN 29.7 pg (25.0-35.0); MEAN PLATELET VOLUME 12.5 fl (7.0-11.0); RBC 4.74 10^6/uL (3.5-6.1); RED CELL DISTRIBUTION WIDTH 13.2 % (11.5-14.5); WHITE BLOOD COUNT 9.1 10^3/ul (4.5-11.0)
[2018-06-02 06:58] LABS: ALB/GLOB RATIO 1.3 (1.1-1.8); ALBUMIN 3.6 g/dL (3.0-4.8); ALT/SGPT 34 U/L (7-56); AST/SGOT 17 U/L (17-59); BLOOD UREA NITROGEN 21 mg/dL (7-21); GFR AFRICAN-AMERICAN > 60; GFR NON-AFRICAN AMERICAN > 60
[2018-06-02] MEDS: Bacitracin 500 Units/gm Oint Foilpak UD TOP SCH ×2 (10:24→18:15)
[2018-06-02] MEDS: POLYETHYLENE GLYCOL 3350 17 GM/Dose PACKET PO SCH (10:26)
[2018-06-02] MEDS: Enoxaparin 40 mg Syringe SC SCH (10:26)
[2018-06-02] MEDS: buPROPion 150 mg/24 Hours XL Tab PO SCH (10:27)
[2018-06-02] MEDS ORDERED: Collagenase 250 Units/gm Ointment(30 gm) TOP SCH (10:45)
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
[2018-06-02] MEDS: Vancomycin 1gm in NS 250ml 1 GM/250 ML BAG IVPB SCH (11:07)
--- NOTE | 2018-06-02 13:05 | CP.PCM.PCO ---
Addendum Addendum: 06/02/18 13:01 pt was seen and examined, pt has long h/o mental illness, meds will be confirmed , pt is under care of Dr.Paul Baker in the community pt denied being depressed, denied thoughts of harming self or others, no psychosis, compliance with meds good pt pose no imminent danger to self or others please see dictation note for more detailed information TCU transfer as per medical/PT team
--- NOTE | 2018-06-02 14:01 | CP.PCM.PN ---
<Juan M Birmingham - Last Filed: 06/02/18 14:26> Subjective - Date & Time of Evaluation Date of Evaluation: 06/02/18 Time of Evaluation: 13:57 - Subjective Subjective: Juan M Birmingham D.O PGY-1, Internal Medicine progress note for Dr. Domínguez Patient was examined at bedside. Patient states that he had a bowel movement yesterday which consists of of mostly water. He is still complaining of constipation and lower abdominal discomfort. Denies fevers, chills, chest pain, shortness of breath, N/V/D. Objective - Vital Signs/Intake and Output Vital Signs (last 24 hours): Temp Pulse Resp BP Pulse Ox 97.4 F L 76 20 115/82 97 06/02/18 08:51 06/02/18 08:51 06/02/18 08:51 06/02/18 10:26 06/02/18 08:51 Intake and Output: 06/02/18 06/02/18 06:59 18:59 Intake Total 1110 980 Output Total 600 1000 Balance 510 -20 - Medications Medications: Current Medications Acetaminophen (Tylenol 325mg Tab) 650 mg PO Q6H PRN PRN Reason: Fever >100.4 F Amlodipine Besylate (Norvasc) 10 mg PO DAILY [facility] Last Admin: 06/02/18 10:26 Dose: 10 mg Atorvastatin Calcium (Lipitor) 40 mg PO DIN [facility] Last Admin: 06/01/18 17:36 Dose: 40 mg Bacitracin (Bacitracin) 1 ea TOP BID [facility] Last Admin: 06/02/18 10:24 Dose: 1 ea Bupropion HCl (Wellbutrin Xl) 150 mg PO DAILY [facility] [place] Last Admin: 06/02/18 10:27 Dose: 150 mg Clopidogrel Bisulfate (Plavix) 75 mg PO DAILY [facility] [place] Last Admin: 06/02/18 10:27 Dose: 75 mg Collagenase (Santyl) 0 gm TOP DAILY [facility] [place] Docusate Sodium (Colace) 100 mg PO TID [facility] [place] Last Admin: 06/02/18 10:24 Dose: 100 mg Duloxetine HCl (Cymbalta) 30 mg PO Q8 [facility] [place] Last Admin: 06/02/18 05:57 Dose: 30 mg Enoxaparin Sodium (Lovenox) 40 mg SC DAILY [facility] [place] PRN Reason: Protocol Last Admin: 06/02/18 10:26 Dose: 40 mg Furosemide (Lasix) 40 mg PO DAILY [facility] [place] Last Admin: 06/02/18 10:25 Dose: 40 mg Gabapentin (Neurontin) 600 mg PO Q8 [facility] PRN Reason: Protocol Last Admin: 06/02/18 05:58 Dose: 600 mg Cefepime HCl (Maxipime 1gm) 1 gm in 100 mls @ 100 mls/hr IVPB Q8 [facility] PRN Reason: Protocol Last Admin: 06/02/18 05:58 Dose: 100 mls/hr Levetiracetam (Keppra) 500 mg PO Q12 [facility] Last Admin: 06/02/18 10:25 Dose: 500 mg Lorazepam (Ativan) 1 mg PO Q12 [facility] PRN Reason: Protocol Last Admin: 06/02/18 10:24 Dose: 1 mg Losartan Potassium (Cozaar) 100 mg PO DAILY [facility] [place] Last Admin: 06/02/18 10:25 Dose: 100 mg Ondansetron HCl (Zofran Inj) 4 mg IVP Q4H PRN PRN Reason: Nausea/Vomiting Pantoprazole Sodium (Protonix Ec Tab) 40 mg PO 0600 [facility] Last Admin: 06/02/18 05:59 Dose: 40 mg Polyethylene Glycol (Miralax) 17 gm PO DAILY [facility] [place] Last Admin: 06/02/18 10:26 Dose: 17 gm Risperidone (Risperdal Tab) 1 mg PO Q8 [facility] PRN Reason: Protocol Last Admin: 06/02/18 05:59 Dose: 1 mg Sertraline HCl (Zoloft) 100 mg PO DAILY [facility] [facility] Last Admin: 06/02/18 10:27 Dose: 100 mg Tizanidine HCl (Zanaflex) 4 mg PO QID [facility] [facility] Last Admin: 06/02/18 10:27 Dose: 4 mg - Labs Labs: 06/02/18 05:45 06/02/18 05:45 - Constitutional Appears: No Acute Distress - Head Exam Head Exam: ATRAUMATIC, NORMAL INSPECTION - Eye Exam Eye Exam: Normal appearance - ENT Exam ENT Exam: Mucous Membranes Moist - Neck Exam Additional comments: Old surgery scar in the middle posterior neck - Cardiovascular Exam Cardiovascular Exam: REGULAR RHYTHM, +S1, +S2, Murmur Additional comments: Systolic murmur heard in aortic area - GI/Abdominal Exam GI & Abdominal Exam: Soft, Tenderness, Normal Bowel Sounds Additional comments: Tender to palpation on lower quadrants of abdomen - Extremities Exam Extremities Exam: absent: Calf Tenderness, Pedal Edema - Neurological Exam Neurological Exam: Alert, Awake, Oriented x3 - Psychiatric Exam Psychiatric exam: Normal Affect, Normal Mood - Skin Skin Exam: Dry, Normal Color, Warm Additional comments: Dressing is C/D/I Assessment and Plan - Assessment and Plan (Free Text) Assessment: Mr. Proctor is a 63 year old male with a PMH of HTN, DM2, Reflex Sympathetic Dystrophy, arthritis, seizures, depression, and decubitus ulcer who is presenting with dizziness and stage 2 sacral decubitus ulcer. Plan: Dizziness - Most likely chronic vertigo, CVA ruled out - Repeat head CT (06/02)- pending - Head/neck CTA (05/30): unremarkable - Head CT (05/30): shows 2.7cm area of hypodensity in the right parietal posterior frontal region. This could represent an acute or subacute infarct. - Brain MRI not possible- patient has metal rods in his back and legs from prior surgeries. - C/w Plavix, atorvastatin - Echocardiogram (06/01): EF of 65%, moderate to severe aortic stenosis - EKG (05/30): NSR @80, no ST elevations or depressions - CXR (05/30): no active disease - Neurology consulted - Spoke with son to ask about his altered speech- son said the patient has slurred speech at his baseline, son was updated on his medical condition - Fall precautions - Seizure precautions - Aspiration precautions Infected stage 2 or 3 sacral decubitus ulcer - Wound culture: Proteus mirabilis, enterobacter aerogenes, and staph aureus - ID consulted - As per Dr. López, need to rule out osteomyelitis before patient is transferred to TCU- sacral xray and C-reactive protein ordered - c/w Cefepime 1g IV Q8- day #2 - C/w bacitracin ointment - Surgery consulted- no surgical intervention at this time, BID dressing changes with optiform and santyl, turn patient Q2 - Wound care nurse consulted Chronic constipation - Most likely secondary to prolonged use of opiates - c/w miralax and colace - Gave 1 x dulcolax suppository (06/02) History of depression - Patient is on antidepressants - Psychiatry consulted to review patient's medication before transfer to TCU Chronic back pain - Secondary due to Reflex Sympathetic Dystrophy - c/w gabapentin - PT consulted History of hypertension - c/w losartan and amlodipine History of depression - c/w bupropion, duloxetine, sertraline History of seizures - c/w Keppra 500 BID, Ativan 1mg Q12 GI/DVT prophylaxis: Protonix, SCD's Patient seen, examined, and case discussed with Dr. Domínguez <Vesna Domínguez R - Last Filed: 06/02/18 17:24> Objective - Vital Signs/Intake and Output Vital Signs (last 24 hours): Temp Pulse Resp BP Pulse Ox 97.4 F L 89 20 109/74 99 06/02/18 16:43 06/02/18 16:43 06/02/18 16:43 06/02/18 16:43 06/02/18 16:43 Intake and Output: 06/02/18 06/02/18 06:59 18:59 Intake Total 1110 980 Output Total 600 1000 Balance 510 -20 - Medications Medications: Current Medications Acetaminophen (Tylenol 325mg Tab) 650 mg PO Q6H PRN PRN Reason: Fever >100.4 F Amlodipine Besylate (Norvasc) 10 mg PO DAILY [facility] [place] Last Admin: 06/02/18 10:26 Dose: 10 mg Atorvastatin Calcium (Lipitor) 40 mg PO DIN [facility] [place] Last Admin: 06/01/18 17:36 Dose: 40 mg Bacitracin (Bacitracin) 1 ea TOP BID [facility] Last Admin: 06/02/18 10:24 Dose: 1 ea Bupropion HCl (Wellbutrin Xl) 150 mg PO DAILY [facility] Last Admin: 06/02/18 10:27 Dose: 150 mg Clopidogrel Bisulfate (Plavix) 75 mg PO DAILY [facility] [place] Last Admin: 06/02/18 10:27 Dose: 75 mg Docusate Sodium (Colace) 100 mg PO TID [facility] Last Admin: 06/02/18 15:17 Dose: 100 mg Duloxetine HCl (Cymbalta) 30 mg PO Q8 [facility] Last Admin: 06/02/18 15:17 Dose: 30 mg Enoxaparin Sodium (Lovenox) 40 mg SC DAILY [facility] PRN Reason: Protocol Last Admin: 06/02/18 10:26 Dose: 40 mg Furosemide (Lasix) 40 mg PO DAILY [facility] Last Admin: 06/02/18 10:25 Dose: 40 mg Gabapentin (Neurontin) 600 mg PO Q8 [facility] PRN Reason: Protocol Last Admin: 06/02/18 15:18 Dose: 600 mg Cefepime HCl (Maxipime 1gm) 1 gm in 100 mls @ 100 mls/hr IVPB Q8 [facility] PRN Reason: Protocol Last Admin: 06/02/18 15:18 Dose: 100 mls/hr Levetiracetam (Keppra) 500 mg PO Q12 [facility] [place] Last Admin: 06/02/18 10:25 Dose: 500 mg Lorazepam (Ativan) 2 mg PO Q12 [facility] PRN Reason: Protocol Losartan Potassium (Cozaar) 100 mg PO DAILY [facility] Last Admin: 06/02/18 10:25 Dose: 100 mg Ondansetron HCl (Zofran Inj) 4 mg IVP Q4H PRN PRN Reason: Nausea/Vomiting Pantoprazole Sodium (Protonix Ec Tab) 40 mg PO 0600 [facility] Last Admin: 06/02/18 05:59 Dose: 40 mg Polyethylene Glycol (Miralax) 17 gm PO DAILY [facility] Last Admin: 06/02/18 10:26 Dose: 17 gm Quetiapine Fumarate (Seroquel) 300 mg PO HS [facility] PRN Reason: Protocol Risperidone (Risperdal Tab) 1 mg PO Q8 [facility] PRN Reason: Protocol Last Admin: 06/02/18 15:18 Dose: 1 mg Sertraline HCl (Zoloft) 100 mg PO DAILY [facility] Last Admin: 06/02/18 10:27 Dose: 100 mg Tizanidine HCl (Zanaflex) 4 mg PO QID [facility] Last Admin: 06/02/18 15:19 Dose: 4 mg - Labs Labs: 06/02/18 05:45 06/02/18 05:45 Attending/Attestation - Attestation I have personally seen and examined this patient.: Yes I have fully participated in the care of the patient.: Yes I have reviewed all pertinent clinical information, including history, physical exam and plan: Yes Notes (Text): Patient seen and examined by me at 11:30AM with resident. Case including HPI, physical exam, and physical assessment and plan discussed with resident. Agree with above with following additions/corrections. Patient states that he is feeling okay. States he had a bowel movement but it was "yellow liquid." Complains of back and bilateral extremity pain. States that speech difficulty is new and that is why he came into the hospital. Per patient's and son, patient's speech is at baseline. Patient denies chest pain or shortness of breath. No abdominal pain, nausea, or vomiting. No fevers or chills. No headaches or dizziness. No dysuria. Physical exam: Gen: Awake and alert sitting up in bed in no acute distress HEENT: Normocephalic, atraumatic. Extraocular muscles intact, pupils equal reactive. Oropharynx is pink and moist, no pharyngeal erythema or exudate appreciated. Neck is supple. Cardiovascular: Normal rhythm, normal S1-S2. Positive systolic murmur. No rubs or gallops appreciated Pulmonary: Normal respiratory effort. No rhonchi, rales or wheezing appreciated. Gastrointestinal: Soft, mild tenderness on bilateral lateral sides of abdomen, nondistended, positive bowel sounds all 4 quadrants, no guarding Musculoskeletal: Decreased range of motion all extremities (chronic) Central nervous system: AAO 3 Dermatologic: Skin warm and dry. Positive stage II ulcer lower back/sacral area with mild drainage. Assessment and plan: Patient is a 63-year-old male with past medical history significant for hypertension, type 2 diabetes, reflex sympathetic dystrophy, arthritis, depression, seizures, chronic decubitus ulcer, and constipation that presented to the emergency room with dizziness and altered speech. 1. Infected stage II sacral decubitus. Wound cultures positive for enterobacter , proteus, and staph aureus sensitive to cefepime and vancomycin. ID following, recommendations appreciated. Continue Cefepime Day #2. Vancomycin stopped per ID. Continue wound care. Surgical team recommendations appreciated. Sacrum and coccyx xray do not show signs of osteomyelitis. 2. Dizziness and altered speech. Resolved dizziness. CT head 05/31/18 per radiologist shows 2.7 cm diameter area of hypodensity in the right parietal posterior frontal region; this could represent an acute or subacute infarct. 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 Unable to get MRI secondary to metal and patient's body. CTA head per radiologist showed unremarkable angiography of brain. CTA neck per radiologist shows no significant stenosis or occlusions. 2-D echo per drying equipment operator shows EF 65% and moderate to severe aortic stenosis(please see official results for full details). 3. Moderate to severe aortic stenosis seen on 2-D echo. Cardiology consulted, recommendations appreciated. 4. Constipation. Patient uses chronic opioids at home. Continue with MiraLAX and Colace. Patient given Dulcolax suppository. Monitor for bowel movement. 5. Chronic pain. Likely secondary to reflex sympathetic dystrophy. Continue with Neurontin and Zanaflex. PT eval and treat. Will likely need physical rehabilitation. 6. Essential hypertension. Continue losartan and amlodipine. 7. Dyslipidemia. Continue Lipitor. 8. History of depression and anxiety. Continue Cymbalta, risperidone, Zoloft, Wellbutrin, and Ativan. Psychiatry recommendations appreciated. Patient cleared for discharge to rehabilitation by psychiatry. 9. History of seizures. Continue Keppra. 10. GI and DVT prophylaxis. Protonix and Lovenox Case was discussed in detail with the patient, medical screener, and cardiology Dr. Fabian regarding current diagnosis and treatment plan
--- NOTE | 2018-06-02 14:34 | CT ---
Date of service: 06/02/2018 PROCEDURE: CT HEAD WITHOUT CONTRAST. HISTORY: follow up COMPARISON: 05/30/2018 TECHNIQUE: Axial computed tomography images were obtained through the head/brain without intravenous contrast. Radiation dose: Total exam DLP = 889 mGy-cm. This CT exam was performed using one or more of the following dose reduction techniques: Automated exposure control, adjustment of the mA and/or kV according to patient size, and/or use of iterative reconstruction technique. FINDINGS: HEMORRHAGE: No intracranial hemorrhage. BRAIN: No mass effect or edema. 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 This is unchanged. This measures approximately 3 cm in diameter. The study is limited due the patient's position. VENTRICLES: Unremarkable. No hydrocephalus. CALVARIUM: Unremarkable. PARANASAL SINUSES: Unremarkable as visualized. No significant inflammatory changes. MASTOID AIR CELLS: Unremarkable as visualized. No inflammatory changes. OTHER FINDINGS: None. IMPRESSION: Limited study which excludes the anterior 3rd of the head. 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
--- NOTE | 2018-06-02 15:11 | RAD ---
Date of service: 06/02/2018 PROCEDURE: Radiographs of the Sacrum and Coccyx HISTORY: r/o osteomyolitis of the sacral region COMPARISON: None available. TECHNIQUE: Frontal and lateral views of the sacrum and coccyx FINDINGS: BONES: Sacrum and coccyx unremarkable. No fracture or focal lesion. SACROILIAC JOINTS: Unremarkable. OTHER FINDINGS: None. IMPRESSION: Unremarkable radiographs of the sacrum and coccyx.
--- NOTE | 2018-06-02 16:20 | CON ---
DATE: 06/02/2018 HISTORY OF PRESENT ILLNESS: Shortly, the patient is a 63-year-old male, multiple medical history including hypertension, diabetes, reflex sympathetic dystrophy, arthritis. The patient has also history of depression, chronic decubitus ulcers and constipation. The patient was admitted on the medical site for evaluation of dizziness and altered speech. Psych consult was called because the patient is on psychotropic medication and he was scheduled to be transferred to Transitional Care Unit. This patient is very familiar to this database report writer from the multiple consultation services as well as psychiatric inpatient admission under Dr. Ferreira's service and it was in 2014. The patient's medication will be confirmed by the patient's pharmacy. The patient was able to remember phone number by-heart, and [phone]. The patient reports that he is compliant with the medication and his is providing medication to him. The patient denied being depressed. Denied thoughts of harming himself or others. Denied hearing voices. Denied seeing things. The patient is quite aware of the circumstances of his admission to the medical site. As per collateral information from the nursing staff, the patient is compliant with the treatment. No agitation or aggression. The patient has fair appetite and sleep. Medications reviewed. The patient is on Wellbutrin 150 mg p.o. daily, cefepime, Plavix, Colace, Cymbalta, Lovenox, Lasix, Neurontin, Keppra, Ativan, Cozaar, Zofran, Protonix, MiraLax, Risperdal 1 mg every 8 hours, Zoloft 100 mg daily, vancomycin. Labs reviewed. MENTAL STATUS EXAMINATION: The patient presented to be alert and oriented, somewhat pleasant, intense eye contact. Speech was underproductive. Thought process concrete. Thought content, the patient denied hearing voices, denied seeing things. Denied paranoid ideation. The patient does not present to be psychotic. Insight and judgment seems to be fair. Impulses are well controlled. IMPRESSION: The patient has long history of mood spectrum disorder, which may be related to the medical issues. PLAN: Psych sports team marketing intern was advised to give a call to the pharmacy to confirm medication. The patient pose no imminent danger to self or others. After medications will be confirmed, there is no need for this database report writer to follow up on this patient. The patient is no imminent danger to self or others. Discussed with nursing staff and medical team. Thank you very much for letting me participate in the care of your patient. Luci Stratton MD
[2018-06-03] MEDS: Pantoprazole 40 mg EC Tab PO SCH (06:40)
[2018-06-03] MEDS: Cefepime 1gm in NS 100ml 1 GM/100 ML BAG IVPB SCH ×3 (06:42→21:18)
[2018-06-03 08:00] LABS: HEMOGLOBIN 14.4 g/dL (14.0-18.0); MEAN CELL VOLUME 90.1 fl (80.0-105.0); MEAN CORPUSCULAR HEMOGLOBIN 29.6 pg (25.0-35.0); MEAN CORPUSCULAR HGB CONC 32.9 g/dl (31.0-37.0); MEAN PLATELET VOLUME 12.2 fl (7.0-11.0); RBC 4.86 10^6/uL (3.5-6.1); RED CELL DISTRIBUTION WIDTH 13.1 % (11.5-14.5); WHITE BLOOD COUNT 8.4 10^3/ul (4.5-11.0)
[2018-06-03 08:21] LABS: ALB/GLOB RATIO 1.3 (1.1-1.8); ALBUMIN 3.7 g/dL (3.0-4.8); ALT/SGPT 30 U/L (7-56); AST/SGOT 18 U/L (17-59); BLOOD UREA NITROGEN 17 mg/dL (7-21); CALCIUM 9.1 mg/dL (8.4-10.5); GFR AFRICAN-AMERICAN > 60; GFR NON-AFRICAN AMERICAN > 60
--- NOTE | 2018-06-03 09:16 | CON ---
DATE: 06/03/2018 CARDIOLOGY CONSULTATION REASON FOR CONSULTATION: Aortic stenosis. HISTORY OF PRESENT ILLNESS: The patient is a 63-year-old white male who is practically bedridden and is being attended by his at home. He presented because of dizziness and slurring of speech. The patient has a history of hypertension and diabetes mellitus and reflex sympathetic dystrophy. The patient is known to have aortic stenosis on an echocardiographic study performed in 2014 and during this admission, a followup echocardiographic study revealed [id number] valvular aortic stenosis with odrr-la-nyhoubtp aortic insufficiency, normal ejection fraction. Cardiology consult was called to evaluate the patient for his current aortic valve disease. The patient denies any chest pain. He does report dizziness, but denies any syncope. SOCIAL HISTORY: The patient is a nonsmoker. He lives with his who takes care of him. MEDICATIONS: Ativan 2 mg p.o. every 12 hours, Colace 100 mg t.i.d., Cozaar 100 mg once a day, Cymbalta 30 mg every 8 hours, Keppra 500 mg twice a day, Lasix 40 mg p.o. once a day, Lipitor 40 mg p.o. once a day, Lovenox 40 mg subcutaneous once a day, Maxipime 1 gm intravenously every 8 hours, Neurontin 600 mg every 8 hours, Plavix 75 mg once a day, Wellbutrin 150 mg daily, Zoloft 100 mg daily, Zofran 4 mg intravenously every 4 hours p.r.n. REVIEW OF SYSTEMS: No fever or chills. No vomiting or diarrhea. PHYSICAL EXAMINATION: GENERAL: The patient is a middle-aged male who does not appear to be in acute distress. VITAL SIGNS: Blood pressure 115/82, heart rate is 76, temperature 97.4, respirations 20. HEENT: Normocephalic. CHEST: Clear. HEART: S1 and S2 are regular. Grade 3/6 ejection systolic murmur over the left sternal border and grade 2/6 early diastolic murmur over the same area. ABDOMEN: Soft. EXTREMITIES: Trace leg edema. Scar of left previous knee surgery. LABORATORY DATA: SMA-7: Sodium 142, potassium 3.9, chloride 105, CO2 is 28, glucose 115, BUN 21, creatinine 0.9. Today's hemoglobin and hematocrit 14.1 and 42.7. White count and platelet count are within normal limit. Echocardiographic study revealed mild concentric left ventricular hypertrophy with normal ejection fraction, calcific aortic valve with decreased opening, tpzp-ab-alpthzmc aortic insufficiency with rvkrefiu-ac-fzozps valvular aortic stenosis, although the word valvular was mis-written at supravalvular. Mildly elevated aortic root. Head CT scan without contrast on admission revealed 2.7 cm area of hypodensity in the right parietal posterior frontal region acute or subacute infarct. Repeat head CT scan done today, limited study, which excludes the anterior third of the head, well-defined infarct in the right posterior temporoparietal lobe unchanged. Sacrum and coccyx x-ray done today, unremarkable radiograph of the sacrum and coccyx. EKG: Revealed normal sinus rhythm, infarct, age indeterminate. ASSESSMENT: 1. 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 2. History of recent cardiovascular accident, with a well-defined infarct in the right posterior temporoparietal lobe. 3. Infected sacral decubitus. The wound culture is positive for Proteus mirabilis, Enterococcus aerogenes, and Staphylococcus aureus. 4. Reflex sympathetic dystrophy. 5. Hypertension. 6. Depression. RECOMMENDATIONS: The case was discussed at length with the medical team. The patient will be kept on Cozaar at 100 mg once a day, Keppra at 500 mg twice a day, Lasix 40 mg p.o. once a day, Lipitor at 40 mg once a day, Lovenox at 40 mg subcutaneous once a day, Maxipime at 1 gm every 8 hours, Norvasc 10 mg once a day, Plavix 75 mg once a day. Please start Seroquel, Wellbutrin, and Zoloft. The patient is not a suitable candidate for aortic valve replacement at this time. The most recent chest CT scan done in 04/2017 did not reveal aortic aneurysm. Although the aortic stenosis is significant, the patient's other medical problems and the fact that he had a recent acute CVA prohibits an invasive cardiac intervention and cardiac surgery at this time, which will definitely include a bioprosthetic aortic valve, and aortic root grafts, and possible bypass surgery. Stuart Hannallah, MD [facility] # [id number]
[2018-06-03] MEDS: Bacitracin 500 Units/gm Oint Foilpak UD TOP SCH ×2 (09:48→17:23)
[2018-06-03] MEDS: Enoxaparin 40 mg Syringe SC SCH (09:50)
[2018-06-03] MEDS: POLYETHYLENE GLYCOL 3350 17 GM/Dose PACKET PO SCH (09:50)
[2018-06-03] MEDS: buPROPion 150 mg/24 Hours XL Tab PO SCH (09:51)
[2018-06-03] MEDS: Silver Sulfadiazine 1% Cream (25 gm) TP SCH (11:28)
--- NOTE | 2018-06-03 12:05 | CP.PCM.PN ---
Subjective - Date & Time of Evaluation Date of Evaluation: 06/03/18 Time of Evaluation: 12:02 - Subjective Subjective: Garrison Hurst PGY2 - Neurology Progress Note for Dr. Mendosa Patient seen and evaluated this AM. Patient reports continued slurred speech and chronic weakness associated with his reflex sympthatic dystrophy. Patient reports not working with PT. He denies new neurological deficits since admission. Objective - Vital Signs/Intake and Output Vital Signs (last 24 hours): Temp Pulse Resp BP Pulse Ox 97.4 F L 89 20 124/84 99 06/02/18 16:43 06/02/18 16:43 06/02/18 16:43 06/03/18 09:50 06/02/18 16:43 Intake and Output: 06/03/18 06/03/18 06:59 18:59 Intake Total 440 Output Total 2925 Balance -2485 - Medications Medications: Current Medications Acetaminophen (Tylenol 325mg Tab) 650 mg PO Q6H PRN PRN Reason: Fever >100.4 F Amlodipine Besylate (Norvasc) 10 mg PO DAILY [facility] Last Admin: 06/03/18 09:50 Dose: 10 mg Atorvastatin Calcium (Lipitor) 40 mg PO DIN [facility] Last Admin: 06/02/18 18:15 Dose: 40 mg Bacitracin (Bacitracin) 1 ea TOP BID [facility] Last Admin: 06/03/18 09:48 Dose: 1 ea Bupropion HCl (Wellbutrin Xl) 150 mg PO DAILY [facility] Last Admin: 06/03/18 09:51 Dose: 150 mg Clopidogrel Bisulfate (Plavix) 75 mg PO DAILY [facility] Last Admin: 06/03/18 09:51 Dose: 75 mg Docusate Sodium (Colace) 100 mg PO TID [facility] Last Admin: 06/03/18 09:48 Dose: 100 mg Duloxetine HCl (Cymbalta) 30 mg PO Q8 [facility] Last Admin: 06/03/18 06:40 Dose: 30 mg Enoxaparin Sodium (Lovenox) 40 mg SC DAILY [facility] PRN Reason: Protocol Last Admin: 06/03/18 09:50 Dose: 40 mg Furosemide (Lasix) 40 mg PO DAILY [facility] Last Admin: 06/03/18 09:49 Dose: 40 mg Gabapentin (Neurontin) 600 mg PO Q8 [facility] PRN Reason: Protocol Last Admin: 06/03/18 06:40 Dose: 600 mg Cefepime HCl (Maxipime 1gm) 1 gm in 100 mls @ 100 mls/hr IVPB Q8 [facility] PRN Reason: Protocol Last Admin: 06/03/18 06:42 Dose: 100 mls/hr Levetiracetam (Keppra) 500 mg PO Q12 [facility] Last Admin: 06/03/18 09:48 Dose: 500 mg Lorazepam (Ativan) 2 mg PO Q12 [facility] PRN Reason: Protocol Last Admin: 06/03/18 09:48 Dose: 2 mg Losartan Potassium (Cozaar) 100 mg PO DAILY [facility] Last Admin: 06/03/18 09:48 Dose: 100 mg Meclizine HCl (Antivert) 12.5 mg PO TID [facility] Ondansetron HCl (Zofran Inj) 4 mg IVP Q4H PRN PRN Reason: Nausea/Vomiting Pantoprazole Sodium (Protonix Ec Tab) 40 mg PO 0600 [facility] Last Admin: 06/03/18 06:40 Dose: 40 mg Polyethylene Glycol (Miralax) 17 gm PO DAILY [facility] Last Admin: 06/03/18 09:50 Dose: 17 gm Quetiapine Fumarate (Seroquel) 300 mg PO HS [facility] PRN Reason: Protocol Last Admin: 06/02/18 21:43 Dose: 300 mg Risperidone (Risperdal Tab) 1 mg PO Q8 [facility] PRN Reason: Protocol Last Admin: 06/03/18 06:41 Dose: 1 mg Sertraline HCl (Zoloft) 100 mg PO DAILY [facility] Last Admin: 06/03/18 09:51 Dose: 100 mg Silver Sulfadiazine (Silvadene 1% 25 Gm) 1 gm TP BID [facility] Tizanidine HCl (Zanaflex) 4 mg PO QID [facility] Last Admin: 06/03/18 09:51 Dose: 4 mg - Labs Labs: 06/03/18 07:30 06/03/18 07:30 - Constitutional Appears: Non-toxic - Head Exam Head Exam: ATRAUMATIC, NORMAL INSPECTION, NORMOCEPHALIC - Eye Exam Eye Exam: EOMI, Nystagmus (lateral gaze resolving bilaterally ), PERRL - Respiratory Exam Respiratory Exam: Clear to Ausculation Bilateral, NORMAL BREATHING PATTERN - Cardiovascular Exam Cardiovascular Exam: REGULAR RHYTHM, +S1, +S2 - GI/Abdominal Exam GI & Abdominal Exam: Soft, Normal Bowel Sounds - Extremities Exam Extremities Exam: absent: Pedal Edema - Neurological Exam Neurological Exam: Alert, Awake, Oriented x3 Neuro motor strength exam: Left Upper Extremity: 4, Right Upper Extremity: 4, Left Lower Extremity: 3, Right Lower Extremity: 3 Additional comments: AAOx3, speech tangential, mild slurring speech that is comprehensible blunted sensation to light touch associated with face and extremities, not accurate Gait: patient refused Assessment and Plan - Assessment and Plan (Free Text) Assessment: 63 year old male with past medical history of HTN, DM2, RSD who presented with dizziness, likely vertigo. Patient had initial Head CT showing chronic right parietal stroke and repeat Head CT showing subacute unchanged right parietal stroke. Plan: Subacute right parietal stroke - Head CT(05/30/18): chronic right parietal stroke - Head CT(06/02/18): More defined subacute right parietal stroke in comparison form previous imaging indicating development and thus defined as subacute - Head/Neck CTA(05/30/18): No significant stenosis or occlusion appreciated - PT/OT - Follow up with neurology outpatient in 2 weeks - Cleared for discharge from neurological standpoint Further recommendations per Dr. Mendosa Case and plan discussed with attending Nicole Hurst PGY2
--- NOTE | 2018-06-03 14:47 | CP.PCM.PN ---
Subjective - Date & Time of Evaluation Date of Evaluation: 06/03/18 Time of Evaluation: 10:55 - Subjective Subjective: Afebrile, not in distress. Objective - Vital Signs/Intake and Output Vital Signs (last 24 hours): Temp Pulse Resp BP Pulse Ox 97.4 F L 89 20 124/84 99 06/02/18 16:43 06/02/18 16:43 06/02/18 16:43 06/03/18 09:50 06/02/18 16:43 Intake and Output: 06/03/18 06/03/18 06:59 18:59 Intake Total 440 Output Total 2925 Balance -2485 - Medications Medications: Current Medications Acetaminophen (Tylenol 325mg Tab) 650 mg PO Q6H PRN PRN Reason: Fever >100.4 F Amlodipine Besylate (Norvasc) 10 mg PO DAILY [facility] Last Admin: 06/03/18 09:50 Dose: 10 mg Atorvastatin Calcium (Lipitor) 40 mg PO DIN [facility] Last Admin: 06/02/18 18:15 Dose: 40 mg Bacitracin (Bacitracin) 1 ea TOP BID [facility] Last Admin: 06/03/18 09:48 Dose: 1 ea Bupropion HCl (Wellbutrin Xl) 150 mg PO DAILY [facility] Last Admin: 06/03/18 09:51 Dose: 150 mg Clopidogrel Bisulfate (Plavix) 75 mg PO DAILY [facility] Last Admin: 06/03/18 09:51 Dose: 75 mg Docusate Sodium (Colace) 100 mg PO TID [facility] Last Admin: 06/03/18 09:48 Dose: 100 mg Duloxetine HCl (Cymbalta) 30 mg PO Q8 [facility] Last Admin: 06/03/18 06:40 Dose: 30 mg Enoxaparin Sodium (Lovenox) 40 mg SC DAILY [facility] PRN Reason: Protocol Last Admin: 06/03/18 09:50 Dose: 40 mg Furosemide (Lasix) 40 mg PO DAILY [facility] Last Admin: 06/03/18 09:49 Dose: 40 mg Gabapentin (Neurontin) 600 mg PO Q8 [facility] PRN Reason: Protocol Last Admin: 06/03/18 06:40 Dose: 600 mg Cefepime HCl (Maxipime 1gm) 1 gm in 100 mls @ 100 mls/hr IVPB Q8 [facility] PRN Reason: Protocol Last Admin: 06/03/18 06:42 Dose: 100 mls/hr Levetiracetam (Keppra) 500 mg PO Q12 [facility] Last Admin: 06/03/18 09:48 Dose: 500 mg Lorazepam (Ativan) 2 mg PO Q12 [facility] PRN Reason: Protocol Last Admin: 06/03/18 09:48 Dose: 2 mg Losartan Potassium (Cozaar) 100 mg PO DAILY [facility] Last Admin: 06/03/18 09:48 Dose: 100 mg Ondansetron HCl (Zofran Inj) 4 mg IVP Q4H PRN PRN Reason: Nausea/Vomiting Pantoprazole Sodium (Protonix Ec Tab) 40 mg PO 0600 [facility] Last Admin: 06/03/18 06:40 Dose: 40 mg Polyethylene Glycol (Miralax) 17 gm PO DAILY [facility] Last Admin: 06/03/18 09:50 Dose: 17 gm Quetiapine Fumarate (Seroquel) 300 mg PO HS [facility] PRN Reason: Protocol Last Admin: 06/02/18 21:43 Dose: 300 mg Risperidone (Risperdal Tab) 1 mg PO Q8 [facility] PRN Reason: Protocol Last Admin: 06/03/18 06:41 Dose: 1 mg Sertraline HCl (Zoloft) 100 mg PO DAILY [facility] Last Admin: 06/03/18 09:51 Dose: 100 mg Tizanidine HCl (Zanaflex) 4 mg PO QID [facility] Last Admin: 06/03/18 09:51 Dose: 4 mg - Labs Labs: 06/03/18 07:30 06/03/18 07:30 - Constitutional Appears: Chronically Ill - Head Exam Head Exam: NORMAL INSPECTION - Respiratory Exam Respiratory Exam: Decreased Breath Sounds - Cardiovascular Exam Cardiovascular Exam: +S1, +S2 - GI/Abdominal Exam GI & Abdominal Exam: Soft. absent: Tenderness Assessment and Plan - Assessment and Plan (Free Text) Plan: assessment infected sacral decubitus ulcer stage 2 to 3, growing MSSA, Proteus, Enterobacter history of right index finger cellulitis with associated wound cervical spine trauma S/P cervical laminectomy history of reflex sympathetic dystrophy plan continue Cefepime for 10-14 days with local wound care
--- NOTE | 2018-06-03 15:48 | CP.PCM.PN ---
<Juan M Birmingham - Last Filed: 06/03/18 15:56> Subjective - Date & Time of Evaluation Date of Evaluation: 06/03/18 Time of Evaluation: 15:38 - Subjective Subjective: Juan M Birmingham D.O PGY-1, Internal Medicine progress note for Dr. Domínguez Patient was examined at bedside. Patient states that he had a bowel movement last night with not much stool. He is still complaining of constipation. Denies fevers, chills, chest pain, shortness of breath, N/V/D. Objective - Vital Signs/Intake and Output Vital Signs (last 24 hours): Temp Pulse Resp BP Pulse Ox 97.4 F L 89 20 124/84 99 06/02/18 16:43 06/02/18 16:43 06/02/18 16:43 06/03/18 09:50 06/02/18 16:43 Intake and Output: 06/03/18 06/03/18 06:59 18:59 Intake Total 440 Output Total 2925 Balance -2485 - Medications Medications: Current Medications Acetaminophen (Tylenol 325mg Tab) 650 mg PO Q6H PRN PRN Reason: Fever >100.4 F Amlodipine Besylate (Norvasc) 10 mg PO DAILY [facility] Last Admin: 06/03/18 09:50 Dose: 10 mg Atorvastatin Calcium (Lipitor) 40 mg PO DIN [facility] Last Admin: 06/02/18 18:15 Dose: 40 mg Bacitracin (Bacitracin) 1 ea TOP BID [facility] Last Admin: 06/03/18 09:48 Dose: 1 ea Bupropion HCl (Wellbutrin Xl) 150 mg PO DAILY [facility] Last Admin: 06/03/18 09:51 Dose: 150 mg Clopidogrel Bisulfate (Plavix) 75 mg PO DAILY [facility] Last Admin: 06/03/18 09:51 Dose: 75 mg Docusate Sodium (Colace) 100 mg PO TID [facility] Last Admin: 06/03/18 14:26 Dose: 100 mg Duloxetine HCl (Cymbalta) 30 mg PO Q8 [facility] Last Admin: 06/03/18 14:27 Dose: 30 mg Enoxaparin Sodium (Lovenox) 40 mg SC DAILY [facility] PRN Reason: Protocol Last Admin: 06/03/18 09:50 Dose: 40 mg Furosemide (Lasix) 40 mg PO DAILY [facility] Last Admin: 06/03/18 09:49 Dose: 40 mg Gabapentin (Neurontin) 600 mg PO Q8 [facility] PRN Reason: Protocol Last Admin: 06/03/18 14:27 Dose: 600 mg Cefepime HCl (Maxipime 1gm) 1 gm in 100 mls @ 100 mls/hr IVPB Q8 [facility] PRN Reason: Protocol Last Admin: 06/03/18 14:26 Dose: 100 mls/hr Levetiracetam (Keppra) 500 mg PO Q12 [facility] Last Admin: 06/03/18 09:48 Dose: 500 mg Lorazepam (Ativan) 2 mg PO Q12 [facility] PRN Reason: Protocol Last Admin: 06/03/18 09:48 Dose: 2 mg Losartan Potassium (Cozaar) 100 mg PO DAILY [facility] Last Admin: 06/03/18 09:48 Dose: 100 mg Meclizine HCl (Antivert) 12.5 mg PO TID [facility] Last Admin: 06/03/18 14:27 Dose: 12.5 mg Ondansetron HCl (Zofran Inj) 4 mg IVP Q4H PRN PRN Reason: Nausea/Vomiting Pantoprazole Sodium (Protonix Ec Tab) 40 mg PO 0600 [facility] Last Admin: 06/03/18 06:40 Dose: 40 mg Polyethylene Glycol (Miralax) 17 gm PO DAILY [facility] Last Admin: 06/03/18 09:50 Dose: 17 gm Quetiapine Fumarate (Seroquel) 300 mg PO HS [facility] PRN Reason: Protocol Last Admin: 06/02/18 21:43 Dose: 300 mg Risperidone (Risperdal Tab) 1 mg PO Q8 [facility] PRN Reason: Protocol Last Admin: 06/03/18 14:27 Dose: 1 mg Sertraline HCl (Zoloft) 100 mg PO DAILY [facility] Last Admin: 06/03/18 09:51 Dose: 100 mg Silver Sulfadiazine (Silvadene 1% 25 Gm) 1 gm TP BID [facility] Tizanidine HCl (Zanaflex) 4 mg PO QID [facility] Last Admin: 06/03/18 14:27 Dose: 4 mg - Labs Labs: 06/03/18 07:30 06/03/18 07:30 - Constitutional Appears: No Acute Distress - Head Exam Head Exam: ATRAUMATIC, NORMAL INSPECTION - Eye Exam Eye Exam: Normal appearance - ENT Exam ENT Exam: Mucous Membranes Moist - Respiratory Exam Respiratory Exam: Clear to Ausculation Bilateral. absent: Rales, Rhonchi, Wheezes - Cardiovascular Exam Cardiovascular Exam: REGULAR RHYTHM, +S1, +S2. absent: Gallop, Rubs, Murmur - GI/Abdominal Exam GI & Abdominal Exam: Soft, Normal Bowel Sounds. absent: Tenderness - Extremities Exam Extremities Exam: absent: Calf Tenderness, Pedal Edema - Neurological Exam Neurological Exam: Alert, Awake, Oriented x3 - Psychiatric Exam Psychiatric exam: Normal Affect, Normal Mood - Skin Skin Exam: Dry, Normal Color, Warm Additional comments: Sacral decubitus ulcer stage 2-3, dressing C/D/I Assessment and Plan - Assessment and Plan (Free Text) Assessment: Mr. Proctor is a 63 year old male with a PMH of HTN, DM2, Reflex Sympathetic Dystrophy, arthritis, seizures, depression, and decubitus ulcer who is presenting with dizziness and stage 2-3 sacral decubitus ulcer. Plan: Dizziness - Most likely chronic vertigo, CVA ruled out - Neurology cleared patient for discharge - Follow up with neurology outpatient in 2 weeks - Repeat head CT (06/02): More defined subacute right parietal stroke in comparison form previous imaging indicating development and thus defined as subacute - Head/neck CTA (05/30): No significant stenosis or occlusion appreciated - Head CT (05/30): shows 2.7cm area of hypodensity in the right parietal posterior frontal region. This could represent an acute or subacute infarct. - Brain MRI not possible- patient has metal rods in his back and legs from prior surgeries. - C/w Plavix, atorvastatin - Echocardiogram (06/01): EF of 65%, moderate to severe aortic stenosis - EKG (05/30): NSR @80, no ST elevations or depressions - CXR (05/30): no active disease - Spoke with son to ask about his altered speech- son said the patient has slurred speech at his baseline, son was updated on his medical condition - Fall precautions - Seizure precautions - Aspiration precautions Infected stage 2 or 3 sacral decubitus ulcer - Wound culture: Proteus mirabilis, enterobacter aerogenes, and staph aureus - ID consulted - Sacral X-ray: unremarkable - c-reactive protein pending - c/w Cefepime 1g IV Q8- continue for 10-14 days, on day #3 - C/w bacitracin ointment - Surgery consulted- no surgical intervention at this time, BID dressing changes with optiform and santyl, turn patient Q2 - Wound care nurse consulted Chronic constipation - Most likely secondary to prolonged use of opiates - c/w miralax and colace - Gave 1 x dulcolax suppository (06/03) History of depression - Patient is on antidepressants - Psychiatry consulted to review patient's medication before transfer to acute rehab Chronic back pain - Secondary due to Reflex Sympathetic Dystrophy - c/w gabapentin - PT/OT consulted History of hypertension - c/w losartan and amlodipine History of seizures - c/w Keppra 500 BID, Ativan 1mg Q12 GI/DVT prophylaxis: Protonix, SCD's Patient seen, examined, and case discussed with Dr. Domínguez <Vesna Domínguez R - Last Filed: 06/03/18 17:36> Objective - Vital Signs/Intake and Output Vital Signs (last 24 hours): Temp Pulse Resp BP Pulse Ox 97.4 F L 89 20 124/84 99 06/02/18 16:43 06/02/18 16:43 06/02/18 16:43 06/03/18 09:50 06/02/18 16:43 Intake and Output: 06/03/18 06/03/18 06:59 18:59 Intake Total 440 Output Total 2925 Balance -2485 - Medications Medications: Current Medications Acetaminophen (Tylenol 325mg Tab) 650 mg PO Q6H PRN PRN Reason: Fever >100.4 F Amlodipine Besylate (Norvasc) 10 mg PO DAILY [facility] Last Admin: 06/03/18 09:50 Dose: 10 mg Atorvastatin Calcium (Lipitor) 40 mg PO DIN [facility] Last Admin: 06/02/18 18:15 Dose: 40 mg Bacitracin (Bacitracin) 1 ea TOP BID [facility] Last Admin: 06/03/18 09:48 Dose: 1 ea Bupropion HCl (Wellbutrin Xl) 150 mg PO DAILY [facility] Last Admin: 06/03/18 09:51 Dose: 150 mg Clopidogrel Bisulfate (Plavix) 75 mg PO DAILY [facility] Last Admin: 06/03/18 09:51 Dose: 75 mg Docusate Sodium (Colace) 100 mg PO TID [facility] Last Admin: 06/03/18 14:26 Dose: 100 mg Duloxetine HCl (Cymbalta) 30 mg PO Q8 [facility] Last Admin: 06/03/18 14:27 Dose: 30 mg Enoxaparin Sodium (Lovenox) 40 mg SC DAILY [facility] PRN Reason: Protocol Last Admin: 06/03/18 09:50 Dose: 40 mg Furosemide (Lasix) 40 mg PO DAILY [facility] Last Admin: 06/03/18 09:49 Dose: 40 mg Gabapentin (Neurontin) 600 mg PO Q8 [facility] PRN Reason: Protocol Last Admin: 06/03/18 14:27 Dose: 600 mg Cefepime HCl (Maxipime 1gm) 1 gm in 100 mls @ 100 mls/hr IVPB Q8 [facility] PRN Reason: Protocol Last Admin: 06/03/18 14:26 Dose: 100 mls/hr Levetiracetam (Keppra) 500 mg PO Q12 [facility] Last Admin: 06/03/18 09:48 Dose: 500 mg Lorazepam (Ativan) 2 mg PO Q12 [facility] PRN Reason: Protocol Last Admin: 06/03/18 09:48 Dose: 2 mg Losartan Potassium (Cozaar) 100 mg PO DAILY [facility] Last Admin: 06/03/18 09:48 Dose: 100 mg Meclizine HCl (Antivert) 12.5 mg PO TID [facility] Last Admin: 06/03/18 14:27 Dose: 12.5 mg Ondansetron HCl (Zofran Inj) 4 mg IVP Q4H PRN PRN Reason: Nausea/Vomiting Pantoprazole Sodium (Protonix Ec Tab) 40 mg PO 0600 [facility] Last Admin: 06/03/18 06:40 Dose: 40 mg Polyethylene Glycol (Miralax) 17 gm PO DAILY [facility] Last Admin: 06/03/18 09:50 Dose: 17 gm Quetiapine Fumarate (Seroquel) 300 mg PO HS [facility] PRN Reason: Protocol Last Admin: 06/02/18 21:43 Dose: 300 mg Risperidone (Risperdal Tab) 1 mg PO Q8 [facility] PRN Reason: Protocol Last Admin: 06/03/18 14:27 Dose: 1 mg Sertraline HCl (Zoloft) 100 mg PO DAILY [facility] Last Admin: 06/03/18 09:51 Dose: 100 mg Silver Sulfadiazine (Silvadene 1% 25 Gm) 1 gm TP BID [facility] Tizanidine HCl (Zanaflex) 4 mg PO QID [facility] Last Admin: 06/03/18 14:27 Dose: 4 mg - Labs Labs: 06/03/18 07:30 06/03/18 07:30 Attending/Attestation - Attestation I have personally seen and examined this patient.: Yes I have fully participated in the care of the patient.: Yes I have reviewed all pertinent clinical information, including history, physical exam and plan: Yes Notes (Text): Patient seen and examined by me at 11:00AM with resident. Case including HPI, physical exam, and physical assessment and plan discussed with resident. Agree with above with following additions/corrections. Patient states that he is feeling okay. Had a small bowel movement yesterday. Feels he is still constipated. Still feels his speech is abnormal. Patient denies chest pain or shortness of breath. No abdominal pain, nausea, or vomiting. No fevers or chills. No headaches or dizziness. No dysuria. Physical exam: Gen: Awake and alert sitting up in bed in no acute distress HEENT: Normocephalic, atraumatic. Extraocular muscles intact, pupils equal reactive. Oropharynx is pink and moist, no pharyngeal erythema or exudate appreciated. Neck is supple. Cardiovascular: Normal rhythm, normal S1-S2. Positive systolic murmur. No rubs or gallops appreciated Pulmonary: Normal respiratory effort. No rhonchi, rales or wheezing appreciated. Gastrointestinal: Soft, nontender, nondistended, positive bowel sounds all 4 quadrants, no guarding Musculoskeletal: Decreased range of motion all extremities (chronic) Central nervous system: AAO 3 Dermatologic: Skin warm and dry. Positive stage II ulcer lower back/sacral area with no drainage today. Assessment and plan: Patient is a 63-year-old male with past medical history significant for hypertension, type 2 diabetes, reflex sympathetic dystrophy, arthritis, depression, seizures, chronic decubitus ulcer, and constipation that presented to the emergency room with dizziness and altered speech. 1. Infected stage II sacral decubitus. Wound cultures positive for enterobacter , proteus, and staph aureus sensitive to cefepime and vancomycin. ID following, recommendations appreciated. Continue Cefepime Day #3. Will need 10-14 days per ID. Continue wound care. Surgical team recommendations appreciated. Sacrum and coccyx xray do not show signs of osteomyelitis. PICC line to be placed. 2. Dizziness and altered speech. Resolved dizziness. CT head 05/31/18 per radiologist shows 2.7 cm diameter area of hypodensity in the right parietal posterior frontal region; this could represent an acute or subacute infarct. 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 Unable to get MRI secondary to metal and patient's body. CTA head per radiologist showed unremarkable angiography of brain. CTA neck per radiologist shows no significant stenosis or occlusions. 2-D echo per helmet coverer shows EF 65% and moderate to severe aortic stenosis(please see official results for full details). Per neurology, this is subacute infarct and patient is cleared for discharge. 3. Moderate to severe aortic stenosis seen on 2-D echo. Cardiology consulted, recommendations appreciated. 4. Constipation. Patient uses chronic opioids at home. Continue with MiraLAX and Colace. Patient given Dulcolax suppository again today. Monitor for bowel movement. 5. Chronic pain. Likely secondary to reflex sympathetic dystrophy. Continue with Neurontin and Zanaflex. PT eval and treat. Will likely need physical rehabilitation. 6. Essential hypertension. Continue losartan and amlodipine. 7. Dyslipidemia. Continue Lipitor. 8. History of depression and anxiety. Continue Cymbalta, risperidone, Zoloft, Wellbutrin, and Ativan. Psychiatry recommendations appreciated. Patient cleared for discharge to rehabilitation by psychiatry. 9. History of seizures. Continue Keppra. 10. GI and DVT prophylaxis. Protonix and Lovenox 11. Dispo: D/C pending rehab placement. Case was discussed in detail with the patient and emergency medical tech regarding current diagnosis and treatment plan
--- NOTE | 2018-06-03 16:59 | CARD ---
APPROVED REPORT Date of service: 06/03/2018 EKG Measurement Heart [id number] <Conclusion> Normal sinus rhythm Normal ECG
--- NOTE | 2018-06-03 18:12 | PN ---
DATE: 06/03/2018 SUBJECTIVE: The patient reports dizziness. He denies any chest pain. He still has difficulty articulating his words. PHYSICAL EXAMINATION: VITAL SIGNS: Blood pressure 109/74, heart rate 89, temperature 97.4, respirations 20. HEENT: Normocephalic. CHEST: Clear. HEART: S1 and S2 regular. EXTREMITIES: Trace leg edema. LABORATORY DATA: Today's hemoglobin, hematocrit, white count and platelet count are within normal limit. Today's SMA-7 is entirely within normal limits. Today's EKG reveals normal sinus rhythm. ASSESSMENT: 1. [id number] aortic stenosis with mild to moderate aortic insufficiency, most likely bicuspid aortic valves. 2. Recent cerebrovascular accident with evidence of well-defined infarct in the right posterior temporal lobe. 3. Infected sacral decubitus, possible Proteus mirabilis, Enterococcus aerogenes, and Staphylococcus aureus. 4. Reflex sympathetic dystrophy. 5. Hypertension. 6. Depression. RECOMMENDATIONS: Continue current meclizine 12.5 mg twice a day, Cozaar 100 mg once a day, Keppra 500 mg twice a day, Lasix 40 mg p.o. once a day, Lipitor 40 mg once a day, Neurontin 600 mg every 8 hours, Plavix 75 mg once a day. Any cardiac intervention should await at least 2-4 weeks of complete neuro stability. Stuart Fabian MD
[2018-06-04] MEDS: Cefepime 1gm in NS 100ml 1 GM/100 ML BAG IVPB SCH ×3 (06:04→21:45)
[2018-06-04] MEDS: Pantoprazole 40 mg EC Tab PO SCH (06:04)
[2018-06-04 06:39] LABS: BASO # 0.07 K/mm3 (0.0-2.0); BASO % 0.8 % (0.0-3.0); EOS # 0.5 (0.0-0.7); EOS % 5.3 % (1.5-5.0); GRAN # 5.64 (1.4-6.5); GRAN % 60.8 % (50.0-68.0); HEMOGLOBIN 14.1 g/dL (14.0-18.0); LYMPH # 2.3 (1.2-3.4); LYMPH % 24.7 % (22.0-35.0); MEAN CELL VOLUME 89.9 fl (80.0-105.0); MEAN CORPUSCULAR HEMOGLOBIN 29.6 pg (25.0-35.0); MEAN CORPUSCULAR HGB CONC 32.9 g/dl (31.0-37.0); MEAN PLATELET VOLUME 12.3 fl (7.0-11.0); MONO # 0.8 (0.1-0.6); MONO % 8.4 % (1.0-6.0); RBC 4.76 10^6/uL (3.5-6.1); RED CELL DISTRIBUTION WIDTH 13.1 % (11.5-14.5); WHITE BLOOD COUNT 9.3 10^3/ul (4.5-11.0)
[2018-06-04 06:50] LABS: ALB/GLOB RATIO 1.2 (1.1-1.8); ALBUMIN 3.5 g/dL (3.0-4.8); ALT/SGPT 43 U/L (7-56); AST/SGOT 24 U/L (17-59); BLOOD UREA NITROGEN 21 mg/dL (7-21); GFR AFRICAN-AMERICAN > 60; GFR NON-AFRICAN AMERICAN > 60
[2018-06-04] MEDS: Bacitracin 500 Units/gm Oint Foilpak UD TOP SCH ×2 (09:51→17:15)
[2018-06-04] MEDS: Enoxaparin 40 mg Syringe SC SCH (09:51)
[2018-06-04] MEDS: POLYETHYLENE GLYCOL 3350 17 GM/Dose PACKET PO SCH (09:52)
[2018-06-04] MEDS: Silver Sulfadiazine 1% Cream (25 gm) TP SCH ×2 (09:55→17:17)
[2018-06-04] MEDS: buPROPion 150 mg/24 Hours XL Tab PO SCH (09:57)
--- NOTE | 2018-06-04 13:39 | PN ---
DATE: 06/04/2018 SUBJECTIVE: The patient is experiencing abdominal pain. He denies any chest pain. He is still experiencing difficulty articulating his speech. PHYSICAL EXAMINATION: VITAL SIGNS: Blood pressure , pulse is 68, temperature 97.4, respirations 20. HEENT: Normocephalic. CHEST: Clear. HEART: S1 and S2 regular. EXTREMITIES: Trace edema. LABORATORY DATA: Today's hemoglobin and hematocrit 14.1 and 42.8. White count and platelet count are within normal limits. Today's, SMA-7 is entirely within normal limits. ASSESSMENT: 1. [id number] aortic stenosis. 2. Recent right parietal posterior frontal region ischemic infarct. 3. Infected stage 2 sacral decubitus. 4. Hypertension. 5. Abdominal pain. 6. Depression. RECOMMENDATIONS: Continue Cozaar 10 mg daily, Keppra 500 mg twice a day, Lasix 40 mg once a day, Lipitor 40 mg once a day, Maxipime 1 g every 8 hours, Lovenox 40 mg subcutaneous once a day, Norvasc 10 mg once a day, Plavix 75 mg once a day. I did review yesterday's EKG, which revealed normal sinus rhythm at a rate of 82. No urgent cardiac intervention is needed at this time. Stuart Fabian MD
--- NOTE | 2018-06-04 14:24 | RAD ---
Date of service: 06/04/2018 HISTORY: determine fecal load COMPARISON: No prior. FINDINGS: BOWEL: Constipation without fecal impaction or obstruction. BONES: Normal. OTHER FINDINGS: Neuro stimulator device identified IMPRESSION: Constipation without impaction or obstruction.
--- NOTE | 2018-06-04 15:31 | CP.PCM.PN ---
Subjective - Date & Time of Evaluation Date of Evaluation: 06/04/18 Time of Evaluation: 11:00 - Subjective Subjective: Afebrile, not in distress. Objective - Vital Signs/Intake and Output Vital Signs (last 24 hours): Temp Pulse Resp BP Pulse Ox 98.0 F 76 19 114/78 98 06/03/18 18:00 06/03/18 18:00 06/03/18 18:00 06/03/18 18:00 06/03/18 18:00 Intake and Output: 06/04/18 06/04/18 06:59 18:59 Intake Total 0 Output Total 1725 Balance -1725 - Medications Medications: Current Medications Acetaminophen (Tylenol 325mg Tab) 650 mg PO Q6H PRN PRN Reason: Fever >100.4 F Amlodipine Besylate (Norvasc) 10 mg PO DAILY [facility] Last Admin: 06/03/18 09:50 Dose: 10 mg Atorvastatin Calcium (Lipitor) 40 mg PO DIN [facility] Last Admin: 06/03/18 17:23 Dose: 40 mg Bacitracin (Bacitracin) 1 ea TOP BID [facility] Last Admin: 06/03/18 17:23 Dose: 1 ea Bupropion HCl (Wellbutrin Xl) 150 mg PO DAILY [facility] Last Admin: 06/03/18 09:51 Dose: 150 mg Clopidogrel Bisulfate (Plavix) 75 mg PO DAILY [facility] Last Admin: 06/03/18 09:51 Dose: 75 mg Docusate Sodium (Colace) 100 mg PO TID [facility] Last Admin: 06/03/18 17:23 Dose: 100 mg Duloxetine HCl (Cymbalta) 30 mg PO Q8 [facility] Last Admin: 06/04/18 06:04 Dose: 30 mg Enoxaparin Sodium (Lovenox) 40 mg SC DAILY [facility] PRN Reason: Protocol Last Admin: 06/03/18 09:50 Dose: 40 mg Furosemide (Lasix) 40 mg PO DAILY [facility] Last Admin: 06/03/18 09:49 Dose: 40 mg Gabapentin (Neurontin) 600 mg PO Q8 [facility] PRN Reason: Protocol Last Admin: 06/04/18 06:04 Dose: 600 mg Cefepime HCl (Maxipime 1gm) 1 gm in 100 mls @ 100 mls/hr IVPB Q8 [facility] PRN Reason: Protocol Last Admin: 06/04/18 06:04 Dose: 100 mls/hr Levetiracetam (Keppra) 500 mg PO Q12 [facility] Last Admin: 06/03/18 21:17 Dose: 500 mg Lorazepam (Ativan) 2 mg PO Q12 [facility] PRN Reason: Protocol Last Admin: 06/03/18 21:17 Dose: 2 mg Losartan Potassium (Cozaar) 100 mg PO DAILY [facility] Last Admin: 06/03/18 09:48 Dose: 100 mg Meclizine HCl (Antivert) 12.5 mg PO TID [facility] Last Admin: 06/03/18 17:22 Dose: 12.5 mg Ondansetron HCl (Zofran Inj) 4 mg IVP Q4H PRN PRN Reason: Nausea/Vomiting Pantoprazole Sodium (Protonix Ec Tab) 40 mg PO 0600 [facility] Last Admin: 06/04/18 06:04 Dose: 40 mg Polyethylene Glycol (Miralax) 17 gm PO DAILY [facility] Last Admin: 06/03/18 09:50 Dose: 17 gm Quetiapine Fumarate (Seroquel) 300 mg PO HS [facility] PRN Reason: Protocol Last Admin: 06/03/18 21:24 Dose: 300 mg Risperidone (Risperdal Tab) 1 mg PO Q8 [facility] PRN Reason: Protocol Last Admin: 06/04/18 06:03 Dose: 1 mg Sertraline HCl (Zoloft) 100 mg PO DAILY [facility] Last Admin: 06/03/18 09:51 Dose: 100 mg Silver Sulfadiazine (Silvadene 1% 25 Gm) 1 gm TP BID [facility] Last Admin: 06/03/18 11:28 Dose: 1 gm Tizanidine HCl (Zanaflex) 4 mg PO QID [facility] Last Admin: 06/03/18 21:17 Dose: 4 mg - Labs Labs: 06/04/18 06:00 06/04/18 06:00 - Constitutional Appears: Chronically Ill - Head Exam Head Exam: NORMAL INSPECTION - Respiratory Exam Respiratory Exam: Decreased Breath Sounds - Cardiovascular Exam Cardiovascular Exam: +S1, +S2 - GI/Abdominal Exam GI & Abdominal Exam: Soft. absent: Tenderness Assessment and Plan - Assessment and Plan (Free Text) Plan: assessment infected sacral decubitus ulcer stage 2 to 3, growing MSSA, Proteus, Enterobacter history of right index finger cellulitis with associated wound cervical spine trauma S/P cervical laminectomy history of reflex sympathetic dystrophy plan continue Cefepime for 10-14 days with local wound care (Day 4 today)
--- NOTE | 2018-06-04 18:07 | PN ---
DATE: 06/02/2018 SUBJECTIVE: I am asked to repeat this dictation due to dictation mechanical errors. The patient was seen early that day, in no acute distress, nontoxic. PHYSICAL EXAMINATION: VITAL SIGNS: Temperature is 97, blood pressure is 170/80, respiratory rate 20, heart rate of 68. HEENT: Examination of HEENT is unremarkable. NECK: Supple. LUNGS: Have decreased breath sounds. HEART: Normal S1, S2. ABDOMEN: Soft, nontender. LABORATORY DATA: Laboratory examination reveals a white count of 9.1, hemoglobin 14, platelets of 156. BUN of 21, creatinine of 1 and the microbiology is reviewed with Proteus and Enterobacter and sensitive Staph aureus. The patient had a sacral x-ray done which was negative for osteomyelitis. ASSESSMENT AND PLAN: A 63-year-old male seen earlier on 06/02/2018 with infected sacral decubitus ulcer, growing Methicillin-sensitive Staphylococcus aureus, Proteus, Enterobacter, status post laminectomy and would complete a short course of antibiotics as discussed with staff. We will follow closely with you. Davon López MD
--- NOTE | 2018-06-04 20:30 | CP.PCM.PN ---
<Luis Pierre - Last Filed: 06/04/18 20:27> Subjective - Date & Time of Evaluation Date of Evaluation: 06/04/18 Time of Evaluation: 10:05 - Subjective Subjective: Medicine Progress Note Pt seen and examined at bedside. No acute overnight events. Patient states that he has not had a BM or flatus. Patient appetite is minimal. Pt complains of some lower back pain. Pt denies CP, SOB, n/v/d, abdominal pain, fever, chills, ROSS, or dizzness. Objective - Vital Signs/Intake and Output Vital Signs (last 24 hours): Temp Pulse Resp BP Pulse Ox 97.8 F 68 19 100/65 97 06/04/18 18:08 06/04/18 18:08 06/04/18 18:08 06/04/18 18:08 06/04/18 18:08 Intake and Output: 06/04/18 06/05/18 18:59 06:59 Intake Total 840 Output Total 900 Balance -60 - Medications Medications: Current Medications Acetaminophen (Tylenol 325mg Tab) 650 mg PO Q6H PRN PRN Reason: Fever >100.4 F Amlodipine Besylate (Norvasc) 10 mg PO DAILY [facility] Last Admin: 06/04/18 09:52 Dose: 10 mg Atorvastatin Calcium (Lipitor) 40 mg PO DIN [facility] Last Admin: 06/04/18 17:15 Dose: 40 mg Bacitracin (Bacitracin) 1 ea TOP BID [facility] Last Admin: 06/04/18 17:15 Dose: 1 ea Bupropion HCl (Wellbutrin Xl) 150 mg PO DAILY [facility] Last Admin: 06/04/18 09:57 Dose: 150 mg Clopidogrel Bisulfate (Plavix) 75 mg PO DAILY [facility] Last Admin: 06/04/18 09:52 Dose: 75 mg Docusate Sodium (Colace) 100 mg PO TID [facility] Last Admin: 06/04/18 17:16 Dose: 100 mg Duloxetine HCl (Cymbalta) 30 mg PO Q8 [facility] Last Admin: 06/04/18 13:37 Dose: 30 mg Enoxaparin Sodium (Lovenox) 40 mg SC DAILY [facility] PRN Reason: Protocol Last Admin: 06/04/18 09:51 Dose: 40 mg Furosemide (Lasix) 40 mg PO DAILY [facility] Last Admin: 06/04/18 09:53 Dose: 40 mg Gabapentin (Neurontin) 600 mg PO Q8 [facility] PRN Reason: Protocol Last Admin: 06/04/18 13:37 Dose: 600 mg Cefepime HCl (Maxipime 1gm) 1 gm in 100 mls @ 100 mls/hr IVPB Q8 [facility] PRN Reason: Protocol Last Admin: 06/04/18 13:36 Dose: 100 mls/hr Levetiracetam (Keppra) 500 mg PO Q12 [facility] Last Admin: 06/04/18 09:53 Dose: 500 mg Lorazepam (Ativan) 2 mg PO Q12 [facility] PRN Reason: Protocol Last Admin: 06/04/18 09:52 Dose: 2 mg Losartan Potassium (Cozaar) 100 mg PO DAILY [facility] Last Admin: 06/04/18 09:52 Dose: 100 mg Meclizine HCl (Antivert) 12.5 mg PO TID [facility] Last Admin: 06/04/18 17:15 Dose: 12.5 mg Ondansetron HCl (Zofran Inj) 4 mg IVP Q4H PRN PRN Reason: Nausea/Vomiting Pantoprazole Sodium (Protonix Ec Tab) 40 mg PO 0600 [facility] Last Admin: 06/04/18 06:04 Dose: 40 mg Polyethylene Glycol (Miralax) 17 gm PO DAILY [facility] Last Admin: 06/04/18 09:52 Dose: 17 gm Quetiapine Fumarate (Seroquel) 300 mg PO HS [facility] PRN Reason: Protocol Last Admin: 06/03/18 21:24 Dose: 300 mg Risperidone (Risperdal Tab) 1 mg PO Q8 [facility] PRN Reason: Protocol Last Admin: 06/04/18 13:37 Dose: 1 mg Sertraline HCl (Zoloft) 100 mg PO DAILY [facility] Last Admin: 06/04/18 09:52 Dose: 100 mg Silver Sulfadiazine (Silvadene 1% 25 Gm) 1 gm TP BID [facility] Last Admin: 06/04/18 17:17 Dose: 1 gm Tizanidine HCl (Zanaflex) 4 mg PO QID [facility] Last Admin: 06/04/18 17:15 Dose: 4 mg Zonisamide (Zonegran) 200 mg PO [facility] - Labs Labs: 06/04/18 06:00 06/04/18 06:00 - Constitutional Appears: No Acute Distress - Head Exam Head Exam: NORMAL INSPECTION - Eye Exam Eye Exam: Normal appearance - ENT Exam ENT Exam: Mucous Membranes Moist - Neck Exam Neck Exam: Normal Inspection - Respiratory Exam Respiratory Exam: Clear to Ausculation Bilateral. absent: Rales, Rhonchi, Wheezes - Cardiovascular Exam Cardiovascular Exam: RRR, Murmur (3/6 systolic murmur at best heard at right sternal border). absent: Gallop, Rubs - GI/Abdominal Exam GI & Abdominal Exam: Soft, Normal Bowel Sounds. absent: Distended, Guarding, Tenderness, Rebound - Back Exam Back Exam: NORMAL INSPECTION - Neurological Exam Neurological Exam: Alert, Awake, CN II-XII Intact, Oriented x3 - Psychiatric Exam Psychiatric exam: Flat Affect, Normal Mood - Skin Additional comments: stage 2-3 sacral decubitus ulcer Assessment and Plan - Assessment and Plan (Free Text) Assessment: Mr. Proctor is a 63 year old male with a PMH of HTN, DM2, Reflex Sympathetic Dystrophy, arthritis, seizures, depression, and decubitus ulcer who is presenting with dizziness and stage 2-3 sacral decubitus ulcer. Plan: Infected stage 2-3 sacral decubitus ulcer - Wound culture: Proteus mirabilis, enterobacter aerogenes, and staph aureus - Sacral X-ray: unremarkable - CRP WNL - Cont Cefepime 1g IV Q8H on day #4 of 08-30 - Cont bacitracin ointment - ID consulted - Surgery consulted- no surgical intervention at this time, BID dressing changes with optiform and santyl, turn patient Q2 - Wound care nurse consulted Subacute CVA - Neurology cleared patient for discharge - Follow up with neurology outpatient in 2 weeks - Head CT (05/30): shows 2.7cm area of hypodensity in the right parietal posterior frontal region. This could represent an acute or subacute infarct. - Repeat head CT (06/02): More defined subacute right parietal stroke in comparison from previous imaging indicating development and thus defined as subacute - Head/neck CTA (05/30): No significant stenosis or occlusion appreciated - Brain MRI not possible- patient has metal rods in his back and legs from prior surgeries. - Cont Plavix, atorvastatin - Echocardiogram (06/01): EF of 65%, moderate to severe aortic stenosis - Patient has slurred speech at baseline per son - Fall precautions - Seizure precautions - Aspiration precautions Chronic constipation - Most likely secondary to prolonged use of opiates - KUB showed constipation, but no obstruction - Cont miralax and colace - Dulcolax suppository x1 (06/03) - Relistor x1 (06/04) History of depression - Patient is on antidepressants - Psychiatry consulted Chronic back pain - 2/2 Reflex Sympathetic Dystrophy - Cont gabapentin - PT/OT consulted History of hypertension - c/w losartan and amlodipine History of seizures - c/w Keppra 500 BID, Ativan 1mg Q12 GI/DVT prophylaxis: Protonix, SCD's Patient seen and discussed in detail with Dr. Domínguez. Eric Pierre, PGY2 <Vesna Domínguez R - Last Filed: 06/05/18 07:27> Objective - Vital Signs/Intake and Output Vital Signs (last 24 hours): Temp Pulse Resp BP Pulse Ox 97.8 F 68 19 100/65 97 06/04/18 18:08 06/04/18 18:08 06/04/18 18:08 06/04/18 18:08 06/04/18 18:08 Intake and Output: 06/05/18 06/05/18 06:59 18:59 Intake Total 300 Output Total 850 Balance -550 - Medications Medications: Current Medications Acetaminophen (Tylenol 325mg Tab) 650 mg PO Q6H PRN PRN Reason: Fever >100.4 F Amlodipine Besylate (Norvasc) 10 mg PO DAILY [facility] Last Admin: 06/04/18 09:52 Dose: 10 mg Atorvastatin Calcium (Lipitor) 40 mg PO DIN [facility] Last Admin: 06/04/18 17:15 Dose: 40 mg Bacitracin (Bacitracin) 1 ea TOP BID [facility] Last Admin: 06/04/18 17:15 Dose: 1 ea Bupropion HCl (Wellbutrin Xl) 150 mg PO DAILY [facility] Last Admin: 06/04/18 09:57 Dose: 150 mg Clopidogrel Bisulfate (Plavix) 75 mg PO DAILY [facility] Last Admin: 06/04/18 09:52 Dose: 75 mg Docusate Sodium (Colace) 100 mg PO TID [facility] Last Admin: 06/04/18 17:16 Dose: 100 mg Duloxetine HCl (Cymbalta) 30 mg PO Q8 [facility] Last Admin: 06/05/18 05:39 Dose: 30 mg Enoxaparin Sodium (Lovenox) 40 mg SC DAILY [facility] PRN Reason: Protocol Last Admin: 06/04/18 09:51 Dose: 40 mg Furosemide (Lasix) 40 mg PO DAILY [facility] Last Admin: 06/04/18 09:53 Dose: 40 mg Gabapentin (Neurontin) 600 mg PO Q8 [facility] PRN Reason: Protocol Last Admin: 06/05/18 05:39 Dose: 600 mg Cefepime HCl (Maxipime 1gm) 1 gm in 100 mls @ 100 mls/hr IVPB Q8 [facility] PRN Reason: Protocol Last Admin: 06/05/18 05:39 Dose: 100 mls/hr Levetiracetam (Keppra) 500 mg PO Q12 [facility] Last Admin: 06/04/18 21:45 Dose: 500 mg Lorazepam (Ativan) 2 mg PO Q12 [facility] PRN Reason: Protocol Last Admin: 06/04/18 21:44 Dose: 2 mg Losartan Potassium (Cozaar) 100 mg PO DAILY [facility] Last Admin: 06/04/18 09:52 Dose: 100 mg Meclizine HCl (Antivert) 12.5 mg PO TID [facility] Last Admin: 06/04/18 17:15 Dose: 12.5 mg Ondansetron HCl (Zofran Inj) 4 mg IVP Q4H PRN PRN Reason: Nausea/Vomiting Pantoprazole Sodium (Protonix Ec Tab) 40 mg PO 0600 [facility] Last Admin: 06/05/18 05:39 Dose: 40 mg Polyethylene Glycol (Miralax) 17 gm PO DAILY [facility] Last Admin: 06/04/18 09:52 Dose: 17 gm Quetiapine Fumarate (Seroquel) 300 mg PO HS [facility] PRN Reason: Protocol Last Admin: 06/04/18 21:44 Dose: 300 mg Risperidone (Risperdal Tab) 1 mg PO Q8 [facility] PRN Reason: Protocol Last Admin: 06/05/18 05:39 Dose: 1 mg Sertraline HCl (Zoloft) 100 mg PO DAILY [facility] Last Admin: 06/04/18 09:52 Dose: 100 mg Silver Sulfadiazine (Silvadene 1% 25 Gm) 1 gm TP BID [facility] Last Admin: 06/04/18 17:17 Dose: 1 gm Tizanidine HCl (Zanaflex) 4 mg PO QID [facility] Last Admin: 06/04/18 21:45 Dose: 4 mg Zonisamide (Zonegran) 200 mg PO HS [facility] Last Admin: 06/04/18 21:44 Dose: 200 mg - Labs Labs: 06/04/18 06:00 06/04/18 06:00 Attending/Attestation - Attestation I have personally seen and examined this patient.: Yes I have fully participated in the care of the patient.: Yes I have reviewed all pertinent clinical information, including history, physical exam and plan: Yes Notes (Text): Patient seen and examined by me at 10:05AM with resident. Case including HPI, physical exam, and physical assessment and plan discussed with resident. Agree with above with following additions/corrections. Patient states that he is doing pretty good. Still with no bowel movement. Patient denies chest pain or shortness of breath. No abdominal pain, nausea, or vomiting. No fevers or chills. No headaches or dizziness. No dysuria. Physical exam: Gen: Awake and alert sitting up in bed in no acute distress HEENT: Normocephalic, atraumatic. Extraocular muscles intact, pupils equal reactive. Oropharynx is pink and moist, no pharyngeal erythema or exudate appreciated. Neck is supple. Cardiovascular: Normal rhythm, normal S1-S2. Positive systolic murmur. No rubs or gallops appreciated Pulmonary: Normal respiratory effort. No rhonchi, rales or wheezing appreciated. Gastrointestinal: Soft, nontender, nondistended, positive bowel sounds all 4 quadrants, no guarding Musculoskeletal: Decreased range of motion all extremities (chronic) Central nervous system: AAO 3 Dermatologic: Skin warm and dry. Positive stage II ulcer lower back/sacral area with no drainage Assessment and plan: Patient is a 63-year-old male with past medical history significant for hypertension, type 2 diabetes, reflex sympathetic dystrophy, arthritis, depression, seizures, chronic decubitus ulcer, and constipation that presented to the emergency room with dizziness and altered speech. 1. Infected stage II sacral decubitus. Wound cultures positive for enterobacter , proteus, and staph aureus, ID following, recommendations appreciated. Continue Cefepime Day #4. Will need 10-14 days per ID. PICC line placed. Continue local wound care. Surgical team recommendations appreciated. Sacrum and coccyx xray do not show signs of osteomyelitis. 2. Dizziness and altered speech. Resolved dizziness. Per family, altered speech is chronic. Per neurology, this is subacute infarct and patient is cleared for discharge. CT head 05/31/18 per radiologist shows 2.7 cm diameter area of hypodensity in the right parietal posterior frontal region; this could represent an acute or subacute infarct. 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 CTA head per radiologist showed unremarkable angiography of brain. CTA neck per radiologist shows no significant stenosis or occlusions. 2-D echo per wig maker shows EF 65% and moderate to severe aortic stenosis(please see official results for full details). 3. Moderate to severe aortic stenosis seen on 2-D echo. Cardiology consulted, recommendations appreciated. Will need cardiac follow up in 2-4 weeks. 4. Constipation. Patient uses chronic opioids at home. Continue with MiraLAX and Colace. Given Relistor today. KUB shows constipation but no impaction or obstruction. Continue to monitor for bowel movement. 5. Chronic pain. Likely secondary to reflex sympathetic dystrophy. Continue with Neurontin and Zanaflex. For rehab when bed available. 6. Essential hypertension. Continue losartan and amlodipine. 7. Dyslipidemia. Continue Lipitor. 8. History of depression and anxiety. Continue Cymbalta, risperidone, Zoloft, Wellbutrin, and Ativan. Psychiatry recommendations appreciated. Patient cleared for discharge to rehabilitation by psychiatry. 9. History of seizures. Continue Keppra. 10. GI and DVT prophylaxis. Protonix and Lovenox 11. Dispo: D/C pending rehab placement. Case was discussed in detail with the patient and medical director occupational health regarding current diagnosis and treatment plan
[2018-06-05] MEDS: Cefepime 1gm in NS 100ml 1 GM/100 ML BAG IVPB SCH ×3 (05:39→21:15)
[2018-06-05] MEDS: Pantoprazole 40 mg EC Tab PO SCH (05:39)
[2018-06-05 07:01] LABS: BASO # 0.08 K/mm3 (0.0-2.0); BASO % 0.9 % (0.0-3.0); EOS # 0.2 (0.0-0.7); EOS % 2.8 % (1.5-5.0); GRAN # 5.28 (1.4-6.5); GRAN % 61.7 % (50.0-68.0); HEMOGLOBIN 14.1 g/dL (14.0-18.0); LYMPH # 2.1 (1.2-3.4); MEAN CELL VOLUME 90.3 fl (80.0-105.0); MEAN CORPUSCULAR HEMOGLOBIN 29.7 pg (25.0-35.0); MEAN CORPUSCULAR HGB CONC 32.9 g/dl (31.0-37.0); MEAN PLATELET VOLUME 12.4 fl (7.0-11.0); MONO # 0.8 (0.1-0.6); MONO % 9.6 % (1.0-6.0); RBC 4.75 10^6/uL (3.5-6.1); RED CELL DISTRIBUTION WIDTH 13.2 % (11.5-14.5); WHITE BLOOD COUNT 8.6 10^3/ul (4.5-11.0)
[2018-06-05 07:15] LABS: ALB/GLOB RATIO 1.2 (1.1-1.8); ALBUMIN 3.6 g/dL (3.0-4.8); ALT/SGPT 44 U/L (7-56); AST/SGOT 27 U/L (17-59); BLOOD UREA NITROGEN 29 mg/dL (7-21); CALCIUM 8.9 mg/dL (8.4-10.5); GFR AFRICAN-AMERICAN > 60; GFR NON-AFRICAN AMERICAN > 60
[2018-06-05] MEDS: Bacitracin 500 Units/gm Oint Foilpak UD TOP SCH ×2 (09:47→17:01)
[2018-06-05] MEDS: buPROPion 150 mg/24 Hours XL Tab PO SCH (09:47)
[2018-06-05] MEDS: Enoxaparin 40 mg Syringe SC SCH (09:47)
[2018-06-05] MEDS: POLYETHYLENE GLYCOL 3350 17 GM/Dose PACKET PO SCH (09:50)
[2018-06-05] MEDS: Silver Sulfadiazine 1% Cream (25 gm) TP SCH ×2 (09:51→17:00)
[2018-06-05] MEDS ORDERED: Magnesium Citrate Oral SOL (300 ml) PO ONE (13:16)
--- NOTE | 2018-06-05 14:00 | CP.PCM.PN ---
<Juan M Birmingham - Last Filed: 06/05/18 15:15> Subjective - Date & Time of Evaluation Date of Evaluation: 06/05/18 Time of Evaluation: 13:55 - Subjective Subjective: Juan M Birmingham D.O PGY-1, Internal Medicine progress note for Dr. Domínguez Patient was examined at bedside, no acute overnight events. Patient denies having a bowel movement. Denies fevers, chills, chest pain, shortness of breath , abdominal pain, N/V/D. Objective - Vital Signs/Intake and Output Vital Signs (last 24 hours): Temp Pulse Resp BP Pulse Ox 97.6 F 70 20 96/66 L 96 06/05/18 08:55 06/05/18 08:55 06/05/18 08:55 06/05/18 08:55 06/05/18 08:55 Intake and Output: 06/05/18 06/05/18 06:59 18:59 Intake Total 300 Output Total 850 Balance -550 - Medications Medications: Current Medications Acetaminophen (Tylenol 325mg Tab) 650 mg PO Q6H PRN PRN Reason: Fever >100.4 F Amlodipine Besylate (Norvasc) 10 mg PO DAILY [facility]S [facility] 234 BEDS AT [facility] Last Admin: 06/05/18 09:48 Dose: Not Given Atorvastatin Calcium (Lipitor) 40 mg PO DIN COUNTS INCLUDE 234 BEDS AT [facility] Last Admin: 06/04/18 17:15 Dose: 40 mg Bacitracin (Bacitracin) 1 ea TOP BID COUNTS INCLUDE 234 BEDS AT [facility] Last Admin: 06/05/18 09:47 Dose: 1 ea Bupropion HCl (Wellbutrin Xl) 150 mg PO DAILY [facility]S [facility]CLUDE 234 BEDS AT [facility] Last Admin: 06/05/18 09:47 Dose: 150 mg Clopidogrel Bisulfate (Plavix) 75 mg PO DAILY [facility]S [facility]CLUDE 234 BEDS AT [facility] Last Admin: 06/05/18 09:47 Dose: 75 mg Docusate Sodium (Colace) 100 mg PO TID [facility]S [facility]CLUDE 234 BEDS AT [facility] Last Admin: 06/05/18 13:11 Dose: 100 mg Duloxetine HCl (Cymbalta) 30 mg PO Q8 [facility]S [facility]CLUDE 234 BEDS AT [facility] Last Admin: 06/05/18 13:11 Dose: 30 mg Enoxaparin Sodium (Lovenox) 40 mg SC DAILY [facility]S [facility]CLUDE 234 BEDS AT [facility] PRN Reason: Protocol Last Admin: 06/05/18 09:47 Dose: 40 mg Furosemide (Lasix) 40 mg PO DAILY [facility]S [facility]CLUDE 234 BEDS AT [facility] Last Admin: 06/05/18 09:49 Dose: Not Given Gabapentin (Neurontin) 600 mg PO Q8 [facility] PRN Reason: Protocol Last Admin: 06/05/18 13:11 Dose: 600 mg Cefepime HCl (Maxipime 1gm) 1 gm in 100 mls @ 100 mls/hr IVPB Q8 [facility] PRN Reason: Protocol Last Admin: 06/05/18 13:11 Dose: 100 mls/hr Levetiracetam (Keppra) 500 mg PO Q12 [facility]S [facility]CLUDE 234 BEDS AT [facility] Last Admin: 06/05/18 09:50 Dose: 500 mg Lorazepam (Ativan) 2 mg PO Q12 [facility] PRN Reason: Protocol Last Admin: 06/05/18 09:47 Dose: 2 mg Losartan Potassium (Cozaar) 100 mg PO DAILY [facility]S [facility]CLUDE 234 BEDS AT [facility] Last Admin: 06/05/18 09:49 Dose: 100 mg Meclizine HCl (Antivert) 12.5 mg PO TID COUNTS [facility]CLUDE 234 BEDS AT [facility] Last Admin: 06/05/18 13:11 Dose: 12.5 mg Ondansetron HCl (Zofran Inj) 4 mg IVP Q4H PRN PRN Reason: Nausea/Vomiting Pantoprazole Sodium (Protonix Ec Tab) 40 mg PO 0600 [facility]S [facility]CLUDE 234 BEDS AT [facility] Last Admin: 06/05/18 05:39 Dose: 40 mg Polyethylene Glycol (Miralax) 17 gm PO DAILY COUNTS INCLUDE 234 BEDS AT [facility] Last Admin: 06/05/18 09:50 Dose: 17 gm Quetiapine Fumarate (Seroquel) 300 mg PO [facility] PRN Reason: Protocol Last Admin: 06/04/18 21:44 Dose: 300 mg Risperidone (Risperdal Tab) 1 mg PO Q8 [facility]S [facility]CLUDE 234 BEDS AT [facility] PRN Reason: Protocol Last Admin: 06/05/18 13:11 Dose: 1 mg Sertraline HCl (Zoloft) 100 mg PO DAILY COUNTS [facility]CLUDE 234 BEDS AT [facility] Last Admin: 06/05/18 09:49 Dose: 100 mg Silver Sulfadiazine (Silvadene 1% 25 Gm) 1 gm TP BID COUNTS INCLUDE 234 BEDS AT [facility] Last Admin: 06/05/18 09:51 Dose: 1 gm Tizanidine HCl (Zanaflex) 4 mg PO QID COUNTS INCLUDE 234 BEDS AT [facility] Last Admin: 06/05/18 13:11 Dose: 4 mg Zonisamide (Zonegran) 200 mg PO HS COUNTS INCLUDE 234 BEDS AT [facility] Last Admin: 06/04/18 21:44 Dose: 200 mg - Labs Labs: 06/05/18 06:30 06/05/18 06:30 - Constitutional Appears: No Acute Distress - Head Exam Head Exam: ATRAUMATIC, NORMAL INSPECTION. absent: NORMOCEPHALIC - Eye Exam Eye Exam: Normal appearance - ENT Exam ENT Exam: Mucous Membranes Moist - Respiratory Exam Respiratory Exam: Clear to Ausculation Bilateral. absent: Rales, Rhonchi, Wheezes - Cardiovascular Exam Cardiovascular Exam: REGULAR RHYTHM, +S1, +S2, Murmur. absent: Gallop, Rubs - GI/Abdominal Exam GI & Abdominal Exam: Soft, Normal Bowel Sounds. absent: Tenderness - Extremities Exam Extremities Exam: Full ROM, Normal Capillary Refill, Normal Inspection. absent : Joint Swelling, Pedal Edema - Neurological Exam Neurological Exam: Alert, Awake, Oriented x3 - Psychiatric Exam Psychiatric exam: Normal Affect, Normal Mood - Skin Skin Exam: Dry, Intact, Normal Color, Warm Additional comments: stage 2-3 sacral decubitus ulcer Assessment and Plan - Assessment and Plan (Free Text) Assessment: Mr. Proctor is a 63 year old male with a PMH of HTN, DM2, Reflex Sympathetic Dystrophy, arthritis, seizures, depression, and decubitus ulcer who is presenting with dizziness and stage 2-3 sacral decubitus ulcer. Plan: Infected stage 2-3 sacral decubitus ulcer - Wound culture: Proteus mirabilis, enterobacter aerogenes, and staph aureus - Sacral X-ray: unremarkable - CRP WNL - Cont Cefepime 1g IV Q8H on day #5 of 08-30 - Cont bacitracin ointment - ID consulted - Surgery consulted- no surgical intervention at this time, BID dressing changes with optiform and santyl, turn patient Q2 - Wound care nurse consulted Chronic constipation - Most likely secondary to prolonged use of opiates - KUB showed constipation, but no obstruction - Cont miralax and colace - Dulcolax suppository x1 (06/03) - Relistor x1 (06/04) - Cellulose x1 and magnesium citrate x 1 (06/05) Subacute CVA - Neurology cleared patient for discharge - Follow up with neurology outpatient in 2 weeks - Head CT (05/30): shows 2.7cm area of hypodensity in the right parietal posterior frontal region. This could represent an acute or subacute infarct. - Repeat head CT (06/02): More defined subacute right parietal stroke in comparison from previous imaging indicating development and thus defined as subacute - Head/neck CTA (05/30): No significant stenosis or occlusion appreciated - Brain MRI not possible- patient has metal rods in his back and legs from prior surgeries. - Cont Plavix, atorvastatin - Echocardiogram (06/01): EF of 65%, moderate to severe aortic stenosis - Patient has slurred speech at baseline per son - Fall precautions - Seizure precautions - Aspiration precautions History of depression - Patient is on antidepressants - Psychiatry consulted Chronic back pain - 2/2 Reflex Sympathetic Dystrophy - Cont gabapentin - PT/OT consulted History of hypertension - c/w losartan and amlodipine History of seizures - c/w Keppra 500 BID, Ativan 1mg Q12 GI/DVT prophylaxis: Protonix, SCD's Patient case reviewed with and plan approved by attending physician, Dr. Domínguez. <Vesna Domínguez R - Last Filed: 06/05/18 17:07> Objective - Vital Signs/Intake and Output Vital Signs (last 24 hours): Temp Pulse Resp BP Pulse Ox 97.6 F 70 20 96/66 L 96 06/05/18 08:55 06/05/18 08:55 06/05/18 08:55 06/05/18 08:55 06/05/18 08:55 Intake and Output: 06/05/18 06/05/18 06:59 18:59 Intake Total 300 780 Output Total 850 800 Balance -550 -20 - Medications Medications: Current Medications Acetaminophen (Tylenol 325mg Tab) 650 mg PO Q6H PRN PRN Reason: Fever >100.4 F Amlodipine Besylate (Norvasc) 10 mg PO DAILY COUNTS INCLUDE 234 BEDS AT [facility] Last Admin: 06/05/18 09:48 Dose: Not Given Atorvastatin Calcium (Lipitor) 40 mg PO DIN COUNTS INCLUDE 234 BEDS AT [facility] Last Admin: 06/04/18 17:15 Dose: 40 mg Bacitracin (Bacitracin) 1 ea TOP BID COUNTS INCLUDE 234 BEDS AT [facility] Last Admin: 06/05/18 09:47 Dose: 1 ea Bupropion HCl (Wellbutrin Xl) 150 mg PO DAILY COUNTS INCLUDE 234 BEDS AT [facility] Last Admin: 06/05/18 09:47 Dose: 150 mg Clopidogrel Bisulfate (Plavix) 75 mg PO DAILY COUNTS INCLUDE 234 BEDS AT [facility] Last Admin: 06/05/18 09:47 Dose: 75 mg Docusate Sodium (Colace) 100 mg PO TID COUNTS INCLUDE 234 BEDS AT [facility] Last Admin: 06/05/18 13:11 Dose: 100 mg Duloxetine HCl (Cymbalta) 30 mg PO Q8 COUNTS INCLUDE 234 BEDS AT [facility] Last Admin: 06/05/18 13:11 Dose: 30 mg Enoxaparin Sodium (Lovenox) 40 mg SC DAILY [facility] PRN Reason: Protocol Last Admin: 06/05/18 09:47 Dose: 40 mg Furosemide (Lasix) 40 mg PO DAILY COUNTS INCLUDE 234 BEDS AT [facility] Last Admin: 06/05/18 09:49 Dose: Not Given Gabapentin (Neurontin) 600 mg PO Q8 [facility] PRN Reason: Protocol Last Admin: 06/05/18 13:11 Dose: 600 mg Cefepime HCl (Maxipime 1gm) 1 gm in 100 mls @ 100 mls/hr IVPB Q8 [facility] PRN Reason: Protocol Last Admin: 06/05/18 13:11 Dose: 100 mls/hr Levetiracetam (Keppra) 500 mg PO Q12 COUNTS INCLUDE 234 BEDS AT [facility] Last Admin: 06/05/18 09:50 Dose: 500 mg Lorazepam (Ativan) 2 mg PO Q12 COUNTS INCLUDE 234 BEDS AT [facility] PRN Reason: Protocol Last Admin: 06/05/18 09:47 Dose: 2 mg Losartan Potassium (Cozaar) 100 mg PO DAILY COUNTS INCLUDE 234 BEDS AT [facility] Last Admin: 06/05/18 09:49 Dose: 100 mg Meclizine HCl (Antivert) 12.5 mg PO TID COUNTS INCLUDE 234 BEDS AT [facility] Last Admin: 06/05/18 13:11 Dose: 12.5 mg Ondansetron HCl (Zofran Inj) 4 mg IVP Q4H PRN PRN Reason: Nausea/Vomiting Pantoprazole Sodium (Protonix Ec Tab) 40 mg PO 0600 COUNTS INCLUDE 234 BEDS AT [facility] Last Admin: 06/05/18 05:39 Dose: 40 mg Polyethylene Glycol (Miralax) 17 gm PO DAILY COUNTS INCLUDE 234 BEDS AT [facility] Last Admin: 06/05/18 09:50 Dose: 17 gm Quetiapine Fumarate (Seroquel) 300 mg PO HS COUNTS INCLUDE 234 BEDS AT [facility] PRN Reason: Protocol Last Admin: 06/04/18 21:44 Dose: 300 mg Risperidone (Risperdal Tab) 1 mg PO Q8 COUNTS INCLUDE 234 BEDS AT [facility] PRN Reason: Protocol Last Admin: 06/05/18 13:11 Dose: 1 mg Sertraline HCl (Zoloft) 100 mg PO DAILY COUNTS INCLUDE 234 BEDS AT [facility] Last Admin: 06/05/18 09:49 Dose: 100 mg Silver Sulfadiazine (Silvadene 1% 25 Gm) 1 gm TP BID COUNTS INCLUDE 234 BEDS AT [facility] Last Admin: 06/05/18 09:51 Dose: 1 gm Tizanidine HCl (Zanaflex) 4 mg PO QID COUNTS INCLUDE 234 BEDS AT [facility] Last Admin: 06/05/18 13:11 Dose: 4 mg Zonisamide (Zonegran) 200 mg PO HS COUNTS INCLUDE 234 BEDS AT [facility] Last Admin: 06/04/18 21:44 Dose: 200 mg - Labs Labs: 06/05/18 06:30 06/05/18 06:30 Attending/Attestation - Attestation I have personally seen and examined this patient.: Yes I have fully participated in the care of the patient.: Yes I have reviewed all pertinent clinical information, including history, physical exam and plan: Yes Notes (Text): Patient seen and examined by me at 10:20AM with resident. Case including HPI, physical exam, and physical assessment and plan discussed with resident. Agree with above with following additions/corrections. Patient states that he is feeling ok. Still with no bowel movement. States his abdomen feels full. Patient is eating well. Patient is having flatus. Patient denies chest pain or shortness of breath. No abdominal pain, nausea, or vomiting. No fevers or chills. No headaches or dizziness. No dysuria. Physical exam: Gen: Awake and alert sitting up in bed in no acute distress HEENT: Normocephalic, atraumatic. Extraocular muscles intact, pupils equal reactive. Oropharynx is pink and moist, no pharyngeal erythema or exudate appreciated. Neck is supple. Cardiovascular: Normal rhythm, normal S1-S2. Positive systolic murmur. No rubs or gallops appreciated Pulmonary: Normal respiratory effort. No rhonchi, rales or wheezing appreciated. Gastrointestinal: Soft, nontender, nondistended, positive bowel sounds all 4 quadrants, no guarding Musculoskeletal: Decreased range of motion all extremities (chronic) Central nervous system: AAO 3 Dermatologic: Skin warm and dry. Positive stage II ulcer lower back/sacral area with no drainage Assessment and plan: Patient is a 63-year-old male with past medical history significant for hypertension, type 2 diabetes, reflex sympathetic dystrophy, arthritis, depression, seizures, chronic decubitus ulcer, and constipation that presented to the emergency room with dizziness and altered speech. 1. Infected stage II sacral decubitus. Wound cultures positive for enterobacter , proteus, and staph aureus. ID following, recommendations appreciated. Continue Cefepime Day #5 of 10-14 days per ID. PICC line in place. Continue local wound care. Surgical team recommendations appreciated. Sacrum and coccyx xray do not show signs of osteomyelitis. 2. Dizziness and altered speech. Resolved dizziness. Per family, altered speech is chronic. Per neurology, this is subacute infarct and patient is cleared for discharge. CT head 05/31/18 per radiologist shows 2.7 cm diameter area of hypodensity in the right parietal posterior frontal region; this could represent an acute or subacute infarct. 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 CTA head per radiologist showed unremarkable angiography of brain. CTA neck per radiologist shows no significant stenosis or occlusions. 2-D echo per director of people shows EF 65% and moderate to severe aortic stenosis(please see official results for full details). Pending acute rehab placement. Continue Plavix (patient allergic to ASA) and Lipitor. 3. Moderate to severe aortic stenosis seen on 2-D echo. Cardiology consulted, recommendations appreciated. Will need cardiac follow up in 2-4 weeks. 4. Constipation. Patient uses chronic opioids at home. Given lactulose and magnesium citrate today. Continue miralax and colace. KUB shows constipation but no impaction or obstruction. Continue to monitor for bowel movement. 5. Chronic pain. Likely secondary to reflex sympathetic dystrophy. Continue with Neurontin and Zanaflex. For rehab when bed available. 6. Essential hypertension. Continue losartan, lasix, and amlodipine. 7. Dyslipidemia. Continue Lipitor. 8. History of depression and anxiety. Continue Cymbalta, risperidone, Zoloft, Wellbutrin, and Ativan. Psychiatry recommendations appreciated. Patient cleared for discharge to rehabilitation by psychiatry. 9. History of seizures. Continue Keppra. 10. GI and DVT prophylaxis. Protonix and Lovenox 11. Dispo: D/C pending rehab placement. Case was discussed in detail with the patient and biomedical specialist regarding current diagnosis and treatment plan
--- NOTE | 2018-06-05 15:02 | CP.PCM.PN ---
Subjective - Date & Time of Evaluation Date of Evaluation: 06/05/18 Time of Evaluation: 11:45 - Subjective Subjective: Afebrile, not in distress. Objective - Vital Signs/Intake and Output Vital Signs (last 24 hours): Temp Pulse Resp BP Pulse Ox 97.6 F 70 20 96/66 L 96 06/05/18 08:55 06/05/18 08:55 06/05/18 08:55 06/05/18 08:55 06/05/18 08:55 Intake and Output: 06/05/18 06/05/18 06:59 18:59 Intake Total 300 Output Total 850 Balance -550 - Medications Medications: Current Medications Acetaminophen (Tylenol 325mg Tab) 650 mg PO Q6H PRN PRN Reason: Fever >100.4 F Amlodipine Besylate (Norvasc) 10 mg PO DAILY [facility] Last Admin: 06/05/18 09:48 Dose: Not Given Atorvastatin Calcium (Lipitor) 40 mg PO DIN [facility] Last Admin: 06/04/18 17:15 Dose: 40 mg Bacitracin (Bacitracin) 1 ea TOP BID [facility] Last Admin: 06/05/18 09:47 Dose: 1 ea Bupropion HCl (Wellbutrin Xl) 150 mg PO DAILY [facility] Last Admin: 06/05/18 09:47 Dose: 150 mg Clopidogrel Bisulfate (Plavix) 75 mg PO DAILY [facility] Last Admin: 06/05/18 09:47 Dose: 75 mg Docusate Sodium (Colace) 100 mg PO TID [facility] Last Admin: 06/05/18 09:47 Dose: 100 mg Duloxetine HCl (Cymbalta) 30 mg PO Q8 [facility] Last Admin: 06/05/18 05:39 Dose: 30 mg Enoxaparin Sodium (Lovenox) 40 mg SC DAILY [facility] PRN Reason: Protocol Last Admin: 06/05/18 09:47 Dose: 40 mg Furosemide (Lasix) 40 mg PO DAILY [facility] Last Admin: 06/05/18 09:49 Dose: Not Given Gabapentin (Neurontin) 600 mg PO Q8 [facility] PRN Reason: Protocol Last Admin: 06/05/18 05:39 Dose: 600 mg Cefepime HCl (Maxipime 1gm) 1 gm in 100 mls @ 100 mls/hr IVPB Q8 [facility] PRN Reason: Protocol Last Admin: 06/05/18 05:39 Dose: 100 mls/hr Levetiracetam (Keppra) 500 mg PO Q12 [facility] Last Admin: 06/05/18 09:50 Dose: 500 mg Lorazepam (Ativan) 2 mg PO Q12 [facility] PRN Reason: Protocol Last Admin: 06/05/18 09:47 Dose: 2 mg Losartan Potassium (Cozaar) 100 mg PO DAILY [facility] Last Admin: 06/05/18 09:49 Dose: 100 mg Meclizine HCl (Antivert) 12.5 mg PO TID [facility] Last Admin: 06/05/18 09:47 Dose: 12.5 mg Ondansetron HCl (Zofran Inj) 4 mg IVP Q4H PRN PRN Reason: Nausea/Vomiting Pantoprazole Sodium (Protonix Ec Tab) 40 mg PO 0600 [facility] Last Admin: 06/05/18 05:39 Dose: 40 mg Polyethylene Glycol (Miralax) 17 gm PO DAILY [facility] Last Admin: 06/05/18 09:50 Dose: 17 gm Quetiapine Fumarate (Seroquel) 300 mg PO [facility] PRN Reason: Protocol Last Admin: 06/04/18 21:44 Dose: 300 mg Risperidone (Risperdal Tab) 1 mg PO Q8 [facility] PRN Reason: Protocol Last Admin: 06/05/18 05:39 Dose: 1 mg Sertraline HCl (Zoloft) 100 mg PO DAILY [facility] Last Admin: 06/05/18 09:49 Dose: 100 mg Silver Sulfadiazine (Silvadene 1% 25 Gm) 1 gm TP BID [facility] Last Admin: 06/05/18 09:51 Dose: 1 gm Tizanidine HCl (Zanaflex) 4 mg PO QID [facility] Last Admin: 06/05/18 09:47 Dose: 4 mg Zonisamide (Zonegran) 200 mg PO HS [facility] Last Admin: 06/04/18 21:44 Dose: 200 mg - Labs Labs: 06/05/18 06:30 06/05/18 06:30 - Constitutional Appears: Chronically Ill - Head Exam Head Exam: NORMAL INSPECTION - Neck Exam Neck Exam: absent: Meningismus - Respiratory Exam Respiratory Exam: Decreased Breath Sounds - Cardiovascular Exam Cardiovascular Exam: +S1, +S2 - GI/Abdominal Exam GI & Abdominal Exam: Soft. absent: Tenderness Assessment and Plan - Assessment and Plan (Free Text) Plan: assessment infected sacral decubitus ulcer stage 2 to 3, growing MSSA, Proteus, Enterobacter history of right index finger cellulitis with associated wound cervical spine trauma S/P cervical laminectomy history of reflex sympathetic dystrophy plan continue Cefepime for 10-14 days with local wound care (Day 5 today)
--- NOTE | 2018-06-05 23:13 | PN ---
DATE: 06/05/2018 SUBJECTIVE: The patient complains of constipation, history of reporting dizziness. PHYSICAL EXAMINATION VITAL SIGNS: Blood pressure , heart rate is 80, temperature 97.9, respirations 19. HEENT: Normocephalic. CHEST: Clear. HEART: Sounds are regular. Grade 4/6 ejection systolic murmur over the left sternal border. ABDOMEN: Soft. EXTREMITIES: No edema. LABORATORY DATA: SMA-7 is within normal limits except for BUN of 29 and glucose of 112. Today's hemoglobin and hematocrit, white count and platelet count are within normal limit. Abdomen x-ray that was performed yesterday revealed constipation without infection or obstruction. ASSESSMENT: 1. Status post cardiovascular accident. 2. Infected sacral decubitus. 3. Hypertension. 4. Constipation. 5. Depression. RECOMMENDATIONS: Continue Ativan 2 mg p.o. every 12 hours, Colace 100 mg t.i.d., Cozaar 100 mg once a daily, Keppra 500 mg twice a day, Lipitor 40 mg once a day, Lovenox 40 mg subcutaneous once a day, Maxipime 1 gm intravenously every 8 hours, Norvasc 10 mg once a day, Wellbutrin 150 mg once a day, Zofran 4 mg intravenously every 4 hours p.r.n. The patient was accepted at [facility], however, the declined the transfer and she would prefer him to be in subacute locally at [facility] according to the nurse. Stuart Fabian MD
[2018-06-06] MEDS: Cefepime 1gm in NS 100ml 1 GM/100 ML BAG IVPB SCH ×3 (05:06→21:12)
[2018-06-06] MEDS: Pantoprazole 40 mg EC Tab PO SCH (05:06)
[2018-06-06 08:14] LABS: HEMOGLOBIN 13.1 g/dL (14.0-18.0); RBC 4.39 10^6/uL (3.5-6.1); WHITE BLOOD COUNT 8.1 10^3/ul (4.5-11.0)
[2018-06-06 08:15] LABS: BASO # 0.04 K/mm3 (0.0-2.0); BASO % 0.5 % (0.0-3.0); EOS # 0.2 (0.0-0.7); EOS % 2.8 % (1.5-5.0); GRAN # 5.05 (1.4-6.5); GRAN % 62.1 % (50.0-68.0); LYMPH % 24.9 % (22.0-35.0); MEAN CELL VOLUME 92.5 fl (80.0-105.0); MEAN CORPUSCULAR HEMOGLOBIN 29.8 pg (25.0-35.0); MEAN CORPUSCULAR HGB CONC 32.3 g/dl (31.0-37.0); MEAN PLATELET VOLUME 12.9 fl (7.0-11.0); MONO # 0.8 (0.1-0.6); MONO % 9.7 % (1.0-6.0); RED CELL DISTRIBUTION WIDTH 13.3 % (11.5-14.5)
[2018-06-06 08:18] LABS: ALB/GLOB RATIO 1.2 (1.1-1.8); ALBUMIN 3.3 g/dL (3.0-4.8); ALT/SGPT 58 U/L (7-56); AST/SGOT 32 U/L (17-59); BLOOD UREA NITROGEN 30 mg/dL (7-21); CALCIUM 8.6 mg/dL (8.4-10.5); GFR AFRICAN-AMERICAN > 60; GFR NON-AFRICAN AMERICAN > 60
[2018-06-06] MEDS: Bacitracin 500 Units/gm Oint Foilpak UD TOP SCH ×2 (11:04→17:36)
[2018-06-06] MEDS: Enoxaparin 40 mg Syringe SC SCH (11:06)
[2018-06-06] MEDS: POLYETHYLENE GLYCOL 3350 17 GM/Dose PACKET PO SCH (11:07)
[2018-06-06] MEDS: Silver Sulfadiazine 1% Cream (25 gm) TP SCH ×2 (11:08→17:37)
[2018-06-06] MEDS: buPROPion 150 mg/24 Hours XL Tab PO SCH (11:09)
--- NOTE | 2018-06-06 12:25 | CP.PCM.PN ---
<Ana Paz - Last Filed: 06/06/18 12:21> Subjective - Date & Time of Evaluation Date of Evaluation: 06/06/18 Time of Evaluation: 12:21 - Subjective Subjective: Ana Paz D.O. -- Glue Jointer Feeder -- Medicine Progress note Patient was examined at bedside this morning. Per patient, no acute events occurred over night. Patient offers no new complaints at this time. Patient says he was able to tolerate PO. Patient admits to bowel movement. Patient otherwise denies muscle pain, headache, fevers, chills, chest pain, shortness of breath, abdominal pain, nausea, vomiting and/or diarrhea. Objective - Vital Signs/Intake and Output Vital Signs (last 24 hours): Temp Pulse Resp BP Pulse Ox 97.9 F 80 19 103/64 98 06/05/18 17:32 06/05/18 17:32 06/05/18 17:32 06/06/18 11:07 06/05/18 17:32 Intake and Output: 06/06/18 06/06/18 06:59 18:59 Intake Total 350 Output Total 425 Balance -75 - Medications Medications: Current Medications Acetaminophen (Tylenol 325mg Tab) 650 mg PO Q6H PRN PRN Reason: Fever >100.4 F Amlodipine Besylate (Norvasc) 10 mg PO DAILY [facility] Last Admin: 06/06/18 11:07 Dose: 10 mg Atorvastatin Calcium (Lipitor) 40 mg PO DIN [facility] Last Admin: 06/05/18 17:01 Dose: 40 mg Bacitracin (Bacitracin) 1 ea TOP BID [facility] Last Admin: 06/06/18 11:04 Dose: 1 ea Bupropion HCl (Wellbutrin Xl) 150 mg PO DAILY [facility] Last Admin: 06/06/18 11:09 Dose: 150 mg Clopidogrel Bisulfate (Plavix) 75 mg PO DAILY [facility] Last Admin: 06/06/18 11:07 Dose: 75 mg Docusate Sodium (Colace) 100 mg PO TID [facility] Last Admin: 06/06/18 11:04 Dose: 100 mg Duloxetine HCl (Cymbalta) 30 mg PO Q8 [facility] Last Admin: 06/06/18 05:06 Dose: 30 mg Enoxaparin Sodium (Lovenox) 40 mg SC DAILY [facility] PRN Reason: Protocol Last Admin: 06/06/18 11:06 Dose: 40 mg Furosemide (Lasix) 40 mg PO DAILY [facility] Last Admin: 06/06/18 11:06 Dose: 40 mg Gabapentin (Neurontin) 600 mg PO Q8 [facility] PRN Reason: Protocol Last Admin: 06/06/18 05:06 Dose: 600 mg Cefepime HCl (Maxipime 1gm) 1 gm in 100 mls @ 100 mls/hr IVPB Q8 GAURAV PRN Reason: Protocol Last Admin: 06/06/18 05:06 Dose: 100 mls/hr Levetiracetam (Keppra) 500 mg PO Q12 [facility] Last Admin: 06/06/18 11:06 Dose: 500 mg Lorazepam (Ativan) 2 mg PO Q12 GAURAV PRN Reason: Protocol Last Admin: 06/06/18 11:04 Dose: 2 mg Losartan Potassium (Cozaar) 100 mg PO DAILY [facility] Last Admin: 06/06/18 11:05 Dose: 100 mg Meclizine HCl (Antivert) 12.5 mg PO TID [facility] Last Admin: 06/06/18 11:03 Dose: 12.5 mg Ondansetron HCl (Zofran Inj) 4 mg IVP Q4H PRN PRN Reason: Nausea/Vomiting Pantoprazole Sodium (Protonix Ec Tab) 40 mg PO 0600 [facility] Last Admin: 06/06/18 05:06 Dose: 40 mg Polyethylene Glycol (Miralax) 17 gm PO DAILY [facility] Last Admin: 06/06/18 11:07 Dose: 17 gm Quetiapine Fumarate (Seroquel) 300 mg PO HS [facility] PRN Reason: Protocol Last Admin: 06/05/18 21:15 Dose: 300 mg Risperidone (Risperdal Tab) 1 mg PO Q8 [facility] PRN Reason: Protocol Last Admin: 06/06/18 05:06 Dose: 1 mg Sertraline HCl (Zoloft) 100 mg PO DAILY [facility] Last Admin: 06/06/18 11:09 Dose: 100 mg Silver Sulfadiazine (Silvadene 1% 25 Gm) 1 gm TP BID [facility] Last Admin: 06/06/18 11:08 Dose: 1 gm Tizanidine HCl (Zanaflex) 4 mg PO QID [facility] Last Admin: 06/06/18 11:09 Dose: 4 mg Zonisamide (Zonegran) 200 mg PO HS [facility] Last Admin: 06/05/18 21:15 Dose: 200 mg - Labs Labs: 06/06/18 07:00 06/06/18 07:00 - Constitutional Appears: Non-toxic, No Acute Distress - Head Exam Head Exam: ATRAUMATIC, NORMAL INSPECTION, NORMOCEPHALIC - Eye Exam Eye Exam: EOMI, Normal appearance - ENT Exam ENT Exam: Mucous Membranes Moist, Normal Exam - Neck Exam Neck Exam: Normal Inspection - Respiratory Exam Respiratory Exam: Clear to Ausculation Bilateral, NORMAL BREATHING PATTERN. absent: Decreased Breath Sounds, Rhonchi, Wheezes - Cardiovascular Exam Cardiovascular Exam: RRR. absent: Gallop, Murmur - GI/Abdominal Exam GI & Abdominal Exam: Soft, Normal Bowel Sounds. absent: Tenderness - Extremities Exam Extremities Exam: Normal Capillary Refill, Normal Inspection. absent: Pedal Edema, Tenderness - Neurological Exam Neurological Exam: Alert, Awake, Oriented x3 - Psychiatric Exam Psychiatric exam: Normal Affect, Normal Mood - Skin Skin Exam: Dry, Normal Color, Warm Additional comments: Stage 2-3 sacral decubitus ulcer. Assessment and Plan - Assessment and Plan (Free Text) Assessment: Mr. Proctor is a 63 year old male with a past medical history of hypertension, diabetes mellitus type 2, Reflex Sympathetic Dystrophy, arthritis, seizures, depression, and decubitus ulcer who is presenting with dizziness and stage 2-3 sacral decubitus ulcer. Infected stage 2-3 sacral decubitus ulcer - Wound culture: Proteus mirabilis, enterobacter aerogenes, and staph aureus - Sacral X-ray: unremarkable - CRP obtained, within normal limits - Continue Cefepime 1g IV Q8H on day #6 of 08-30 - Continue bacitracin ointment - Infectious disease consulted, recommendations appreciated - Surgery consulted- no surgical intervention at this time, BID dressing changes with optiform and santyl, turn patient every 2 hours - Wound care on board, continue to monitor Chronic constipation, resolved - Most likely secondary to prolonged use of opiates - KUB showed constipation, but no obstruction - Continue miralax and colace - Dulcolax suppository x1 (06/03) - Relistor x1 (06/04) - Cellulose x1 and magnesium citrate x 1 (06/05) Subacute CVA - Neurology cleared patient for discharge - Head CT (05/30): shows 2.7cm area of hypodensity in the right parietal posterior frontal region. This could represent an acute or subacute infarct. - Repeat head CT (06/02): More defined subacute right parietal stroke in comparison from previous imaging indicating development and thus defined as subacute - Head/neck CTA (05/30): No significant stenosis or occlusion appreciated - Brain MRI not possible- patient has metal rods in his back and legs from prior surgeries. - Continue Plavix, atorvastatin - Echocardiogram (06/01): EF of 65%, moderate to severe aortic stenosis - Patient has slurred speech at baseline per son - Fall precautions - Seizure precautions - Aspiration precautions - Healthy Heart Diet - Follow up with neurology outpatient in 2 weeks, per neuro History of depression - Continue home antidepressants - Psychiatry consulted, recommendations appreciated Chronic back pain - Secondary to Reflex Sympathetic Dystrophy - Continue gabapentin - PT/OT consulted for evaluation and treatment History of hypertension - Continue losartan and amlodipine - Healthy Heart Diet History of seizures - Continue Keppra 500 BID, Ativan 1mg Q12 GI/DVT prophylaxis: - Protonix, SCD's Patient seen and case reviewed in detail with Attending Physician, Emy Kay PGY1 <Vesna Domínguez R - Last Filed: 06/06/18 15:14> Objective - Vital Signs/Intake and Output Vital Signs (last 24 hours): Temp Pulse Resp BP Pulse Ox 97.9 F 80 19 103/64 98 06/05/18 17:32 06/05/18 17:32 06/05/18 17:32 06/06/18 11:07 06/05/18 17:32 Intake and Output: 06/06/18 06/06/18 06:59 18:59 Intake Total 350 Output Total 425 Balance -75 - Medications Medications: Current Medications Acetaminophen (Tylenol 325mg Tab) 650 mg PO Q6H PRN PRN Reason: Fever >100.4 F Last Admin: 06/06/18 14:09 Dose: 650 mg Amlodipine Besylate (Norvasc) 10 mg PO DAILY [facility] Last Admin: 06/06/18 11:07 Dose: 10 mg Atorvastatin Calcium (Lipitor) 40 mg PO DIN [facility] Last Admin: 06/05/18 17:01 Dose: 40 mg Bacitracin (Bacitracin) 1 ea TOP BID [facility] Last Admin: 06/06/18 11:04 Dose: 1 ea Bupropion HCl (Wellbutrin Xl) 150 mg PO DAILY [facility] Last Admin: 06/06/18 11:09 Dose: 150 mg Clopidogrel Bisulfate (Plavix) 75 mg PO DAILY [facility] Last Admin: 06/06/18 11:07 Dose: 75 mg Docusate Sodium (Colace) 100 mg PO TID [facility] Last Admin: 06/06/18 14:07 Dose: 100 mg Duloxetine HCl (Cymbalta) 30 mg PO Q8 [facility] Last Admin: 06/06/18 14:07 Dose: 30 mg Enoxaparin Sodium (Lovenox) 40 mg SC DAILY [facility] PRN Reason: Protocol Last Admin: 06/06/18 11:06 Dose: 40 mg Furosemide (Lasix) 40 mg PO DAILY [facility] Last Admin: 06/06/18 11:06 Dose: 40 mg Gabapentin (Neurontin) 600 mg PO Q8 [facility] PRN Reason: Protocol Last Admin: 06/06/18 14:08 Dose: 600 mg Cefepime HCl (Maxipime 1gm) 1 gm in 100 mls @ 100 mls/hr IVPB Q8 [facility] PRN Reason: Protocol Last Admin: 06/06/18 14:08 Dose: 100 mls/hr Levetiracetam (Keppra) 500 mg PO Q12 [facility] Last Admin: 06/06/18 11:06 Dose: 500 mg Lorazepam (Ativan) 2 mg PO Q12 [facility] PRN Reason: Protocol Last Admin: 06/06/18 11:04 Dose: 2 mg Losartan Potassium (Cozaar) 100 mg PO DAILY [facility] Last Admin: 06/06/18 11:05 Dose: 100 mg Meclizine HCl (Antivert) 12.5 mg PO TID [facility] Last Admin: 06/06/18 14:07 Dose: 12.5 mg Ondansetron HCl (Zofran Inj) 4 mg IVP Q4H PRN PRN Reason: Nausea/Vomiting Pantoprazole Sodium (Protonix Ec Tab) 40 mg PO 0600 [facility] Last Admin: 06/06/18 05:06 Dose: 40 mg Polyethylene Glycol (Miralax) 17 gm PO DAILY [facility] Last Admin: 06/06/18 11:07 Dose: 17 gm Quetiapine Fumarate (Seroquel) 300 mg PO HS [facility] PRN Reason: Protocol Last Admin: 06/05/18 21:15 Dose: 300 mg Risperidone (Risperdal Tab) 1 mg PO Q8 [facility] PRN Reason: Protocol Last Admin: 06/06/18 14:09 Dose: 1 mg Sertraline HCl (Zoloft) 100 mg PO DAILY [facility] Last Admin: 06/06/18 11:09 Dose: 100 mg Silver Sulfadiazine (Silvadene 1% 25 Gm) 1 gm TP BID [facility] Last Admin: 06/06/18 11:08 Dose: 1 gm Tizanidine HCl (Zanaflex) 4 mg PO QID [facility] Last Admin: 06/06/18 14:09 Dose: 4 mg Zonisamide (Zonegran) 200 mg PO HS [facility] Last Admin: 06/05/18 21:15 Dose: 200 mg - Labs Labs: 06/06/18 07:00 06/06/18 07:00 Attending/Attestation - Attestation I have personally seen and examined this patient.: Yes I have fully participated in the care of the patient.: Yes I have reviewed all pertinent clinical information, including history, physical exam and plan: Yes Notes (Text): Patient seen and examined by me at 09:00AM with resident. Case including HPI, physical exam, and physical assessment and plan discussed with resident. Agree with above with following additions/corrections. Patient states that he is feeling ok. Patient had a large bowel movement. Patient is eating well. He denies denies chest pain or shortness of breath. No abdominal pain, nausea, or vomiting. No fevers or chills. No headaches or dizziness. No dysuria. He states he had some pain at sacral decubitus site when having his bowel movement. Physical exam: Gen: Awake and alert sitting up in bed in no acute distress HEENT: Normocephalic, atraumatic. Extraocular muscles intact, pupils equal reactive. Oropharynx is pink and moist, no pharyngeal erythema or exudate appreciated. Neck is supple. Cardiovascular: Normal rhythm, normal S1-S2. Positive systolic murmur. No rubs or gallops appreciated Pulmonary: Normal respiratory effort. No rhonchi, rales or wheezing appreciated. Gastrointestinal: Soft, nontender, nondistended, positive bowel sounds all 4 quadrants, no guarding Musculoskeletal: Decreased range of motion all extremities (chronic) Central nervous system: AAO 3 Dermatologic: Skin warm and dry. Positive stage II ulcer lower back/sacral area with no drainage Assessment and plan: Patient is a 63-year-old male with past medical history significant for hypertension, type 2 diabetes, reflex sympathetic dystrophy, arthritis, depression, seizures, chronic decubitus ulcer, and constipation that presented to the emergency room with dizziness and altered speech. 1. Infected stage II sacral decubitus. Wound cultures positive for enterobacter , proteus, and staph aureus. ID following, recommendations appreciated. Continue Cefepime Day #6 of 10-14 days per ID. PICC line is in place. Continue local wound care. Surgical team recommendations appreciated. Sacrum and coccyx xray do not show signs of osteomyelitis. 2. Dizziness and altered speech. Resolved dizziness. Per family, altered speech is chronic. Continue speech therapy. Per neurology, this is subacute infarct and patient is cleared for discharge. Continue Plavix (patient allergic to ASA) and Lipitor. CT head 05/31/18 per radiologist shows 2.7 cm diameter area of hypodensity in the right parietal posterior frontal region; this could represent an acute or subacute infarct. 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 CTA head per radiologist showed unremarkable angiography of brain. CTA neck per radiologist shows no significant stenosis or occlusions. 2-D echo per customer support associate shows EF 65% and moderate to severe aortic stenosis (please see official results for full details). Pending acute rehab placement. 3. Moderate to severe aortic stenosis seen on 2-D echo. Cardiology consulted, recommendations appreciated. Will need cardiac follow up in 2-4 weeks. 4. Constipation. Patient uses chronic opioids at home. Resolved. Continue miralax and colace. 5. Chronic pain. Likely secondary to reflex sympathetic dystrophy. Continue with Neurontin and Zanaflex. For rehab when insurance approves and bed available. 6. Essential hypertension. Continue losartan, lasix, and amlodipine. 7. Dyslipidemia. Continue Lipitor. 8. History of depression and anxiety. Continue Cymbalta, risperidone, Zoloft, Wellbutrin, and Ativan. Psychiatry recommendations appreciated. Patient cleared for discharge to rehabilitation by psychiatry. 9. History of seizures. Continue Keppra. 10. GI and DVT prophylaxis. Protonix and Lovenox 11. Dispo: D/C pending rehab placement. Case was discussed in detail with the patient and medical assistant regarding current diagnosis and treatment plan
[2018-06-07] MEDS: Cefepime 1gm in NS 100ml 1 GM/100 ML BAG IVPB SCH ×3 (05:38→21:52)
[2018-06-07] MEDS: Pantoprazole 40 mg EC Tab PO SCH (05:38)
[2018-06-07 10:20] LABS: ALB/GLOB RATIO 1.2 (1.1-1.8); ALBUMIN 3.4 g/dL (3.0-4.8); ALT/SGPT 61 U/L (7-56); AST/SGOT 36 U/L (17-59); BLOOD UREA NITROGEN 23 mg/dL (7-21); CALCIUM 8.9 mg/dL (8.4-10.5); GFR AFRICAN-AMERICAN > 60; GFR NON-AFRICAN AMERICAN > 60
[2018-06-07 10:36] LABS: BASO # 0.04 K/mm3 (0.0-2.0); BASO % 0.6 % (0.0-3.0); EOS # 0.2 (0.0-0.7); EOS % 2.8 % (1.5-5.0); GRAN # 5.21 (1.4-6.5); GRAN % 73.3 % (50.0-68.0); HEMOGLOBIN 13.8 g/dL (14.0-18.0); LYMPH # 1.3 (1.2-3.4); LYMPH % 18.4 % (22.0-35.0); MEAN CELL VOLUME 90.8 fl (80.0-105.0); MEAN CORPUSCULAR HEMOGLOBIN 29.7 pg (25.0-35.0); MEAN CORPUSCULAR HGB CONC 32.7 g/dl (31.0-37.0); MEAN PLATELET VOLUME 12.1 fl (7.0-11.0); MONO # 0.4 (0.1-0.6); MONO % 4.9 % (1.0-6.0); RBC 4.65 10^6/uL (3.5-6.1); RED CELL DISTRIBUTION WIDTH 13.1 % (11.5-14.5); WHITE BLOOD COUNT 7.1 10^3/ul (4.5-11.0)
[2018-06-07] MEDS: Bacitracin 500 Units/gm Oint Foilpak UD TOP SCH ×2 (11:06→18:32)
[2018-06-07] MEDS: POLYETHYLENE GLYCOL 3350 17 GM/Dose PACKET PO SCH (11:07)
[2018-06-07] MEDS: Enoxaparin 40 mg Syringe SC SCH (11:07)
[2018-06-07] MEDS: buPROPion 150 mg/24 Hours XL Tab PO SCH (11:08)
[2018-06-07] MEDS: Silver Sulfadiazine 1% Cream (25 gm) TP SCH ×2 (11:10→18:33)
--- NOTE | 2018-06-07 16:39 | PN ---
DATE: 06/07/2018 SUBJECTIVE: The patient is in bed, in no acute distress, nontoxic. PHYSICAL EXAMINATION: VITAL SIGNS: Temperature is 98, blood pressure is 102/60, respiratory rate of 18, heart rate of 67. HEENT: Unremarkable. NECK: Supple. LUNGS: Decreased breath sounds. HEART: Normal S1, S2. ABDOMEN: Soft, nontender. LABORATORY EXAMINATION: Reveals a white count of 7.1, hemoglobin of 13. Chemistries reveal a BUN of 23, creatinine of 1. Microbiology is noted. ASSESSMENT AND PLAN: This is a 63-year-old male who was seen earlier in [facility], bed 1 with infected sacral decubitus ulcer stage II to III growing sensitive staphylococcus, growing Proteus, Enterobacter, on cefepime, today is day #7, would complete 10 to 14 days. Review of orders reveals patient's cefepime to be active. Davon López MD
--- NOTE | 2018-06-07 18:58 | CP.PCM.PN ---
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 Per patient, no acute events occurred over night. Patient offers no new complaints at this time. Patient says he was able to tolerate PO. Patient admits to bowel movement. Patient otherwise denies muscle pain, headache, fevers, chills, chest pain, shortness of breath, abdominal pain, nausea, vomiting and/or diarrhea. Patient says he is unable to get out of bed, However upon further inquiry, patient admits that he was able to get out of bed and into chair with assistance. Objective - Vital Signs/Intake and Output Vital Signs (last 24 hours): Temp Pulse Resp BP Pulse Ox 97.7 F 91 H 19 103/65 97 06/07/18 18:26 06/07/18 18:26 06/07/18 18:26 06/07/18 18:26 06/07/18 18:26 Intake and Output: 06/07/18 06/07/18 06:59 18:59 Intake Total 420 Output Total 800 Balance -380 - Medications Medications: Current Medications Acetaminophen (Tylenol 325mg Tab) 650 mg PO Q6H PRN PRN Reason: Fever >100.4 F Last Admin: 06/06/18 14:09 Dose: 650 mg Amlodipine Besylate (Norvasc) 10 mg PO DAILY [facility] Last Admin: 06/07/18 11:08 Dose: 10 mg Atorvastatin Calcium (Lipitor) 40 mg PO DIN [facility] Last Admin: 06/07/18 18:32 Dose: 40 mg Bacitracin (Bacitracin) 1 ea TOP BID [facility] Last Admin: 06/07/18 18:32 Dose: 1 ea Bupropion HCl (Wellbutrin Xl) 150 mg PO DAILY [facility] Last Admin: 06/07/18 11:08 Dose: 150 mg Clopidogrel Bisulfate (Plavix) 75 mg PO DAILY [facility] Last Admin: 06/07/18 11:08 Dose: 75 mg Docusate Sodium (Colace) 100 mg PO TID [facility] Last Admin: 06/07/18 18:32 Dose: 100 mg Duloxetine HCl (Cymbalta) 30 mg PO Q8 [facility] Last Admin: 06/07/18 14:15 Dose: 30 mg Enoxaparin Sodium (Lovenox) 40 mg SC DAILY [facility] PRN Reason: Protocol Last Admin: 06/07/18 11:07 Dose: 40 mg Furosemide (Lasix) 40 mg PO DAILY [facility] Last Admin: 06/07/18 11:07 Dose: 40 mg Gabapentin (Neurontin) 600 mg PO Q8 [facility] PRN Reason: Protocol Last Admin: 06/07/18 14:15 Dose: 600 mg Cefepime HCl (Maxipime 1gm) 1 gm in 100 mls @ 100 mls/hr IVPB Q8 [facility] PRN Reason: Protocol Last Admin: 06/07/18 14:15 Dose: 100 mls/hr Levetiracetam (Keppra) 500 mg PO Q12 [facility] Last Admin: 06/07/18 11:07 Dose: 500 mg Lorazepam (Ativan) 2 mg PO Q12 [facility] PRN Reason: Protocol Last Admin: 06/07/18 11:06 Dose: 2 mg Losartan Potassium (Cozaar) 100 mg PO DAILY [facility] Last Admin: 06/07/18 11:06 Dose: 100 mg Meclizine HCl (Antivert) 12.5 mg PO TID [facility] Last Admin: 06/07/18 18:32 Dose: 12.5 mg Ondansetron HCl (Zofran Inj) 4 mg IVP Q4H PRN PRN Reason: Nausea/Vomiting Pantoprazole Sodium (Protonix Ec Tab) 40 mg PO 0600 [facility] Last Admin: 06/07/18 05:38 Dose: 40 mg Polyethylene Glycol (Miralax) 17 gm PO DAILY [facility] Last Admin: 06/07/18 11:07 Dose: 17 gm Quetiapine Fumarate (Seroquel) 300 mg PO HS [facility] PRN Reason: Protocol Last Admin: 06/06/18 21:13 Dose: 300 mg Risperidone (Risperdal Tab) 1 mg PO Q8 [facility] PRN Reason: Protocol Last Admin: 06/07/18 14:16 Dose: 1 mg Sertraline HCl (Zoloft) 100 mg PO DAILY [facility] Last Admin: 06/07/18 11:09 Dose: 100 mg Silver Sulfadiazine (Silvadene 1% 25 Gm) 1 gm TP BID [facility] Last Admin: 06/07/18 18:33 Dose: 1 gm Tizanidine HCl (Zanaflex) 4 mg PO QID [facility] Last Admin: 06/07/18 18:33 Dose: 4 mg Zonisamide (Zonegran) 200 mg PO HS [facility] Last Admin: 06/06/18 21:14 Dose: 200 mg - Labs Labs: 06/07/18 09:45 06/07/18 09:45 - Head Exam Head Exam: ATRAUMATIC, NORMAL INSPECTION, NORMOCEPHALIC - Eye Exam Eye Exam: EOMI, Normal appearance - ENT Exam ENT Exam: Mucous Membranes Moist, Normal Exam - Neck Exam Neck Exam: Normal Inspection - Respiratory Exam Respiratory Exam: NORMAL BREATHING PATTERN - Cardiovascular Exam Cardiovascular Exam: REGULAR RHYTHM. absent: Murmur - GI/Abdominal Exam GI & Abdominal Exam: Soft, Normal Bowel Sounds. absent: Tenderness - Extremities Exam Extremities Exam: Normal Inspection - Neurological Exam Neurological Exam: Alert, Awake, Oriented x3 - Psychiatric Exam Psychiatric exam: Normal Affect, Normal Mood - Skin Skin Exam: Dry, Intact, Normal Color, Warm Additional comments: stage 1 decubitus ulcer in sacral region appreciated on inspection Assessment and Plan - Assessment and Plan (Free Text) Assessment: 63-year-old male with a past medical history of hypertension, diabetes mellitus type 2, Reflex Sympathetic Dystrophy, arthritis, seizures, depression, and decubitus ulcer who is presenting with dizziness and sacral decubitus ulcer. Sacral decubitus ulcer, improved to stage 1 - Wound culture: Proteus mirabilis, enterobacter aerogenes, and staph aureus - Sacral X-ray: unremarkable - CRP obtained, within normal limits - Continue Cefepime 1g IV Q8H on day #7 of -14, per infectious disease - Continue bacitracin ointment - Infectious disease consulted, recommendations appreciated - Surgery consulted- no surgical intervention at this time, BID dressing changes with optiform and santyl, turn patient every 2 hours - Wound care on board, continue to monitor - Out of bed as tolerated - Physical Therapy consulted Chronic constipation, resolved - Most likely secondary to prolonged use of opiates - Continue miralax and colace - Dulcolax suppository x1 (06/03) - Relistor x1 (06/04) - Cellulose x1 and magnesium citrate x 1 (06/05) Subacute CVA - Neurology cleared patient for discharge - Head CT (05/30): shows 2.7cm area of hypodensity in the right parietal posterior frontal region. This could represent an acute or subacute infarct. - Repeat head CT (06/02): More defined subacute right parietal stroke in comparison from previous imaging indicating development and thus defined as subacute - Head/neck CTA (05/30): No significant stenosis or occlusion appreciated - Brain MRI not possible- patient has metal rods in his back and legs from prior surgeries. - Continue Plavix, atorvastatin - Echocardiogram (06/01): EF of 65%, moderate to severe aortic stenosis - Patient has slurred speech at baseline per son - Fall precautions - Seizure precautions - Aspiration precautions - Healthy Heart Diet - Follow up with neurology outpatient in 2 weeks, per neuro History of depression - Continue home antidepressants - Psychiatry consulted, recommendations appreciated Chronic back pain - Secondary to Reflex Sympathetic Dystrophy - Continue gabapentin - PT/OT consulted for evaluation and treatment History of hypertension - Continue losartan and amlodipine - Healthy Heart Diet History of seizures - Continue Keppra 500 BID, Ativan 1mg Q12 GI/DVT prophylaxis: - Protonix, SCD's Dispo: pending subacute care placement Patient seen and case reviewed in detail with Attending Physician, Emy Kay PGY1 <Vesna Domínguez - Last Filed: 06/07/18 20:35> Objective - Vital Signs/Intake and Output Vital Signs (last 24 hours): Temp Pulse Resp BP Pulse Ox 97.7 F 91 H 19 103/65 97 06/07/18 18:26 06/07/18 18:26 06/07/18 18:26 06/07/18 18:26 06/07/18 18:26 - Medications Medications: Current Medications Acetaminophen (Tylenol 325mg Tab) 650 mg PO Q6H PRN PRN Reason: Fever >100.4 F Last Admin: 06/06/18 14:09 Dose: 650 mg Amlodipine Besylate (Norvasc) 10 mg PO DAILY [facility] Last Admin: 06/07/18 11:08 Dose: 10 mg Atorvastatin Calcium (Lipitor) 40 mg PO DIN [facility] Last Admin: 06/07/18 18:32 Dose: 40 mg Bacitracin (Bacitracin) 1 ea TOP BID [facility] Last Admin: 06/07/18 18:32 Dose: 1 ea Bupropion HCl (Wellbutrin Xl) 150 mg PO DAILY [facility] Last Admin: 06/07/18 11:08 Dose: 150 mg Clopidogrel Bisulfate (Plavix) 75 mg PO DAILY [facility] Last Admin: 06/07/18 11:08 Dose: 75 mg Docusate Sodium (Colace) 100 mg PO TID [facility] Last Admin: 06/07/18 18:32 Dose: 100 mg Duloxetine HCl (Cymbalta) 30 mg PO Q8 [facility] Last Admin: 06/07/18 14:15 Dose: 30 mg Enoxaparin Sodium (Lovenox) 40 mg SC DAILY [facility] PRN Reason: Protocol Last Admin: 06/07/18 11:07 Dose: 40 mg Furosemide (Lasix) 40 mg PO DAILY [facility] Last Admin: 06/07/18 11:07 Dose: 40 mg Gabapentin (Neurontin) 600 mg PO Q8 [facility] PRN Reason: Protocol Last Admin: 06/07/18 14:15 Dose: 600 mg Cefepime HCl (Maxipime 1gm) 1 gm in 100 mls @ 100 mls/hr IVPB Q8 [facility] PRN Reason: Protocol Last Admin: 06/07/18 14:15 Dose: 100 mls/hr Levetiracetam (Keppra) 500 mg PO Q12 [facility] Last Admin: 06/07/18 11:07 Dose: 500 mg Lorazepam (Ativan) 2 mg PO Q12 [facility] PRN Reason: Protocol Last Admin: 06/07/18 11:06 Dose: 2 mg Losartan Potassium (Cozaar) 100 mg PO DAILY [facility] Last Admin: 06/07/18 11:06 Dose: 100 mg Meclizine HCl (Antivert) 12.5 mg PO TID [facility] Last Admin: 06/07/18 18:32 Dose: 12.5 mg Ondansetron HCl (Zofran Inj) 4 mg IVP Q4H PRN PRN Reason: Nausea/Vomiting Pantoprazole Sodium (Protonix Ec Tab) 40 mg PO 0600 [facility] Last Admin: 06/07/18 05:38 Dose: 40 mg Polyethylene Glycol (Miralax) 17 gm PO DAILY [facility] Last Admin: 06/07/18 11:07 Dose: 17 gm Quetiapine Fumarate (Seroquel) 300 mg PO HS [facility] PRN Reason: Protocol Last Admin: 06/06/18 21:13 Dose: 300 mg Risperidone (Risperdal Tab) 1 mg PO Q8 [facility] PRN Reason: Protocol Last Admin: 06/07/18 14:16 Dose: 1 mg Sertraline HCl (Zoloft) 100 mg PO DAILY [facility] Last Admin: 06/07/18 11:09 Dose: 100 mg Silver Sulfadiazine (Silvadene 1% 25 Gm) 1 gm TP BID [facility] Last Admin: 06/07/18 18:33 Dose: 1 gm Tizanidine HCl (Zanaflex) 4 mg PO QID [facility] Last Admin: 06/07/18 18:33 Dose: 4 mg Zonisamide (Zonegran) 200 mg PO HS [facility] Last Admin: 06/06/18 21:14 Dose: 200 mg - Labs Labs: 06/07/18 09:45 06/07/18 09:45 Attending/Attestation - Attestation I have personally seen and examined this patient.: Yes I have fully participated in the care of the patient.: Yes I have reviewed all pertinent clinical information, including history, physical exam and plan: Yes Notes (Text): Patient seen and examined by me at 9:50AM with resident. Case including HPI, physical exam, and physical assessment and plan discussed with resident. Agree with above with following additions/corrections. Patient states that he is doing ok. Patient states he had a small bowel movement. Patient is eating well. Patient denies chest pain or shortness of breath. No abdominal pain, nausea, or vomiting. No fevers or chills. No headaches or dizziness. No dysuria. Patient was able to get from bed to chair with assistance yesterday. Physical exam: Gen: Awake and alert sitting up in bed in no acute distress HEENT: Normocephalic, atraumatic. Extraocular muscles intact, pupils equal reactive. Oropharynx is pink and moist, no pharyngeal erythema or exudate appreciated. Neck is supple. Cardiovascular: Normal rhythm, normal S1-S2. Positive systolic murmur. No rubs or gallops appreciated Pulmonary: Normal respiratory effort. No rhonchi, rales or wheezing appreciated. Gastrointestinal: Soft, nontender, nondistended, positive bowel sounds all 4 quadrants, no guarding Musculoskeletal: Decreased range of motion all extremities (chronic) Central nervous system: AAO 3 Dermatologic: Skin warm and dry. Positive healing stage II ulcer lower back/ sacral area with no drainage (appears to be closer to stage I now) Assessment and plan: Patient is a 63-year-old male with past medical history significant for hypertension, type 2 diabetes, reflex sympathetic dystrophy, arthritis, depression, seizures, chronic decubitus ulcer, and constipation that presented to the emergency room with dizziness and altered speech. 1. Infected stage II sacral decubitus. Wound is healing well. Wound cultures positive for enterobacter, proteus, and staph aureus. ID following, recommendations appreciated. Continue Cefepime Day #7 of 10-14 days per ID. PICC line is in place. Continue local wound care. Surgical team recommendations appreciated. Sacrum and coccyx xray do not show signs of osteomyelitis. 2. Dizziness and altered speech. Resolved dizziness. Per family, altered speech is chronic. Continue speech therapy. Per neurology, this is subacute infarct and patient is cleared for discharge. Continue Plavix (patient allergic to ASA) and Lipitor. CT head 05/31/18 per radiologist shows 2.7 cm diameter area of hypodensity in the right parietal posterior frontal region; this could represent an acute or subacute infarct. 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 CTA head per radiologist showed unremarkable angiography of brain. CTA neck per radiologist shows no significant stenosis or occlusions. 2-D echo per proj engineer shows EF 65% and moderate to severe aortic stenosis (please see official results for full details). Pending rehab at [facility] once insurance approves. 3. Moderate to severe aortic stenosis seen on 2-D echo. Cardiology consulted, recommendations appreciated. Will need cardiac follow up in 2-4 weeks. 4. Constipation. Patient uses chronic opioids at home. Resolved. Continue miralax and colace. 5. Chronic pain. Likely secondary to reflex sympathetic dystrophy and patient being bed bound. Continue with Neurontin and Zanaflex. For rehab when insurance approves and bed available. Out of bed to chair, discussed with PT. 6. Essential hypertension. Continue losartan, lasix, and amlodipine. 7. Dyslipidemia. Continue Lipitor. 8. History of depression and anxiety. Continue Cymbalta, risperidone, Zoloft, Wellbutrin, and Ativan. Psychiatry recommendations appreciated. Patient cleared for discharge to rehabilitation by psychiatry. 9. History of seizures. Continue Keppra. 10. GI and DVT prophylaxis. Protonix and Lovenox 11. Dispo: D/C pending rehab placement. Case was discussed in detail with the patient and medical and scientific illustrator regarding current diagnosis and treatment plan
[2018-06-08] MEDS: Pantoprazole 40 mg EC Tab PO SCH (05:25)
[2018-06-08] MEDS: Cefepime 1gm in NS 100ml 1 GM/100 ML BAG IVPB SCH ×3 (05:25→22:35)
[2018-06-08 06:42] LABS: BASO # 0.08 K/mm3 (0.0-2.0); EOS # 0.3 (0.0-0.7); EOS % 3.6 % (1.5-5.0); GRAN # 4.23 (1.4-6.5); GRAN % 53.1 % (50.0-68.0); HEMOGLOBIN 13.4 g/dL (14.0-18.0); LYMPH # 2.7 (1.2-3.4); LYMPH % 33.6 % (22.0-35.0); MEAN CELL VOLUME 90.1 fl (80.0-105.0); MEAN CORPUSCULAR HEMOGLOBIN 29.5 pg (25.0-35.0); MEAN CORPUSCULAR HGB CONC 32.8 g/dl (31.0-37.0); MEAN PLATELET VOLUME 11.8 fl (7.0-11.0); MONO # 0.7 (0.1-0.6); MONO % 8.7 % (1.0-6.0); RBC 4.54 10^6/uL (3.5-6.1); RED CELL DISTRIBUTION WIDTH 13.2 % (11.5-14.5)
[2018-06-08 07:20] LABS: ALB/GLOB RATIO 1.2 (1.1-1.8); ALBUMIN 3.4 g/dL (3.0-4.8); ALT/SGPT 82 U/L (7-56); AST/SGOT 56 U/L (17-59); BLOOD UREA NITROGEN 25 mg/dL (7-21); CALCIUM 8.8 mg/dL (8.4-10.5); GFR AFRICAN-AMERICAN > 60; GFR NON-AFRICAN AMERICAN > 60
--- NOTE | 2018-06-08 09:09 | PN ---
DATE: 06/06/2018 SUBJECTIVE: The patient is in bed, was seen earlier today in room 377, bed 1. No fevers and no chills. No nausea, no vomiting. PHYSICAL EXAMINATION: VITAL SIGNS: Temperature is 98, blood pressure is 100/60, respiratory rate of 16. HEENT: Unremarkable. NECK: Supple. LUNGS: Have decreased breath sounds. HEART: Normal S1, S2. ABDOMEN: Soft, nontender. LABORATORY DATA: Noted and reviewed. Review of orders reveals the patient is on cefepime, which requires renewal, which we will do so. ASSESSMENT AND PLAN: This is a 63-year-old with infected sacral decubitus ulcer stage II, growing methicillin-sensitive Staphylococcus aureus, Proteus, Enterobacter; history of right index finger cellulitis associated wound. Currently, on cefepime, today is day #6. We will complete 10 to 14 days. Davon López MD
[2018-06-08] MEDS: Bacitracin 500 Units/gm Oint Foilpak UD TOP SCH ×2 (10:41→18:02)
[2018-06-08] MEDS: Enoxaparin 40 mg Syringe SC SCH (10:44)
[2018-06-08] MEDS: POLYETHYLENE GLYCOL 3350 17 GM/Dose PACKET PO SCH (10:45)
[2018-06-08] MEDS: Silver Sulfadiazine 1% Cream (25 gm) TP SCH ×2 (10:46→18:04)
[2018-06-08] MEDS: buPROPion 150 mg/24 Hours XL Tab PO SCH (10:47)
--- NOTE | 2018-06-08 13:54 | CP.PCM.PN ---
<Juan M Birmingham - Last Filed: 06/08/18 13:54> Subjective - Date & Time of Evaluation Date of Evaluation: 06/08/18 Time of Evaluation: 13:54 - Subjective Subjective: Juan M Birmingham D.O PGY-1, Internal Medicine progress note for Dr. Camejo Patient was examined at bedside, no acute overnight events. Patient offers no new complaints at this time. Denies fevers, chills, chest pain, shortness of breath, abdominal pain, N/V/D. Objective - Vital Signs/Intake and Output Vital Signs (last 24 hours): Temp Pulse Resp BP Pulse Ox 97.5 F L 71 18 128/82 97 06/08/18 08:53 06/08/18 08:53 06/08/18 08:53 06/08/18 10:45 06/08/18 08:53 Intake and Output: 06/08/18 06/08/18 06:59 18:59 Intake Total 360 Output Total 2200 Balance -1840 - Medications Medications: Current Medications Acetaminophen (Tylenol 325mg Tab) 650 mg PO Q6H PRN PRN Reason: Fever >100.4 F Last Admin: 06/06/18 14:09 Dose: 650 mg Amlodipine Besylate (Norvasc) 10 mg PO DAILY [facility] Last Admin: 06/08/18 10:45 Dose: 10 mg Atorvastatin Calcium (Lipitor) 40 mg PO DIN [facility] Last Admin: 06/07/18 18:32 Dose: 40 mg Bacitracin (Bacitracin) 1 ea TOP BID [facility] Last Admin: 06/08/18 10:41 Dose: 1 ea Bupropion HCl (Wellbutrin Xl) 150 mg PO DAILY [facility] Last Admin: 06/08/18 10:47 Dose: 150 mg Clopidogrel Bisulfate (Plavix) 75 mg PO DAILY [facility] Last Admin: 06/08/18 10:45 Dose: 75 mg Docusate Sodium (Colace) 100 mg PO TID [facility] Last Admin: 06/08/18 13:21 Dose: 100 mg Duloxetine HCl (Cymbalta) 30 mg PO Q8 [facility] Last Admin: 06/08/18 13:22 Dose: 30 mg Enoxaparin Sodium (Lovenox) 40 mg SC DAILY [facility] PRN Reason: Protocol Last Admin: 06/08/18 10:44 Dose: 40 mg Furosemide (Lasix) 40 mg PO DAILY [facility] Last Admin: 06/08/18 10:42 Dose: 40 mg Gabapentin (Neurontin) 600 mg PO Q8 [facility] PRN Reason: Protocol Last Admin: 06/08/18 13:23 Dose: 600 mg Cefepime HCl (Maxipime 1gm) 1 gm in 100 mls @ 100 mls/hr IVPB Q8 [facility] PRN Reason: Protocol Last Admin: 06/08/18 13:22 Dose: 100 mls/hr Levetiracetam (Keppra) 500 mg PO Q12 [facility] Last Admin: 06/08/18 10:41 Dose: 500 mg Lorazepam (Ativan) 2 mg PO Q12 [facility] PRN Reason: Protocol Last Admin: 06/08/18 10:40 Dose: 2 mg Losartan Potassium (Cozaar) 100 mg PO DAILY [facility] Last Admin: 06/08/18 10:41 Dose: 100 mg Meclizine HCl (Antivert) 12.5 mg PO TID [facility] Last Admin: 06/08/18 13:21 Dose: 12.5 mg Ondansetron HCl (Zofran Inj) 4 mg IVP Q4H PRN PRN Reason: Nausea/Vomiting Pantoprazole Sodium (Protonix Ec Tab) 40 mg PO 0600 [facility] Last Admin: 06/08/18 05:25 Dose: 40 mg Polyethylene Glycol (Miralax) 17 gm PO DAILY [facility] Last Admin: 06/08/18 10:45 Dose: 17 gm Quetiapine Fumarate (Seroquel) 300 mg PO HS [facility] PRN Reason: Protocol Last Admin: 06/07/18 22:02 Dose: 300 mg Risperidone (Risperdal Tab) 1 mg PO Q8 [facility] PRN Reason: Protocol Last Admin: 06/08/18 13:23 Dose: 1 mg Sertraline HCl (Zoloft) 100 mg PO DAILY [facility] Last Admin: 06/08/18 10:47 Dose: 100 mg Silver Sulfadiazine (Silvadene 1% 25 Gm) 1 gm TP BID [facility] Last Admin: 06/08/18 10:46 Dose: 1 gm Tizanidine HCl (Zanaflex) 4 mg PO QID [facility] Last Admin: 06/08/18 13:24 Dose: 4 mg Zonisamide (Zonegran) 200 mg PO HS [facility] Last Admin: 06/07/18 21:57 Dose: 200 mg - Labs Labs: 06/08/18 06:00 06/08/18 06:00 - Constitutional Appears: No Acute Distress - Head Exam Head Exam: ATRAUMATIC, NORMAL INSPECTION - Eye Exam Eye Exam: Normal appearance - ENT Exam ENT Exam: Mucous Membranes Moist - Respiratory Exam Respiratory Exam: Clear to Ausculation Bilateral. absent: Rales, Rhonchi, Wheezes - Cardiovascular Exam Cardiovascular Exam: REGULAR RHYTHM, +S1, +S2, Murmur. absent: Gallop, Rubs Additional comments: Systolic murmur best heard at right second intercostal space - GI/Abdominal Exam GI & Abdominal Exam: Soft, Normal Bowel Sounds. absent: Tenderness - Extremities Exam Extremities Exam: absent: Calf Tenderness, Pedal Edema - Neurological Exam Neurological Exam: Alert, Awake, Oriented x3 - Psychiatric Exam Psychiatric exam: Normal Affect, Normal Mood - Skin Skin Exam: Dry, Intact, Normal Color Additional comments: stage 1 decubitus ulcer in sacral region Assessment and Plan - Assessment and Plan (Free Text) Assessment: 63-year-old male with a past medical history of hypertension, diabetes mellitus type 2, Reflex Sympathetic Dystrophy, arthritis, seizures, depression, and decubitus ulcer who is presenting with dizziness and sacral decubitus ulcer. Plan: Sacral decubitus ulcer, improved to stage 1 - Wound culture: Proteus mirabilis, enterobacter aerogenes, and staph aureus - Sacral X-ray: unremarkable - Continue Cefepime 1g IV Q8H on day #8 of -14, per infectious disease - Continue bacitracin ointment - Infectious disease consulted - Surgery consulted- no surgical intervention at this time, BID dressing changes with optiform and santyl, turn patient every 2 hours - Wound care on board, continue to monitor - Out of bed as tolerated - Physical Therapy consulted Chronic constipation, resolved - Most likely secondary to prolonged use of opiates - Continue miralax and colace - Cellulose x1 and magnesium citrate x 1 (06/05) Subacute CVA - Neurology cleared patient for discharge - Head CT (05/30): shows 2.7cm area of hypodensity in the right parietal posterior frontal region. This could represent an acute or subacute infarct. - Repeat head CT (06/02): More defined subacute right parietal stroke in comparison from previous imaging indicating development and thus defined as subacute - Head/neck CTA (05/30): No significant stenosis or occlusion appreciated - Brain MRI not possible- patient has metal rods in his back and legs from prior surgeries. - Continue Plavix, atorvastatin - Echocardiogram (06/01): EF of 65%, moderate to severe aortic stenosis - Patient has slurred speech at baseline per son - Fall precautions - Seizure precautions - Aspiration precautions - Healthy Heart Diet - Follow up with neurology outpatient in 2 weeks, per neuro History of depression - Continue home antidepressants - Psychiatry consulted Chronic back pain - Secondary to Reflex Sympathetic Dystrophy - Continue gabapentin - PT/OT consulted for evaluation and treatment History of hypertension - Continue losartan and amlodipine - Healthy Heart Diet History of seizures - Continue Keppra 500 BID, Ativan 1mg Q12 GI/DVT prophylaxis: - Protonix, SCD's Dispo: Patient currently accepted at [facility]- awaiting authorization from insurance company Patient seen and case reviewed in detail with Attending Physician, Dr. Camejo <Florentino Camejo - Last Filed: 06/08/18 18:24> Objective - Vital Signs/Intake and Output Vital Signs (last 24 hours): Temp Pulse Resp BP Pulse Ox 97.5 F L 71 18 128/82 97 06/08/18 08:53 06/08/18 08:53 06/08/18 08:53 06/08/18 10:45 06/08/18 08:53 Intake and Output: 06/08/18 06/08/18 06:59 18:59 Intake Total 360 780 Output Total 2200 1475 Balance -1840 -695 - Medications Medications: Current Medications Acetaminophen (Tylenol 325mg Tab) 650 mg PO Q6H PRN PRN Reason: Fever >100.4 F Last Admin: 06/06/18 14:09 Dose: 650 mg Amlodipine Besylate (Norvasc) 10 mg PO DAILY [facility] Last Admin: 06/08/18 10:45 Dose: 10 mg Atorvastatin Calcium (Lipitor) 40 mg PO DIN [facility] Last Admin: 06/08/18 17:03 Dose: 40 mg Bacitracin (Bacitracin) 1 ea TOP BID [facility] Last Admin: 06/08/18 18:02 Dose: 1 ea Bupropion HCl (Wellbutrin Xl) 150 mg PO DAILY [facility] Last Admin: 06/08/18 10:47 Dose: 150 mg Clopidogrel Bisulfate (Plavix) 75 mg PO DAILY [facility] Last Admin: 06/08/18 10:45 Dose: 75 mg Docusate Sodium (Colace) 100 mg PO TID [facility] Last Admin: 06/08/18 18:02 Dose: 100 mg Duloxetine HCl (Cymbalta) 30 mg PO Q8 [facility] Last Admin: 06/08/18 13:22 Dose: 30 mg Enoxaparin Sodium (Lovenox) 40 mg SC DAILY [facility] PRN Reason: Protocol Last Admin: 06/08/18 10:44 Dose: 40 mg Furosemide (Lasix) 40 mg PO DAILY [facility] Last Admin: 06/08/18 10:42 Dose: 40 mg Gabapentin (Neurontin) 600 mg PO Q8 [facility] PRN Reason: Protocol Last Admin: 06/08/18 13:23 Dose: 600 mg Cefepime HCl (Maxipime 1gm) 1 gm in 100 mls @ 100 mls/hr IVPB Q8 [facility] PRN Reason: Protocol Last Admin: 06/08/18 13:22 Dose: 100 mls/hr Levetiracetam (Keppra) 500 mg PO Q12 [facility] Last Admin: 06/08/18 10:41 Dose: 500 mg Lorazepam (Ativan) 2 mg PO Q12 [facility] PRN Reason: Protocol Last Admin: 06/08/18 10:40 Dose: 2 mg Losartan Potassium (Cozaar) 100 mg PO DAILY [facility] Last Admin: 06/08/18 10:41 Dose: 100 mg Meclizine HCl (Antivert) 12.5 mg PO TID [facility] Last Admin: 06/08/18 18:02 Dose: 12.5 mg Ondansetron HCl (Zofran Inj) 4 mg IVP Q4H PRN PRN Reason: Nausea/Vomiting Pantoprazole Sodium (Protonix Ec Tab) 40 mg PO 0600 [facility] Last Admin: 06/08/18 05:25 Dose: 40 mg Polyethylene Glycol (Miralax) 17 gm PO DAILY [facility] Last Admin: 06/08/18 10:45 Dose: 17 gm Quetiapine Fumarate (Seroquel) 300 mg PO HS [facility] PRN Reason: Protocol Last Admin: 06/07/18 22:02 Dose: 300 mg Risperidone (Risperdal Tab) 1 mg PO Q8 [facility] PRN Reason: Protocol Last Admin: 06/08/18 13:23 Dose: 1 mg Sertraline HCl (Zoloft) 100 mg PO DAILY [facility] Last Admin: 06/08/18 10:47 Dose: 100 mg Silver Sulfadiazine (Silvadene 1% 25 Gm) 1 gm TP BID [facility] Last Admin: 06/08/18 18:04 Dose: 1 gm Tizanidine HCl (Zanaflex) 4 mg PO QID [facility] Last Admin: 06/08/18 18:04 Dose: 4 mg Zonisamide (Zonegran) 200 mg PO HS [facility] Last Admin: 06/07/18 21:57 Dose: 200 mg - Labs Labs: 06/08/18 06:00 06/08/18 06:00 Attending/Attestation - Attestation I have personally seen and examined this patient.: Yes I have fully participated in the care of the patient.: Yes I have reviewed all pertinent clinical information, including history, physical exam and plan: Yes Notes (Text): 06/08/18 18:17 Attending note; Patient seen and examined with resident. Patient is a 63-year-old male with past medical history significant for hypertension, type 2 diabetes, reflex sympathetic dystrophy, arthritis, depression, seizures, chronic decubitus ulcer, and constipation that presented to the emergency room with dizziness and altered speech. 1. Infected stage II sacral decubitus. Continue Cefepime Day #8. Needs to to complete 14 days. PICC line is in place. Continue local wound care. Surgical team recommendations appreciated. Sacrum and coccyx xray do not show signs of osteomyelitis. 2. Dizziness and altered speech. Resolved dizziness. Per family, altered speech is chronic. Continue speech therapy. CT head showed Continue Plavix (patient allergic to ASA) and Lipitor. CT head 05/31/18 per radiologist shows 2.7 cm diameter area of hypodensity in the right parietal posterior frontal region; this could represent an acute or subacute infarct. 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 CTA head and neck showed no significant stenosis. 3. Moderate to severe aortic stenosis seen on 2-D echo. Cardiology consulted, recommendations appreciated. Will need cardiac follow up in 2-4 weeks. 4. Constipation. Patient uses chronic opioids at home. Resolved. Continue miralax and colace. 5. Chronic pain. Likely secondary to reflex sympathetic dystrophy and patient being bed bound. Continue with Neurontin and Zanaflex. Continue physical therapy. 6. Essential hypertension. Continue losartan, lasix, and amlodipine. 7. Dyslipidemia. Continue Lipitor. 8. History of depression and anxiety. Continue Cymbalta, risperidone, Zoloft, Wellbutrin, and Ativan. Case discussed with social services for possible transfer to rehabilitation. Pending authorization. Upon discharge the patient will follow-up with PMD .
--- NOTE | 2018-06-08 15:04 | CP.PCM.PN ---
Subjective - Date & Time of Evaluation Date of Evaluation: 06/08/18 Time of Evaluation: 11:30 - Subjective Subjective: No fevers, not in distress. Objective - Vital Signs/Intake and Output Vital Signs (last 24 hours): Temp Pulse Resp BP Pulse Ox 97.5 F L 71 18 128/82 97 06/08/18 08:53 06/08/18 08:53 06/08/18 08:53 06/08/18 10:45 06/08/18 08:53 Intake and Output: 06/08/18 06/08/18 06:59 18:59 Intake Total 360 Output Total 2200 Balance -1840 - Medications Medications: Current Medications Acetaminophen (Tylenol 325mg Tab) 650 mg PO Q6H PRN PRN Reason: Fever >100.4 F Last Admin: 06/06/18 14:09 Dose: 650 mg Amlodipine Besylate (Norvasc) 10 mg PO DAILY [facility] Last Admin: 06/08/18 10:45 Dose: 10 mg Atorvastatin Calcium (Lipitor) 40 mg PO DIN [facility] Last Admin: 06/07/18 18:32 Dose: 40 mg Bacitracin (Bacitracin) 1 ea TOP BID [facility] Last Admin: 06/08/18 10:41 Dose: 1 ea Bupropion HCl (Wellbutrin Xl) 150 mg PO DAILY [facility] Last Admin: 06/08/18 10:47 Dose: 150 mg Clopidogrel Bisulfate (Plavix) 75 mg PO DAILY [facility] Last Admin: 06/08/18 10:45 Dose: 75 mg Docusate Sodium (Colace) 100 mg PO TID [facility] Last Admin: 06/08/18 10:41 Dose: 100 mg Duloxetine HCl (Cymbalta) 30 mg PO Q8 [facility] Last Admin: 06/07/18 21:52 Dose: 30 mg Enoxaparin Sodium (Lovenox) 40 mg SC DAILY [facility] PRN Reason: Protocol Last Admin: 06/08/18 10:44 Dose: 40 mg Furosemide (Lasix) 40 mg PO DAILY [facility] Last Admin: 06/08/18 10:42 Dose: 40 mg Gabapentin (Neurontin) 600 mg PO Q8 [facility] PRN Reason: Protocol Last Admin: 06/08/18 05:24 Dose: 600 mg Cefepime HCl (Maxipime 1gm) 1 gm in 100 mls @ 100 mls/hr IVPB Q8 [facility] PRN Reason: Protocol Last Admin: 06/08/18 05:25 Dose: 100 mls/hr Levetiracetam (Keppra) 500 mg PO Q12 [facility] Last Admin: 06/08/18 10:41 Dose: 500 mg Lorazepam (Ativan) 2 mg PO Q12 [facility] PRN Reason: Protocol Last Admin: 06/08/18 10:40 Dose: 2 mg Losartan Potassium (Cozaar) 100 mg PO DAILY [facility] Last Admin: 06/08/18 10:41 Dose: 100 mg Meclizine HCl (Antivert) 12.5 mg PO TID [facility] Last Admin: 06/08/18 10:40 Dose: 12.5 mg Ondansetron HCl (Zofran Inj) 4 mg IVP Q4H PRN PRN Reason: Nausea/Vomiting Pantoprazole Sodium (Protonix Ec Tab) 40 mg PO 0600 [facility] Last Admin: 06/08/18 05:25 Dose: 40 mg Polyethylene Glycol (Miralax) 17 gm PO DAILY [facility] Last Admin: 06/08/18 10:45 Dose: 17 gm Quetiapine Fumarate (Seroquel) 300 mg PO [facility] PRN Reason: Protocol Last Admin: 06/07/18 22:02 Dose: 300 mg Risperidone (Risperdal Tab) 1 mg PO Q8 [facility] PRN Reason: Protocol Last Admin: 06/08/18 05:24 Dose: 1 mg Sertraline HCl (Zoloft) 100 mg PO DAILY [facility] Last Admin: 06/08/18 10:47 Dose: 100 mg Silver Sulfadiazine (Silvadene 1% 25 Gm) 1 gm TP BID [facility] Last Admin: 06/08/18 10:46 Dose: 1 gm Tizanidine HCl (Zanaflex) 4 mg PO QID [facility] Last Admin: 06/08/18 10:47 Dose: 4 mg Zonisamide (Zonegran) 200 mg PO HS [facility] Last Admin: 06/07/18 21:57 Dose: 200 mg - Labs Labs: 06/08/18 06:00 06/08/18 06:00 - Constitutional Appears: Chronically Ill - Head Exam Head Exam: NORMAL INSPECTION - Respiratory Exam Respiratory Exam: Decreased Breath Sounds - Cardiovascular Exam Cardiovascular Exam: +S1, +S2 - GI/Abdominal Exam GI & Abdominal Exam: Soft. absent: Tenderness Assessment and Plan - Assessment and Plan (Free Text) Plan: assessment infected sacral decubitus ulcer stage 2 to 3, growing MSSA, Proteus, Enterobacter history of right index finger cellulitis with associated wound cervical spine trauma S/P cervical laminectomy history of reflex sympathetic dystrophy plan continue Cefepime for 10-14 days with local wound care (Day 8 today)
--- NOTE | 2018-06-08 19:06 | CARD ---
APPROVED REPORT Date of service: 06/08/2018 EKG Measurement Heart [id number] <Conclusion> Normal sinus rhythm Normal ECG
--- NOTE | 2018-06-08 20:47 | PN ---
DATE: 06/08/2018 SUBJECTIVE: The patient denies shortness of breath. He does report chest discomfort. PHYSICAL EXAMINATION VITAL SIGNS: Blood pressure 128/82, heart rate 71, temperature 97.5, respiration 18. HEENT: Normocephalic. CHEST: Clear. HEART: Sounds are regular. Grade 3/6 ejection systolic murmur over the left sternal border. ABDOMEN: Soft. EXTREMITIES: No edema. LABORATORY DATA: Today's hemoglobin and hematocrit are 13.4 and 40.9; white count and platelet count are within normal limit. Today's SMA-7 is within normal limit except for BUN of 25. ASSESSMENT: 1. Questionable chest pain. 2. Status post cerebrovascular accident. 3. Infected sacral decubitus. 4. Hypertension. 5. Depression. 6. Aortic stenosis with questionable bicuspid aortic valve. RECOMMENDATIONS: Continue Cozaar 100 mg once a day, Keppra 500 mg twice a day, Lasix 40 mg p.o. once a day, Lipitor 40 mg once a day, IV Maxipime at 1 g every 8 hours, Norvasc 10 mg once a day, Plavix 75 mg once a day. We will obtain 12-lead EKG. Stuart Fabian MD
[2018-06-09] MEDS: Cefepime 1gm in NS 100ml 1 GM/100 ML BAG IVPB SCH ×3 (05:22→21:20)
[2018-06-09] MEDS: Pantoprazole 40 mg EC Tab PO SCH (05:23)
[2018-06-09 07:02] LABS: BASO # 0.07 K/mm3 (0.0-2.0); BASO % 0.9 % (0.0-3.0); EOS # 0.3 (0.0-0.7); GRAN # 4.35 (1.4-6.5); HEMOGLOBIN 13.9 g/dL (14.0-18.0); LYMPH # 2.7 (1.2-3.4); LYMPH % 33.8 % (22.0-35.0); MEAN CELL VOLUME 89.7 fl (80.0-105.0); MEAN CORPUSCULAR HEMOGLOBIN 29.8 pg (25.0-35.0); MEAN CORPUSCULAR HGB CONC 33.3 g/dl (31.0-37.0); MONO # 0.5 (0.1-0.6); MONO % 6.3 % (1.0-6.0); RBC 4.66 10^6/uL (3.5-6.1); WHITE BLOOD COUNT 7.9 10^3/ul (4.5-11.0)
[2018-06-09 07:13] LABS: ALB/GLOB RATIO 1.3 (1.1-1.8); ALBUMIN 3.7 g/dL (3.0-4.8); ALT/SGPT 77 U/L (7-56); AST/SGOT 48 U/L (17-59); BLOOD UREA NITROGEN 26 mg/dL (7-21); GFR AFRICAN-AMERICAN > 60; GFR NON-AFRICAN AMERICAN > 60
[2018-06-09] MEDS: POLYETHYLENE GLYCOL 3350 17 GM/Dose PACKET PO SCH (09:57)
[2018-06-09] MEDS: Enoxaparin 40 mg Syringe SC SCH (09:57)
[2018-06-09] MEDS: Silver Sulfadiazine 1% Cream (25 gm) TP SCH ×2 (10:00→17:26)
[2018-06-09] MEDS: Bacitracin 500 Units/gm Oint Foilpak UD TOP SCH ×2 (10:00→17:26)
[2018-06-09] MEDS: buPROPion 150 mg/24 Hours XL Tab PO SCH (10:07)
--- NOTE | 2018-06-09 16:23 | CARD ---
APPROVED REPORT Date of service: 06/09/2018 EKG Measurement Heart [id number] <Conclusion> Normal sinus rhythm Normal ECG
[2018-06-09 16:42] VITALS: TEMP 98
--- NOTE | 2018-06-09 17:07 | CP.PCM.PN ---
<Juan M Birmingham - Last Filed: 06/09/18 17:04> Subjective - Date & Time of Evaluation Date of Evaluation: 06/09/18 Time of Evaluation: 17:04 - Subjective Subjective: Juan M Birmingham D.O PGY-1, Internal Medicine progress note for Dr. Camejo Patient was examined at bedside, no acute overnight events. Patient complains of right-sided chest pain. The pain is located on the right chest and is reproducible. Stat EKG showed normal sinus rhythm at 67 bpm, with no ST changes. Stat troponin level was 0.04 Denies fevers, chills, shortness of breath, abdominal pain, N/V/D. Objective - Vital Signs/Intake and Output Vital Signs (last 24 hours): Temp Pulse Resp BP Pulse Ox 98 F 69 18 95/59 L 100 06/09/18 16:41 06/09/18 16:41 06/09/18 16:41 06/09/18 16:41 06/09/18 16:41 Intake and Output: 06/09/18 06/09/18 06:59 18:59 Intake Total 420 1080 Output Total 1400 1450 Balance -980 -370 - Medications Medications: Current Medications Acetaminophen (Tylenol 325mg Tab) 650 mg PO Q6H PRN PRN Reason: Fever >100.4 F Last Admin: 06/06/18 14:09 Dose: 650 mg Amlodipine Besylate (Norvasc) 10 mg PO DAILY [facility] Last Admin: 06/09/18 10:01 Dose: 10 mg Atorvastatin Calcium (Lipitor) 40 mg PO DIN [facility] Last Admin: 06/08/18 17:03 Dose: 40 mg Bacitracin (Bacitracin) 1 ea TOP BID [facility] Last Admin: 06/09/18 10:00 Dose: 1 ea Bupropion HCl (Wellbutrin Xl) 150 mg PO DAILY [facility] Last Admin: 06/09/18 10:07 Dose: 150 mg Clopidogrel Bisulfate (Plavix) 75 mg PO DAILY [facility] Last Admin: 06/09/18 10:00 Dose: 75 mg Docusate Sodium (Colace) 100 mg PO TID [facility] Last Admin: 06/09/18 13:34 Dose: 100 mg Duloxetine HCl (Cymbalta) 30 mg PO Q8 [facility] Last Admin: 06/09/18 13:34 Dose: 30 mg Enoxaparin Sodium (Lovenox) 40 mg SC DAILY [facility] PRN Reason: Protocol Last Admin: 06/09/18 09:57 Dose: 40 mg Furosemide (Lasix) 40 mg PO DAILY [facility] Last Admin: 06/09/18 10:00 Dose: 40 mg Gabapentin (Neurontin) 600 mg PO Q8 [facility] PRN Reason: Protocol Last Admin: 06/09/18 13:34 Dose: 600 mg Cefepime HCl (Maxipime 1gm) 1 gm in 100 mls @ 100 mls/hr IVPB Q8 [facility] PRN Reason: Protocol Last Admin: 06/09/18 13:34 Dose: 100 mls/hr Levetiracetam (Keppra) 500 mg PO Q12 [facility] Last Admin: 06/09/18 10:01 Dose: 500 mg Lorazepam (Ativan) 2 mg PO Q12 [facility] PRN Reason: Protocol Last Admin: 06/09/18 10:06 Dose: 2 mg Losartan Potassium (Cozaar) 100 mg PO DAILY [facility] Last Admin: 06/09/18 10:07 Dose: 100 mg Meclizine HCl (Antivert) 12.5 mg PO TID [facility] Last Admin: 06/09/18 13:34 Dose: 12.5 mg Ondansetron HCl (Zofran Inj) 4 mg IVP Q4H PRN PRN Reason: Nausea/Vomiting Pantoprazole Sodium (Protonix Ec Tab) 40 mg PO 0600 [facility] Last Admin: 06/09/18 05:23 Dose: 40 mg Polyethylene Glycol (Miralax) 17 gm PO DAILY [facility] Last Admin: 06/09/18 09:57 Dose: 17 gm Quetiapine Fumarate (Seroquel) 300 mg PO HS [facility] PRN Reason: Protocol Last Admin: 06/08/18 22:36 Dose: 300 mg Risperidone (Risperdal Tab) 1 mg PO Q8 [facility] PRN Reason: Protocol Last Admin: 06/09/18 13:34 Dose: 1 mg Sertraline HCl (Zoloft) 100 mg PO DAILY [facility] Last Admin: 06/09/18 10:00 Dose: 100 mg Silver Sulfadiazine (Silvadene 1% 25 Gm) 1 gm TP BID [facility] Last Admin: 06/09/18 10:00 Dose: 1 gm Tizanidine HCl (Zanaflex) 4 mg PO QID [facility] Last Admin: 06/09/18 13:34 Dose: 4 mg Zonisamide (Zonegran) 200 mg PO HS [facility] Last Admin: 06/08/18 22:36 Dose: 200 mg - Labs Labs: 06/09/18 06:20 06/09/18 06:20 - Constitutional Appears: No Acute Distress - Head Exam Head Exam: ATRAUMATIC, NORMAL INSPECTION - Eye Exam Eye Exam: Normal appearance - ENT Exam ENT Exam: Mucous Membranes Moist - Cardiovascular Exam Cardiovascular Exam: REGULAR RHYTHM, +S1, +S2, Murmur. absent: Gallop, Rubs Additional comments: Systolic murmur best heard at right second intercostal space - GI/Abdominal Exam GI & Abdominal Exam: Soft, Normal Bowel Sounds. absent: Tenderness - Extremities Exam Extremities Exam: Normal Inspection. absent: Calf Tenderness, Pedal Edema - Psychiatric Exam Psychiatric exam: Normal Affect, Normal Mood - Skin Skin Exam: Dry, Normal Color, Warm Additional comments: stage 1 decubitus ulcer in sacral region Assessment and Plan - Assessment and Plan (Free Text) Assessment: 63-year-old male with a past medical history of hypertension, diabetes mellitus type 2, Reflex Sympathetic Dystrophy, arthritis, seizures, depression, and decubitus ulcer who is presenting with dizziness and sacral decubitus ulcer. Plan: Sacral decubitus ulcer, improved to stage 1 - Wound culture: Proteus mirabilis, enterobacter aerogenes, and staph aureus - Sacral X-ray: unremarkable - Continue Cefepime 1g IV Q8H on day #9 of -, per infectious disease - Continue bacitracin ointment - Continue to turn and reposition patient every 2 hours - c/w air mattress machine - Infectious disease consulted - Surgery consulted- no surgical intervention at this time, BID dressing changes with optiform and santyl, turn patient every 2 hours - Wound care on board, continue to monitor - Out of bed as tolerated - Physical Therapy consulted Chronic constipation, resolved - Most likely secondary to prolonged use of opiates - Continue miralax and colace Subacute CVA, resolved - Neurology cleared patient for discharge - Head CT (05/30): shows 2.7cm area of hypodensity in the right parietal posterior frontal region. This could represent an acute or subacute infarct. - Repeat head CT (06/02): More defined subacute right parietal stroke in comparison from previous imaging indicating development and thus defined as subacute - Head/neck CTA (05/30): No significant stenosis or occlusion appreciated - Brain MRI not possible- patient has metal rods in his back and legs from prior surgeries. - Continue Plavix, atorvastatin - Echocardiogram (06/01): EF of 65%, moderate to severe aortic stenosis - Patient has slurred speech at baseline, per son - Fall precautions - Seizure precautions - Aspiration precautions - Healthy Heart Diet - Follow up with neurology outpatient in 2 weeks after discharge, per neuro History of depression - Continue home antidepressants - Psychiatry consulted Chronic back pain - Secondary to Reflex Sympathetic Dystrophy - Continue gabapentin - PT/OT consulted for evaluation and treatment History of hypertension - Continue losartan and amlodipine - Healthy Heart Diet History of seizures - Continue Keppra 500 BID, Ativan 1mg Q12 GI/DVT prophylaxis: - Protonix, SCD's Dispo: Patient currently accepted at [facility]- awaiting authorization from insurance company Patient seen and case reviewed in detail with Attending Physician, Dr. Camejo <Florentino Camejo - Last Filed: 06/10/18 13:35> Objective - Vital Signs/Intake and Output Vital Signs (last 24 hours): Temp Pulse Resp BP Pulse Ox 98 F 66 20 115/78 98 06/09/18 16:41 06/10/18 08:11 06/10/18 08:11 06/10/18 10:20 06/10/18 08:11 Intake and Output: 06/10/18 06/10/18 06:59 18:59 Intake Total 900 Output Total 2500 Balance -1600 - Medications Medications: Current Medications Acetaminophen (Tylenol 325mg Tab) 650 mg PO Q6H PRN PRN Reason: Fever >100.4 F Last Admin: 06/06/18 14:09 Dose: 650 mg Amlodipine Besylate (Norvasc) 10 mg PO DAILY [facility] Last Admin: 06/10/18 10:20 Dose: 10 mg Atorvastatin Calcium (Lipitor) 40 mg PO DIN [facility] Last Admin: 06/09/18 17:26 Dose: 40 mg Bacitracin (Bacitracin) 1 ea TOP BID [facility] Last Admin: 06/10/18 10:18 Dose: 1 ea Bupropion HCl (Wellbutrin Xl) 150 mg PO DAILY [facility] Last Admin: 06/10/18 10:22 Dose: 150 mg Clopidogrel Bisulfate (Plavix) 75 mg PO DAILY [facility] Last Admin: 06/10/18 10:19 Dose: 75 mg Docusate Sodium (Colace) 100 mg PO TID [facility] Last Admin: 06/10/18 10:20 Dose: 100 mg Duloxetine HCl (Cymbalta) 30 mg PO Q8 [facility] Last Admin: 06/10/18 05:00 Dose: 30 mg Enoxaparin Sodium (Lovenox) 40 mg SC DAILY [facility] PRN Reason: Protocol Last Admin: 06/10/18 10:19 Dose: 40 mg Furosemide (Lasix) 40 mg PO DAILY [facility] Last Admin: 06/10/18 10:19 Dose: 40 mg Gabapentin (Neurontin) 600 mg PO Q8 [facility] PRN Reason: Protocol Last Admin: 06/10/18 05:00 Dose: 600 mg Cefepime HCl (Maxipime 1gm) 1 gm in 100 mls @ 100 mls/hr IVPB Q8 [facility] PRN Reason: Protocol Last Admin: 06/10/18 05:00 Dose: 100 mls/hr Levetiracetam (Keppra) 500 mg PO Q12 [facility] Last Admin: 06/10/18 10:20 Dose: 500 mg Lorazepam (Ativan) 2 mg PO Q12 [facility] PRN Reason: Protocol Last Admin: 06/10/18 10:18 Dose: 2 mg Losartan Potassium (Cozaar) 100 mg PO DAILY [facility] Last Admin: 06/10/18 10:18 Dose: 100 mg Meclizine HCl (Antivert) 12.5 mg PO TID [facility] Last Admin: 06/10/18 10:19 Dose: 12.5 mg Ondansetron HCl (Zofran Inj) 4 mg IVP Q4H PRN PRN Reason: Nausea/Vomiting Pantoprazole Sodium (Protonix Ec Tab) 40 mg PO 0600 [facility] Last Admin: 06/10/18 05:00 Dose: 40 mg Polyethylene Glycol (Miralax) 17 gm PO DAILY [facility] Last Admin: 06/10/18 10:18 Dose: 17 gm Quetiapine Fumarate (Seroquel) 300 mg PO HS [facility] PRN Reason: Protocol Last Admin: 06/09/18 21:21 Dose: 300 mg Risperidone (Risperdal Tab) 1 mg PO Q8 [facility] PRN Reason: Protocol Last Admin: 06/10/18 05:00 Dose: 1 mg Sertraline HCl (Zoloft) 100 mg PO DAILY [facility] Last Admin: 06/10/18 10:18 Dose: 100 mg Silver Sulfadiazine (Silvadene 1% 25 Gm) 1 gm TP BID [facility] Last Admin: 06/10/18 10:22 Dose: 1 gm Tizanidine HCl (Zanaflex) 4 mg PO QID [facility] Last Admin: 06/10/18 10:19 Dose: 4 mg Zonisamide (Zonegran) 200 mg PO HS [facility] Last Admin: 06/09/18 21:22 Dose: 200 mg - Labs Labs: 06/09/18 06:20 06/10/18 06:20 Attending/Attestation - Attestation I have personally seen and examined this patient.: Yes I have fully participated in the care of the patient.: Yes I have reviewed all pertinent clinical information, including history, physical exam and plan: Yes Notes (Text): 06/10/18 13:35 Attending note; Patient seen and examined with resident. Patient is a 63-year-old male with past medical history significant for hypertension, type 2 diabetes, reflex sympathetic dystrophy, arthritis, depression, seizures, chronic decubitus ulcer, and constipation that presented to the emergency room with dizziness and altered speech. 1. Infected stage II sacral decubitus. Continue Cefepime Day #9. Needs to to complete 10- 14 days. PICC line is in place. Continue local wound care. Surgical team recommendations appreciated. Sacrum and coccyx xray do not show signs of osteomyelitis. 2. Dizziness and altered speech. Resolved dizziness. Per family, altered speech is chronic. Continue speech therapy. CT head showed Continue Plavix (patient allergic to ASA) and Lipitor. CT head 05/31/18 per radiologist shows 2.7 cm diameter area of hypodensity in the right parietal posterior frontal region; this could represent an acute or subacute infarct. 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 CTA head and neck showed no significant stenosis. 3. Moderate to severe aortic stenosis seen on 2-D echo. Cardiology consulted, recommendations appreciated. Will need cardiac follow up in 2-4 weeks. 4. Constipation. Patient uses chronic opioids at home. Resolved. Continue miralax and colace. 5. Chronic pain. Likely secondary to reflex sympathetic dystrophy and patient being bed bound. Continue with Neurontin and Zanaflex. Continue physical therapy. 6. Essential hypertension. Continue losartan, lasix, and amlodipine. 7. Dyslipidemia. Continue Lipitor. 8. History of depression and anxiety. Continue Cymbalta, risperidone, Zoloft, Wellbutrin, and Ativan. Case discussed with oncology social work for possible transfer to rehabilitation. Pending authorization. Upon discharge the patient will follow-up with PMD .
[2018-06-10] MEDS: Pantoprazole 40 mg EC Tab PO SCH (05:00)
[2018-06-10] MEDS: Cefepime 1gm in NS 100ml 1 GM/100 ML BAG IVPB SCH ×2 (05:00→14:35)
[2018-06-10 07:09] LABS: ALB/GLOB RATIO 1.3 (1.1-1.8); ALBUMIN 3.6 g/dL (3.0-4.8); ALT/SGPT 88 U/L (7-56); AST/SGOT 56 U/L (17-59); BLOOD UREA NITROGEN 24 mg/dL (7-21); CALCIUM 9.1 mg/dL (8.4-10.5); GFR AFRICAN-AMERICAN > 60; GFR NON-AFRICAN AMERICAN > 60
[2018-06-10] MEDS ORDERED: Potassium Chloride 20 mEq ER Tab PO STA (09:28)
[2018-06-10] MEDS: Bacitracin 500 Units/gm Oint Foilpak UD TOP SCH (10:18)
[2018-06-10] MEDS: POLYETHYLENE GLYCOL 3350 17 GM/Dose PACKET PO SCH (10:18)
[2018-06-10] MEDS: Enoxaparin 40 mg Syringe SC SCH (10:19)
[2018-06-10] MEDS: buPROPion 150 mg/24 Hours XL Tab PO SCH (10:22)
[2018-06-10] MEDS: Silver Sulfadiazine 1% Cream (25 gm) TP SCH ×2 (10:22→17:32)
--- NOTE | 2018-06-10 16:15 | PN ---
DATE: 06/10/2018 SUBJECTIVE: The patient is in bed, in no acute distress, nontoxic. PHYSICAL EXAMINATION: VITAL SIGNS: Temperature is 98, blood pressure is 95/50, and respiratory rate of 18. HEENT: Unremarkable. NECK: Supple. LUNGS: Decreased breath sounds. HEART: Normal S1 and S2. ABDOMEN: Soft, nontender. LABORATORY EXAMINATION: Reveals a white count of 7.9, hemoglobin of 13, and platelets of 183. Chemistries reveal a BUN of 24, creatinine of 1.2. ASSESSMENT AND PLAN: This is a 63-year-old male, seen earlier today in room 372, bed 2 with infected sacral ulcer, stage II to III, growing sensitive Staphylococcus aureus and Proteus; history of right index finger cellulitis and associated wound cervical spine, status post laminectomy. On cefepime, day #10, will complete 10 to 14 days. Review of orders reveals the cefepime requires renewal, we will do so. We will follow with you. Davon López MD
[2018-06-10 16:45] VITALS: BP 103/69; PULSE 72; RESP 18; O2SAT 99
--- NOTE | 2018-06-10 18:34 | CP.PCM.DIS ---
<KirtJuan M dias - Last Filed: 06/10/18 18:35> Provider - Provider Date of Admission: 05/30/18 20:55 Attending physician: Florentino Camejo MD Primary care physician: Morales Pepe MD Time Spent in preparation of Discharge (in minutes): 45 Diagnosis - Discharge Diagnosis (1) Decubitus ulcer of ankle, stage 1 Status: Chronic Priority: Medium (2) CVA (cerebral vascular accident) Status: Resolved Priority: Medium (3) Depression Status: Chronic Priority: Medium (4) Back pain Status: Chronic Priority: Medium (5) Hypertension Status: Chronic Priority: Medium (6) Seizure Status: Chronic Priority: Medium (7) Diabetes mellitus Status: Chronic Priority: Medium (8) Arthritis Status: Chronic Priority: Low (9) Difficulty waking Status: Chronic Priority: Medium (10) Dizziness Status: Resolved Priority: Low Hospital Course - Lab Results Lab Results: Micro Results 05/30/18 23:00 Sacral Gram Stain - Final 05/30/18 23:00 Sacral Wound Culture - Final Proteus Mirabilis Enterobacter Aerogenes Staphylococcus Aureus Most Recent Lab Values WBC 7.9 10^3/ul (4.5-11.0) 06/09/18 06:20 RBC 4.66 10^6/uL (3.5-6.1) 06/09/18 06:20 Hgb 13.9 g/dL (14.0-18.0) L 06/09/18 06:20 Hct 41.8 % (42.0-52.0) L 06/09/18 06:20 MCV 89.7 fl (80.0-105.0) 06/09/18 06:20 MCH 29.8 pg (25.0-35.0) 06/09/18 06:20 MCHC 33.3 g/dl (31.0-37.0) 06/09/18 06:20 RDW 13.0 % (11.5-14.5) 06/09/18 06:20 Plt Count 183 10^3/uL (120.0-450.0) 06/09/18 06:20 MPV 12.0 fl (7.0-11.0) H 06/09/18 06:20 Gran % 55.0 % (50.0-68.0) 06/09/18 06:20 Lymph % (Auto) 33.8 % (22.0-35.0) 06/09/18 06:20 [place] % (Auto) 6.3 % (1.0-6.0) H 06/09/18 06:20 Eos % (Auto) 4.0 % (1.5-5.0) 06/09/18 06:20 Baso % (Auto) 0.9 % (0.0-3.0) 06/09/18 06:20 Gran # 4.35 (1.4-6.5) 06/09/18 06:20 Lymph # (Auto) 2.7 (1.2-3.4) 06/09/18 06:20 [place] # (Auto) 0.5 (0.1-0.6) 06/09/18 06:20 Eos # (Auto) 0.3 (0.0-0.7) 06/09/18 06:20 Baso # (Auto) 0.07 K/mm3 (0.0-2.0) 06/09/18 06:20 Sodium 143 mmol/L (132-148) 06/10/18 06:20 Potassium 3.4 mmol/L (3.6-5.0) L 06/10/18 06:20 Chloride 104 mmol/L (98-107) 06/10/18 06:20 Carbon Dioxide 30 mmol/L (21-33) 06/10/18 06:20 Anion Gap 12 (10-20) 06/10/18 06:20 BUN 24 mg/dL (7-21) H 06/10/18 06:20 Creatinine 1.2 mg/dl (0.8-1.5) 06/10/18 06:20 Est GFR ( Amer) > 60 06/10/18 06:20 Est GFR (Non-Af Amer) > 60 06/10/18 06:20 Random Glucose 112 mg/dL (70-110) H 06/10/18 06:20 Calcium 9.1 mg/dL (8.4-10.5) 06/10/18 06:20 Magnesium 2.0 mg/dL (1.7-2.2) 05/30/18 14:30 Total Bilirubin 0.3 mg/dL (0.2-1.3) 06/10/18 06:20 AST 56 U/L (17-59) 06/10/18 06:20 ALT 88 U/L (7-56) H 06/10/18 06:20 Alkaline Phosphatase 70 U/L (38-126) 06/10/18 06:20 Lactate Dehydrogenase 498 U/L (333-699) 05/30/18 14:30 Total Creatine Kinase 31 U/L (35-230) L 05/30/18 14:30 Troponin I 0.04 ng/mL D 06/09/18 06:30 C-Reactive Protein < 5.00 mg/L (0.0-9.9) 06/02/18 05:45 Total Protein 6.5 g/dL (5.8-8.3) 06/10/18 06:20 Albumin 3.6 g/dL (3.0-4.8) 06/10/18 06:20 Globulin 2.9 gm/dL 06/10/18 06:20 Albumin/Globulin Ratio 1.3 (1.1-1.8) 06/10/18 06:20 Triglycerides 140 mg/dL (35-160) 05/31/18 14:33 Cholesterol 176 mg/dL (130-200) 05/31/18 14:33 LDL Cholesterol Direct 85 mg/dL (0-129) 05/31/18 14:33 HDL Cholesterol 49 mg/dL (29-60) 05/31/18 14:33 - Hospital Course Hospital Course: Mr. Proctor is a 63-year-old male with a past medical history of hypertension, diabetes mellitus type 2, Reflex Sympathetic Dystrophy, arthritis, seizures, depression, and decubitus ulcer who is presenting with dizziness and sacral decubitus ulcer. He was admitted and was treated with cozaar, keppra, lasix, lipitor, lovenox, plavix, lorazepam, risperdal, zoloft, wellbutrin, seroquel, ativan, lovenox, norvasc, cefepime, colace, cymbalta, gabapentin, antivert, zofran, and protonix. During the course of his hospital stay, he underwent EKG, chest xray, head CT, head/neck CTA, echocardiogram, sacrum and coccyx xray. EKG showed normal sinus rhythm at [address] changes, chest xray showed no acute disease, head CT showed 2.7cm area of hypodensity in the right parietal posterior frontal region. This could represent an acute or subacute infarct, head/neck CTA showed no significant stenosis or occlusions, echocardiogram showed EF of 65% and moderate to severe aortic stenosis, and sacrum and coccyx xray was unremarkable for osteomyelitis. Cardiology (Dr. Jackson and Dr. Fabian) , psychiatry (Dr. Stratton), neurology (Dr. Harper), surgery (Dr. Pierre), and infectious disease (Dr. Vázquez and Dr. López) were consulted in the management and treatment of this patient. Cardiology recommended to continue cozaar, keppra, lasix, lipitor, lovenox, and plavix. Psychiatry recommended the patient to continue home psychiatric medications: lorazepam, risperdal, zoloft, wellbutrin, seroquel, and increase ativan dose to 2mg BID because temazepam is non-formulary in the hospital. Surgery noted that no surgical intervention needed at this time, BID dressing changes with optiform and santyl, turn patient every 2 hours. Infectious disease started patient on IV Cefepime for 10- 14 days. Medicine reconciliation was done and nursing facility was given instructions to continue patient's home medications. Medications listed below. Patient is now medically optimized to be discharged to nursing facility for PT/ OT and 5 more days of antibiotics. Patient was instructed to follow up with primary care doctor within one week of discharge from nursing facility. Patient further informed to return to the ED for worsening of symptoms.Patient is now medically optimized for discharge to nursing facility. Medication List: Amlodipine Besylate (Norvasc) 10 mg PO DAILY GAURAV Atorvastatin Calcium (Lipitor) 40 mg PO DIN GAURAV Bacitracin (Bacitracin) 1 ea TOP BID GAURAV Bupropion HCl (Wellbutrin Xl) 150 mg PO DAILY GAURAV Clopidogrel Bisulfate (Plavix) 75 mg PO DAILY GAURAV Docusate Sodium (Colace) 100 mg PO TID GAURAV Duloxetine HCl (Cymbalta) 30 mg PO Q8 GAURAV Enoxaparin Sodium (Lovenox) 40 mg SC DAILY GAURAV Furosemide (Lasix) 40 mg PO DAILY GAURAV Gabapentin (Neurontin) 600 mg PO Q8 GAURAV Cefepime HCl (Maxipime 1gm) 1 gm in 100 mls @ 100 mls/hr IVPB Q8 GAURAV Levetiracetam (Keppra) 500 mg PO Q12 GAURAV Lorazepam (Ativan) 2 mg PO Q12 GAURAV Losartan Potassium (Cozaar) 100 mg PO DAILY GAURAV Meclizine HCl (Antivert) 12.5 mg PO TID GAURAV Ondansetron HCl (Zofran Inj) 4 mg IVP Q4H PRN Pantoprazole Sodium (Protonix Ec Tab) 40 mg PO 0600 [facility] Polyethylene Glycol (Miralax) 17 gm PO DAILY GAURAV Quetiapine Fumarate (Seroquel) 300 mg PO HS GAURAV Risperidone (Risperdal Tab) 1 mg PO Q8 GAURAV Sertraline HCl (Zoloft) 100 mg PO DAILY [facility] Silver Sulfadiazine (Silvadene 1% 25 Gm) 1 gm TP BID GAURAV Tizanidine HCl (Zanaflex) 4 mg PO QID GAURAV Zonisamide (Zonegran) 200 mg PO HS GAURAV Discharge Exam - Head Exam Head Exam: ATRAUMATIC, NORMAL INSPECTION - Eye Exam Eye Exam: Normal appearance - ENT Exam ENT Exam: Mucous Membranes Moist - Respiratory Exam Respiratory Exam: Clear to PA & Lateral. absent: Rales, Rhonchi, Wheezes - Cardiovascular Exam Cardiovascular Exam: REGULAR RHYTHM, +S1, +S2, Systolic Murmur. absent: Gallop , Rubs Additional comments: Systolic murmur best heard at right second intercostal space - GI/Abdominal Exam GI & Abdominal Exam: Normal Bowel Sounds, Soft. absent: Tenderness - Extremities Exam Additional comments: no calf tenderness and pedal edema - Neurological Exam Neurological exam: Alert, Oriented x3 - Psychiatric Exam Psychiatric exam: Normal Affect, Normal Mood - Skin Skin Exam: Dry, Normal Color, Warm Additional comments: stage 1 decubitus ulcer in sacral region Discharge Plan - Discharge Medications Prescriptions: Cefepime 1gm in NS 100ml [Maxipime 1gm] 1 gm IVPB Q8 5 Days bag - Follow Up Plan Condition: GOOD Disposition: REHAB FACILITY/REHAB UNIT Instructions: Stroke, Stroke (DC), Dizziness, Nonvertigo, (DC) Additional Instructions: - Patient to be discharged to nursing facilty for PT/OT and 5 more days of antibiotics - Continue medications as per med rec - Continue to apply bacitracin ointment for the sacral decubitus ulcer - Change positions frequently to avoid pressure ulcers - Follow up with primary care doctor within one week of discharge from nursing facility - Return to emergency room for worsening symptoms Referrals: Morales Pepe MD [Primary Care Provider] - <Florentino Camejo - Last Filed: 06/11/18 14:46> Provider - Provider Date of Admission: 05/30/18 20:55 Attending physician: Florentino Camejo MD Primary care physician: Morales Pepe MD Hospital Course - Lab Results Lab Results: Micro Results 05/30/18 23:00 Sacral Gram Stain - Final 05/30/18 23:00 Sacral Wound Culture - Final Proteus Mirabilis Enterobacter Aerogenes Staphylococcus Aureus Most Recent Lab Values WBC 7.9 10^3/ul (4.5-11.0) 06/09/18 06:20 RBC 4.66 10^6/uL (3.5-6.1) 06/09/18 06:20 Hgb 13.9 g/dL (14.0-18.0) L 06/09/18 06:20 Hct 41.8 % (42.0-52.0) L 06/09/18 06:20 MCV 89.7 fl (80.0-105.0) 06/09/18 06:20 MCH 29.8 pg (25.0-35.0) 06/09/18 06:20 MCHC 33.3 g/dl (31.0-37.0) 06/09/18 06:20 RDW 13.0 % (11.5-14.5) 06/09/18 06:20 Plt Count 183 10^3/uL (120.0-450.0) 06/09/18 06:20 MPV 12.0 fl (7.0-11.0) H 06/09/18 06:20 Gran % 55.0 % (50.0-68.0) 06/09/18 06:20 Lymph % (Auto) 33.8 % (22.0-35.0) 06/09/18 06:20 [place] % (Auto) 6.3 % (1.0-6.0) H 06/09/18 06:20 Eos % (Auto) 4.0 % (1.5-5.0) 06/09/18 06:20 Baso % (Auto) 0.9 % (0.0-3.0) 06/09/18 06:20 Gran # 4.35 (1.4-6.5) 06/09/18 06:20 Lymph # (Auto) 2.7 (1.2-3.4) 06/09/18 06:20 [place] # (Auto) 0.5 (0.1-0.6) 06/09/18 06:20 Eos # (Auto) 0.3 (0.0-0.7) 06/09/18 06:20 Baso # (Auto) 0.07 K/mm3 (0.0-2.0) 06/09/18 06:20 Sodium 143 mmol/L (132-148) 06/10/18 06:20 Potassium 3.4 mmol/L (3.6-5.0) L 06/10/18 06:20 Chloride 104 mmol/L (98-107) 06/10/18 06:20 Carbon Dioxide 30 mmol/L (21-33) 06/10/18 06:20 Anion Gap 12 (10-20) 06/10/18 06:20 BUN 24 mg/dL (7-21) H 06/10/18 06:20 Creatinine 1.2 mg/dl (0.8-1.5) 06/10/18 06:20 Est GFR ( Amer) > 60 06/10/18 06:20 Est GFR (Non-Af Amer) > 60 06/10/18 06:20 Random Glucose 112 mg/dL (70-110) H 06/10/18 06:20 Calcium 9.1 mg/dL (8.4-10.5) 06/10/18 06:20 Magnesium 2.0 mg/dL (1.7-2.2) 05/30/18 14:30 Total Bilirubin 0.3 mg/dL (0.2-1.3) 06/10/18 06:20 AST 56 U/L (17-59) 06/10/18 06:20 ALT 88 U/L (7-56) H 06/10/18 06:20 Alkaline Phosphatase 70 U/L (38-126) 06/10/18 06:20 Lactate Dehydrogenase 498 U/L (333-699) 05/30/18 14:30 Total Creatine Kinase 31 U/L (35-230) L 05/30/18 14:30 Troponin I 0.04 ng/mL D 06/09/18 06:30 C-Reactive Protein < 5.00 mg/L (0.0-9.9) 06/02/18 05:45 Total Protein 6.5 g/dL (5.8-8.3) 06/10/18 06:20 Albumin 3.6 g/dL (3.0-4.8) 06/10/18 06:20 Globulin 2.9 gm/dL 06/10/18 06:20 Albumin/Globulin Ratio 1.3 (1.1-1.8) 06/10/18 06:20 Triglycerides 140 mg/dL (35-160) 05/31/18 14:33 Cholesterol 176 mg/dL (130-200) 05/31/18 14:33 LDL Cholesterol Direct 85 mg/dL (0-129) 05/31/18 14:33 HDL Cholesterol 49 mg/dL (29-60) 05/31/18 14:33 Attending/Attestation - Attestation I have personally seen and examined this patient.: Yes I have fully participated in the care of the patient.: Yes I have reviewed all pertinent clinical information, including history, physical exam and plan: Yes Notes (Text): 06/11/18 14:43 Attending note; Patient seen and examined with resident. Patient is sitting in the chair. denies any complaints. tolerating diet. Patient is a 63-year-old male with past medical history significant for hypertension, type 2 diabetes, reflex sympathetic dystrophy, arthritis, depression, seizures, chronic decubitus ulcer, and constipation that presented to the emergency room with dizziness and altered speech. 1. Infected stage II sacral decubitus. Continue Cefepime Day #9. Needs to to complete 10- 14 days. PICC line is in place. Continue local wound care. Surgical team recommendations appreciated. Sacrum and coccyx xray do not show signs of osteomyelitis. 2. Dizziness and altered speech. Resolved dizziness. Per family, altered speech is chronic. Continue speech therapy. CT head showed Continue Plavix (patient allergic to ASA) and Lipitor. CT head 05/31/18 per radiologist shows 2.7 cm diameter area of hypodensity in the right parietal posterior frontal region; this could represent an acute or subacute infarct. 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 CTA head and neck showed no significant stenosis. 3. Moderate to severe aortic stenosis seen on 2-D echo. Cardiology consulted, recommendations appreciated. Will need cardiac follow up in 2-4 weeks. 4. Constipation. Patient uses chronic opioids at home. Resolved. Continue miralax and colace. resolved. tolerating diet. 5. Chronic pain. Likely secondary to reflex sympathetic dystrophy and patient being bed bound. Continue with Neurontin and Zanaflex. Continue physical therapy. 6. Essential hypertension. Continue losartan, lasix, and amlodipine. 7. Dyslipidemia. Continue Lipitor. 8. History of depression and anxiety. Continue Cymbalta, risperidone, Zoloft, Wellbutrin, and Ativan. Case discussed with rn social services for possible transfer to rehabilitation. Transfer to rehab today. family informed about discharge plan. Upon discharge the patient will follow-up with PMD . 06/11/18 14:46
--- NOTE | 2018-06-10 20:12 | PN ---
DATE: 06/09/2018 SUBJECTIVE: The patient was seen yesterday. The patient seen in no acute distress, nontoxic. PHYSICAL EXAMINATION: VITAL SIGNS: Temperature of 98, blood pressure is 100/60, respiratory rate of 20, heart rate of 90. HEENT: Unremarkable. NECK: Supple. LUNGS: Decreased breath sounds. HEART: Normal S1, S2. ABDOMEN: Soft, nontender. LABORATORY EXAMINATION: Reviewed. ASSESSMENT AND PLAN: A 63-year-old male who was seen yesterday with sensitive Staphylococcus aureus and Proteus, history of right index finger cellulitis with day #9 yesterday of therapy, would complete 10 to 14 days. Davon López MD
== END 2018-06-10 18:43 | DRG 149 ==
LOC: ED 13:07 → ERH 20:55 → 3RSO 21:34
PROVIDERS: ADMIT Internal Medicine; ATTEND Internal Medicine
DX: R42 Dizziness and giddiness (principal); L89.153 Pressure ulcer of sacral region, stage 3; G90.50 Complex regional pain syndrome I, unspecified; R47.81 Slurred speech; E11.9 Type 2 diabetes mellitus without complications; F32.9 Major depressive disorder, single episode, unspecified; I10 Essential (primary) hypertension; I35.2 Nonrheumatic aortic (valve) stenosis with insufficiency; K59.09 Other constipation; E78.5 Hyperlipidemia, unspecified; M19.90 Unspecified osteoarthritis, unspecified site; F41.9 Anxiety disorder, unspecified; B96.4 Proteus (mirabilis) (morganii) as the cause of diseases classified elsewhere; B95.61 Methicillin susceptible Staphylococcus aureus infection as the cause of diseases classified elsewhere; R56.9 Unspecified convulsions; Z86.73 Personal history of transient ischemic attack (TIA), and cerebral infarction without residual deficits; Z87.01 Personal history of pneumonia (recurrent); Z74.01 Bed confinement status; Z99.3 Dependence on wheelchair; Z79.02 Long term (current) use of antithrombotics/antiplatelets; Z88.6 Allergy status to analgesic agent; Z98.1 Arthrodesis status

== ENCOUNTER 2018-08-14 18:07 | Emergency (ER) | payer OTHER, MEDICARE ==
[2018-08-14 18:07] VITALS: BMI 28.2
[2018-08-14] MEDS ORDERED: Sodium Chloride 0.9% 500 ML IV STA (18:27)
--- NOTE | 2018-08-14 18:33 | ED PDOC ---
Arrival/HPI - General Chief Complaint: Abdominal Pain Time Seen by Provider: 08/14/18 18:14 Historian: Patient - History of Present Illness Time/Duration: Other (this afternoon) Symptom Onset: Sudden Symptom Course: Unchanged Quality: Aching Severity Level: Moderate Activities at Onset: Rest Associated Symptoms (Text): 08/14/18 18:30 Patient complains of acute onset of hematuria with clots and suprapubic abdominal pain this afternoon. He's been constipated for 10 days. No fever or chills. No nausea or vomiting. No injury or trauma. No history of stones. Past Medical History - Infectious Disease Hx of Infectious Diseases: None - Tetanus Immunization Tetanus Immunization: Unknown - Cardiac Hx Cardiac Disorders: Yes Hx Congestive Heart Failure: Yes Hx Hypertension: Yes - Pulmonary Hx Respiratory Disorders: Yes (USED TO SMOKE CIGARS) Hx Pneumonia: Yes (20 years ago) - Neurological HX Cerebrovascular Accident: Yes - HEENT Hx HEENT Disorder: No - Renal Hx Renal Disorder: No - Endocrine/Metabolic Hx Diabetes Mellitus Type 2: Yes - Hematological/Oncological Hx Blood Disorders: No Hx Cancer: No - Integumentary Hx Dermatological Disorder: Yes Other/Comment: 07-08-18 RIGHT PRESSURE ULCER STAGE 2 WITH 3 SML OPENINGS MEASURING 0.5 CM IN DM. LEFT PRESSURE ULCER STAGE 1. SKIN IS RAW,NON BLANCHABLE INTACT SKIN,SHINY.TENDER - Musculoskeletal/Rheumatological Hx Musculoskeletal Disorders: Yes (RSD REFLEX SYMPATHETIC DYSTROPHY) Hx Arthritis: Yes Hx Falls: Yes Hx Unsteady Gait: Yes - Gastrointestinal Hx Gastrointestinal Disorders: Yes (CONSTIPATION) - Genitourinary/Gynecological Hx Genitourinary Disorders: Yes Hx Incontinence: Yes - Psychiatric Hx Psychophysiologic Disorder: Yes Hx Anxiety: Yes Hx Depression: Yes Hx Substance Use: No - Surgical History Hx Mastectomy: No - Anesthesia Hx Anesthesia: Yes Hx Anesthesia Reactions: No Hx Malignant Hyperthermia: No - Suicidal Assessment Feels Threatened In Home Enviroment: No Family/Social History - Physician Review Nursing Documentation Reviewed: Yes Family/Social History: Unknown Family HX Smoking Status: Former Smoker Hx Alcohol Use: No Hx Substance Use: No Hx Substance Use Treatment: No Allergies/Home Meds Allergies/Adverse Reactions: Allergies aspirin Allergy (Verified 08/14/18 18:12) REDNESS morphine Adverse Reaction (Verified 08/14/18 18:12) ITCHING Home Medications: Home Meds Medication Instructions Recorded Confirmed RX: Bupropion HCl [Bupropion Xl] 150 mg PO DAILY 01/02/18 07/09/18 RX: Duloxetine HCl 30 mg PO TID 01/02/18 07/09/18 RX: Furosemide [Lasix] 40 mg PO DAILY 01/02/18 07/09/18 RX: Lorazepam [Ativan] 1 mg PO BID 01/02/18 07/09/18 RX: Losartan Potassium [Cozaar] 100 mg PO DAILY 01/02/18 07/09/18 RX: Pregabalin [Lyrica] 200 mg PO TID 01/02/18 07/09/18 RX: Quetiapine Fumarate [Seroquel] 300 mg PO DAILY 01/02/18 07/09/18 RX: Quetiapine Fumarate [Seroquel] 300 mg PO HS 01/02/18 07/09/18 RX: Risperidone [Risperdal] 1 mg PO TID 01/02/18 07/09/18 RX: Sertraline [Zoloft] 100 mg PO DAILY 01/02/18 07/09/18 RX: Tizanidine HCl [Zanaflex] 4 mg PO QID 01/02/18 07/09/18 RX: Zonisamide [Zonegran] 200 mg PO HS 01/02/18 07/09/18 RX: amLODIPine [Norvasc] 10 mg PO DAILY 01/02/18 07/09/18 RX: levETIRAcetam [Keppra] 500 mg PO BID 01/02/18 07/09/18 Review of Systems - Physician Review All systems were reviewed & negative as marked: Yes - Review of Systems Constitutional: Fatigue. absent: Fevers Respiratory: absent: SOB, Cough Cardiovascular: absent: Chest Pain, Palpitations, Syncope Gastrointestinal: Abdominal Pain, Constipation. absent: Diarrhea, Nausea, Vomiting, Anorexia Genitourinary Male: Hematuria. absent: Dysuria, Frequency Neurological: absent: Headache, Dizziness, Focal Weakness Physical Exam Temperature: Afebrile Blood Pressure: Normal Pulse: Regular Respiratory Rate: Normal Appearance: Positive for: Well-Appearing, Non-Toxic, Comfortable, Other (Chronically ill-appearing. Pale and unkempt.) Pain Distress: None Mental Status: Positive for: Alert and Oriented X 3 - Systems Exam Head: Present: Atraumatic, Normocephalic Pupils: Present: PERRL Extroacular Muscles: Present: EOMI Conjunctiva: Present: Normal Mouth: Present: Moist Mucous Membranes Pharnyx: No: ERYTHEMA, EXUDATE, TONSILS ENLARGED Respiratory/Chest: Present: Clear to Auscultation, Good Air Exchange, Decreased Breath Sounds. No: Respiratory Distress, Accessory Muscle Use Cardiovascular: Present: Regular Rate and Rhythm, Normal S1, S2. No: Murmurs Abdomen: No: Tenderness, Distention, Peritoneal Signs, Rebound, Guarding Rectal: Present: Normal Rectal Tone, Other (No impaction and no stool). No: Occult Blood, Rectal Tenderness, Gross Blood, Melena, Hemorrhoids, Fissures, Nodule/Mass/Lesions Upper Extremity: Present: Normal Inspection. No: Cyanosis, Edema Lower Extremity: Present: Normal Inspection, Other (mild chronic venous stasis changes). No: Edema Neurological: Present: GCS=15, CN II-XII Intact, Speech Normal, Motor Func Grossly Intact Skin: Present: Warm, Dry, Pale, Other (Grade 2 sacral decubitus). No: Rashes Psychiatric: Present: Alert, Oriented x 3, Normal Insight, Normal Concentration Medical Decision Making ED Course and Treatment: 08/14/18 22:09 CT scan shows no acute findings. Lab work is unrevealing. Urinalysis shows marted hematuria. Patient will be treated as a urinary tract infection with instructions to follow-up with urologist for possible cystoscopy as part of hematuria workup. Discharge home with . - RAD Interpretation Radiology Orders: 08/14/18 18:27 ABD & PELVIS W/O PO OR IV CONT [CT] Stat CT scan of the abdomen and pelvis as read by the radiologist shows no ureterolithiasis or hydronephrosis. There is nephrolithiasis bilaterally. There is cholelithiasis. Constipation. No acute findings. Celery Wrapper: Radiologist - Medication Orders Current Medication Orders: Sodium Chloride (Sodium Chloride 0.9%) 500 mls @ 1,000 mls/hr IV .Q30M STA Stop: 08/14/18 18:56 Ketorolac Tromethamine (Toradol) 15 mg IVP STAT STA Stop: 08/14/18 18:28 Disposition/Present on Arrival - Present on Arrival Any Indicators Present on Arrival: No History of DVT/PE: No History of Uncontrolled Diabetes: No Urinary Catheter: No History of Decub. Ulcer: No History Surgical Site Infection Following: None - Disposition Have Diagnosis and Disposition been Completed?: Yes Diagnosis: Hematuria, Urinary tract infection Disposition: HOME/ ROUTINE Disposition Time: 22:12 Patient Plan: Discharge Condition: FAIR Discharge Instructions (ExitCare): Urinary Tract Infections in Adults, Blood in the Urine (Hematuria) in Adults Additional Instructions: Symptomatic treatment. Tylenol or Advil as directed on bottle as needed. Follow- up with PMD and neurologist. Follow up in ER as needed. Prescriptions: Ciprofloxacin [Cipro] 500 mg PO BID #14 tab Referrals: Mali Pierce MD [Primary Care Provider] - Follow up with primary Forms: [employer] (Turkish)
[2018-08-14 19:12] LABS: BASO # 0.04 K/mm3 (0.0-2.0); BASO % 0.4 % (0.0-3.0); EOS # 0.2 (0.0-0.7); EOS % 2.2 % (1.5-5.0); GRAN # 6.51 (1.4-6.5); GRAN % 71.4 % (50.0-68.0); HEMOGLOBIN 12.9 g/dL (14.0-18.0); LYMPH # 1.8 (1.2-3.4); LYMPH % 20.2 % (22.0-35.0); MEAN CELL VOLUME 89.5 fl (80.0-105.0); MEAN CORPUSCULAR HEMOGLOBIN 29.5 pg (25.0-35.0); MEAN CORPUSCULAR HGB CONC 32.9 g/dl (31.0-37.0); MEAN PLATELET VOLUME 12.2 fl (7.0-11.0); MONO # 0.5 (0.1-0.6); MONO % 5.8 % (1.0-6.0); RBC 4.38 10^6/uL (3.5-6.1); RED CELL DISTRIBUTION WIDTH 13.8 % (11.5-14.5); WHITE BLOOD COUNT 9.1 10^3/ul (4.5-11.0)
[2018-08-14 19:17] LABS: URINE BILIRUBIN SMALL (NEGATIVE); URINE BLOOD LARGE (NEGATIVE); URINE GLUCOSE (UA) NEGATIVE (NEGATIVE); URINE LEUKOCYTE ESTERASE LARGE Leu/uL (NEGATIVE); URINE PROTEIN 100 mg/dL (<30 mg/dL)
[2018-08-14 19:18] LABS: URINE APPEARANCE CLOUDY (CLEAR); URINE COLOR LIGHT RED (YELLOW)
[2018-08-14 19:21] LABS: URINE RBC TNTC /hpf (0-2)
[2018-08-14 19:22] LABS: URINE BACTERIA MOD (NEG)
[2018-08-14 19:24] LABS: INR 1.49; PARTIAL THROMBOPLASTIN TIME 34.5 Seconds (25.1-36.5); PROTHROMBIN TIME 17.1 SECONDS (9.4-12.5)
[2018-08-14 19:28] LABS: ALB/GLOB RATIO 1.1 (1.1-1.8); ALBUMIN 3.7 g/dL (3.0-4.8); ALT/SGPT 31 U/L (7-56); AST/SGOT 25 U/L (17-59); BLOOD UREA NITROGEN 14 mg/dL (7-21); GFR NON-AFRICAN AMERICAN > 60; LIPASE 37 U/L (23-300)
[2018-08-14 20:21] VITALS: PULSE 66; RESP 18; TEMP 97.1
[2018-08-14] MEDS ORDERED: Ciprofloxacin 400mg/200ml D5W 400 MG/200 ML BAG IV STA (22:05)
[2018-08-14 22:31] VITALS: BP 132/79; O2SAT 98
--- NOTE | 2018-08-15 09:27 | CARD ---
APPROVED REPORT Date of service: 08/14/2018 EKG Measurement Heart [id number] <Conclusion> Sinus rhythm with 1st degree AV block Nonspecific T wave abnormality PRWP No change
--- NOTE | 2018-08-15 09:56 | CT ---
Date of service: 08/14/2018 PROCEDURE: CT Abdomen and Pelvis without intravenous contrast HISTORY: pain COMPARISON: 01/02/2018 CT abdomen and pelvis. TECHNIQUE: Unenhanced. Neither IV nor oral contrast administered Radiation dose: Total exam DLP = 1202.12 mGy-cm. This CT exam was performed using one or more of the following dose reduction techniques: Automated exposure control, adjustment of the mA and/or kV according to patient size, and/or use of iterative reconstruction technique. FINDINGS: LOWER THORAX: Unremarkable. LIVER: Unremarkable. No gross lesion or ductal dilatation. GALLBLADDER AND BILE DUCTS: Cholelithiasis without CT evidence of acute cholecystitis. PANCREAS: Unremarkable. No gross lesion or ductal dilatation. SPLEEN: Unremarkable. ADRENALS: Unremarkable. No mass. KIDNEYS AND URETERS: Calculus disease left kidney/central collecting system. Multiple small fragments identified centrally within the left renal pelvis. No evidence of left ureteral calculi. Right kidney: No acute/significant findings. Incidental finding(s): Bilateral simple renal cysts. VASCULATURE: Unremarkable. No aortic aneurysm. BOWEL: Proctitis without mechanical obstruction. APPENDIX: No abnormalities to suggest acute appendicitis. No right lower quadrant inflammatory processes identified. PERITONEUM: Unremarkable. No free fluid. No free air. LYMPH NODES: Unremarkable. No enlarged lymph nodes. BLADDER: Unremarkable. REPRODUCTIVE: Unremarkable. BONES: No acute fracture. Severe multilevel degenerative changes. Neuro stimulator device identified. Postoperative findings from prior lumbar laminectomy. Severe degenerative changes affecting both hips. OTHER FINDINGS: None. IMPRESSION: Evidence of proctitis without obstruction. Diverticulosis without an acute inflammatory component. Stable unilateral, left renal calculus disease. Additional benign and/or incidental findings described above. Concordant results (preliminary interpretation) provided by [employer]. Procedure Completed: 20:06. Preliminary Report: Dictated and Authenticated: 22:00. Final Interpretation: 09:54. August 15, 2018.
== END 2018-08-15 00:30 | disposition home or self-care (01) ==
LOC: ED 18:07
DX: N39.0 Urinary tract infection, site not specified (principal); R31.9 Hematuria, unspecified; I11.0 Hypertensive heart disease with heart failure; I50.9 Heart failure, unspecified; E11.9 Type 2 diabetes mellitus without complications; Z86.73 Personal history of transient ischemic attack (TIA), and cerebral infarction without residual deficits; Z87.891 Personal history of nicotine dependence
CPT/HCPCS: 74176; 80053; 81001; 83690; 83735; 85025; 85610; 85730; 87086; 87181; 93005; 96374; 99284; J1885; J7040

== ENCOUNTER 2019-02-19 16:44 | Inpatient (IN) | payer OTHER, MEDICARE ==
[2019-02-19] MEDS ORDERED: Piperacillin/Tazobact 3.375 gm 100 ML IVPB STA (17:21)
[2019-02-19] MEDS ORDERED: Vancomycin 1gm in NS 250ml 1 GM/250 ML BAG IVPB STA (17:21)
--- NOTE | 2019-02-19 17:39 | ED PDOC ---
Arrival/HPI - General Chief Complaint: Finger,Hand,&Wrist Time Seen by Provider: 02/19/19 16:53 Historian: Patient - History of Present Illness Narrative History of Present Illness (Text): 02/19/19 17:57 63-year-old diabetic male presents today with a bilateral hand infection. Patient states 1 week ago he fell and got both hands stuck inside a sliding door with metal grate. Patient states he was able to pull his hands out but since then he has developed redness pain and swelling to the right third finger and the left second finger. Patient states over the past 2 days he is noticed pus coming out of the right second finger and today he developed worsening pain with limited range of motion of the fingers. Patient denies fevers or chills. No medications have been taken for pain at home. No other complaints Past Medical History - Provider Review Nursing Documentation Reviewed: Yes - Travel History Have you recently traveled outside [place] w/in the past 3 mons?: No - Infectious Disease Hx of Infectious Diseases: None - Tetanus Immunization Tetanus Immunization: Unknown - Cardiac Hx Cardiac Disorders: Yes Hx Congestive Heart Failure: Yes Hx Hypertension: Yes - Pulmonary Hx Respiratory Disorders: Yes (USED TO SMOKE CIGARS) Hx Pneumonia: Yes (20 years ago) - Neurological HX Cerebrovascular Accident: Yes - HEENT Hx HEENT Disorder: No - Renal Hx Renal Disorder: No - Endocrine/Metabolic Hx Diabetes Mellitus Type 2: Yes - Hematological/Oncological Hx Blood Disorders: No Hx Cancer: No - Integumentary Hx Dermatological Disorder: Yes Other/Comment: 07-08-18 RIGHT PRESSURE ULCER STAGE 2 WITH 3 SML OPENINGS MEASURING 0.5 CM IN DM. LEFT PRESSURE ULCER STAGE 1. SKIN IS RAW,NON BLANCHABLE INTACT SKIN,SHINY.TENDER - Musculoskeletal/Rheumatological Hx Musculoskeletal Disorders: Yes (RSD REFLEX SYMPATHETIC DYSTROPHY) Hx Arthritis: Yes Hx Falls: Yes Hx Unsteady Gait: Yes - Gastrointestinal Hx Gastrointestinal Disorders: Yes (CONSTIPATION) - Genitourinary/Gynecological Hx Genitourinary Disorders: Yes Hx Incontinence: Yes - Psychiatric Hx Psychophysiologic Disorder: Yes Hx Anxiety: Yes Hx Depression: Yes Hx Substance Use: No - Surgical History Hx Mastectomy: No - Anesthesia Hx Anesthesia: Yes Hx Anesthesia Reactions: No Hx Malignant Hyperthermia: No - Suicidal Assessment Feels Threatened In Home Enviroment: No Family/Social History - Physician Review Nursing Documentation Reviewed: Yes Family/Social History: Unknown Family HX Smoking Status: Former Smoker Hx Alcohol Use: No Hx Substance Use: No Hx Substance Use Treatment: No Allergies/Home Meds Allergies/Adverse Reactions: Allergies aspirin Allergy (Verified 02/19/19 16:47) REDNESS morphine Adverse Reaction (Verified 02/19/19 16:47) ITCHING Home Medications: Home Meds Medication Instructions Recorded Confirmed Bupropion HCl [Bupropion Xl] 150 mg PO DAILY 01/02/18 07/09/18 Duloxetine HCl 30 mg PO TID 01/02/18 07/09/18 Furosemide [Lasix] 40 mg PO DAILY 01/02/18 07/09/18 Lorazepam [Ativan] 1 mg PO BID 01/02/18 07/09/18 Losartan Potassium [Cozaar] 100 mg PO DAILY 01/02/18 07/09/18 Pregabalin [Lyrica] 200 mg PO TID 01/02/18 07/09/18 Quetiapine Fumarate [Seroquel] 300 mg PO DAILY 01/02/18 07/09/18 Quetiapine Fumarate [Seroquel] 300 mg PO HS 01/02/18 07/09/18 Risperidone [Risperdal] 1 mg PO TID 01/02/18 07/09/18 Sertraline [Zoloft] 100 mg PO DAILY 01/02/18 07/09/18 Tizanidine HCl [Zanaflex] 4 mg PO QID 01/02/18 07/09/18 Zonisamide [Zonegran] 200 mg PO HS 01/02/18 07/09/18 amLODIPine [Norvasc] 10 mg PO DAILY 01/02/18 07/09/18 levETIRAcetam [Keppra] 500 mg PO BID 01/02/18 07/09/18 Review of Systems - Review of Systems Constitutional: absent: Fatigue, Fevers Respiratory: absent: SOB, Cough Cardiovascular: absent: Chest Pain, Palpitations Gastrointestinal: absent: Abdominal Pain, Vomiting Musculoskeletal: Arthralgias Skin: Abscess, Cellulitis Neurological: absent: Headache, Dizziness Physical Exam Vital Signs Reviewed: Yes Temperature: Afebrile Blood Pressure: Normal Pulse: Regular Respiratory Rate: Normal Appearance: Positive for: Well-Appearing, Non-Toxic, Comfortable Pain Distress: None Mental Status: Positive for: Alert and Oriented X 3 - Systems Exam Head: Present: Atraumatic Mouth: Present: Moist Mucous Membranes Neck: Present: Trachea Midline Respiratory/Chest: Present: Clear to Auscultation, Good Air Exchange. No: Respiratory Distress, Accessory Muscle Use Cardiovascular: Present: Regular Rate and Rhythm, Murmurs, Normal S1, S2 Abdomen: No: Tenderness Upper Extremity: Present: NORMAL PULSES, Tenderness (right 3rd finger; ), Swelling, Erythema, Neurovascularly Intact. No: Normal ROM Neurological: Present: GCS=15, Speech Normal Skin: Present: Warm, Dry Psychiatric: Present: Alert, Oriented x 3 Medical Decision Making ED Course and Treatment: pt arrived in ER with right third finger and left second finger redness and swelling status post injury 1 week ago. 02/19/19 17:18 case immediately discussed with hand surgeon dr. oconnor; who will come to ER. advised pre op patient. blood cultures pending pt started on vancomycin and zosyn IV. cbc; wbc;13.7 cmp: wnl lactate: 1.2 pt/inr ptt cxr; wnl ekg; accelerated junctional rhythm at [address] elevations QTC 464 normal axis xray hands/bilaterally; no fracture, no sq air. case discussed with dr. wang; accepts admission. 02/19/19 18:20 Dr. Oconnor is at bedside. He states no OR at this time. He will do a bedside drainage and see the patient tomorrow and re-eval and determine if OR is needed. IV abx. he advised keep patient npo after midnight All aspects of this case were discussed the attending of record. Impression: bilateral finger infection, leukocytosis admit med/surg - RAD Interpretation Radiology Orders: 02/19/19 17:25 CHEST PORTABLE [RAD] Stat 02/19/19 17:27 HAND LEFT 3 VIEWS ROUTINE [RAD] Stat HAND RIGHT 3 VIEWS [RAD] Stat - Medication Orders Current Medication Orders: Vancomycin HCl (Vancomycin 1gm) 1 gm in 250 mls @ 167 mls/hr IVPB STAT STA; Protocol Stop: 02/19/19 18:50 Piperacillin Sod/Tazobactam Sod (Zosyn 3.375 In Ns 100ml) 100 mls @ 200 mls/hr IVPB STAT STA; Protocol Stop: 02/19/19 17:50 Disposition/Present on Arrival - Present on Arrival Any Indicators Present on Arrival: No History of DVT/PE: No History of Uncontrolled Diabetes: No Urinary Catheter: No History of Decub. Ulcer: No History Surgical Site Infection Following: None - Disposition Have Diagnosis and Disposition been Completed?: Yes Diagnosis: Finger infection, Leukocytosis Disposition: HOSPITALIZED Disposition Time: 17:18 Patient Plan: Admission Patient Problems: Current Active Problems Problem Status Onset Finger infection Acute Condition: FAIR
[2019-02-19] MEDS ORDERED: TDAP Vaccine 0.5 mL Syr IM ONE (18:01)
[2019-02-19 18:03] LABS: VENOUS BLOOD GAS BASE EXCESS -3.4 mmol/L (0.0-2.0); VENOUS BLOOD GAS PO2 198 mm/Hg (30-55); VENOUS BLOOD PH 7.37 (7.32-7.43)
[2019-02-19 18:04] LABS: BASO # 0.02 K/mm3 (0.0-2.0); BASO % 0.1 % (0.0-3.0); EOS # 0.1 (0.0-0.7); EOS % 0.9 % (1.5-5.0); HEMOGLOBIN 11.3 g/dL (14.0-18.0); LYMPH # 0.8 (1.2-3.4); LYMPH % 5.9 % (22.0-35.0); MEAN CELL VOLUME 88.7 fl (80.0-105.0); MEAN CORPUSCULAR HEMOGLOBIN 28.9 pg (25.0-35.0); MEAN CORPUSCULAR HGB CONC 32.6 g/dl (31.0-37.0); MEAN PLATELET VOLUME 13.1 fl (7.0-11.0); MONO # 1.3 (0.1-0.6); MONO % 9.4 % (1.0-6.0); RBC 3.91 10^6/uL (3.5-6.1); RED CELL DISTRIBUTION WIDTH 14.8 % (11.5-14.5); WHITE BLOOD COUNT 13.7 10^3/uL (4.5-11.0)
[2019-02-19 18:14] LABS: ALB/GLOB RATIO 1.1 (1.1-1.8); ALBUMIN 3.7 g/dL (3.0-4.8); ALT/SGPT 20 U/L (7-56); AST/SGOT 19 U/L (17-59); BLOOD UREA NITROGEN 26 mg/dL (7-21); CALCIUM 9.7 mg/dL (8.4-10.5); GFR NON-AFRICAN AMERICAN > 60
--- NOTE | 2019-02-19 18:14 | CP.PCM.CON ---
Past Patient History - Infectious Disease Hx of Infectious Diseases: None - Tetanus Immunizations Tetanus Immunization: Unknown - Past Social History Smoking Status: Former Smoker - CARDIAC Hx Cardiac Disorders: Yes Hx Congestive Heart Failure: Yes Hx Hypertension: Yes - PULMONARY Hx Respiratory Disorders: Yes (USED TO SMOKE CIGARS) Hx Pneumonia: Yes (20 years ago) - NEUROLOGICAL HX Cerebrovascular Accident: Yes - HEENT Hx HEENT Problems: No - RENAL Hx Chronic Kidney Disease: No - ENDOCRINE/METABOLIC Hx Diabetes Mellitus Type 2: Yes - HEMATOLOGICAL/ONCOLOGICAL Hx Blood Disorders: No Hx Cancer: No - INTEGUMENTARY Hx Dermatological Problems: Yes Other/Comment: 07-08-18 RIGHT PRESSURE ULCER STAGE 2 WITH 3 SML OPENINGS MEASURING 0.5 CM IN DM. LEFT PRESSURE ULCER STAGE 1. SKIN IS RAW,NON BLANCHABLE INTACT SKIN,SHINY.TENDER - MUSCULOSKELETAL/RHEUMATOLOGICAL Hx Musculoskeletal Disorders: Yes (RSD REFLEX SYMPATHETIC DYSTROPHY) Hx Arthritis: Yes Hx Falls: Yes Hx Unsteady Gait: Yes - GASTROINTESTINAL Hx Gastrointestinal Disorders: Yes (CONSTIPATION) - GENITOURINARY/GYNECOLOGICAL Hx Genitourinary Disorders: Yes Hx Incontinence: Yes - PSYCHIATRIC Hx Psychophysiologic Disorder: Yes Hx Anxiety: Yes Hx Depression: Yes Hx Substance Use: No - SURGICAL HISTORY Hx Mastectomy: No - ANESTHESIA Hx Anesthesia: Yes Hx Anesthesia Reactions: No Hx Malignant Hyperthermia: No Meds Allergies/Adverse Reactions: Allergies Allergy/AdvReac Type Severity Reaction Status Date / Time aspirin Allergy REDNESS Verified 02/19/19 16:47 morphine AdvReac ITCHING Verified 02/19/19 16:47 - Medications Medications: Current Medications Vancomycin HCl (Vancomycin 1gm) 1 gm in 250 mls @ 167 mls/hr IVPB STAT STA; Protocol Stop: 02/19/19 18:50 Results - Vital Signs Recent Vital Signs: Last Vital Signs Temp 97.7 F 02/19/19 17:43 Pulse 87 02/19/19 17:43 Resp 18 02/19/19 17:43 BP 100/63 02/19/19 17:43 Pulse Ox 98 02/19/19 17:43 - Labs Result Diagrams: 02/19/19 18:00 Labs: Laboratory Results - last 24 hr 02/19/19 02/19/19 18:00 18:00 WBC 13.7 H RBC 3.91 Hgb 11.3 L Hct 34.7 L MCV 88.7 MCH 28.9 MCHC 32.6 RDW 14.8 H Plt Count 124 MPV 13.1 H Neut % (Auto) 83.7 H Lymph % (Auto) 5.9 L Cass % (Auto) 9.4 H Eos % (Auto) 0.9 L Baso % (Auto) 0.1 Lymph # (Auto) 0.8 L Cass # (Auto) 1.3 H Eos # (Auto) 0.1 Baso # (Auto) 0.02 Absolute Neuts (auto) 11.46 H pO2 198 H VBG pH 7.37 VBG pCO2 37.0 L VBG HCO3 21.4 VBG Total CO2 22.5 VBG O2 Sat (Calc) 99.7 H VBG Base Excess -3.4 L VBG Potassium 3.8 Sodium 136.0 Chloride 106.0 Glucose 97 Lactate 1.2 FiO2 21.0 Venous Blood Potassium 3.8
[2019-02-19 18:16] LABS: INR 1.69; PARTIAL THROMBOPLASTIN TIME 37.5 Seconds (26.9-38.3); PROTHROMBIN TIME 18.8 SECONDS (9.4-12.5)
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
--- NOTE | 2019-02-19 18:24 | RAD ---
Date of service: 02/19/2019 HISTORY: pre op COMPARISON: 07/08/2018 FINDINGS: LUNGS: No active pulmonary disease. PLEURA: No significant pleural effusion identified, no pneumothorax apparent. CARDIOVASCULAR: No atherosclerotic calcification present Normal. OSSEOUS STRUCTURES: No significant abnormalities. VISUALIZED UPPER ABDOMEN: Normal. OTHER FINDINGS: None. IMPRESSION: No active disease. No significant interval change compared to the prior examination(s).
[2019-02-19] MEDS ORDERED: Lidocaine 1% Inj (20ml) ONE (18:26)
--- NOTE | 2019-02-19 18:26 | RAD ---
PROCEDURE: Bilateral hand radiographs. HISTORY: left hand pain, left 2nd finger infection COMPARISON: None. TECHNIQUE: 6 views obtained. FINDINGS: BONES: Right Hand: Normal. No osteoarthritic changes. Left Hand: Normal. No osteoarthritic changes. JOINTS: Right Hand: Osteoarthritic change involving proximal and distal interphalangeal joints. Left Hand: Osteoarthritic change involving proximal and distal interphalangeal joints. SOFT TISSUES: Right Hand: Soft tissue swelling right 3rd digit. Left Hand: Soft tissue swelling left 2nd digit. OTHER FINDINGS: None. IMPRESSION: Soft tissue swelling without acute articular or osseous abnormality.
[2019-02-19] MEDS ORDERED: Dextrose 50% SYRINGE Inj (50 ml) IV PRN (18:38)
[2019-02-19] MEDS: Vancomycin 1gm in NS 250ml 1 GM/250 ML BAG IVPB SCH (18:38)
[2019-02-19] MEDS: Lidocaine 2% Inj (20ml) IJ STA ×2 (18:40→18:42)
[2019-02-19] MEDS: Sodium Chloride 0.9% 1,000 ML IV SCH (21:03)
[2019-02-19 21:04] LABS: URINE BILIRUBIN NEGATIVE (NEGATIVE); URINE BLOOD TRACE-LYSED (NEGATIVE); URINE GLUCOSE (UA) NEGATIVE (NEGATIVE); URINE LEUKOCYTE ESTERASE LARGE Leu/uL (NEGATIVE); URINE PROTEIN 30 mg/dL (<30 mg/dL)
[2019-02-19 21:05] LABS: URINE APPEARANCE SLIGHT-CLOUDY (CLEAR); URINE COLOR YELLOW (YELLOW)
[2019-02-19 21:15] LABS: URINE EPITHELIAL CELLS MANY /hpf (0-5); URINE WBC 15 - 20 /hpf (0-6)
[2019-02-19] MEDS ORDERED: Piperacillin/Tazobact 3.375 gm 100 ML IVPB SCH (22:00)
--- NOTE | 2019-02-19 22:23 | CARD ---
APPROVED REPORT Date of service: 02/19/2019 EKG Measurement Heart [id number] <Conclusion> Baseline artifact Probably NSR Nonspecific ST and T wave abnormality Abnormal ECG
[2019-02-20] VITALS: BMI 26.9
[2019-02-20] MEDS: Insulin Lispro (humaLOG) MEDIUM Coverage SC SCH ×5 (00:30→23:44)
[2019-02-20] MEDS: Piperacillin/Tazobact 3.375 gm 100 ML IVPB SCH ×3 (05:25→23:58)
[2019-02-20 07:35] LABS: HEMOGLOBIN 11.1 g/dL (14.0-18.0); MEAN CORPUSCULAR HEMOGLOBIN 28.8 pg (25.0-35.0); MEAN CORPUSCULAR HGB CONC 33.1 g/dl (31.0-37.0); MEAN PLATELET VOLUME 13.8 fl (7.0-11.0); RBC 3.85 10^6/uL (3.5-6.1); RED CELL DISTRIBUTION WIDTH 14.6 % (11.5-14.5)
[2019-02-20 07:46] LABS: ALBUMIN 3.1 g/dL (3.0-4.8); ALT/SGPT 21 U/L (7-56); AST/SGOT 21 U/L (17-59); BLOOD UREA NITROGEN 23 mg/dL (7-21); CALCIUM 9.1 mg/dL (8.4-10.5); GFR NON-AFRICAN AMERICAN > 60
[2019-02-20] MEDS: Vancomycin 1gm in NS 250ml 1 GM/250 ML BAG IVPB SCH ×2 (08:00→17:20)
[2019-02-20] MEDS: Sodium Chloride 0.9% 1,000 ML IV SCH ×2 (08:01→16:55)
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
--- NOTE | 2019-02-20 11:25 | CP.PCM.PN ---
<Fady Henderson - Last Filed: 02/20/19 11:31> Subjective - Date & Time of Evaluation Date of Evaluation: 02/20/19 Time of Evaluation: 08:18 - Subjective Subjective: Fady Henderson PGY2 IM Progress Note for Dr. Camejo Patient was seen and examined at bedside. No fevers noted overnight. patient still has pain in his fingers that were drained by ortho yesterday. Patient also has a sacral ulcer that was examined. Medications were reviewed from prior visit. Patient stated [facility], however I contacted them at [phone] with no success. To confirm meds, [facility] was called but it closed down so I was reconnected to [facility] which confirmed: Most recent: losartan 100 daily norvasc 10 daily plavix 75 daily (Tiff, GUS [phone]) lipitor 40 daily 2018: bupropion 150mg daily keppra 500mg bid ([phone], Jonah) Objective - Vital Signs/Intake and Output Vital Signs (last 24 hours): Temp Pulse Resp BP Pulse Ox 97.9 F 94 H 20 108/61 93 L 02/19/19 22:00 02/19/19 22:00 02/19/19 23:24 02/19/19 22:00 02/19/19 22:00 Intake and Output: 02/20/19 02/20/19 06:59 18:59 Intake Total 360 Balance 360 - Medications Medications: Current Medications Amlodipine Besylate (Norvasc) 10 mg PO DAILY [facility] Atorvastatin Calcium (Lipitor) 40 mg PO DIN [facility] Dextrose (Dextrose 50% Inj) 0 ml IV STAT PRN; Protocol PRN Reason: Hypoglycemia Protocol Docusate Sodium (Colace) 100 mg PO TID [facility] Duloxetine HCl (Cymbalta) 30 mg PO TID [facility] Gabapentin (Neurontin) 600 mg PO Q8 [facility]; Protocol Vancomycin HCl (Vancomycin 1gm) 1 gm in 250 mls @ 167 mls/hr IVPB Q12H [facility]; Protocol Last Admin: 02/20/19 08:00 Dose: 167 mls/hr Dextrose (Dextrose 5% In Water 1000 Ml) 1,000 mls @ 0 mls/hr IV .Q0M PRN; Protocol PRN Reason: Hypoglycemia Protocol Sodium Chloride (Sodium Chloride 0.9%) 1,000 mls @ 100 mls/hr IV .Q10H [facility] Last Admin: 02/20/19 08:01 Dose: 100 mls/hr Piperacillin Sod/Tazobactam Sod (Zosyn 3.375 In Ns 100ml) 100 mls @ 25 mls/hr IVPB Q8 [facility]; Protocol Stop: 02/27/19 06:01 Last Admin: 02/20/19 05:25 Dose: 25 mls/hr Insulin Human Lispro (Humalog Med) 0 units SC ACHS [facility]; Protocol Last Admin: 02/20/19 09:21 Dose: Not Given Levetiracetam (Keppra) 500 mg PO Q12 [facility] Losartan Potassium (Cozaar) 100 mg PO DAILY [facility] Meclizine HCl (Antivert) 12.5 mg PO TID [facility] Pantoprazole Sodium (Protonix Ec Tab) 40 mg PO 0600 [facility] Quetiapine Fumarate (Seroquel) 100 mg PO HS [facility]; Protocol Last Admin: 02/20/19 01:04 Dose: 100 mg Risperidone (Risperdal Tab) 1 mg PO TID [facility]; Protocol Sertraline HCl (Zoloft) 100 mg PO DAILY [facility] Tizanidine HCl (Zanaflex) 4 mg PO QID [facility] Zonisamide (Zonegran) 200 mg PO HS [facility] - Labs Labs: 02/20/19 06:10 02/20/19 06:10 PT 18.8 SECONDS (9.4-12.5) H 02/19/19 18:00 INR 1.69 02/19/19 18:00 APTT 37.5 Seconds (26.9-38.3) 02/19/19 18:00 - Constitutional Appears: Well, Non-toxic, No Acute Distress - Head Exam Head Exam: ATRAUMATIC, NORMAL INSPECTION - Eye Exam Eye Exam: EOMI, Normal appearance - ENT Exam ENT Exam: Mucous Membranes Dry, Normal Exam - Neck Exam Neck Exam: Full ROM, Normal Inspection - Respiratory Exam Respiratory Exam: NORMAL BREATHING PATTERN. absent: Respiratory Distress - Cardiovascular Exam Cardiovascular Exam: RRR, +S1, +S2, Murmur - GI/Abdominal Exam GI & Abdominal Exam: Soft. absent: Distended, Tenderness - Extremities Exam Extremities Exam: Full ROM Additional comments: b/l hand swelling and fingers bandaged - Neurological Exam Neurological Exam: Alert, Awake - Skin Skin Exam: Normal Color, Warm Additional comments: dressing and gauze over both hands Assessment and Plan - Assessment and Plan (Free Text) Assessment: 63 year old male with a PMHx of HTN, DM2, Reflex Sympathetic Dystrophy (RSD), arthritis, depression, seizures, chronic decubitus ulcer, and constipation who is admitted for severe pain and and cellulitis in his fingers. Plan: 1. Bilateral Cellulitis of Digits - CRP ordered - vanc and zosyn - blood, urine and wound cultures pending - NPO for possible OR; cont NS - Orthopedics, Dr. Sellers consulted, recs appreciated - ID consulted, recs appreciated - Cardio consulted for OR clearance, recs appreciated 2. Sacral decubitus ulcer - wound care nurse ordered - turn patient q2 - Abx per ID 3. HTN - meds reviewed from prior admission - will resume meds 4. History of depression - meds reviewed from prior admission - will resume meds 5. History of seizures - meds reviewed from prior admission - will resume meds 6.Chronic back pain - Secondary due to Reflex Sympathetic Dystrophy - PT consulted 7. DM2 - Insulin sliding scale - hemoglobin A1C 8. PPX - Protonix for GI ppx - SCDs for DVT ppx; can start lovenox if no plans for OR Case was reviewed and discussed with Dr. Camejo <Florentino Camejo - Last Filed: 02/20/19 14:05> Objective - Vital Signs/Intake and Output Vital Signs (last 24 hours): Temp Pulse Resp BP Pulse Ox 99.8 F H 96 H 20 100/57 L 97 02/20/19 06:00 02/20/19 06:00 02/20/19 06:00 02/20/19 06:00 02/20/19 06:00 Intake and Output: 02/20/19 02/20/19 06:59 18:59 Intake Total 360 Output Total 350 Balance 360 -350 - Medications Medications: Current Medications Amlodipine Besylate (Norvasc) 10 mg PO DAILY [facility] Atorvastatin Calcium (Lipitor) 40 mg PO DIN [facility] Dextrose (Dextrose 50% Inj) 0 ml IV STAT PRN; Protocol PRN Reason: Hypoglycemia Protocol Docusate Sodium (Colace) 100 mg PO TID [facility] Duloxetine HCl (Cymbalta) 30 mg PO TID [facility] Gabapentin (Neurontin) 600 mg PO Q8 [facility]; Protocol Vancomycin HCl (Vancomycin 1gm) 1 gm in 250 mls @ 167 mls/hr IVPB Q12H [facility]; Protocol Last Admin: 02/20/19 08:00 Dose: 167 mls/hr Dextrose (Dextrose 5% In Water 1000 Ml) 1,000 mls @ 0 mls/hr IV .Q0M PRN; Protocol PRN Reason: Hypoglycemia Protocol Sodium Chloride (Sodium Chloride 0.9%) 1,000 mls @ 100 mls/hr IV .Q10H [facility] Last Admin: 02/20/19 08:01 Dose: 100 mls/hr Piperacillin Sod/Tazobactam Sod (Zosyn 3.375 In Ns 100ml) 100 mls @ 25 mls/hr IVPB Q8 [facility]; Protocol Stop: 02/27/19 06:01 Last Admin: 02/20/19 05:25 Dose: 25 mls/hr Insulin Human Lispro (Humalog Med) 0 units SC ACHS [facility]; Protocol Last Admin: 02/20/19 11:30 Dose: Not Given Levetiracetam (Keppra) 500 mg PO Q12 [facility] Losartan Potassium (Cozaar) 100 mg PO DAILY [facility] Meclizine HCl (Antivert) 12.5 mg PO TID [facility] Pantoprazole Sodium (Protonix Ec Tab) 40 mg PO 0600 [facility] Potassium Chloride (K-Dur 20 Meq Er Tab) 20 meq PO DIN [facility] Stop: 02/20/19 17:01 Quetiapine Fumarate (Seroquel) 100 mg PO HS [facility]; Protocol Last Admin: 02/20/19 01:04 Dose: 100 mg Risperidone (Risperdal Tab) 1 mg PO TID [facility]; Protocol Sertraline HCl (Zoloft) 100 mg PO DAILY [facility] Tizanidine HCl (Zanaflex) 4 mg PO QID [facility] Zonisamide (Zonegran) 200 mg PO HS [facility] - Labs Labs: 02/20/19 06:10 02/20/19 06:10 PT 18.8 SECONDS (9.4-12.5) H 02/19/19 18:00 INR 1.69 02/19/19 18:00 APTT 37.5 Seconds (26.9-38.3) 02/19/19 18:00 Attending/Attestation - Attestation I have personally seen and examined this patient.: Yes I have fully participated in the care of the patient.: Yes I have reviewed all pertinent clinical information, including history, physical exam and plan: Yes Notes (Text): 02/20/19 14:01 Attending note; Patient seen and examined with resident. Patient is alert and awake. Denies any fevers, chills. Denies any nausea, vomiting. Currently n.p.o. for possible I&D. Status post bedside I&D of the right third digit and left second digit by Laverne O yesterday. Dressing in place No discharge or bleeding noted. Patient is a 63 year old male with a PMHx of HTN, DM2, Reflex Sympathetic Dystrophy (RSD), arthritis, depression, seizures, chronic decubitus ulcer, and constipation who presents to the ED for severe pain and and infection of his fingers. Patient states he was brought in by ambulance. He states his fingers got caught in sliding doors about a week ago. Since then he has been scratching them and they have gotten red and infected. 1. Bilateral hand cellulitis; status post trauma. Patient has significant swelling of the right third digit with minimal pus. Status post bedside I&D with hand surgery Dr. Sellers yesterday. We will follow-up with him closely. Ordered on IV vancomycin and Zosyn. 2. Diabetes; continue regular insulin sliding scale . 3. Hypertension; blood pressure stable. Continue Norvasc. 4. Reflex sympathetic dystrophy; Patient has chronic stiffness of whole body with RSD and chronic pain syndrome. 5. Depression/anxiety; continue clonazepam, risperidone, Seroquel, Zoloft. 6. Chronic decubitus ulcer ; wound care ordered. 7. Aortic stenosis; monitor closely. cardiology evaluation appreciated. 8. Chronic stiffness; continue Zanaflex. Continue physical therapy. 9. Seizure disorder; continue Keppra and Zonegran. 10. Neuropathy; continue Neurontin and Cymbalta. Diagnosis, treatment options discussed with patient in detail. Upon discharge the patient will follow up with PMD Dr. Pierce.
[2019-02-20] MEDS ORDERED: Potassium Chloride 20 mEq ER Tab PO ONE (11:26)
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
[2019-02-20] MEDS ORDERED: Potassium Chloride 20 mEq ER Tab PO SCH (17:00)
[2019-02-20] MEDS ORDERED: Sodium Chloride 0.9% 1,000 ML IV STA ×2 (21:56→23:24)
[2019-02-21] MEDS: Vancomycin 1gm in NS 250ml 1 GM/250 ML BAG IVPB SCH ×2 (00:12→05:39)
[2019-02-21 00:46] LABS: VENOUS BLOOD GAS BASE EXCESS -3.4 mmol/L (0.0-2.0); VENOUS BLOOD GAS PO2 51 mm/Hg (30-55); VENOUS BLOOD PH 7.37 (7.32-7.43)
[2019-02-21] MEDS ORDERED: Sodium Chloride 0.9% 1,000 ML IV STA (01:00)
--- NOTE | 2019-02-21 01:11 | CP.PCM.PCO ---
<Luis Bunn - Last Filed: 02/21/19 01:08> Addendum Addendum: 02/21/19 01:08 Pt had asymptomatic Hypotension , 70s/50s given 3L bolus w/ NS @100 maintainance + Midrodine 5 stat dose, hold anti-HTNs Pt remained AAOx3 throughtout evening. Pt responded to bolus + midrodine, BP normalized VBG shock- neg lactate CK PGY1 <Sadie Vinson - Last Filed: 02/21/19 06:44> Attending/Attestation - Attestation I have personally seen and examined this patient.: No I have fully participated in the care of the patient.: No I have reviewed all pertinent clinical information: No
[2019-02-21] MEDS: Sodium Chloride 0.9% 1,000 ML IV SCH ×3 (03:45→22:43)
[2019-02-21] MEDS: Piperacillin/Tazobact 3.375 gm 100 ML IVPB SCH (05:06)
[2019-02-21] MEDS: Pantoprazole 40 mg EC Tab PO SCH (05:16)
[2019-02-21] MEDS ORDERED: Pantoprazole 40 mg EC Tab PO SCH (06:00)
[2019-02-21 07:48] LABS: HEMOGLOBIN 9.8 g/dL (14.0-18.0); MEAN CELL VOLUME 88.5 fl (80.0-105.0); MEAN CORPUSCULAR HEMOGLOBIN 28.8 pg (25.0-35.0); MEAN CORPUSCULAR HGB CONC 32.6 g/dl (31.0-37.0); MEAN PLATELET VOLUME 13.4 fl (7.0-11.0); RBC 3.4 10^6/uL (3.5-6.1); RED CELL DISTRIBUTION WIDTH 15.1 % (11.5-14.5); WHITE BLOOD COUNT 11.4 10^3/uL (4.5-11.0)
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
[2019-02-21] MEDS: Insulin Lispro (humaLOG) MEDIUM Coverage SC SCH ×4 (08:00→21:47)
[2019-02-21 08:11] LABS: ALB/GLOB RATIO 0.9 (1.1-1.8); ALBUMIN 2.3 g/dL (3.0-4.8); ALT/SGPT 21 U/L (7-56); AST/SGOT 19 U/L (17-59); BLOOD UREA NITROGEN 21 mg/dL (7-21); CALCIUM 8.2 mg/dL (8.4-10.5); GFR NON-AFRICAN AMERICAN > 60; HDL CHOLESTEROL 25 mg/dL (29-60)
[2019-02-21 08:18] LABS: LDL CHOLESTEROL 38 mg/dL (0-129)
[2019-02-21] MEDS ORDERED: Vancomycin 2 GM in Sodium Chloride 0.9% 500 ML IVPB ONE (08:59)
--- NOTE | 2019-02-21 11:00 | CP.PCM.PN ---
Subjective - Date & Time of Evaluation Date of Evaluation: 02/21/19 Time of Evaluation: 09:45 - Subjective Subjective: No fevers, still with pain in the fingers, still with bandages. Objective - Vital Signs/Intake and Output Vital Signs (last 24 hours): Temp Pulse Resp BP Pulse Ox 99.8 F H 96 H 20 100/57 L 97 02/20/19 06:00 02/20/19 06:00 02/20/19 06:00 02/20/19 06:00 02/20/19 06:00 Intake and Output: 02/20/19 02/20/19 06:59 18:59 Intake Total 360 Output Total 200 Balance 360 -200 - Medications Medications: Current Medications Amlodipine Besylate (Norvasc) 10 mg PO DAILY [facility] Atorvastatin Calcium (Lipitor) 40 mg PO DIN [facility] Dextrose (Dextrose 50% Inj) 0 ml IV STAT PRN; Protocol PRN Reason: Hypoglycemia Protocol Docusate Sodium (Colace) 100 mg PO TID [facility] Duloxetine HCl (Cymbalta) 30 mg PO TID [facility] Gabapentin (Neurontin) 600 mg PO Q8 [facility]; Protocol Vancomycin HCl (Vancomycin 1gm) 1 gm in 250 mls @ 167 mls/hr IVPB Q12H [facility]; Protocol Last Admin: 02/20/19 08:00 Dose: 167 mls/hr Dextrose (Dextrose 5% In Water 1000 Ml) 1,000 mls @ 0 mls/hr IV .Q0M PRN; Protocol PRN Reason: Hypoglycemia Protocol Sodium Chloride (Sodium Chloride 0.9%) 1,000 mls @ 100 mls/hr IV .Q10H [facility] Last Admin: 02/20/19 08:01 Dose: 100 mls/hr Piperacillin Sod/Tazobactam Sod (Zosyn 3.375 In Ns 100ml) 100 mls @ 25 mls/hr IVPB Q8 [facility]; Protocol Stop: 02/27/19 06:01 Last Admin: 02/20/19 05:25 Dose: 25 mls/hr Insulin Human Lispro (Humalog Med) 0 units SC ACHS [facility]; Protocol Last Admin: 02/20/19 09:21 Dose: Not Given Levetiracetam (Keppra) 500 mg PO Q12 [facility] Losartan Potassium (Cozaar) 100 mg PO DAILY [facility] Meclizine HCl (Antivert) 12.5 mg PO TID [facility] Pantoprazole Sodium (Protonix Ec Tab) 40 mg PO 0600 [facility] Potassium Chloride (K-Dur 20 Meq Er Tab) 20 meq PO DIN [facility] Stop: 02/20/19 17:01 Quetiapine Fumarate (Seroquel) 100 mg PO HS [facility]; Protocol Last Admin: 02/20/19 01:04 Dose: 100 mg Risperidone (Risperdal Tab) 1 mg PO TID [facility]; Protocol Sertraline HCl (Zoloft) 100 mg PO DAILY [facility] Tizanidine HCl (Zanaflex) 4 mg PO QID [facility] Zonisamide (Zonegran) 200 mg PO HS [facility] - Labs Labs: 02/20/19 06:10 02/20/19 06:10 PT 18.8 SECONDS (9.4-12.5) H 02/19/19 18:00 INR 1.69 02/19/19 18:00 APTT 37.5 Seconds (26.9-38.3) 02/19/19 18:00 - Constitutional Appears: Chronically Ill - Head Exam Head Exam: NORMAL INSPECTION - Extremities Exam Additional comments: both hands with dressings in place Assessment and Plan - Assessment and Plan (Free Text) Plan: assessment Staph aureus bacteremia with sepsis, in this patient with right hand 3rd digit and left hand 2nd digit skin and skin structure infection after trauma history of infected sacral decubitus ulcer stage 2 to 3, grew MSSA, Proteus, Enterobacter history of right index finger cellulitis with associated wound cervical spine trauma S/P cervical laminectomy history of reflex sympathetic dystrophy plan continue Vancomycin (will give another loading dose, change to 1.5 gm IV q12) and d/c Zosyn and will get repeat blood cx, follow up sensitivities of the Staph aureus in the blood and get 2D echo; follow up Surgery evaluation and recommendations xray did not reveal osteomyelitis will continue to monitor clinically
--- NOTE | 2019-02-21 13:54 | CP.PCM.PN ---
<Kayla Medel - Last Filed: 02/21/19 13:50> Subjective - Date & Time of Evaluation Date of Evaluation: 02/21/19 Time of Evaluation: 09:00 - Subjective Subjective: Kayla Medel PGY1 Medicine Progress Note Patient seen and examined at bedside this morning. Patient noted to be hypotensive overnight, given 3 liters NS with improvement in BP. Continues to have baseline tremors. States pain is improved from yesterday. Offers no new complaints today. Hand dressing changed last evening and this morning. Objective - Vital Signs/Intake and Output Vital Signs (last 24 hours): Temp Pulse Resp BP Pulse Ox 98.2 F 72 20 97/62 L 99 02/21/19 06:00 02/21/19 06:00 02/21/19 06:00 02/21/19 06:00 02/21/19 06:00 Intake and Output: 02/21/19 02/21/19 06:59 18:59 Intake Total 120 240 Output Total 550 250 Balance -430 -10 - Medications Medications: Current Medications Atorvastatin Calcium (Lipitor) 40 mg PO DIN [facility] Last Admin: 02/20/19 16:57 Dose: 40 mg Dextrose (Dextrose 50% Inj) 0 ml IV STAT PRN; Protocol PRN Reason: Hypoglycemia Protocol Docusate Sodium (Colace) 100 mg PO TID [facility] Last Admin: 02/21/19 09:35 Dose: 100 mg Duloxetine HCl (Cymbalta) 30 mg PO TID [facility] Last Admin: 02/21/19 09:35 Dose: 30 mg Gabapentin (Neurontin) 600 mg PO Q8 [facility]; Protocol Last Admin: 02/21/19 05:07 Dose: 600 mg Dextrose (Dextrose 5% In Water 1000 Ml) 1,000 mls @ 0 mls/hr IV .Q0M PRN; Protocol PRN Reason: Hypoglycemia Protocol Sodium Chloride (Sodium Chloride 0.9%) 1,000 mls @ 100 mls/hr IV .Q10H [facility] Last Admin: 02/21/19 03:45 Dose: Not Given Vancomycin HCl 1.5 gm/ Sodium (Chloride) 500 mls @ 167 mls/hr IVPB Q12H [facility]; Protocol Insulin Human Lispro (Humalog Med) 0 units SC ACHS [facility]; Protocol Last Admin: 02/21/19 12:07 Dose: 3 units Levetiracetam (Keppra) 500 mg PO Q12 [facility] Last Admin: 02/21/19 09:35 Dose: 500 mg Meclizine HCl (Antivert) 12.5 mg PO TID [facility] Last Admin: 02/21/19 09:34 Dose: 12.5 mg Pantoprazole Sodium (Protonix Ec Tab) 40 mg PO 0600 [facility] Last Admin: 02/21/19 05:16 Dose: 40 mg Quetiapine Fumarate (Seroquel) 100 mg PO [facility]; Protocol Last Admin: 02/20/19 21:44 Dose: 100 mg Risperidone (Risperdal Tab) 1 mg PO TID [facility]; Protocol Last Admin: 02/21/19 09:36 Dose: 1 mg Sertraline HCl (Zoloft) 100 mg PO DAILY [facility] Last Admin: 02/21/19 09:34 Dose: 100 mg Tizanidine HCl (Zanaflex) 4 mg PO QID [facility] Last Admin: 02/21/19 09:37 Dose: 4 mg Zonisamide (Zonegran) 200 mg PO [facility] Last Admin: 02/20/19 21:44 Dose: 200 mg - Labs Labs: 02/21/19 06:30 02/21/19 06:30 PT 18.8 SECONDS (9.4-12.5) H 02/19/19 18:00 INR 1.69 02/19/19 18:00 APTT 37.5 Seconds (26.9-38.3) 02/19/19 18:00 - Constitutional Appears: Well, Non-toxic, No Acute Distress - Head Exam Head Exam: ATRAUMATIC, NORMAL INSPECTION - Eye Exam Eye Exam: EOMI, Normal appearance - ENT Exam ENT Exam: Mucous Membranes Dry, Normal Exam - Neck Exam Neck Exam: Full ROM, Normal Inspection - Respiratory Exam Respiratory Exam: NORMAL BREATHING PATTERN. absent: Respiratory Distress - Cardiovascular Exam Cardiovascular Exam: RRR, +S1, +S2, Murmur - GI/Abdominal Exam GI & Abdominal Exam: Soft. absent: Distended, Tenderness - Extremities Exam Extremities Exam: Full ROM Additional comments: b/l hand swelling and fingers bandaged - Neurological Exam Neurological Exam: Alert, Awake. Positive chronic resting tremors - Skin Skin Exam: Normal Color, Warm Additional comments: dressing and gauze over both hands. No draining/pus/blood appreciated Assessment and Plan - Assessment and Plan (Free Text) Assessment: 63 year old male with a PMHx of HTN, DM2, Reflex Sympathetic Dystrophy (RSD), arthritis, depression, seizures, chronic decubitus ulcer, and constipation who is admitted for severe pain and and cellulitis in his fingers. Plan: Bilateral Cellulitis of Digits - afebrile, WBC is downtrending today - vanc continued, zosyn stopped - blood culture growing gram positive cocci - wound culture pending - echo pending - continue NS @ 100cc/hr - wound care - Orthopedics, Dr. Sellers consulted, recs appreciated - ID consulted, recs appreciated - Cardio consulted for OR clearance, moderate risk for surgery Sacral decubitus ulcer - wound care nurse ordered - turn patient q2 - continue vancomycin HTN - hypotensive overnight, holding home HTN meds History of depression - meds reviewed from prior admission - will resume meds History of seizures - meds reviewed from prior admission - will resume meds Chronic back pain - Secondary due to Reflex Sympathetic Dystrophy - PT consulted DM2 - Insulin sliding scale - hemoglobin A1C PPX - Protonix for GI ppx - SCDs for DVT ppx; can start lovenox if no plans for OR Patient seen and case discussed with attending, Dr. Camejo <Florentino Camejo - Last Filed: 02/21/19 15:02> Objective - Vital Signs/Intake and Output Vital Signs (last 24 hours): Temp Pulse Resp BP Pulse Ox 98.2 F 72 20 97/62 L 99 02/21/19 06:00 02/21/19 06:00 02/21/19 06:00 02/21/19 06:00 02/21/19 06:00 Intake and Output: 02/21/19 02/21/19 06:59 18:59 Intake Total 120 240 Output Total 550 250 Balance -430 -10 - Medications Medications: Current Medications Ascorbic Acid (Vitamin C 500 Mg Tab) 500 mg PO DAILY [facility] Atorvastatin Calcium (Lipitor) 40 mg PO DIN [facility] Last Admin: 02/20/19 16:57 Dose: 40 mg Dextrose (Dextrose 50% Inj) 0 ml IV STAT PRN; Protocol PRN Reason: Hypoglycemia Protocol Docusate Sodium (Colace) 100 mg PO TID [facility] Last Admin: 02/21/19 14:49 Dose: 100 mg Duloxetine HCl (Cymbalta) 30 mg PO TID [facility] Last Admin: 02/21/19 14:49 Dose: 30 mg Gabapentin (Neurontin) 600 mg PO Q8 [facility]; Protocol Last Admin: 02/21/19 14:49 Dose: 600 mg Dextrose (Dextrose 5% In Water 1000 Ml) 1,000 mls @ 0 mls/hr IV .Q0M PRN; Protocol PRN Reason: Hypoglycemia Protocol Sodium Chloride (Sodium Chloride 0.9%) 1,000 mls @ 100 mls/hr IV .Q10H [facility] Last Admin: 02/21/19 03:45 Dose: Not Given Vancomycin HCl 1.5 gm/ Sodium (Chloride) 500 mls @ 167 mls/hr IVPB Q12H [facility]; Protocol Insulin Human Lispro (Humalog Med) 0 units SC ACHS [facility]; Protocol Last Admin: 02/21/19 12:07 Dose: 3 units Levetiracetam (Keppra) 500 mg PO Q12 [facility] Last Admin: 02/21/19 09:35 Dose: 500 mg Meclizine HCl (Antivert) 12.5 mg PO TID [facility] Last Admin: 02/21/19 14:49 Dose: 12.5 mg Multivitamins/Minerals (Therapeutic-M Tab) 1 tab PO 0800 [facility] Pantoprazole Sodium (Protonix Ec Tab) 40 mg PO 0600 [facility] Last Admin: 02/21/19 05:16 Dose: 40 mg Quetiapine Fumarate (Seroquel) 100 mg PO HS [facility]; Protocol Last Admin: 02/20/19 21:44 Dose: 100 mg Risperidone (Risperdal Tab) 1 mg PO TID [facility]; Protocol Last Admin: 02/21/19 14:50 Dose: 1 mg Sertraline HCl (Zoloft) 100 mg PO DAILY [facility] Last Admin: 02/21/19 09:34 Dose: 100 mg Tizanidine HCl (Zanaflex) 4 mg PO QID [facility] Last Admin: 02/21/19 14:50 Dose: 4 mg Zonisamide (Zonegran) 200 mg PO HS [facility] Last Admin: 02/20/19 21:44 Dose: 200 mg - Labs Labs: 02/21/19 06:30 02/21/19 06:30 PT 18.8 SECONDS (9.4-12.5) H 02/19/19 18:00 INR 1.69 02/19/19 18:00 APTT 37.5 Seconds (26.9-38.3) 02/19/19 18:00 Attending/Attestation - Attestation I have personally seen and examined this patient.: Yes I have fully participated in the care of the patient.: Yes I have reviewed all pertinent clinical information, including history, physical exam and plan: Yes Notes (Text): 02/21/19 14:55 Attending note; Patient seen and examined with resident. Patient is alert and awake. Denies any fevers, chills. Denies any nausea, vomiting. Tolerating diet. Status post bedside I&D of the right third digit and left second digit. Dressing in place. No discharge or bleeding noted. Patient is a 63 year old male with a PMHx of HTN, DM2, Reflex Sympathetic Dystrophy (RSD), arthritis, depression, seizures, chronic decubitus ulcer, and constipation who presents to the ED for severe pain and and infection of his fingers. Patient states he was brought in by ambulance. He states his fingers got caught in sliding doors about a week ago. Since then he has been scratching them and they have gotten red and infected. 1. Bilateral hand cellulitis; status post trauma per patient. Patient has significant swelling of the right third digit and left 2 nd digit. Status post bedside I&D with hand surgery Dr. Sellers. We will follow-up with him closely. Continue wound care per hand surgery. Wound cultures pending. 2. Staphylococcus aureus bacteremia/leukocytosis; currently on IV vancomycin. ID evaluation appreciated. Echocardiogram ordered to rule out vegetation. 3. Mild hypotension; continue IV fluids. Got 1 dose of Midodrine. Monitor closely. 4. Diabetes; continue regular insulin sliding scale. Dietitian evaluation requested. 5. Reflex sympathetic dystrophy; Patient has chronic stiffness of whole body with RSD and chronic pain syndrome. 6. Depression/anxiety; continue clonazepam, risperidone, Seroquel, Zoloft. 7. Chronic decubitus ulcer ; wound care ordered. 8. Aortic stenosis; monitor closely. cardiology evaluation appreciated. Patient is moderate risk for surgery. 9. Chronic stiffness; continue Zanaflex. Continue physical therapy. Patient Had multiple back surgeries in the past. 10. Seizure disorder; continue Keppra and Zonegran. 11. Neuropathy; continue Neurontin and Cymbalta. Diagnosis, treatment options discussed with patient and patient's son in detail in detail. Follow up with hand surgery and ID closely. Upon discharge the patient will follow up with PMD Dr. Pierce.
[2019-02-21] MEDS: Vancomycin 1.5 GM in Sodium Chloride 0.9% 500 ML IVPB SCH (18:34)
[2019-02-22] MEDS: Sodium Chloride 0.9% 1,000 ML IV SCH (05:51)
[2019-02-22] MEDS: Pantoprazole 40 mg EC Tab PO SCH (05:52)
[2019-02-22] MEDS: Vancomycin 1.5 GM in Sodium Chloride 0.9% 500 ML IVPB SCH ×2 (06:02→17:44)
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
[2019-02-22 07:14] LABS: ALB/GLOB RATIO 0.9 (1.1-1.8); ALBUMIN 2.5 g/dL (3.0-4.8); ALT/SGPT 24 U/L (7-56); AST/SGOT 22 U/L (17-59); BLOOD UREA NITROGEN 15 mg/dL (7-21); CALCIUM 8.2 mg/dL (8.4-10.5); GFR NON-AFRICAN AMERICAN > 60
[2019-02-22 07:17] LABS: HEMOGLOBIN 10.2 g/dL (14.0-18.0); MEAN CELL VOLUME 87.8 fl (80.0-105.0); MEAN PLATELET VOLUME 13.1 fl (7.0-11.0); RBC 3.52 10^6/uL (3.5-6.1); RED CELL DISTRIBUTION WIDTH 14.9 % (11.5-14.5); WHITE BLOOD COUNT 12.4 10^3/uL (4.5-11.0)
[2019-02-22] MEDS: Insulin Lispro (humaLOG) MEDIUM Coverage SC SCH ×4 (08:00→18:20)
[2019-02-22] MEDS: Multivitamin With Minerals Tab PO SCH (10:01)
--- NOTE | 2019-02-22 15:17 | CP.PCM.PN ---
<Dewey Salomon - Last Filed: 02/22/19 20:34> Subjective - Date & Time of Evaluation Date of Evaluation: 02/22/19 Time of Evaluation: 10:30 - Subjective Subjective: Dewey Salomon, PGY1 Medicine Progress Note Pt was seen and examined this AM at bedside. Pt states that he continues to have difficulty moving his fingers. He also states that he believes that the fingers are not getting any better. He denies numbness or tingling in the fingers but does admit that they are difficult to move. Pt has no other acute complaints at this time. Objective - Vital Signs/Intake and Output Vital Signs (last 24 hours): Temp Pulse Resp BP Pulse Ox 98.7 F 82 18 92/50 L 95 02/22/19 14:00 02/22/19 14:00 02/22/19 14:00 02/22/19 14:00 02/22/19 14:00 Intake and Output: 02/22/19 02/22/19 06:59 18:59 Intake Total 480 Output Total 1750 Balance -1270 - Medications Medications: Current Medications Ascorbic Acid (Vitamin C 500 Mg Tab) 500 mg PO DAILY [facility] Last Admin: 02/22/19 10:02 Dose: 500 mg Atorvastatin Calcium (Lipitor) 40 mg PO DIN [facility] Last Admin: 02/21/19 18:34 Dose: 40 mg Dextrose (Dextrose 50% Inj) 0 ml IV STAT PRN; Protocol PRN Reason: Hypoglycemia Protocol Docusate Sodium (Colace) 100 mg PO TID [facility] Last Admin: 02/22/19 14:40 Dose: 100 mg Duloxetine HCl (Cymbalta) 30 mg PO TID [facility] Last Admin: 02/22/19 14:40 Dose: 30 mg Gabapentin (Neurontin) 600 mg PO Q8 [facility]; Protocol Last Admin: 02/22/19 14:40 Dose: 600 mg Dextrose (Dextrose 5% In Water 1000 Ml) 1,000 mls @ 0 mls/hr IV .Q0M PRN; Protocol PRN Reason: Hypoglycemia Protocol Sodium Chloride (Sodium Chloride 0.9%) 1,000 mls @ 100 mls/hr IV .Q10H [facility] Last Admin: 02/22/19 05:51 Dose: 100 mls/hr Vancomycin HCl 1.5 gm/ Sodium (Chloride) 500 mls @ 167 mls/hr IVPB Q12H [facility]; Protocol Last Admin: 02/22/19 06:02 Dose: 167 mls/hr Insulin Human Lispro (Humalog Med) 0 units SC ACHS [facility]; Protocol Last Admin: 02/22/19 11:43 Dose: 1 units Levetiracetam (Keppra) 500 mg PO Q12 [facility] Last Admin: 02/22/19 09:58 Dose: 500 mg Meclizine HCl (Antivert) 12.5 mg PO TID [facility] Last Admin: 02/22/19 14:40 Dose: 12.5 mg Multivitamins/Minerals (Therapeutic-M Tab) 1 tab PO 0800 [facility] Last Admin: 02/22/19 10:01 Dose: 1 tab Pantoprazole Sodium (Protonix Ec Tab) 40 mg PO 0600 [facility] Last Admin: 02/22/19 05:52 Dose: 40 mg Quetiapine Fumarate (Seroquel) 100 mg PO [facility]; Protocol Last Admin: 02/21/19 21:35 Dose: 100 mg Risperidone (Risperdal Tab) 1 mg PO TID [facility]; Protocol Last Admin: 02/22/19 14:40 Dose: 1 mg Sertraline HCl (Zoloft) 100 mg PO DAILY [facility] Last Admin: 02/22/19 10:01 Dose: 100 mg Tizanidine HCl (Zanaflex) 4 mg PO QID [facility] Last Admin: 02/22/19 14:40 Dose: 4 mg Zonisamide (Zonegran) 200 mg PO [facility] Last Admin: 02/21/19 21:36 Dose: 200 mg - Labs Labs: 02/22/19 06:30 02/22/19 06:30 PT 18.8 SECONDS (9.4-12.5) H 02/19/19 18:00 INR 1.69 02/19/19 18:00 APTT 37.5 Seconds (26.9-38.3) 02/19/19 18:00 - Constitutional Appears: Non-toxic, No Acute Distress - Head Exam Head Exam: ATRAUMATIC, NORMAL INSPECTION, NORMOCEPHALIC - Eye Exam Eye Exam: EOMI, Normal appearance, PERRL - Respiratory Exam Respiratory Exam: Clear to Ausculation Bilateral, NORMAL BREATHING PATTERN. absent: Accessory Muscle Use, Rales, Rhonchi, Wheezes, Respiratory Distress - Cardiovascular Exam Cardiovascular Exam: RRR, +S1, +S2. absent: Gallop, Rubs - GI/Abdominal Exam GI & Abdominal Exam: Soft, Normal Bowel Sounds. absent: Guarding, Rigid, Tenderness - Extremities Exam Additional comments: b/l hand swelling and fingers bandaged. Pt is noted to have some strike-through in bandages on the L hand. - Neurological Exam Neurological Exam: Alert, Awake, Oriented x3 - Psychiatric Exam Psychiatric exam: Normal Affect, Normal Mood - Skin Skin Exam: Dry, Normal Color, Warm Assessment and Plan - Assessment and Plan (Free Text) Assessment: 63 year old male with a PMHx of HTN, DM2, Reflex Sympathetic Dystrophy (RSD), arthritis, depression, seizures, chronic decubitus ulcer, and constipation who is admitted for severe pain and and cellulitis in his fingers. Will await further surgical recs. Plan: Bilateral Cellulitis of Digits - afebrile today - Per ID pt is placed on Ancef - Blood Cx: MSSA - Wound Cx: Gram + cocci in clusters - echo pending - continue NS @ 100cc/hr - wound care - Orthopedics, Dr. Sellers consulted, recs appreciated - ID consulted, recs appreciated - Cardio consulted for OR clearance, moderate risk for surgery Sacral decubitus ulcer - wound care nurse ordered - turn patient q2 - continue vancomycin UTI: - Pt noted to be growing Klebsiella in urine - Awaiting sensitivities - ID on board, recs appreciated HTN - Will cont to monitor History of depression - meds reviewed from prior admission - will resume meds History of seizures - meds reviewed from prior admission - will resume meds Chronic back pain - Secondary due to Reflex Sympathetic Dystrophy - PT consulted DM2 - Insulin sliding scale - hemoglobin A1C PPX - Protonix for GI ppx - SCDs for DVT ppx; can start lovenox if no plans for OR Dispo: Pending further plans per Ortho Patient seen and case discussed with attending, Dr. Sang Salomon, PGY-1 <Vesna Domínguez R - Last Filed: 02/23/19 15:23> Objective - Vital Signs/Intake and Output Vital Signs (last 24 hours): Temp Pulse Resp BP Pulse Ox 97.2 F L 91 H 18 97/63 L 97 02/23/19 14:00 02/23/19 14:00 02/23/19 14:00 02/23/19 14:00 02/23/19 14:00 Intake and Output: 02/23/19 02/23/19 06:59 18:59 Intake Total 300 Output Total 2100 Balance -1800 - Medications Medications: Current Medications Ascorbic Acid (Vitamin C 500 Mg Tab) 500 mg PO DAILY [facility] Last Admin: 02/23/19 10:31 Dose: 500 mg Atorvastatin Calcium (Lipitor) 40 mg PO DIN [facility] Last Admin: 02/22/19 17:42 Dose: 40 mg Dextrose (Dextrose 50% Inj) 0 ml IV STAT PRN; Protocol PRN Reason: Hypoglycemia Protocol Docusate Sodium (Colace) 100 mg PO TID [facility] Last Admin: 02/23/19 13:25 Dose: 100 mg Duloxetine HCl (Cymbalta) 30 mg PO TID [facility] Last Admin: 02/23/19 13:26 Dose: 30 mg Gabapentin (Neurontin) 600 mg PO Q8 [facility]; Protocol Last Admin: 02/23/19 13:26 Dose: 600 mg Dextrose (Dextrose 5% In Water 1000 Ml) 1,000 mls @ 0 mls/hr IV .Q0M PRN; Protocol PRN Reason: Hypoglycemia Protocol Sodium Chloride (Sodium Chloride 0.9%) 1,000 mls @ 100 mls/hr IV .Q10H [facility] Last Admin: 02/22/19 05:51 Dose: 100 mls/hr Cefazolin Sodium (Ancef 1gm In Ns) 1 gm in 100 mls @ 100 mls/hr IVPB Q8 [facility]; Protocol Stop: 03/09/19 06:01 Last Admin: 02/23/19 13:26 Dose: 100 mls/hr Insulin Human Lispro (Humalog Med) 0 units SC ACHS [facility]; Protocol Last Admin: 02/23/19 12:55 Dose: Not Given Levetiracetam (Keppra) 500 mg PO Q12 [facility] Last Admin: 02/23/19 10:30 Dose: 500 mg Meclizine HCl (Antivert) 12.5 mg PO TID [facility] Last Admin: 02/23/19 13:26 Dose: 12.5 mg Multivitamins/Minerals (Therapeutic-M Tab) 1 tab PO 0800 [facility] Last Admin: 02/23/19 08:10 Dose: 1 tab Pantoprazole Sodium (Protonix Ec Tab) 40 mg PO 0600 [facility] Last Admin: 02/23/19 05:50 Dose: 40 mg Polyethylene Glycol (Miralax) 17 gm PO DAILY [facility] Stop: 02/26/19 10:01 Last Admin: 02/23/19 10:31 Dose: 17 gm Quetiapine Fumarate (Seroquel) 100 mg PO HS [facility]; Protocol Last Admin: 02/22/19 22:47 Dose: 100 mg Risperidone (Risperdal Tab) 1 mg PO TID [facility]; Protocol Last Admin: 02/23/19 13:25 Dose: 1 mg Senna/Docusate Sodium (Senokot S 50 Mg-8.6 Mg) 1 tab PO DAILY [facility] Sertraline HCl (Zoloft) 100 mg PO DAILY [facility] Last Admin: 02/23/19 10:31 Dose: 100 mg Tizanidine HCl (Zanaflex) 4 mg PO QID [facility] Last Admin: 02/23/19 13:25 Dose: 4 mg Zonisamide (Zonegran) 200 mg PO [facility] Last Admin: 02/22/19 22:47 Dose: 200 mg - Labs Labs: 02/23/19 08:20 02/23/19 09:09 PT 18.8 SECONDS (9.4-12.5) H 02/19/19 18:00 INR 1.69 02/19/19 18:00 APTT 37.5 Seconds (26.9-38.3) 02/19/19 18:00 Attending/Attestation - Attestation I have personally seen and examined this patient.: Yes I have fully participated in the care of the patient.: Yes I have reviewed all pertinent clinical information, including history, physical exam and plan: Yes Notes (Text): Patient seen and examined by me with resident at 10:55AM on 02/22/19. Case including HPI, physical exam, and assessment and plan discussed with resident. Agree with above with following additions/corrections. Patient is a 63-year-old male with past medical history significant for hypertension, DM2, reflex sympathetic dystrophy, arthritis, depression, seizures, chronic decubitus ulcer, and constipation that presented to the emergency room with bilateral hand and finger pain. Patient states he is feeling ok. Complains of pain in his bilateral fingers. No chest pain or shortness of breath. No nausea, vomiting, or abdominal pain. No headaches or dizziness. No fevers or chills. No dysuria. Patient states he hasnt had a bowel movement in approximately 10 days. Physical exam: General: Awake and alert lying in bed in no acute distress HEENT: Normocephalic, atraumatic. Extraocular muscles intact, pupils equal and reactive, no scleral icterus. Oropharynx is pink and moist. No pharyngeal erythema or exudate appreciated. Neck is supple. Cardiovascular: Regular rhythm. Normal S1 and S2. Positive systolic murmur. No rubs or gallops appreciated Pulmonary: Normal respiratory effort. No rhonchi, rales, or wheezing appreciated. Gastrointestinal: Soft, nondistended. Nontender. Positive bowel sounds all 4 quadrants. No guarding. Musculoskeletal: Moves all extremities. No calf tenderness. No lower extremity edema appreciated. Dressing bilateral hands clean, dry, and intact. Central nervous system: AAOx3 Dermatologic: Skin warm and dry. Assessment and plan: Patient is a 63 year old male with past medical history significant for hypertension, DM2, reflex sympathetic dystrophy, arthritis, depr ession, seizures, chronic decubitus ulcer, and constipation that presented to the emergency room with bilateral hand and finger pain. 1. Right hand 3rd digit and left hand 2nd digit infection. Staph aureus bacteremia. Orthopedics recommendations appreciated. S/P bedside I&D with Dr. Sellers. ID recommendations appreciated. Continue vancomycin. One blood culture positive for gram positive cocci. Wound culture positive for gram positive cocci. Leukocytosis uptrended today. No fevers. Bilateral hand xrays per radiologist showed soft tissue swelling without acute articular or osseous abnormality. 2. DM2. Continue insulin sliding scale. Continue to monitor accuchecks. HgbA1C 5.9. 3. Hypertension. Patient with episodes of hypotension. All antihypertensives held. 4. Severe aortic stenosis. 2D echo per ophthalmology assistant showed dilated LA, mild concentric LVH, normal LV systolic function, sever aortic stenosis, probable bicuspid aortic valve, mild aortic insufficiency, thickened mitral valve leaflets, mild tricuspid regurgitation, no obvious valvular vegetation seen. Cardiology recommendations appreciated. 5. Reflex sympathetic dystrophy. Continue Zanaflex and neurontin 6. Chronic decubitus ulcer. Continue local wound care. 7. Seizure disorder. Continue Keppra and Zonegran 8. Depression and anxiety. Psychiatric disorder. Continue Zoloft, Cymbalta, Seroquel, and Risperidal. 9. Constipation. Placed on Colace and Miralax. Monitor for bowel movement. 10. GI/DVT prophylaxis. Protonix/SCDs Case was discussed in detail with the patient regarding current diagnosis and treatment plan. All questions answered.
[2019-02-22] MEDS ORDERED: Potassium Chloride 20 mEq ER Tab PO ONE (16:42)
--- NOTE | 2019-02-22 17:49 | CARD ---
APPROVED REPORT Date of service: 02/22/2019 EXAM: Two-dimensional and M-mode echocardiogram with Doppler and color Doppler. INDICATION Infection:Rule out subacute bacterial endocarditis 2D DIMENSIONS Left Atrium (2D)4.1 (1.6-4.0cm)IVSd1.3 (0.7-1.1cm) LVDd5.2 (3.9-5.9cm)LVOT Diameter2.0 (1.8-2.4cm) PWd1.3 (0.7-1.1cm)LVDs3.6 (2.5-4.0cm) FS (%) 32.1 %LVEF (%)59.8 (>50%) M-Mode DIMENSIONS Aortic Root2.50 (2.2-3.7cm)Aortic Cusp Exc.0.80 (1.5-2.0cm) Aortic Valve AoV Peak Oagwtfsg278.0cm/sAoV VTI83.0cmAO Peak GR.86mmHg LVOT Peak Wfqsavwb726.0cm/sLVOT VTI18.60cmAO Mean GR.52mmHg ELSA (VMAX)0.89fp4KJG (VTI)0.70cm2 Mitral Valve E/A ratio0.0 TDI E/Lateral E'0.0E/Medial E'0.0 Tricuspid Valve TR Peak [id number]/sRAP [id number] Peak Gr.27mmHg [id number] LEFT VENTRICLE The left ventricle is normal size. There is mild concentric left ventricular hypertrophy. The left ventricular function is normal. The left ventricular ejection fraction is within the normal range. There is normal LV segmental wall motion. RIGHT VENTRICLE The right ventricle is normal size. The right ventricular systolic function is normal. ATRIA The left atrium is mildly dilated. The right atrium size is normal. The interatrial septum is intact with no evidence for an atrial septal defect. AORTIC VALVE The aortic valve is probably bicuspid. The aortic valve is severely calcified. There is mild aortic regurgitation. There is severe valvular aortic stenosis. MITRAL VALVE The mitral valve is moderately thickened. There is no mitral valve regurgitation noted. TRICUSPID VALVE The tricuspid valve is normal in structure. There is mild tricuspid regurgitation. PULMONIC VALVE The pulmonary valve is normal in structure. GREAT VESSELS The aortic root is normal in size. The IVC is normal in size and collapses >50% with inspiration. PERICARDIAL EFFUSION There is no pleural effusion. There is no pericardial effusion. <Conclusion> Dilated LA. Mild concentric LVH. Normal LV systolic function. Severe aortic stenosis. Probable bicuspid aortic valve. Mild aortic insufficiency. Thickened mitral valve leaflets. Mild tricuspid regurgitation. No obvious valvular vegetation seen, but if clinical suspicion is high, consider transesophageal echocardiogram.
--- NOTE | 2019-02-23 03:59 | PN ---
DATE: 02/22/2019 SUBJECTIVE: The patient is in bed, no acute distress, nontoxic. No fevers. The patient was seen earlier in 561 today in bed 2. PHYSICAL EXAMINATION: VITAL SIGNS: Temperature of 99, blood pressure is 112/70, respiratory rate 20, heart rate of 93. HEENT: Unremarkable. NECK: Supple. LUNGS: Decreased breath sounds. HEART: Normal S1, S2. ABDOMEN: Soft, nontender. LABORATORY EXAMINATION: Reveals a white count 12,400, hemoglobin of 10, platelets of 153, BUN of 15, creatinine of 0.8. Urinalysis noted. Serology is reviewed. Microbiology reveals two blood cultures are negative. Initial blood culture, sensitive Staph aureus and the urine culture is Klebsiella. Review of orders reveals the patient is on Ancef. The patient's creatinine is 0.8. ASSESSMENT AND PLAN: This is a 63-year-old male who was seen earlier today who is admitted with sensitive Staph aureus bacteremia and sepsis right hand third digit and left hand digit ____ infection and trauma whose repeat blood cultures are negative. The patient had an echo. We will review the echo, and we will make further recommendations. Davon López MD
[2019-02-23] MEDS: Insulin Lispro (humaLOG) MEDIUM Coverage SC SCH ×4 (04:59→17:35)
[2019-02-23] MEDS: Pantoprazole 40 mg EC Tab PO SCH (05:50)
[2019-02-23] MEDS: ceFAZolin 1 gm in NS 1 GM/100 ML BAG IVPB SCH ×3 (05:50→21:44)
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
[2019-02-23] MEDS: Vancomycin 1.5 GM in Sodium Chloride 0.9% 500 ML IVPB SCH (08:00)
[2019-02-23] MEDS: Multivitamin With Minerals Tab PO SCH (08:10)
[2019-02-23 08:38] LABS: HEMOGLOBIN 11.2 g/dL (14.0-18.0); MEAN CELL VOLUME 88.4 fl (80.0-105.0); MEAN CORPUSCULAR HEMOGLOBIN 28.9 pg (25.0-35.0); MEAN CORPUSCULAR HGB CONC 32.7 g/dl (31.0-37.0); MEAN PLATELET VOLUME 12.3 fl (7.0-11.0); RBC 3.88 10^6/uL (3.5-6.1); RED CELL DISTRIBUTION WIDTH 14.8 % (11.5-14.5); WHITE BLOOD COUNT 12.7 10^3/uL (4.5-11.0)
[2019-02-23 09:43] LABS: ALBUMIN 2.6 g/dL (3.0-4.8); ALT/SGPT 35 U/L (7-56); AST/SGOT 23 U/L (17-59); BLOOD UREA NITROGEN 11 mg/dL (7-21); CALCIUM 8.4 mg/dL (8.4-10.5); GFR NON-AFRICAN AMERICAN > 60
[2019-02-23] MEDS: POLYETHYLENE GLYCOL 3350 17 GM/Dose PACKET PO SCH (10:31)
--- NOTE | 2019-02-23 11:44 | CP.PCM.PN ---
Subjective - Date & Time of Evaluation Date of Evaluation: 02/23/19 Time of Evaluation: 11:41 - Subjective Subjective: Hand f/u Dr. Sellers Patient states he still has a lot of pain in his fingers. He says he cant move them much. Objective - Vital Signs/Intake and Output Vital Signs (last 24 hours): Temp Pulse Resp BP Pulse Ox 98.2 F 71 18 99/64 L 98 02/23/19 06:00 02/23/19 06:00 02/23/19 06:00 02/23/19 06:00 02/23/19 06:00 Intake and Output: 02/23/19 02/23/19 06:59 18:59 Intake Total 300 Output Total 2100 Balance -1800 - Medications Medications: Current Medications Ascorbic Acid (Vitamin C 500 Mg Tab) 500 mg PO DAILY COUNT [facility]CLUDES [facility] Last Admin: 02/23/19 10:31 Dose: 500 mg Atorvastatin Calcium (Lipitor) 40 mg PO DIN [facility] Last Admin: 02/22/19 17:42 Dose: 40 mg Dextrose (Dextrose 50% Inj) 0 ml IV STAT PRN; Protocol PRN Reason: Hypoglycemia Protocol Docusate Sodium (Colace) 100 mg PO TID [facility] Last Admin: 02/23/19 10:29 Dose: 100 mg Duloxetine HCl (Cymbalta) 30 mg PO TID [facility] Last Admin: 02/23/19 10:30 Dose: 30 mg Gabapentin (Neurontin) 600 mg PO Q8 [facility]; Protocol Last Admin: 02/23/19 05:56 Dose: 600 mg Dextrose (Dextrose 5% In Water 1000 Ml) 1,000 mls @ 0 mls/hr IV .Q0M PRN; Protocol PRN Reason: Hypoglycemia Protocol Sodium Chloride (Sodium Chloride 0.9%) 1,000 mls @ 100 mls/hr IV .Q10H [facility]CLUDES [facility] Last Admin: 02/22/19 05:51 Dose: 100 mls/hr Vancomycin HCl 1.5 gm/ Sodium (Chloride) 500 mls @ 167 mls/hr IVPB Q12H [facility]; Protocol Last Admin: 02/23/19 08:00 Dose: 167 mls/hr Cefazolin Sodium (Ancef 1gm In Ns) 1 gm in 100 mls @ 100 mls/hr IVPB Q8 [facility]; Protocol Stop: 03/09/19 06:01 Last Admin: 02/23/19 05:50 Dose: 100 mls/hr Insulin Human Lispro (Humalog Med) 0 units SC ACHS COUNT [facility]CLUDES [facility]; Protocol Last Admin: 02/23/19 08:07 Dose: Not Given Levetiracetam (Keppra) 500 mg PO Q12 [facility] Last Admin: 02/23/19 10:30 Dose: 500 mg Meclizine HCl (Antivert) 12.5 mg PO TID [facility] Last Admin: 02/23/19 10:30 Dose: 12.5 mg Multivitamins/Minerals (Therapeutic-M Tab) 1 tab PO 0800 [facility] Last Admin: 02/23/19 08:10 Dose: 1 tab Pantoprazole Sodium (Protonix Ec Tab) 40 mg PO 0600 [facility] Last Admin: 02/23/19 05:50 Dose: 40 mg Polyethylene Glycol (Miralax) 17 gm PO DAILY [facility] Stop: 02/26/19 10:01 Last Admin: 02/23/19 10:31 Dose: 17 gm Quetiapine Fumarate (Seroquel) 100 mg PO [facility]; Protocol Last Admin: 02/22/19 22:47 Dose: 100 mg Risperidone (Risperdal Tab) 1 mg PO TID [facility]; Protocol Last Admin: 02/23/19 10:29 Dose: 1 mg Sertraline HCl (Zoloft) 100 mg PO DAILY [facility] Last Admin: 02/23/19 10:31 Dose: 100 mg Tizanidine HCl (Zanaflex) 4 mg PO QID [facility] Last Admin: 02/23/19 10:30 Dose: 4 mg Zonisamide (Zonegran) 200 mg PO [facility] Last Admin: 02/22/19 22:47 Dose: 200 mg - Labs Labs: 02/23/19 08:20 02/23/19 09:09 PT 18.8 SECONDS (9.4-12.5) H 02/19/19 18:00 INR 1.69 02/19/19 18:00 APTT 37.5 Seconds (26.9-38.3) 02/19/19 18:00 - Extremities Exam Additional comments: Left hand: no sensation to finger per patient. +cap refill to tip <2 sec. Entire finger erythematous. noted eschar to volar distal phalanx wound. Able to palpate attempts at flexion and extension of finger. No palm tenderness Right hand: pain to distal finger, denies light touch. +cap refill <2sec. Chad thema distal to PIP joint to finger. Generalized tenderness. No tenderness to palm.Able to palpate attempts at flexion and extension of finger Assessment and Plan (1) Finger infection Assessment & Plan: s/p I&D in ER 4/[address] Sellers continued infection cont antibiotics per ID d/w Dr. Sellers, MRI of B hands ordered, will f/u Status: Acute
--- NOTE | 2019-02-23 15:14 | CP.PCM.PN ---
<Dewey Salomon - Last Filed: 02/23/19 19:34> Subjective - Date & Time of Evaluation Date of Evaluation: 02/23/19 Time of Evaluation: 15:14 - Subjective Subjective: Dewey Salomon, PGY1 Medicine Progress Note Pt was seen and examined this AM at bedside. Pt states that he continues to have difficulty moving his fingers. He also states that he believes that the fingers are not getting any better. He denies numbness or tingling in the fingers but does admit that they are difficult to move. Pt has no other acute complaints at this time. Objective - Vital Signs/Intake and Output Vital Signs (last 24 hours): Temp Pulse Resp BP Pulse Ox 97.2 F L 91 H 18 97/63 L 97 02/23/19 14:00 02/23/19 14:00 02/23/19 14:00 02/23/19 14:00 02/23/19 14:00 Intake and Output: 02/23/19 02/23/19 06:59 18:59 Intake Total 300 Output Total 2100 Balance -1800 - Medications Medications: Current Medications Ascorbic Acid (Vitamin C 500 Mg Tab) 500 mg PO DAILY [facility] Last Admin: 02/23/19 10:31 Dose: 500 mg Atorvastatin Calcium (Lipitor) 40 mg PO DIN [facility] Last Admin: 02/22/19 17:42 Dose: 40 mg Dextrose (Dextrose 50% Inj) 0 ml IV STAT PRN; Protocol PRN Reason: Hypoglycemia Protocol Docusate Sodium (Colace) 100 mg PO TID [facility] Last Admin: 02/23/19 13:25 Dose: 100 mg Duloxetine HCl (Cymbalta) 30 mg PO TID [facility] Last Admin: 02/23/19 13:26 Dose: 30 mg Gabapentin (Neurontin) 600 mg PO Q8 [facility]; Protocol Last Admin: 02/23/19 13:26 Dose: 600 mg Dextrose (Dextrose 5% In Water 1000 Ml) 1,000 mls @ 0 mls/hr IV .Q0M PRN; Protocol PRN Reason: Hypoglycemia Protocol Sodium Chloride (Sodium Chloride 0.9%) 1,000 mls @ 100 mls/hr IV .Q10H [facility] Last Admin: 02/22/19 05:51 Dose: 100 mls/hr Cefazolin Sodium (Ancef 1gm In Ns) 1 gm in 100 mls @ 100 mls/hr IVPB Q8 [facility]; P rotocol Stop: 03/09/19 06:01 Last Admin: 02/23/19 13:26 Dose: 100 mls/hr Insulin Human Lispro (Humalog Med) 0 units SC ACHS [facility]; Protocol Last Admin: 02/23/19 12:55 Dose: Not Given Levetiracetam (Keppra) 500 mg PO Q12 [facility] Last Admin: 02/23/19 10:30 Dose: 500 mg Meclizine HCl (Antivert) 12.5 mg PO TID [facility] Last Admin: 02/23/19 13:26 Dose: 12.5 mg Multivitamins/Minerals (Therapeutic-M Tab) 1 tab PO 0800 [facility] Last Admin: 02/23/19 08:10 Dose: 1 tab Pantoprazole Sodium (Protonix Ec Tab) 40 mg PO 0600 [facility] Last Admin: 02/23/19 05:50 Dose: 40 mg Polyethylene Glycol (Miralax) 17 gm PO DAILY [facility] Stop: 02/26/19 10:01 Last Admin: 02/23/19 10:31 Dose: 17 gm Quetiapine Fumarate (Seroquel) 100 mg PO HS [facility]; Protocol Last Admin: 02/22/19 22:47 Dose: 100 mg Risperidone (Risperdal Tab) 1 mg PO TID [facility]; Protocol Last Admin: 02/23/19 13:25 Dose: 1 mg Senna/Docusate Sodium (Senokot S 50 Mg-8.6 Mg) 1 tab PO DAILY [facility] Sertraline HCl (Zoloft) 100 mg PO DAILY [facility] Last Admin: 02/23/19 10:31 Dose: 100 mg Tizanidine HCl (Zanaflex) 4 mg PO QID [facility] Last Admin: 02/23/19 13:25 Dose: 4 mg Zonisamide (Zonegran) 200 mg PO HS [facility] Last Admin: 02/22/19 22:47 Dose: 200 mg - Labs Labs: 02/23/19 08:20 02/23/19 09:09 PT 18.8 SECONDS (9.4-12.5) H 02/19/19 18:00 INR 1.69 02/19/19 18:00 APTT 37.5 Seconds (26.9-38.3) 02/19/19 18:00 - Constitutional Appears: Non-toxic, No Acute Distress - Head Exam Head Exam: ATRAUMATIC, NORMAL INSPECTION, NORMOCEPHALIC - Eye Exam Eye Exam: EOMI, Normal appearance, PERRL - Respiratory Exam Respiratory Exam: Clear to Ausculation Bilateral, NORMAL BREATHING PATTERN. absent: Accessory Muscle Use, Rales, Rhonchi, Wheezes, Respiratory Distress - Cardiovascular Exam Cardiovascular Exam: RRR, +S1, +S2. absent: Gallop, Rubs - GI/Abdominal Exam GI & Abdominal Exam: Soft, Normal Bowel Sounds. absent: Guarding, Rigid, Tenderness - Extremities Exam Additional comments: b/l hand swelling and fingers bandaged. Pt is noted to have some strike-through in bandages on the L hand. - Neurological Exam Neurological Exam: Alert, Awake, Oriented x3 - Psychiatric Exam Psychiatric exam: Normal Affect, Normal Mood - Skin Skin Exam: Dry, Normal Color, Warm Assessment and Plan - Assessment and Plan (Free Text) Assessment: 63 year old male with a PMHx of HTN, DM2, Reflex Sympathetic Dystrophy (RSD), arthritis, depression, seizures, chronic decubitus ulcer, and constipation who is admitted for severe pain and and cellulitis in his fingers. Will await furthe r surgical recs. Plan: Bilateral Cellulitis of Digits - afebrile today - Per ID pt is placed on Ancef - Blood Cx: MSSA - Wound Cx: Gram + cocci in clusters - echo - No vegetations noted - wound care - Orthopedics, Dr. Sellers consulted, recs appreciated - ID consulted, recs appreciated - Cardio consulted for OR clearance, moderate risk for surgery Sacral decubitus ulcer - wound care nurse ordered - turn patient q2 - continue vancomycin UTI: - Pt noted to be growing Klebsiella in urine - Sensitive to ancef - ID on board, recs appreciated HTN - Will cont to monitor History of depression - meds reviewed from prior admission - will resume meds History of seizures - meds reviewed from prior admission - will resume meds Chronic back pain - Secondary due to Reflex Sympathetic Dystrophy - PT consulted DM2 - Insulin sliding scale - hemoglobin A1C PPX - Protonix for GI ppx - SCDs for DVT ppx; can start lovenox if no plans for OR Dispo: Awaiting placement auth. Patient seen and case discussed with attending, Dr. Kevin Salomon, PGY-1 <Jaycob Brown - Last Filed: 02/24/19 08:23> Objective - Vital Signs/Intake and Output Vital Signs (last 24 hours): Temp Pulse Resp BP Pulse Ox 98.2 F 79 18 119/76 98 02/24/19 06:00 02/24/19 06:00 02/24/19 06:00 02/24/19 06:00 02/24/19 06:00 Intake and Output: 02/24/19 02/24/19 06:59 18:59 Intake Total 1555 Output Total 2850 Balance -1295 - Medications Medications: Current Medications Ascorbic Acid (Vitamin C 500 Mg Tab) 500 mg PO DAILY [facility] Last Admin: 02/23/19 10:31 Dose: 500 mg Atorvastatin Calcium (Lipitor) 40 mg PO DIN [facility] Last Admin: 02/23/19 17:39 Dose: 40 mg Dextrose (Dextrose 50% Inj) 0 ml IV STAT PRN; Protocol PRN Reason: Hypoglycemia Protocol Docusate Sodium (Colace) 100 mg PO TID [facility] Last Admin: 02/23/19 17:39 Dose: 100 mg Duloxetine HCl (Cymbalta) 30 mg PO TID [facility] Last Admin: 02/23/19 17:39 Dose: 30 mg Gabapentin (Neurontin) 600 mg PO Q8 [facility]; Protocol Last Admin: 02/24/19 05:52 Dose: 600 mg Dextrose (Dextrose 5% In Water 1000 Ml) 1,000 mls @ 0 mls/hr IV .Q0M PRN; Protocol PRN Reason: Hypoglycemia Protocol Sodium Chloride (Sodium Chloride 0.9%) 1,000 mls @ 100 mls/hr IV .Q10H [facility] Last Admin: 02/22/19 05:51 Dose: 100 mls/hr Cefazolin Sodium (Ancef 1gm In Ns) 1 gm in 100 mls @ 100 mls/hr IVPB Q8 [facility]; Protocol Stop: 03/09/19 06:01 Last Admin: 02/24/19 05:52 Dose: 100 mls/hr Insulin Human Lispro (Humalog Med) 0 units SC ACHS [facility]; Protocol Last Admin: 02/24/19 08:22 Dose: Not Given Levetiracetam (Keppra) 500 mg PO Q12 [facility] Last Admin: 02/23/19 21:46 Dose: 500 mg Meclizine HCl (Antivert) 12.5 mg PO TID [facility] Last Admin: 02/23/19 17:39 Dose: 12.5 mg Multivitamins/Minerals (Therapeutic-M Tab) 1 tab PO 0800 [facility] Last Admin: 02/23/19 08:10 Dose: 1 tab Pantoprazole Sodium (Protonix Ec Tab) 40 mg PO 0600 [facility] Last Admin: 02/24/19 05:51 Dose: 40 mg Polyethylene Glycol (Miralax) 17 gm PO DAILY [facility] Stop: 02/26/19 10:01 Last Admin: 02/23/19 10:31 Dose: 17 gm Quetiapine Fumarate (Seroquel) 100 mg PO [facility]; Protocol Last Admin: 02/23/19 21:45 Dose: 100 mg Risperidone (Risperdal Tab) 1 mg PO TID [facility]; Protocol Last Admin: 02/23/19 17:39 Dose: 1 mg Senna/Docusate Sodium (Senokot S 50 Mg-8.6 Mg) 1 tab PO DAILY [facility] Sertraline HCl (Zoloft) 100 mg PO DAILY [facility] Last Admin: 02/23/19 10:31 Dose: 100 mg Tizanidine HCl (Zanaflex) 4 mg PO QID [facility] Last Admin: 02/23/19 21:45 Dose: 4 mg Zonisamide (Zonegran) 200 mg PO [facility] Last Admin: 02/23/19 21:45 Dose: 200 mg - Labs Labs: 02/24/19 08:00 02/23/19 09:09 PT 18.8 SECONDS (9.4-12.5) H 02/19/19 18:00 INR 1.69 02/19/19 18:00 APTT 37.5 Seconds (26.9-38.3) 02/19/19 18:00 Attending/Attestation - Attestation I have personally seen and examined this patient.: Yes I have fully participated in the care of the patient.: Yes I have reviewed all pertinent clinical information, including history, physical exam and plan: Yes
--- NOTE | 2019-02-23 21:34 | PN ---
DATE: 02/23/2019 SUBJECTIVE: The patient is in bed, in no acute distress, nontoxic. PHYSICAL EXAMINATION: VITAL SIGNS: Temperature is 98, blood pressure is 100/60, respiratory rate 18, and heart rate of 91. HEENT: Unremarkable. NECK: Supple. LUNGS: Have decreased breath sounds. HEART: Normal S1 and S2. ABDOMEN: Soft and nontender. EXTREMITIES: Examination of his fingers and hands, significant erythema and cellulitis. LABORATORY DATA: Reveals a white count of 12,700. BUN of 11 and creatinine of 0.8. Urinalysis is noted. Serology is noted. Microbiology reveals repeat blood cultures are negative from the 7th, that is the initial ones from the 5th sensitive Staph aureus. An NORMAN vancomycin of 1. There is Staph aureus from the blood and also Staph aureus from sensitive oxacillin from the finger. Repeat blood cultures are negative. ASSESSMENT AND PLAN: This is a 63-year-old male who was seen earlier today with sensitive Staphylococcus aureus bacteremia and sepsis with a right hand sensitive Staphylococcus aureus third digit and infection of more than 1 pages of cellulitis. Had an echo which is reported to be negative, however does have significant cellulitis and an elevated C-reactive protein of 203. Today, is day #3 of 28 days, perhaps longer with Ancef, day #3 of 28 days perhaps with a weekly CBC , sed rate, C-reactive protein in this patient who has significant cellulitis of the fingers with bacteremia. We will follow with you. Davon López MD
[2019-02-24] MEDS: Pantoprazole 40 mg EC Tab PO SCH (05:51)
[2019-02-24] MEDS: ceFAZolin 1 gm in NS 1 GM/100 ML BAG IVPB SCH ×3 (05:52→22:04)
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
[2019-02-24 08:16] LABS: BASO # 0.05 K/mm3 (0.0-2.0); BASO % 0.4 % (0.0-3.0); EOS # 0.3 (0.0-0.7); EOS % 2.2 % (1.5-5.0); HEMOGLOBIN 10.8 g/dL (14.0-18.0); LYMPH # 1.7 (1.2-3.4); LYMPH % 14.2 % (22.0-35.0); MEAN CELL VOLUME 88.6 fl (80.0-105.0); MEAN CORPUSCULAR HEMOGLOBIN 28.7 pg (25.0-35.0); MEAN CORPUSCULAR HGB CONC 32.4 g/dl (31.0-37.0); MEAN PLATELET VOLUME 12.1 fl (7.0-11.0); MONO % 8.1 % (1.0-6.0); RBC 3.76 10^6/uL (3.5-6.1); RED CELL DISTRIBUTION WIDTH 14.7 % (11.5-14.5)
[2019-02-24] MEDS: Insulin Lispro (humaLOG) MEDIUM Coverage SC SCH ×4 (08:22→21:53)
[2019-02-24 08:27] LABS: ALB/GLOB RATIO 0.9 (1.1-1.8); ALBUMIN 2.7 g/dL (3.0-4.8); ALT/SGPT 33 U/L (7-56); AST/SGOT 31 U/L (17-59); BLOOD UREA NITROGEN 13 mg/dL (7-21); CALCIUM 7.8 mg/dL (8.4-10.5); GFR NON-AFRICAN AMERICAN > 60
[2019-02-24] MEDS: Multivitamin With Minerals Tab PO SCH (09:36)
[2019-02-24] MEDS: Docusate-Senna 50 mg-8.6 mg Tab PO SCH (09:36)
[2019-02-24] MEDS: POLYETHYLENE GLYCOL 3350 17 GM/Dose PACKET PO SCH (09:37)
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
--- NOTE | 2019-02-24 13:44 | PN ---
DATE: 02/24/2019 SUBJECTIVE: The patient is in bed, in no acute distress, nontoxic. No fevers, no chills. PHYSICAL EXAMINATION: VITAL SIGNS: Temperature is 98, blood pressure was 112/70, respiratory rate of 18. HEENT: Unremarkable. NECK: Supple. LUNGS: Have decreased breath sounds. HEART: Normal S1, S2. ABDOMEN: Soft. LABORATORY DATA: White count of 12,000, hemoglobin of 10. Chemistries are noted. Urinalysis is noted and HIV is negative. Blood cultures are negative from 02/21/2019. The initial ones are positive. Review of orders reveals the patient to be on Ancef. ASSESSMENT AND PLAN: This 63-year-old male was seen earlier today with sensitive Staphylococcus aureus bacteremia and sepsis with right hand finger cellulitis in more than one digit. Currently on Ancef, today is day #4 of 28 to 42 days of Ancef. Would recommend CBC, SMA-18, sed rate, C-reactive protein once weekly. Davon López MD
--- NOTE | 2019-02-24 14:25 | CP.PCM.PN ---
<Dewey Salomon - Last Filed: 02/24/19 14:15> Subjective - Date & Time of Evaluation Date of Evaluation: 02/24/19 Time of Evaluation: 14:15 - Subjective Subjective: Dewey Salomon, PGY1 Medicine Progress Note Pt was seen and examined this AM at bedside. Pt states that he continues to have difficulty moving his fingers. He also states that he believes that the fingers are not getting any better. He denies numbness or tingling in the fingers but does admit that they are difficult to move. Pt has no other acute complaints at this time. Objective - Vital Signs/Intake and Output Vital Signs (last 24 hours): Temp Pulse Resp BP Pulse Ox 98.2 F 79 18 119/76 98 02/24/19 06:00 02/24/19 06:00 02/24/19 06:00 02/24/19 06:00 02/24/19 06:00 Intake and Output: 02/24/19 02/24/19 06:59 18:59 Intake Total 1555 Output Total 2850 950 Balance -1295 -950 - Medications Medications: Current Medications Ascorbic Acid (Vitamin C 500 Mg Tab) 500 mg PO DAILY [facility] Last Admin: 02/24/19 09:36 Dose: 500 mg Atorvastatin Calcium (Lipitor) 40 mg PO DIN [facility] Last Admin: 02/23/19 17:39 Dose: 40 mg Dextrose (Dextrose 50% Inj) 0 ml IV STAT PRN; Protocol PRN Reason: Hypoglycemia Protocol Docusate Sodium (Colace) 100 mg PO TID [facility] Last Admin: 02/24/19 09:36 Dose: 100 mg Duloxetine HCl (Cymbalta) 30 mg PO TID [facility] Last Admin: 02/24/19 09:36 Dose: 30 mg Gabapentin (Neurontin) 600 mg PO Q8 [facility]; Protocol Last Admin: 02/24/19 05:52 Dose: 600 mg Dextrose (Dextrose 5% In Water 1000 Ml) 1,000 mls @ 0 mls/hr IV .Q0M PRN; Protocol PRN Reason: Hypoglycemia Protocol Sodium Chloride (Sodium Chloride 0.9%) 1,000 mls @ 100 mls/hr IV .Q10H [facility] Last Admin: 02/22/19 05:51 Dose: 100 mls/hr Cefazolin Sodium (Ancef 1gm In Ns) 1 gm in 100 mls @ 100 mls/hr IVPB Q8 [facility]; Protocol Stop: 03/09/19 06:01 Last Admin: 02/24/19 05:52 Dose: 100 mls/hr Insulin Human Lispro (Humalog Med) 0 units SC ACHS [facility]; Protocol Last Admin: 02/24/19 12:03 Dose: Not Given Levetiracetam (Keppra) 500 mg PO Q12 [facility] Last Admin: 02/24/19 09:36 Dose: 500 mg Meclizine HCl (Antivert) 12.5 mg PO TID [facility] Last Admin: 02/24/19 09:36 Dose: 12.5 mg Multivitamins/Minerals (Therapeutic-M Tab) 1 tab PO 0800 [facility] Last Admin: 02/24/19 09:36 Dose: 1 tab Pantoprazole Sodium (Protonix Ec Tab) 40 mg PO 0600 [facility] Last Admin: 02/24/19 05:51 Dose: 40 mg Polyethylene Glycol (Miralax) 17 gm PO DAILY [facility] Stop: 02/26/19 10:01 Last Admin: 02/24/19 09:37 Dose: 17 gm Quetiapine Fumarate (Seroquel) 100 mg PO HS [facility]; Protocol Last Admin: 02/23/19 21:45 Dose: 100 mg Risperidone (Risperdal Tab) 1 mg PO TID [facility]; Protocol Last Admin: 02/24/19 09:35 Dose: 1 mg Senna/Docusate Sodium (Senokot S 50 Mg-8.6 Mg) 1 tab PO DAILY [facility] Last Admin: 02/24/19 09:36 Dose: 1 tab Sertraline HCl (Zoloft) 100 mg PO DAILY [facility] Last Admin: 02/24/19 09:36 Dose: 100 mg Tizanidine HCl (Zanaflex) 4 mg PO QID [facility] Last Admin: 02/24/19 09:36 Dose: 4 mg Zonisamide (Zonegran) 200 mg PO HS [facility] Last Admin: 02/23/19 21:45 Dose: 200 mg - Labs Labs: 02/24/19 08:00 02/24/19 08:00 PT 18.8 SECONDS (9.4-12.5) H 02/19/19 18:00 INR 1.69 02/19/19 18:00 APTT 37.5 Seconds (26.9-38.3) 02/19/19 18:00 - Constitutional Appears: Non-toxic, No Acute Distress - Head Exam Head Exam: ATRAUMATIC, NORMAL INSPECTION, NORMOCEPHALIC - Eye Exam Eye Exam: EOMI, Normal appearance, PERRL - Respiratory Exam Respiratory Exam: Clear to Ausculation Bilateral, NORMAL BREATHING PATTERN. absent: Accessory Muscle Use, Rales, Rhonchi, Wheezes, Respiratory Distress - Cardiovascular Exam Cardiovascular Exam: RRR, +S1, +S2. absent: Gallop, Rubs - GI/Abdominal Exam GI & Abdominal Exam: Soft, Normal Bowel Sounds. absent: Guarding, Rigid, Tenderness - Extremities Exam Additional comments: b/l hand swelling and fingers bandaged. Pt is noted to have some strike-through in bandages on the L hand. - Neurological Exam Neurological Exam: Alert, Awake, Oriented x3 - Psychiatric Exam Psychiatric exam: Normal Affect, Normal Mood - Skin Skin Exam: Dry, Normal Color, Warm Assessment and Plan - Assessment and Plan (Free Text) Assessment: 63 year old male with a PMHx of HTN, DM2, Reflex Sympathetic Dystrophy (RSD), arthritis, depression, seizures, chronic decubitus ulcer, and constipation who is admitted for severe pain and and cellulitis in his fingers. Will await further surgical recs. Plan: Bilateral Cellulitis of Digits - afebrile today - Per ID pt is placed on Ancef - Blood Cx: MSSA - Wound Cx: Gram + cocci in clusters - echo - No vegetations noted - wound care - Orthopedics, Dr. Sellers consulted, recs appreciated - ID consulted, recs appreciated - Cardio consulted for OR clearance, moderate risk for surgery Sacral decubitus ulcer - wound care nurse ordered - turn patient q2 UTI: - Pt noted to be growing Klebsiella in urine - Sensitive to ancef - ID on board, recs appreciated HTN - Will cont to monitor History of depression - meds reviewed from prior admission - will resume meds History of seizures - meds reviewed from prior admission - will resume meds Chronic back pain - Secondary due to Reflex Sympathetic Dystrophy - PT consulted DM2 - Insulin sliding scale - hemoglobin A1C PPX - Protonix for GI ppx - Lovenox Patient seen and case discussed with attending, Dr. Kevin Salomon, PGY-1 <Jaycob Brown - Last Filed: 02/24/19 18:51> Objective - Vital Signs/Intake and Output Vital Signs (last 24 hours): Temp Pulse Resp BP Pulse Ox 98.8 F 89 18 120/76 96 02/24/19 14:00 02/24/19 14:00 02/24/19 14:00 02/24/19 14:00 02/24/19 14:00 Intake and Output: 02/24/19 02/24/19 06:59 18:59 Intake Total 1555 Output Total 2850 950 Balance -1295 -950 - Medications Medications: Current Medications Ascorbic Acid (Vitamin C 500 Mg Tab) 500 mg PO DAILY [facility] Last Admin: 02/24/19 09:36 Dose: 500 mg Atorvastatin Calcium (Lipitor) 40 mg PO DIN [facility] Last Admin: 02/24/19 18:00 Dose: 40 mg Dextrose (Dextrose 50% Inj) 0 ml IV STAT PRN; Protocol PRN Reason: Hypoglycemia Protocol Docusate Sodium (Colace) 100 mg PO TID [facility] Last Admin: 02/24/19 18:01 Dose: 100 mg Duloxetine HCl (Cymbalta) 30 mg PO TID [facility] Last Admin: 02/24/19 18:01 Dose: 30 mg Enoxaparin Sodium (Lovenox) 40 mg SC DAILY [facility]; Protocol Gabapentin (Neurontin) 600 mg PO Q8 [facility]; Protocol Last Admin: 02/24/19 14:11 Dose: 600 mg Dextrose (Dextrose 5% In Water 1000 Ml) 1,000 mls @ 0 mls/hr IV .Q0M PRN; Protocol PRN Reason: Hypoglycemia Protocol Sodium Chloride (Sodium Chloride 0.9%) 1,000 mls @ 100 mls/hr IV .Q10H [facility] Last Admin: 02/22/19 05:51 Dose: 100 mls/hr Cefazolin Sodium (Ancef 1gm In Ns) 1 gm in 100 mls @ 100 mls/hr IVPB Q8 [facility]; Protocol Stop: 03/09/19 06:01 Last Admin: 02/24/19 14:12 Dose: 100 mls/hr Insulin Human Lispro (Humalog Med) 0 units SC ACHS [facility]; Protocol Last Admin: 02/24/19 16:43 Dose: Not Given Levetiracetam (Keppra) 500 mg PO Q12 [facility] Last Admin: 02/24/19 09:36 Dose: 500 mg Meclizine HCl (Antivert) 12.5 mg PO TID [facility] Last Admin: 02/24/19 18:01 Dose: 12.5 mg Multivitamins/Minerals (Therapeutic-M Tab) 1 tab PO 0800 [facility] Last Admin: 02/24/19 09:36 Dose: 1 tab Pantoprazole Sodium (Protonix Ec Tab) 40 mg PO 0600 [facility] Last Admin: 02/24/19 05:51 Dose: 40 mg Polyethylene Glycol (Miralax) 17 gm PO DAILY [facility] Stop: 02/26/19 10:01 Last Admin: 02/24/19 09:37 Dose: 17 gm Quetiapine Fumarate (Seroquel) [address] [facility]; Protocol Last Admin: 02/23/19 21:45 Dose: 100 mg Risperidone (Risperdal Tab) 1 mg PO TID [facility]; Protocol Last Admin: 02/24/19 18:01 Dose: 1 mg Senna/Docusate Sodium (Senokot S 50 Mg-8.6 Mg) 1 tab PO DAILY [facility] Last Admin: 02/24/19 09:36 Dose: 1 tab Sertraline HCl (Zoloft) 100 mg PO DAILY [facility] Last Admin: 02/24/19 09:36 Dose: 100 mg Tizanidine HCl (Zanaflex) 4 mg PO QID [facility] Last Admin: 02/24/19 18:01 Dose: 4 mg Zonisamide (Zonegran) [address] [facility] Last Admin: 02/23/19 21:45 Dose: 200 mg - Labs Labs: 02/24/19 08:00 02/24/19 08:00 PT 18.8 SECONDS (9.4-12.5) H 02/19/19 18:00 INR 1.69 02/19/19 18:00 APTT 37.5 Seconds (26.9-38.3) 02/19/19 18:00 Attending/Attestation - Attestation I have personally seen and examined this patient.: Yes I have fully participated in the care of the patient.: Yes I have reviewed all pertinent clinical information, including history, physical exam and plan: Yes
--- NOTE | 2019-02-24 17:26 | CP.PCM.PN ---
Subjective - Date & Time of Evaluation Date of Evaluation: 02/24/19 Time of Evaluation: 16:30 - Subjective Subjective: Patient seen and examined at bedside. No changes to pain level, greater to left second digit. MRI of hand cancelled due to neurostimulator to back. Ultrasound performed. No new complaints. Objective - Vital Signs/Intake and Output Vital Signs (last 24 hours): Temp Pulse Resp BP Pulse Ox 98.8 F 89 18 120/76 96 02/24/19 14:00 02/24/19 14:00 02/24/19 14:00 02/24/19 14:00 02/24/19 14:00 Intake and Output: 02/24/19 02/24/19 06:59 18:59 Intake Total 1555 Output Total 2850 950 Balance -1295 -950 - Medications Medications: Current Medications Ascorbic Acid (Vitamin C 500 Mg Tab) 500 mg PO DAILY [facility] Last Admin: 02/24/19 09:36 Dose: 500 mg Atorvastatin Calcium (Lipitor) 40 mg PO DIN [facility] Last Admin: 02/23/19 17:39 Dose: 40 mg Dextrose (Dextrose 50% Inj) 0 ml IV STAT PRN; Protocol PRN Reason: Hypoglycemia Protocol Docusate Sodium (Colace) 100 mg PO TID [facility] Last Admin: 02/24/19 14:11 Dose: 100 mg Duloxetine HCl (Cymbalta) 30 mg PO TID [facility] Last Admin: 02/24/19 14:11 Dose: 30 mg Enoxaparin Sodium (Lovenox) 40 mg SC DAILY [facility]; Protocol Gabapentin (Neurontin) 600 mg PO Q8 [facility]; Protocol Last Admin: 02/24/19 14:11 Dose: 600 mg Dextrose (Dextrose 5% In Water 1000 Ml) 1,000 mls @ 0 mls/hr IV .Q0M PRN; Protocol PRN Reason: Hypoglycemia Protocol Sodium Chloride (Sodium Chloride 0.9%) 1,000 mls @ 100 mls/hr IV .Q10H [facility] Last Admin: 02/22/19 05:51 Dose: 100 mls/hr Cefazolin Sodium (Ancef 1gm In Ns) 1 gm in 100 mls @ 100 mls/hr IVPB Q8 [facility]; Protocol Stop: 03/09/19 06:01 Last Admin: 02/24/19 14:12 Dose: 100 mls/hr Insulin Human Lispro (Humalog Med) 0 units SC [facility]; Protocol Last Admin: 02/24/19 16:43 Dose: Not Given Levetiracetam (Keppra) 500 mg PO Q12 [facility] Last Admin: 02/24/19 09:36 Dose: 500 mg Meclizine HCl (Antivert) 12.5 mg PO TID [facility] Last Admin: 02/24/19 14:11 Dose: 12.5 mg Multivitamins/Minerals (Therapeutic-M Tab) 1 tab PO 0800 [facility] Last Admin: 02/24/19 09:36 Dose: 1 tab Pantoprazole Sodium (Protonix Ec Tab) 40 mg PO 0600 [facility] Last Admin: 02/24/19 05:51 Dose: 40 mg Polyethylene Glycol (Miralax) 17 gm PO DAILY [facility] Stop: 02/26/19 10:01 Last Admin: 02/24/19 09:37 Dose: 17 gm Quetiapine Fumarate (Seroquel) 100 mg PO [facility]; Protocol Last Admin: 02/23/19 21:45 Dose: 100 mg Risperidone (Risperdal Tab) 1 mg PO TID [facility]; Protocol Last Admin: 02/24/19 14:11 Dose: 1 mg Senna/Docusate Sodium (Senokot S 50 Mg-8.6 Mg) 1 tab PO DAILY [facility] Last Admin: 02/24/19 09:36 Dose: 1 tab Sertraline HCl (Zoloft) 100 mg PO DAILY [facility] Last Admin: 02/24/19 09:36 Dose: 100 mg Tizanidine HCl (Zanaflex) 4 mg PO QID [facility] Last Admin: 02/24/19 14:15 Dose: 4 mg Zonisamide (Zonegran) 200 mg PO [facility] Last Admin: 02/23/19 21:45 Dose: 200 mg - Labs Labs: 02/24/19 08:00 02/24/19 08:00 PT 18.8 SECONDS (9.4-12.5) H 02/19/19 18:00 INR 1.69 02/19/19 18:00 APTT 37.5 Seconds (26.9-38.3) 02/19/19 18:00 - Extremities Exam Additional comments: Left hand: no sensation to second digit. 2 sec cap refill 2nd digit diffuse erythema. eschar to volar distal phalanx wound Right hand: no sensation to second digit. 2 sec cap refill 2nd digit periwound erythema wound x 2 clean and open Assessment and Plan (1) Finger infection Assessment & Plan: s/p I&D in ER /5 No drainable collection by US continue IV abx as per ID betadine soaks BID b/l hands by nursing, dry dressing changes wound care rec's appreciated d/w Dr. Sellers who agrees with above Status: Acute
[2019-02-25] MEDS: Sodium Chloride 0.9% 1,000 ML IV SCH (01:39)
[2019-02-25] MEDS: ceFAZolin 1 gm in NS 1 GM/100 ML BAG IVPB SCH ×2 (05:18→13:27)
[2019-02-25] MEDS: Pantoprazole 40 mg EC Tab PO SCH (05:18)
[2019-02-25 07:10] VITALS: RESP 18
[2019-02-25 07:24] LABS: BASO # 0.07 K/mm3 (0.0-2.0); BASO % 0.6 % (0.0-3.0); EOS # 0.5 (0.0-0.7); HEMOGLOBIN 10.4 g/dL (14.0-18.0); LYMPH % 17.5 % (22.0-35.0); MEAN CELL VOLUME 89.1 fl (80.0-105.0); MEAN CORPUSCULAR HEMOGLOBIN 28.4 pg (25.0-35.0); MEAN CORPUSCULAR HGB CONC 31.9 g/dl (31.0-37.0); MEAN PLATELET VOLUME 11.7 fl (7.0-11.0); MONO # 0.7 (0.1-0.6); MONO % 6.2 % (1.0-6.0); RBC 3.66 10^6/uL (3.5-6.1); RED CELL DISTRIBUTION WIDTH 14.8 % (11.5-14.5); WHITE BLOOD COUNT 11.2 10^3/uL (4.5-11.0)
[2019-02-25 07:54] LABS: ALB/GLOB RATIO 0.9 (1.1-1.8); ALBUMIN 2.6 g/dL (3.0-4.8); ALT/SGPT 30 U/L (7-56); AST/SGOT 25 U/L (17-59); BLOOD UREA NITROGEN 15 mg/dL (7-21); CALCIUM 8.4 mg/dL (8.4-10.5); GFR NON-AFRICAN AMERICAN > 60
[2019-02-25] MEDS: Insulin Lispro (humaLOG) MEDIUM Coverage SC SCH ×3 (08:03→17:07)
[2019-02-25] MEDS: Multivitamin With Minerals Tab PO SCH (09:25)
[2019-02-25] MEDS: POLYETHYLENE GLYCOL 3350 17 GM/Dose PACKET PO SCH (09:26)
[2019-02-25] MEDS: Docusate-Senna 50 mg-8.6 mg Tab PO SCH (09:26)
[2019-02-25] MEDS ORDERED: Enoxaparin 40 mg Syringe SC SCH (10:00)
--- NOTE | 2019-02-25 11:32 | RAD ---
Date of service: 02/25/2019 HISTORY: confirm PICC placement COMPARISON: 02/19/2019 TECHNIQUE: 1 view obtained. FINDINGS: LUNGS: No active pulmonary disease. The PICC line terminates in the left brachiocephalic vein to the left of midline just beneath the clavicle. PLEURA: No significant pleural effusion identified, no pneumothorax apparent. CARDIOVASCULAR: No aortic atherosclerotic calcification present. Normal cardiac size. No pulmonary vascular congestion. OSSEOUS STRUCTURES: No significant abnormalities. VISUALIZED UPPER ABDOMEN: Normal. OTHER FINDINGS: None. IMPRESSION: No active disease. The PICC line terminates in the left brachiocephalic vein to the left of midline just beneath the clavicle.
[2019-02-25] MEDS ORDERED: Bacitracin 500 Units/gm Oint Foilpak UD TOP ONE (11:42)
--- NOTE | 2019-02-25 13:28 | RAD ---
Date of service: 02/25/2019 HISTORY: confirm PICC placement COMPARISON: 02/25/2019 TECHNIQUE: 1 view obtained. FINDINGS: LUNGS: No active pulmonary disease. PLEURA: No significant pleural effusion identified, no pneumothorax apparent. CARDIOVASCULAR: No aortic atherosclerotic calcification present. Normal cardiac size. No pulmonary vascular congestion. OSSEOUS STRUCTURES: No significant abnormalities. VISUALIZED UPPER ABDOMEN: Normal. OTHER FINDINGS: None. IMPRESSION: Right-sided PICC line in satisfactory position just above the caval atrial junction
[2019-02-25 14:54] VITALS: BP 103/61; PULSE 81; TEMP 98; O2SAT 97
--- NOTE | 2019-02-25 14:55 | CP.PCM.DIS ---
Provider - Provider Date of Admission: 02/19/19 19:01 Attending physician: Florentino Camejo MD Consults: 02/19/19 18:16 Consult [Physician Consult] Routine Comment: Consulting Provider: Davon López Consulting Physician: Davon López Reason for Consult: cellulitis finger 02/19/19 18:19 Physician Consult Stat Comment: Consulting Provider: Jesu Sellers Consulting Physician: Jesu Sellers Reason for Consult: bilateral finger infection 02/19/19 19:10 Physician Consult Routine Comment: Consulting Provider: Jair Jackson Consulting Physician: Jair Jackson Reason for Consult: possible surgery clearance 02/20/19 10:45 Wound Care [Nursing Referral for Wound Care] Routine Comment: Physician Instructions: Reason For Exam: sacral ulcer 02/22/19 10:44 TCU [Evaluation for TRCU] Routine Comment: Physician Instructions: Reason For Exam: deconditioned state- will benefit from rehab Time Spent in preparation of Discharge (in minutes): 45 Diagnosis - Discharge Diagnosis (1) Finger infection Status: Acute (2) Leukocytosis Status: Acute (3) Constipation Status: Acute Priority: Medium Hospital Course - Lab Results Lab Results: Micro Results 02/21/19 11:00 Blood-Venous Blood Culture - Preliminary NO GROWTH AFTER 4 DAYS 02/21/19 10:00 Blood-Venous Blood Culture - Preliminary NO GROWTH AFTER 4 DAYS 02/19/19 18:25 Blood Blood Culture - Final NO GROWTH AFTER 5 DAYS 02/19/19 18:25 Blood Gram Stain - Final TEST NOT PERFORMED 02/19/19 18:30 Finger Gram Stain - Final 02/19/19 18:30 Finger Wound Culture - Final Staphylococcus Aureus 02/19/19 18:00 Blood S.aureus & Coag-Neg Staph PNA FISH - Final 02/19/19 18:00 Blood Blood Culture - Preliminary Staphylococcus Aureus 02/19/19 18:00 Blood Gram Stain - Final 02/19/19 21:00 Urine,Clean Catch Urine Culture - Final Klebsiella Pneumoniae Ssp Pneu Most Recent Lab Values WBC 11.2 10^3/uL (4.5-11.0) H 02/25/19 06:30 RBC 3.66 10^6/uL (3.5-6.1) 02/25/19 06:30 Hgb 10.4 g/dL (14.0-18.0) L 02/25/19 06:30 Hct 32.6 % (42.0-52.0) L 02/25/19 06:30 MCV 89.1 fl (80.0-105.0) 02/25/19 06:30 MCH 28.4 pg (25.0-35.0) 02/25/19 06:30 MCHC 31.9 g/dl (31.0-37.0) 02/25/19 06:30 RDW 14.8 % (11.5-14.5) H 02/25/19 06:30 Plt Count 221 10^3/uL (120.0-450.0) 02/25/19 06:30 MPV 11.7 fl (7.0-11.0) H 02/25/19 06:30 Neut % (Auto) 71.7 % (50.0-68.0) H 02/25/19 06:30 Lymph % (Auto) 17.5 % (22.0-35.0) L 02/25/19 06:30 [place] % (Auto) 6.2 % (1.0-6.0) H 02/25/19 06:30 Eos % (Auto) 4.0 % (1.5-5.0) 02/25/19 06:30 Baso % (Auto) 0.6 % (0.0-3.0) 02/25/19 06:30 Lymph # (Auto) 2.0 (1.2-3.4) 02/25/19 06:30 [place] # (Auto) 0.7 (0.1-0.6) H 02/25/19 06:30 Eos # (Auto) 0.5 (0.0-0.7) 02/25/19 06:30 Baso # (Auto) 0.07 K/mm3 (0.0-2.0) 02/25/19 06:30 Absolute Neuts (auto) 8.02 (1.4-6.5) H 02/25/19 06:30 ESR 32 mm/hr (0.00-15.0) H 02/19/19 23:30 PT 18.8 SECONDS (9.4-12.5) H 02/19/19 18:00 INR 1.69 02/19/19 18:00 APTT 37.5 Seconds (26.9-38.3) 02/19/19 18:00 pO2 51 mm/Hg (30-55) 02/21/19 00:30 VBG pH 7.37 (7.32-7.43) 02/21/19 00:30 VBG pCO2 37.0 (40-60) L 02/21/19 00:30 VBG HCO3 21.4 mmol/l (21-28) 02/21/19 00:30 VBG Total CO2 22.5 mmol.L (22-28) 02/21/19 00:30 VBG O2 Sat (Calc) 87.9 % (40-65) H 02/21/19 00:30 VBG Base Excess -3.4 mmol/L (0.0-2.0) L 02/21/19 00:30 VBG Potassium 3.9 mmol/L (3.6-5.2) 02/21/19 00:30 Sodium 139.0 mmol/L (132-148) 02/21/19 00:30 Chloride 111.0 mmol/L (98-107) H 02/21/19 00:30 Glucose 114 mg/dl (75-110) H 02/21/19 00:30 Lactate 0.8 mmol/L (0.7-2.1) 02/21/19 00:30 FiO2 21.0 % 02/21/19 00:30 Sodium 138 mmol/L (132-148) 02/25/19 06:30 Potassium 4.1 mmol/L (3.6-5.0) 02/25/19 06:30 Chloride 107 mmol/L (98-107) 02/25/19 06:30 Carbon Dioxide 25 mmol/L (21-33) 02/25/19 06:30 Anion Gap 10 (10-20) 02/25/19 06:30 BUN 15 mg/dL (7-21) 02/25/19 06:30 Creatinine 0.8 mg/dl (0.8-1.5) 02/25/19 06:30 Est GFR ( Amer) > 60 02/25/19 06:30 Est GFR (Non-Af Amer) > 60 02/25/19 06:30 POC Glucose (mg/dL) 126 mg/dL (65-110) H 02/25/19 11:34 Random Glucose 98 mg/dL (70-110) 02/25/19 06:30 Hemoglobin A1c 5.9 % (4.2-6.5) 02/21/19 06:30 Calcium 8.4 mg/dL (8.4-10.5) 02/25/19 06:30 Total Bilirubin < 0.1 mg/dL (0.2-1.3) L 02/25/19 06:30 AST 25 U/L (17-59) 02/25/19 06:30 ALT 30 U/L (7-56) 02/25/19 06:30 Alkaline Phosphatase 67 U/L (38-126) 02/25/19 06:30 C-Reactive Protein 203.00 mg/L (0.0-9.9) H 02/19/19 18:00 Total Protein 5.7 g/dL (5.8-8.3) L 02/25/19 06:30 Albumin 2.6 g/dL (3.0-4.8) L 02/25/19 06:30 Globulin 3.0 gm/dL 02/25/19 06:30 Albumin/Globulin Ratio 0.9 (1.1-1.8) L 02/25/19 06:30 Triglycerides 60 mg/dL (35-160) 02/21/19 06:30 Cholesterol 81 mg/dL (130-200) L 02/21/19 06:30 LDL Cholesterol Direct 38 mg/dL (0-129) 02/21/19 06:30 HDL Cholesterol 25 mg/dL (29-60) L 02/21/19 06:30 TSH 3rd Generation 0.52 mIU/mL (0.46-4.68) 02/21/19 06:30 Cortisol AM Sample 18.9 ug/dL (4.46-22.7) 02/21/19 06:30 Venous Blood Potassium 3.9 mmol/L (3.6-5.2) 02/21/19 00:30 Urine Color Yellow (YELLOW) 02/19/19 20:00 Urine Appearance Slight-cloudy (CLEAR) 02/19/19 20:00 Urine pH 6.0 (4.7-8.0) 02/19/19 20:00 Ur Specific [place] 1.020 (1.005-1.035) 02/19/19 20:00 Urine Protein 30 mg/dL (<30 mg/dL) H 02/19/19 20:00 Urine Glucose (UA) Negative mg/dL (NEGATIVE) 02/19/19 20:00 Urine Ketones Trace mg/dL (NEGATIVE) H 02/19/19 20:00 Urine Blood Trace-lysed (NEGATIVE) H 02/19/19 20:00 Urine Nitrate Negative (NEGATIVE) 02/19/19 20:00 Urine Bilirubin Negative (NEGATIVE) 02/19/19 20:00 Urine Urobilinogen 1.0 E.U./dL (<1 E.U./dL) H 02/19/19 20:00 Ur Leukocyte Esterase Large [place]/uL (NEGATIVE) H 02/19/19 20:00 Urine RBC 5 - 10 /hpf (0-2) H 02/19/19 20:00 Urine WBC 15 - 20 /hpf (0-6) H 02/19/19 20:00 Ur Epithelial Cells Many /hpf (0-5) H 02/19/19 20:00 HIV 1&2 Ag/Ab, 4th Gen Nonreactive (Nonreactive) 02/19/19 23:30 Blood Type A POSITIVE 02/19/19 20:00 Blood Type Confirm A POSITIVE 02/19/19 23:30 Antibody Screen Negative 02/19/19 20:00 BBK History Checked No verified bt 02/19/19 20:00 - Hospital Course Hospital Course: Upon Admission: 63 y/o male with a PMHx of HTN, DM2, Reflex Sympathetic Dystrophy (RSD), arthritis, depression, seizures, chronic decubitus ulcer, and constipation who presents to the ED for severe pain and and infection of his fingers. Patient states he was brought in by ambulance. He states his fingers got caught in sliding doors about a week ago. Since then he has been scratching them and they have gotten red and infected. He denies any other additional symptoms Hospital Course: Pt was being worked up for cellulitis of the fingers and to r/o osteo. XR of the hands b/l showed soft tissue swelling without acute articular or osseous abnormality. Pt was being seen by the hand surgeon Dr. Sellers, who did a bedside I&D of the fingers upon examination of the pt. ID was consulted and started the pt on IV abx. Pt was monitored over the next few days to see the response of the infection to the I&D and Abx regimen. Pt was noted to grow MSSA in the blood and in the wound which was noted to be sensitive to ancef. Echo was ordered which did not show vegetations. ESR and CRP was ordered for the pt which was noted to be elevated. Pt was unable to go under MRI of the hands b/l because the pt has spinal stimulator. Pt had US done on fingers which showed soft tissue swelling without drainable collection. PT was consulted and recommended the pt to go to [facility]. Per ID pt also needs IV ancef for 4 weeks for the bacteremia. Placement is found for the pt, and the pt is accepted to [facility] and is in agreement with going to [facility]. Hand surgeon re-evaluated the pt after the US and stated that there was no further surgical recommendations at this time. Pt had PICC line placed for longer term Abx. Pt is also noted to have UTI growing klebsiella which is also sensitive to ancef. Pt is also told to go for repeat echo in 4 weeks. Pt is in agreement with placement to [facility]. All of the pts questions and concerns were addressed prior to d/c. Discharge Exam - Head Exam Head Exam: ATRAUMATIC, NORMAL INSPECTION, NORMOCEPHALIC - Eye Exam Eye Exam: EOMI, Normal appearance, PERRL - Respiratory Exam Respiratory Exam: Clear to PA & Lateral, NORMAL BREATHING PATTERN, UNREMARKABLE. absent: Accessory Muscle Use, Decreased Breath Sounds, Rales, Rhonchi, Wheezes, Respiratory Distress, Stridor - Cardiovascular Exam Cardiovascular Exam: RRR, +S1, +S2. absent: Diastolic murmur, Gallop, Rubs, Systolic Murmur - GI/Abdominal Exam GI & Abdominal Exam: Normal Bowel Sounds, Soft, Unremarkable. absent: Firm, Guarding, Hernia, Tenderness - Extremities Exam Extremities exam: normal inspection, pedal pulses present Additional comments: b/l hand swelling and fingers bandaged. Pt is noted to have some strike-through in bandages on the L hand. - Back Exam Back exam: NORMAL INSPECTION. absent: CVA tenderness (L), CVA tenderness (R) - Neurological Exam Neurological exam: Alert, Oriented x3 - Psychiatric Exam Psychiatric exam: Normal Affect, Normal Mood - Skin Skin Exam: Dry, Intact, Warm Discharge Plan - Follow Up Plan Condition: FAIR Disposition: REHAB FACILITY/REHAB UNIT Instructions: Preventing Falls in the Older Adult, Wound Care (DC), Wound Infection, Pureed Diet, Leukocytosis (GEN) Additional Instructions: - You will be going to a subacute rehab facility for further strengthening before returning home, please participate with the physical therapy team during your stay at the facility. - Upon discharge from the sub acute rehab facility please follow up with your primary care doctor within 1 week - Please have a follow up echocardiogram within 1 month - Continue taking your home medications as prescribed - If you begin to experience any returning or new symptoms please return to the nearest emergency department
--- NOTE | 2019-02-25 21:28 | PN ---
DATE: 02/25/2019 SUBJECTIVE: The patient is seen earlier today in room 561, bed 2. No fevers. No chills. No nausea. PHYSICAL EXAMINATION: VITAL SIGNS: Temperature is 98, blood pressure is 103/60, and respiratory rate is 18. HEENT: Unremarkable. NECK: Supple. LUNGS: Decreased breath sounds. HEART: Normal S1 and S2. ABDOMEN: Soft. LABORATORY DATA: Reveals a white count of 11.2, hemoglobin of 10, BUN of 15, and creatinine 0.8. Urinalysis is noted. Serology is noted. Microbiology reveals blood cultures are positive, they are sensitive to Staph aureus. Repeat blood cultures are negative. REVIEW OF ORDERS: Reveal the patient to be on Ancef. ASSESSMENT AND PLAN: This is a 63-year-old male who was seen earlier this morning in room 561, bed 2. He is awake and alert and doing well and tolerating antibiotics well. He was admitted with sepsis with sensitive Staphylococcus aureus bacteremia with digital involvement cellulitis, today is day #5 of Ancef to complete 28 of 42 days pending on CBC, SMA-18, sed rate, and C-reactive protein once weekly. Davon López MD
== END 2019-02-25 18:27 | DRG 872 ==
LOC: ED 16:44 → ERH 19:01 → 5RNO 21:36
PROVIDERS: ADMIT Internal Medicine; ATTEND Internal Medicine
PROC: 0H9GXZZ Drainage of Left Hand Skin, External Approach (ICD-10-PCS; principal; 2019-02-19)
PROC: 0H9FXZZ Drainage of Right Hand Skin, External Approach (ICD-10-PCS; 2019-02-19)
PROC: 02HV33Z Insertion of Infusion Device into Superior Vena Cava, Percutaneous Approach (ICD-10-PCS; 2019-02-23)
PROC: B54NZZA Ultrasonography of Left Upper Extremity Veins, Guidance (ICD-10-PCS; 2019-02-23)
PROC: 3E04329 Introduction of Other Anti-infective into Central Vein, Percutaneous Approach (ICD-10-PCS; 2019-02-23)
DX: A41.01 Sepsis due to Methicillin susceptible Staphylococcus aureus (principal); L03.113 Cellulitis of right upper limb; L03.114 Cellulitis of left upper limb; G90.50 Complex regional pain syndrome I, unspecified; N39.0 Urinary tract infection, site not specified; B96.1 Klebsiella pneumoniae [K. pneumoniae] as the cause of diseases classified elsewhere; I11.0 Hypertensive heart disease with heart failure; I50.9 Heart failure, unspecified; L89.152 Pressure ulcer of sacral region, stage 2; E11.40 Type 2 diabetes mellitus with diabetic neuropathy, unspecified; G40.909 Epilepsy, unspecified, not intractable, without status epilepticus; I08.3 Combined rheumatic disorders of mitral, aortic and tricuspid valves; F32.9 Major depressive disorder, single episode, unspecified; F41.9 Anxiety disorder, unspecified; G89.4 Chronic pain syndrome; K59.00 Constipation, unspecified; Z86.73 Personal history of transient ischemic attack (TIA), and cerebral infarction without residual deficits; Z87.891 Personal history of nicotine dependence; Z79.4 Long term (current) use of insulin; Z98.1 Arthrodesis status; Z74.01 Bed confinement status; Z88.6 Allergy status to analgesic agent